=== PATIENT | female | born 1940 | race Caucasian/White ===

== ENCOUNTER 2018-11-14 14:09 | Inpatient (IN) | payer MEDICARE ==
[~2018-11-14] VITALS: Ht 165.1 cm; Wt 63.5 kg
[~2018-11-14 14:09] MED LIST: ALBU2.5V8 INH
[2018-11-14] MEDS ORDERED: methylPREDNISolone SOD SUCC PF 125 MG/2 ML VIAL. IV ONE (14:45)
[2018-11-14] MEDS ORDERED: ACETAMINOPHEN 500 MG TABLET PO ONE (14:45)
[2018-11-14] MEDS ORDERED: IV NORMAL SALINE 1000ML BAG 1,000 ML IV ONE ×2 (14:45)
[2018-11-14] MEDS ORDERED: PIPERACILLIN/TAZOBACTAM 3.375 GM in IV NORMAL SALINE 50ML 50 ML IV ONE (15:00)
[2018-11-14 15:24] LABS: BASO # 0.1 x10^3/uL (0.0-0.2); BASO % 1 % (0-3); EOS % 0 % (0-3); HEMATOCRIT 43.8 % (36.0-47.0); HEMOGLOBIN 14.4 g/dL (12.0-15.5); LYMPH # 0.6 x10^3/uL (1.0-4.8); LYMPH % 5 % (24-48); MEAN CORPUSCULAR HEMOGLOBIN 30 pg (25-35); MEAN CORPUSCULAR HGB CONC 33 g/dL (31-37); MEAN CORPUSCULAR VOLUME 91 fL (79-100); MONO # 0.7 x10^3/uL (0.0-1.1); MONO % 5 % (0-9); NEUT # 11.8 x10^3uL (1.8-7.7); NEUT % 89 % (31-73); PLATELET COUNT 150 x10^3/uL (140-400); RED BLOOD COUNT 4.82 x10^6/uL (3.50-5.40); RED CELL DISTRIBUTION WIDTH 14.2 % (11.5-14.5); WHITE BLOOD COUNT 13.3 x10^3/uL (4.0-11.0)
--- NOTE | 2018-11-14 15:26 | RAD ---
PORTABLE CHEST 1V Clinical indications: WEAK AND SHORT OF AIR COMPARISON: January 23, 2018. Findings: Chronic interstitial lung disease is seen bilaterally. However, there is a new consolidative infiltrate within the right lateral lung base. No pleural effusion or pneumothorax is seen. The heart size, pulmonary vasculature, mediastinum and both ambika are stable. Impression: Chronic interstitial lung disease. New consolidative lung infiltrate within the lateral right lung base. Electronically signed by: Bruce Ferrell MD (11/14/2018 3:23 PM) [place] [id number]
[2018-11-14 15:38] LABS: CREATININE 0.9 mg/dL (0.6-1.0); GFR 60.6; POTASSIUM 3.8 mmol/L (3.5-5.1)
[2018-11-14 15:45] LABS: ALBUMIN 3.8 g/dL (3.4-5.0); TOTAL BILIRUBIN 0.7 mg/dL (0.2-1.0); TOTAL PROTEIN 7.5 g/dL (6.4-8.2)
--- NOTE | 2018-11-14 15:48 | PHYS DOC ---
Past Medical History Past Medical History: COPD Past Surgical History: Hysterectomy Smoking: Quit Greater Than 1 Year Additional Information: quit in January Alcohol Use: Rarely Drug Use: None Adult General Chief Complaint Chief Complaint: SHORTNESS OF BREATH HPI HPI Patient is a 78 year old female history of COPD on home oxygen brought in by EMS because of shortness of breath. Patient complaining of shortness of breath since this morning with productive cough with clear sputum without chest pain, fever and chills, weakness, sick contact. EMS reported patient had hypoxia and treated with DuoNeb with improvement of O2 sat to 91-92% with nasal cannula. Review of Systems Review of Systems Constitutional: Denies fever or chills [] Eyes: Denies change in visual acuity, redness, or eye pain [] HENT: Denies nasal congestion or sore throat [] Respiratory: Reports cough and shortness of breath Cardiovascular: No additional information not addressed in HPI [] GI: Denies abdominal pain, nausea, vomiting, bloody stools or diarrhea [] : Denies dysuria or hematuria [] Musculoskeletal: Denies back pain or joint pain [] Integument: Denies rash or skin lesions [] Neurologic: Denies headache, focal weakness or sensory changes [] Endocrine: Denies polyuria or polydipsia [] All other systems were reviewed and found to be within normal limits, except as documented in this note. Current Medications Current Medications Current Medications Medications (Trade) Dose Ordered Sig/Maggy Start Time Stop Time Status Last Admin Dose Admin Acetaminophen (Tylenol) 1,000 mg 1X ONCE 11/14/18 14:45 11/14/18 14:50 DC 11/14/18 15:27 1,000 MG Methylprednisolone Sodium Succinate (SOLU-Medrol 125MG VIAL) 125 mg 1X ONCE 11/14/18 14:45 11/14/18 14:48 DC 11/14/18 15:29 125 MG Sodium Chloride 1,000 ml @ 1,000 mls/hr 1X ONCE 11/14/18 14:45 11/14/18 15:44 DC 11/14/18 15:27 1,000 MLS/HR Allergies Allergies Allergies Coded Allergies Type Severity Reaction Last Updated Verified No Known Drug Allergies 01/26/18 No Physical Exam Physical Exam Constitutional: Well developed, well nourished, moderate distress, non-toxic appearance, febrile. [] HENT: Normocephalic, atraumatic, oropharynx dry, no oral exudates, nose normal. [] Eyes: PERRLA, EOMI, conjunctiva normal, no discharge. [] Neck: Normal range of motion, no tenderness, supple, no stridor. [] Cardiovascular: Tachycardia, no murmur [] Lungs & Thorax: Mild respiratory distress with decrease of air movement and diffuse rhonchi and wheezing Abdomen: Bowel sounds normal, soft, no tenderness, no masses, no pulsatile masses. [] Skin: Warm, dry, no erythema, no rash. [] Back: No tenderness, no CVA tenderness. [] Extremities: No tenderness, no cyanosis, no clubbing, ROM intact, trace bilateral lower extremity edema. [] Neurologic: Alert and oriented X 3, normal motor function, normal sensory function, no focal deficits noted. [] Psychologic: Affect normal, judgement normal, mood normal. [] Current Patient Data Vital Signs Vital Signs Date Time Temp Pulse Resp B/P (MAP) Pulse Ox O2 Delivery O2 Flow Rate FiO2 11/14/18 14:18 102.4 123 26 151/70 (97) 91 Nasal Cannula 3.0 102.4 Lab Values EKG EKG EKG interpreted by me. EKG at 1432 showed sinus tachycardia rate of 1:30, PVCs, PACs, normal GA and QT interval worse, poor R-wave progress and anteroseptal leads. Radiology/Procedures Radiology/Procedures [facility] [address] [place] [address] IMAGING REPORT Signed PATIENT: MCKAY KHANNA ACCOUNT: [id number] : 1940 LOCATION: ER AGE: 78 SEX: F EXAM STATUS: REG ER ORD. PHYSICIAN: MARIO CACERES MD REASON: shortness of breath and fever 17/ER will call pt. getting lab and IV @ 3 :00 PROCEDURE: PORTABLE CHEST 1V PORTABLE CHEST 1V Clinical indications: WEAK AND SHORT OF AIR COMPARISON: January 23, 2018. Findings: Chronic interstitial lung disease is seen bilaterally. However, there is a new consolidative infiltrate within the right lateral lung base. No pleural effusion or pneumothorax is seen. The heart size, pulmonary vasculature, mediastinum and both ambika are stable. Impression: Chronic interstitial lung disease. New consolidative lung infiltrate within the lateral right lung base. Electronically signed by: Bruce Ferrell MD (11/14/2018 3:23 PM) [place] [id number] DICTATED and SIGNED BY: BRUCE FERRELL MD DATE: 11/14/18 1523 Course & Med Decision Making Course & Med Decision Making Pertinent Labs and Imaging studies reviewed. (See chart for details) Evaluation of patient in ER showed 78-year-old female patient with history of COPD brought in because of shortness of breath. Patient had fever of 102.9 with respiratory distress and tachycardia. Patient treated with IV fluid, antibiotic , Solu-Medrol and DuoNeb and felt better. Lactic acid was negative. Patient requiring admission for further evaluation and treatment. Discussed with Dr. Jay who is in agreement with admission. Discussed findings and plan with patient and family, who acknowledge understanding and agreement. Dragon Disclaimer Dragon Disclaimer This electronic medical record was generated, in whole or in part, using a voice recognition dictation system. Departure Departure Impression: Primary Impression: CAP (community acquired pneumonia) Additional Impressions: Acute respiratory distress Sepsis Disposition: 09 ADMITTED INPATIENT (at 1540) Admitting Physician: Jeyson Jay (accepted admission at 1540) Condition: GUARDED Referrals: UNKNOWN PCP NAME (PCP) Problem Qualifiers MARIO CACERES MD Nov 14, 2018 15:48
[2018-11-14 16:05] LABS: % BANDS 10 % (0-9); % EOS 1 % (0-5); % LYMPHS 2 % (24-48); % MONOS 5 % (0-10); % SEGS 82 % (35-66)
[2018-11-14 16:06] LABS: INFLUENZA A PATIENT NEGATIVE (NEGATIVE); INFLUENZA B PATIENT NEGATIVE (NEGATIVE)
[2018-11-14 16:07] LABS: PLT ESTIMATE ADEQUATE (ADEQUATE); TOXIC GRANULATION SLIGHT
--- NOTE | 2018-11-14 16:31 | EKG ---
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
[2018-11-14] MEDS ORDERED: ACETAMINOPHEN 325 MG TABLET. PO PRN (17:45)
[2018-11-14] MEDS ORDERED: ZOLPIDEM 5 MG TABLET. PO PRN (17:45)
[2018-11-14] MEDS ORDERED: MAG HYDROX/ALUMINUM HYD/SIMETH 30 ML ORAL.SUSP PO PRN (17:45)
[2018-11-14 18:00] VITALS: BP 129/57
[2018-11-14] MEDS ORDERED: ALBUTEROL SULFATE 2.5 MG/3 ML NEBU. NEB PRN (18:00)
[2018-11-14] MEDS ORDERED: PIP/TAZO PER PHARMACY MC PRN (18:00)
[2018-11-14] MEDS: IV NORMAL SALINE 1000ML BAG 1,000 ML IV SCH ×2 (18:00→23:55)
--- NOTE | 2018-11-14 18:04 | PDOC1 ---
History and Physical Date of Admission Date of Admission 11/14/18 Identification/Chief Complaint Chief Complaint SOA, hypoxia Source Source: Caregiver, Chart review, Patient History of Present Illness History of Present Illness She has been in her normal state of health and saw her transportation security officer last week - Dr. Danielson and told she was doing well enough to just use her O2 prn, she has a routine appt with me in a week but this am she was suddenly SOA and didn't look well and EMS summoned and she was hypoxic and transported to ER and found to be febrile and she had an elevated WBC and abnormal CXR consistent with pneumonia and admitted with sepsis and acute respiratory failure. She has received IVF, IV abx, IV steroids and neb treatments and feels much better. She denies chest pain, leg swelling, prolonged sitting, or GI or symptoms. She has had Prevnar 13. She is a former smoker but did smoke for 40+ yrs Past Medical History Cardiovascular: No pertinent hx Pulmonary: COPD GI: No pertinent hx Heme/Onc: No pertinent hx Hepatobiliary: No pertinent hx Psych: No pertinent hx, Other (OA) Infectious disease: No pertinent hx Renal/: No pertinent hx Endocrine: No pertinent hx Dermatology: No pertinent hx Past Surgical History Past Surgical History: Hysterectomy Family History Family History: Hypertension Social History Smoke: # pack years (40+ but quit about a year ago) ALCOHOL: social Drugs: None Current Problem List Problem List Problems Medical Problems: (1) Acute respiratory distress Status: Acute (2) CAP (community acquired pneumonia) Status: Acute (3) Sepsis Status: Acute Current Medications Current Medications Current Medications Medications (Trade) Dose Ordered Sig/Maggy Start Time Stop Time Status Last Admin Dose Admin Acetaminophen (Tylenol) 650 mg PRN Q6HRS PRN 11/14/18 17:45 UNV Al Hydroxide/Mg Hydroxide (Mylanta Plus Xs) 30 ml PRN Q3HRS PRN 11/14/18 17:45 UNV Methylprednisolone Sodium Succinate (SOLU-Medrol 125MG VIAL) 125 mg 1X ONCE 11/14/18 14:45 11/14/18 14:48 DC 11/14/18 15:29 125 MG Piperacillin Sod/ Tazobactam Sod 3.375 gm/Sodium Chloride 50 ml @ 100 mls/hr 1X ONCE 11/14/18 15:00 11/14/18 15:29 DC 11/14/18 15:31 100 MLS/HR Senna/Docusate Sodium (Senna Plus) 1 tab BID 11/14/18 21:00 UNV Sodium Chloride 1,000 ml @ 150 mls/hr Q6H40M 11/14/18 16:00 11/15/18 15:59 Zolpidem Tartrate (Ambien) 5 mg PRN QHS PRN 11/14/18 17:45 UNV Allergies Allergies Allergies Coded Allergies Type Severity Reaction Last Updated Verified No Known Drug Allergies 01/26/18 No ROS Review of System 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 Alert and oriented. HEENT: Head is normocephalic, atraumatic NECK: Supple. LUNGS: Wearing NC O2, Clear to auscultation. HEART: RRR, S1, S2 present. Peripheral pulses intact ABDOMEN: Soft, nontender. Positive bowel sounds. EXTREMITIES: Without any cyanosis. NEUROLOGIC: Normal speech, normal tone PSYCHIATRIC: Normal affect, normal mood. SKIN: No ulcerations Vitals Vitals Vital Signs Date Time Temp Pulse Resp B/P (MAP) Pulse Ox O2 Delivery O2 Flow Rate FiO2 11/14/18 17:08 Nasal Cannula 3.0 11/14/18 16:32 104 28 127/58 (81) 95 11/14/18 15:51 100.9 100.9 Labs Labs Laboratory Tests Test 11/14/18 15:05 White Blood Count 13.3 x10^3/uL (4.0-11.0) Red Blood Count 4.82 x10^6/uL (3.50-5.40) Hemoglobin 14.4 g/dL (12.0-15.5) Hematocrit 43.8 % (36.0-47.0) Mean Corpuscular Volume 91 fL (79-100) Mean Corpuscular Hemoglobin 30 pg (25-35) Mean Corpuscular Hemoglobin Concent 33 g/dL (31-37) Red Cell Distribution Width 14.2 % (11.5-14.5) Platelet Count 150 x10^3/uL (140-400) Neutrophils (%) (Auto) 89 % (31-73) Lymphocytes (%) (Auto) 5 % (24-48) Monocytes (%) (Auto) 5 % (0-9) Eosinophils (%) (Auto) 0 % (0-3) Basophils (%) (Auto) 1 % (0-3) Neutrophils # (Auto) 11.8 x10^3uL (1.8-7.7) Lymphocytes # (Auto) 0.6 x10^3/uL (1.0-4.8) Monocytes # (Auto) 0.7 x10^3/uL (0.0-1.1) Eosinophils # (Auto) 0.0 x10^3/uL (0.0-0.7) Basophils # (Auto) 0.1 x10^3/uL (0.0-0.2) Segmented Neutrophils % 82 % (35-66) Band Neutrophils % 10 % (0-9) Lymphocytes % 2 % (24-48) Monocytes % 5 % (0-10) Eosinophils % 1 % (0-5) Toxic Granulation Slight Platelet Estimate Adequate (ADEQUATE) Sodium Level 142 mmol/L (136-145) Potassium Level 3.8 mmol/L (3.5-5.1) Chloride Level 106 mmol/L (98-107) Carbon Dioxide Level 27 mmol/L (21-32) Anion Gap 9 (6-14) Blood Urea Nitrogen 23 mg/dL (7-20) Creatinine 0.9 mg/dL (0.6-1.0) Estimated GFR (Cockcroft-Gault) 60.6 BUN/Creatinine Ratio 26 (6-20) Glucose Level 124 mg/dL (70-99) Lactic Acid Level 1.4 mmol/L (0.4-2.0) Calcium Level 9.0 mg/dL (8.5-10.1) Total Bilirubin 0.7 mg/dL (0.2-1.0) Aspartate Amino Transf (AST/SGOT) 18 U/L (15-37) Alanine Aminotransferase (ALT/SGPT) 17 U/L (14-59) Alkaline Phosphatase 73 U/L (46-116) Creatine Kinase 88 U/L (26-192) Troponin I Quantitative < 0.017 ng/mL (0.000-0.055) WA-Efy-S-Type Natriuretic Peptide 457 pg/mL (0-449) Total Protein 7.5 g/dL (6.4-8.2) Albumin 3.8 g/dL (3.4-5.0) Albumin/Globulin Ratio 1.0 (1.0-1.7) Influenza Type A Antigen Negative (NEGATIVE) Influenza Type B Antigen Negative (NEGATIVE) Laboratory Tests Test 11/14/18 15:05 White Blood Count 13.3 x10^3/uL (4.0-11.0) Red Blood Count 4.82 x10^6/uL (3.50-5.40) Hemoglobin 14.4 g/dL (12.0-15.5) Hematocrit 43.8 % (36.0-47.0) Mean Corpuscular Volume 91 fL (79-100) Mean Corpuscular Hemoglobin 30 pg (25-35) Mean Corpuscular Hemoglobin Concent 33 g/dL (31-37) Red Cell Distribution Width 14.2 % (11.5-14.5) Platelet Count 150 x10^3/uL (140-400) Neutrophils (%) (Auto) 89 % (31-73) Lymphocytes (%) (Auto) 5 % (24-48) Monocytes (%) (Auto) 5 % (0-9) Eosinophils (%) (Auto) 0 % (0-3) Basophils (%) (Auto) 1 % (0-3) Neutrophils # (Auto) 11.8 x10^3uL (1.8-7.7) Lymphocytes # (Auto) 0.6 x10^3/uL (1.0-4.8) Monocytes # (Auto) 0.7 x10^3/uL (0.0-1.1) Eosinophils # (Auto) 0.0 x10^3/uL (0.0-0.7) Basophils # (Auto) 0.1 x10^3/uL (0.0-0.2) Segmented Neutrophils % 82 % (35-66) Band Neutrophils % 10 % (0-9) Lymphocytes % 2 % (24-48) Monocytes % 5 % (0-10) Eosinophils % 1 % (0-5) Toxic Granulation Slight Platelet Estimate Adequate (ADEQUATE) Sodium Level 142 mmol/L (136-145) Potassium Level 3.8 mmol/L (3.5-5.1) Chloride Level 106 mmol/L (98-107) Carbon Dioxide Level 27 mmol/L (21-32) Anion Gap 9 (6-14) Blood Urea Nitrogen 23 mg/dL (7-20) Creatinine 0.9 mg/dL (0.6-1.0) Estimated GFR (Cockcroft-Gault) 60.6 BUN/Creatinine Ratio 26 (6-20) Glucose Level 124 mg/dL (70-99) Lactic Acid Level 1.4 mmol/L (0.4-2.0) Calcium Level 9.0 mg/dL (8.5-10.1) Total Bilirubin 0.7 mg/dL (0.2-1.0) Aspartate Amino Transf (AST/SGOT) 18 U/L (15-37) Alanine Aminotransferase (ALT/SGPT) 17 U/L (14-59) Alkaline Phosphatase 73 U/L (46-116) Creatine Kinase 88 U/L (26-192) Troponin I Quantitative < 0.017 ng/mL (0.000-0.055) KK-Cfg-V-Type Natriuretic Peptide 457 pg/mL (0-449) Total Protein 7.5 g/dL (6.4-8.2) Albumin 3.8 g/dL (3.4-5.0) Albumin/Globulin Ratio 1.0 (1.0-1.7) Influenza Type A Antigen Negative (NEGATIVE) Influenza Type B Antigen Negative (NEGATIVE) Images Images PORTABLE CHEST 1V Clinical indications: WEAK AND SHORT OF AIR COMPARISON: January 23, 2018. Findings: Chronic interstitial lung disease is seen bilaterally. However, there is a new consolidative infiltrate within the right lateral lung base. No pleural effusion or pneumothorax is seen. The heart size, pulmonary vasculature, mediastinum and both ambika are stable. Impression: Chronic interstitial lung disease. New consolidative lung infiltrate within the lateral right lung base. Electronically signed by: Bruce Ferrell MD (11/14/2018 3:23 PM) [facility] VTE Prophylaxis Ordered VTE Prophylaxis Devices: No VTE Pharmacological Prophylaxi: Yes Assessment/Plan Assessment/Plan acute on chronic respiratory failure with hypoxia from community acquired pneumonia - admitted for pulm toilette, IV antibiotics and pulm consult. Influenza testing negative. sepsis - IV hydration COPD - neb treatments, she stopped Advair due to raspy voice but has been given samples of other inhalers in the past hx of tobacco use Lesli GONSALVES MD Nov 14, 2018 18:04
[2018-11-14 19:00] VITALS: BP 118/56
[2018-11-14] MEDS: IPRATRPIUM/ALBUTEROL 0.5/2.5MG 3 ML NEBU. NEB SCH (19:32)
[2018-11-14] MEDS: SENNOSIDES/DOCUSATE 8.6/50MG TABLET. PO SCH (20:49)
[2018-11-14] MEDS: PIPERACILLIN/TAZOBACTAM 3.375 GM in IV NORMAL SALINE 50ML 50 ML IV SCH ×2 (20:49→23:58)
[2018-11-14] MEDS: methylPREDNISolone SOD SUCC PF 40 MG/ML VIAL. IV SCH (20:49)
[2018-11-14 22:44] VITALS: BP 146/72
[2018-11-15 02:55] VITALS: BP 154/67
[2018-11-15 04:33] LABS: BASO % 0 % (0-3); EOS % 0 % (0-3); HEMATOCRIT 39.6 % (36.0-47.0); HEMOGLOBIN 12.9 g/dL (12.0-15.5); LYMPH # 0.6 x10^3/uL (1.0-4.8); LYMPH % 4 % (24-48); MEAN CORPUSCULAR HEMOGLOBIN 30 pg (25-35); MEAN CORPUSCULAR HGB CONC 33 g/dL (31-37); MEAN CORPUSCULAR VOLUME 92 fL (79-100); MONO # 0.3 x10^3/uL (0.0-1.1); MONO % 2 % (0-9); NEUT # 13.3 x10^3uL (1.8-7.7); NEUT % 94 % (31-73); PLATELET COUNT 134 x10^3/uL (140-400); RED BLOOD COUNT 4.29 x10^6/uL (3.50-5.40); WHITE BLOOD COUNT 14.2 x10^3/uL (4.0-11.0)
[2018-11-15 04:47] LABS: CALCIUM 8.1 mg/dL (8.5-10.1); GFR 53.6; POTASSIUM 3.5 mmol/L (3.5-5.1)
[2018-11-15] MEDS: IV NORMAL SALINE 1000ML BAG 1,000 ML IV SCH ×2 (05:20→10:25)
[2018-11-15] MEDS: methylPREDNISolone SOD SUCC PF 40 MG/ML VIAL. IV SCH ×3 (06:18→20:40)
[2018-11-15] MEDS: PIPERACILLIN/TAZOBACTAM 3.375 GM in IV NORMAL SALINE 50ML 50 ML IV SCH ×4 (06:19→23:32)
[2018-11-15] MEDS: IPRATRPIUM/ALBUTEROL 0.5/2.5MG 3 ML NEBU. NEB SCH ×4 (06:23→21:12)
[2018-11-15 07:10] VITALS: BP 116/77
--- NOTE | 2018-11-15 07:30 | PDOC ---
Provider Note Provider Note [id number] acute on chronic resp fail ae of copd pneumonia see orders. RICHARDSON DAHL MD Nov 15, 2018 07:30
[2018-11-15] MEDS: ENOXAPARIN 40 MG/0.4 ML SYRINGE. SQ SCH (08:14)
[2018-11-15] MEDS: PANTOPRAZOLE 40 MG TABLET.DR. PO SCH (08:14)
[2018-11-15] MEDS: SENNOSIDES/DOCUSATE 8.6/50MG TABLET. PO SCH ×3 (08:14→20:39)
--- NOTE | 2018-11-15 08:30 | CONS ---
DATE OF CONSULTATION: 11/15/2018 I was asked to see this 78-year-old lady for acute on chronic respiratory failure, pneumonia, acute exacerbation of chronic obstructive pulmonary disease. HISTORY OF PRESENT ILLNESS: She has a history of more than [id number] smoking and is on oxygen 2 liters per minute via nasal cannula. She has been followed by Dr. Danielson. She started to have increased shortness of breath, fever and wheezing yesterday. She did not have cough then, but has cough now. She denies gastroesophageal reflux symptoms, nausea or diarrhea. She has nasal congestion. She was brought to the Emergency Room via masks. She was hypoxemic on arrival. PAST MEDICAL HISTORY: COPD and chronic respiratory failure. PAST SURGICAL HISTORY: Status post hysterectomy. ALLERGIES: No known drug allergies. MEDICATIONS: Currently, she is on Solu-Medrol 40 mg IV every 8, DuoNeb and Zosyn. SOCIAL HISTORY: History of more than [id number] smoking. Quit smoking about a year ago. FAMILY HISTORY: There is no history of lung disease. REVIEW OF SYSTEMS: As mentioned as above, other systems otherwise negative. PHYSICAL EXAMINATION: GENERAL: This is a well-developed lady. VITAL SIGNS: O2 saturation on 3 liters of oxygen is 98%, respiratory rate 20, heart rate 77, blood pressure 154/67, temperature 98.2 and maximum temperature was 102.4 yesterday. HEENT: Normocephalic and atraumatic. Pupils are equal, round and reactive to light. There is shallow oropharynx. Nose is clear. NECK: There is no lymphadenopathy or thyromegaly. CARDIOVASCULAR: Regular rate and rhythm. Distant heart sounds. CHEST: Inspection is normal. LUNGS: There are a few end expiratory wheezing, right basilar crackles, dullness at the right base. ABDOMEN: Soft. Bowel sounds are good. EXTREMITIES: There is no edema. LYMPHATICS: There is no lymphadenopathy. NEUROLOGIC: Alert and oriented. SKIN: Chronic changes. LABORATORY DATA: I reviewed the following lab data: Chest x-ray shows increased interstitial marking and the right lower lobe infiltrate. Influenza A and B negative. WBC 14.2, hemoglobin 12.9 and platelets 134. Sodium 145, potassium 3.5, chloride 109, CO2 23, glucose 172, BUN 19 and creatinine 1. Troponin is less than 0.01. BNP 457. Lactic acid 1.4. IMPRESSION: 1. Acute on chronic respiratory failure secondary to acute exacerbation of chronic obstructive pulmonary disease, pneumonia versus others. 2. Abnormal chest x-ray. 3. Acute exacerbation of chronic obstructive pulmonary disease. 4. Pneumonia. 5. Ex-smoker. PLAN AND RECOMMENDATIONS: 1. Continue not smoking. 2. Continue Solu-Medrol. 3. Continue bronchodilator. 4. Add inhaled corticosteroid. 5. Lovenox for DVT prophylaxis. 6. Protonix for stress ulcer prophylaxis. 7. Monitor respiratory status very closely. 8. The findings and recommendations were discussed with the patient. She understood and agreed to proceed with the plan. I have answered all of her questions. Thank you very much for allowing me to participate in the care of this very nice lady. RICHARDSON DAHL M.D. : Jg JOB#: [id number] / [id number]
[2018-11-15] MEDS: BUDESONIDE 0.5 MG/2 ML NEBU. NEB SCH ×2 (10:56→21:12)
[2018-11-15 11:30] VITALS: BP 119/56
--- NOTE | 2018-11-15 12:59 | PDOC ---
PROGRESS NOTES Subjective She has been able to cough up some grayish green thick phlegm today, no new concerns, appetite ok, bowels moving, IV site in elbow yesterday caused overnight issues with sleep but it has been changed to hand site Objective General: A&O, coughing Heart: RRR Lungs: coarse breath sounds Abd: obese soft Ext: no C/C/E, thickened toenails, skin scaly WBC: 14 Vital Signs Vital Signs Date Time Temp Pulse Resp B/P (MAP) Pulse Ox O2 Delivery O2 Flow Rate FiO2 11/15/18 11:30 97.6 99 24 119/56 (77) 91 Nasal Cannula 3.0 97.6 I & O Intake and Output 11/15/18 06:59 Intake Total 2350 ml Output Total 0 ml Balance 2350 ml Intake Oral 300 ml IV Total 2050 ml Output Urine Total 0 ml Assessment and Plan (1) Acute respiratory failure- continue O2 and pulm treatments, add Mucinex Status: Acute (2) CAP (community acquired pneumonia) with sepsis - continue Zosyn Status: Acute (3) COPD - continue neb treatments - she is a former smoker Status: Acute Lesli GONSALVES MD Nov 15, 2018 12:59
--- NOTE | 2018-11-15 13:10 | RAD ---
Chest radiograph 11/15/2018 5:00 AM INDICATION: Infiltrates COMPARISON: November 14, 2018 TECHNIQUE: Portable upright frontal view of the chest is provided. FINDINGS: The cardiomediastinal silhouette is within normal limits. Suspect trace right pleural effusion without significant change. There is no pulmonary vascular congestion. There is no pneumothorax. Perihilar and bibasilar interstitial changes are similar compared to prior examination. Impression: There is similar aeration of lungs compared to prior examination. Electronically signed by: Kay Donnelly MD (11/15/2018 1:07 PM) [id number]
--- NOTE | 2018-11-15 13:31 | NUR ---
SW following pt for dc needs. Chart reviewed. Pt lives home alone. PT/OT pending. SW will await for PT/OT recommendation to assess dc needs.
[2018-11-15] MEDS: guaiFENesin DM 600/30MG 1 TAB TAB.ER.12H PO SCH ×2 (14:04→20:39)
[2018-11-15 15:00] VITALS: BP 141/87
[2018-11-15 19:00] VITALS: BP 140/68
[2018-11-15] MEDS: DOXYCYCLINE HYCLATE 100 MG TABLET PO SCH (20:39)
[2018-11-15] MEDS: LACTOBACILLUS RHAMNOSUS GG 1 CAPSULE. PO SCH (20:39)
[2018-11-15 22:16] VITALS: BP 150/72
[2018-11-16] VITALS (7 sets, daily range): BP systolic 141–172; BP diastolic 68–90
[2018-11-16] MEDS: methylPREDNISolone SOD SUCC PF 40 MG/ML VIAL. IV SCH ×3 (05:41→21:21)
[2018-11-16] MEDS: PIPERACILLIN/TAZOBACTAM 3.375 GM in IV NORMAL SALINE 50ML 50 ML IV SCH ×3 (05:49→18:13)
[2018-11-16] MEDS ORDERED: FUROSEMIDE 20 MG/2 ML VIAL. IVP ONE ×2 (06:00→10:15)
[2018-11-16] MEDS ORDERED: methylPREDNISolone SOD SUCC PF 40 MG/ML VIAL. IV ONE (06:00)
--- NOTE | 2018-11-16 06:22 | RAD ---
EXAM: AP View of the chest DATE: 11/16/2018 5:17 AM INDICATION: Hypoxia COMPARISON: 11/15/2018 FINDINGS: Mild cardiomegaly. Atherosclerotic calcifications of the tortuous aorta are seen. Background of emphysematous change. Bilateral parenchymal airspace opacities are seen, increased compared to 11/15/2018. Small bilateral pleural effusions. No pneumothorax. IMPRESSION: 1. Background of emphysematous change. 2. Superimposed bilateral airspace opacities, new/progressed compared to 11/15/2018. Given the relative rapid development, findings may represent superimposed pulmonary edema or consolidative process such as pneumonia. Electronically signed by: Reid Min MD (11/16/2018 6:19 AM) [id number]
[2018-11-16 06:37] LABS: BASE EXCESS ABG -2 mmol/L (-3-3); HCO3 ABG 23 mmol/L (21-28); PCO2 ABG 40 mmHg (35-46); PO2 ABG 71 mmHg (65-108); SAT O2 ABG 95 % (92-99)
[2018-11-16 06:42] LABS: FIO2 ABG 80
[2018-11-16] MEDS: BUDESONIDE 0.5 MG/2 ML NEBU. NEB SCH ×2 (07:29→20:35)
[2018-11-16] MEDS: IPRATRPIUM/ALBUTEROL 0.5/2.5MG 3 ML NEBU. NEB SCH ×4 (07:29→20:35)
--- NOTE | 2018-11-16 07:32 | PDOC ---
PULMONARY PROGRESS NOTES Subjective around 5 am, desat in 70s, i started her on bipap, lasix, solumedrol given, now on bipap, 07/13 rr 10 fio2, 80%, sat 98%, feels better, sob better, has cough Vitals Vital Signs Date Time Temp Pulse Resp B/P (MAP) Pulse Ox O2 Delivery O2 Flow Rate FiO2 11/16/18 05:20 92 BiPAP/CPAP 11/16/18 05:05 3.0 11/16/18 03:00 98.1 92 18 141/74 (96) 98.1 Comments ros as mentioned as above other sys otherwise neg ROS: No Nausea, No Chest Pain General: Alert, Oriented X4 HEENT: Other (nc at perrl thorat nose clear neck +jvd no lad no thyromegaly) Lungs: Wheezing, Crackles Cardiovascular: S1, S2 Abdomen: Soft, Non-tender Neuro Exam: Alert, Oriented Extremities: Other (+edema) Skin: Warm Labs Laboratory Tests Test 11/14/18 15:05 11/15/18 03:35 11/16/18 06:30 White Blood Count 13.3 x10^3/uL (4.0-11.0) 14.2 x10^3/uL (4.0-11.0) Red Blood Count 4.82 x10^6/uL (3.50-5.40) 4.29 x10^6/uL (3.50-5.40) Hemoglobin 14.4 g/dL (12.0-15.5) 12.9 g/dL (12.0-15.5) Hematocrit 43.8 % (36.0-47.0) 39.6 % (36.0-47.0) Mean Corpuscular Volume 91 fL (79-100) 92 fL (79-100) Mean Corpuscular Hemoglobin 30 pg (25-35) 30 pg (25-35) Mean Corpuscular Hemoglobin Concent 33 g/dL (31-37) 33 g/dL (31-37) Red Cell Distribution Width 14.2 % (11.5-14.5) 14.0 % (11.5-14.5) Platelet Count 150 x10^3/uL (140-400) 134 x10^3/uL (140-400) Neutrophils (%) (Auto) 89 % (31-73) 94 % (31-73) Lymphocytes (%) (Auto) 5 % (24-48) 4 % (24-48) Monocytes (%) (Auto) 5 % (0-9) 2 % (0-9) Eosinophils (%) (Auto) 0 % (0-3) 0 % (0-3) Basophils (%) (Auto) 1 % (0-3) 0 % (0-3) Neutrophils # (Auto) 11.8 x10^3uL (1.8-7.7) 13.3 x10^3uL (1.8-7.7) Lymphocytes # (Auto) 0.6 x10^3/uL (1.0-4.8) 0.6 x10^3/uL (1.0-4.8) Monocytes # (Auto) 0.7 x10^3/uL (0.0-1.1) 0.3 x10^3/uL (0.0-1.1) Eosinophils # (Auto) 0.0 x10^3/uL (0.0-0.7) 0.0 x10^3/uL (0.0-0.7) Basophils # (Auto) 0.1 x10^3/uL (0.0-0.2) 0.0 x10^3/uL (0.0-0.2) Segmented Neutrophils % 82 % (35-66) Band Neutrophils % 10 % (0-9) Lymphocytes % 2 % (24-48) Monocytes % 5 % (0-10) Eosinophils % 1 % (0-5) Toxic Granulation Slight Platelet Estimate Adequate (ADEQUATE) Sodium Level 142 mmol/L (136-145) 145 mmol/L (136-145) Potassium Level 3.8 mmol/L (3.5-5.1) 3.5 mmol/L (3.5-5.1) Chloride Level 106 mmol/L (98-107) 109 mmol/L (98-107) Carbon Dioxide Level 27 mmol/L (21-32) 23 mmol/L (21-32) Anion Gap 9 (6-14) 13 (6-14) Blood Urea Nitrogen 23 mg/dL (7-20) 19 mg/dL (7-20) Creatinine 0.9 mg/dL (0.6-1.0) 1.0 mg/dL (0.6-1.0) Estimated GFR (Cockcroft-Gault) 60.6 53.6 BUN/Creatinine Ratio 26 (6-20) Glucose Level 124 mg/dL (70-99) 172 mg/dL (70-99) Lactic Acid Level 1.4 mmol/L (0.4-2.0) Calcium Level 9.0 mg/dL (8.5-10.1) 8.1 mg/dL (8.5-10.1) Total Bilirubin 0.7 mg/dL (0.2-1.0) Aspartate Amino Transf (AST/SGOT) 18 U/L (15-37) Alanine Aminotransferase (ALT/SGPT) 17 U/L (14-59) Alkaline Phosphatase 73 U/L (46-116) Creatine Kinase 88 U/L (26-192) Troponin I Quantitative < 0.017 ng/mL (0.000-0.055) LN-Mfi-W-Type Natriuretic Peptide 457 pg/mL (0-449) Total Protein 7.5 g/dL (6.4-8.2) Albumin 3.8 g/dL (3.4-5.0) Albumin/Globulin Ratio 1.0 (1.0-1.7) Influenza Type A Antigen Negative (NEGATIVE) Influenza Type B Antigen Negative (NEGATIVE) O2 Saturation 95 % (92-99) Arterial Blood pH 7.37 (7.35-7.45) Arterial Blood pCO2 at Patient Temp 40 mmHg (35-46) Arterial Blood pO2 at Patient Temp 71 mmHg (65-108) Arterial Blood HCO3 23 mmol/L (21-28) Arterial Blood Base Excess -2 mmol/L (-3-3) FiO2 80 Laboratory Tests Test 11/16/18 06:30 O2 Saturation 95 % (92-99) Arterial Blood pH 7.37 (7.35-7.45) Arterial Blood pCO2 at Patient Temp 40 mmHg (35-46) Arterial Blood pO2 at Patient Temp 71 mmHg (65-108) Arterial Blood HCO3 23 mmol/L (21-28) Arterial Blood Base Excess -2 mmol/L (-3-3) FiO2 80 Medications Active Scripts Medications Dose Route/Sig Max Daily Dose Days Date Category Proair Hfa Inhaler (Albuterol Sulfate) 8.5 Gm Hfa.aer.ad 1 Puff INH PRN Q6HRS PRN 01/26/18 Reported Comments cxr reviewed, b lat infilt worse on ll area Impression . IMPRESSION: 1. Acute on chronic respiratory failure secondary to acute exacerbation of chronic obstructive pulmonary disease, pneumonia, ?pulm edema versus others. 2. Abnormal chest x-ray. 3. Acute exacerbation of chronic obstructive pulmonary disease. 4. Pneumonia. 5. Ex-smoker. Plan . PLAN AND RECOMMENDATIONS: 1. worse, s/p solumedrol, lasix, cont bipap, when stable prn during day, continuously at night, setting reviewed, abg, reviewed, titrate fio2 to keep sat 92% 2. Continue Solu-Medrol, no dose change 3. Continue bronchodilator. 4. inhaled corticosteroid. 5. Lovenox for DVT prophylaxis. 6. Protonix for stress ulcer prophylaxis. 7. Monitor respiratory status very closely. 8. Continue not smoking. 9. bnp elevated, ? pulm edema, will do echo 10. cont abx discussed w rn, pt RICHARDSON DAHL MD Nov 16, 2018 07:32
--- NOTE | 2018-11-16 10:39 | PDOC ---
PROGRESS NOTES Subjective She woke up about 5 am due to dyspnea (orthopneic) and Dr. Scruggs was notified and she ordered a CXR, ABG, and gave her 20 mg of IV lasix and placed her on Bipap and she improved. pH was 7.37, CXR consistent with CHF, she diuresed some and is no longer SOA but when recently taken off Bipap she desaturated to 87%. Chart states IVF she was on initially for sepsis protocol were stopped yesterday but pt says they were stopped this am. I was not made aware of any of this at the time only to discover pt on Bipap with family members in room with a lot of questions. Pt denies any chest pain this am or overnight and does not have a cardiac history Objective Afebrile General: comfortable, not panicky, wearing Bipap, A&O Heart: RRR Lungs: clear anteriorly Abd: soft, non tender Ext: trace edema of feet WBC: 14.2 AB.37/40/71 Vital Signs Vital Signs Date Time Temp Pulse Resp B/P (MAP) Pulse Ox O2 Delivery O2 Flow Rate FiO2 11/16/18 07:29 98 BiPAP/CPAP 11/16/18 07:25 97.9 92 17 141/68 (92) 3.0 97.9 I & O Intake and Output 11/16/18 07:00 Intake Total 900 ml Output Total 2 ml Balance 898 ml Intake Oral 850 ml IV Total 50 ml Output Urine Total 2 ml # Voids 1 Assessment and Plan acute on chronic respiratory failure with hypoxia from community acquired pneumonia - admitted for pulm toilette, IV antibiotics and pulm consult. Influenza testing negative. 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
[2018-11-16] MEDS: SENNOSIDES/DOCUSATE 8.6/50MG TABLET. PO SCH ×2 (10:55→20:56)
[2018-11-16] MEDS: DOXYCYCLINE HYCLATE 100 MG TABLET PO SCH ×2 (10:55→20:57)
[2018-11-16] MEDS: LACTOBACILLUS RHAMNOSUS GG 1 CAPSULE. PO SCH ×2 (10:55→20:56)
[2018-11-16] MEDS: guaiFENesin DM 600/30MG 1 TAB TAB.ER.12H PO SCH ×2 (10:55→20:56)
[2018-11-16] MEDS: PANTOPRAZOLE 40 MG TABLET.DR. PO SCH (10:56)
[2018-11-16] MEDS: ENOXAPARIN 40 MG/0.4 ML SYRINGE. SQ SCH (10:57)
--- NOTE | 2018-11-16 11:52 | NUR ---
FACULTY CO-SIGN I have reviewed the documentation by Seng Nunes nursing center tutor, [facility]: Addendum: 11/16/18 at 1152 by SATHISH BURTON RN Amended: Links added.
--- NOTE | 2018-11-16 13:00 | EKG ---
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
--- NOTE | 2018-11-16 13:11 | PDOC2 ---
CARDIOLOGY CONSULT NOTE CHEIF COMPLAINT: Shortness of air HPI: 78-year-old woman admitted initially for pneumonia and treated for such with aggressive fluids and antibiotics for sepsis protocol. In this setting she had an episode of shortness of breath this morning requiring initiation above noninvasive ventilation. Yash Chen was asked to comment on her reason for dyspnea. At baseline patient is quite limited due to her severe COPD and prior history of tobacco abuse. She does not have any angina. Currently she is on a BiPAP mask and denies any chest pain. No significant palpitations, syncope at home. No orthopnea or PND. She does not have any significant lower extremity edema according to her family. PMHX: #1 COPD 2. Hypertension 3. Pulmonary hypertension 4. Moderate aortic insufficiency. SOCHX: Quit smoking one year ago. No alcohol or illicit drug use. She lives with her . FAMHX: Noncontributory CURRENT MEDS: Current Medications Medications (Trade) Dose Ordered Sig/Maggy Start Time Stop Time Status Last Admin Dose Admin Acetaminophen (Tylenol) 650 mg PRN Q6HRS PRN 11/14/18 17:45 Al Hydroxide/Mg Hydroxide (Mylanta Plus Xs) 30 ml PRN Q3HRS PRN 11/14/18 17:45 Albuterol Sulfate (Ventolin Neb Soln) 2.5 mg PRN Q4HRS PRN 11/14/18 18:00 Albuterol/ Ipratropium (Duoneb) 3 ml RTQID 11/14/18 20:00 11/16/18 11:22 3 ML Budesonide (Pulmicort) 0.5 mg RTBID 11/15/18 08:00 11/16/18 07:29 0.5 MG Doxycycline Hyclate (Vibra-Tab) 100 mg BID 11/15/18 21:00 11/16/18 10:55 100 MG Enoxaparin Sodium (Lovenox 40mg Syringe) 40 mg Q24H 11/15/18 08:00 11/16/18 10:57 40 MG Furosemide (Lasix) 20 mg 1X ONCE 11/16/18 10:15 11/16/18 10:25 DC 11/16/18 10:55 20 MG Guaifenesin (MUCINEX ER with DM) 1 tab BID 11/15/18 13:00 11/16/18 10:55 1 TAB Lactobacillus Rhamnosus (Culturelle) 1 cap BID 11/15/18 21:00 11/16/18 10:55 1 CAP Methylprednisolone Sodium Succinate (SOLU-Medrol 40MG VIAL) 80 mg 1X ONCE 11/16/18 06:00 11/16/18 06:01 DC 11/16/18 05:37 80 MG Methylprednisolone Sodium Succinate (SOLU-Medrol 125MG VIAL) 125 mg 1X ONCE 11/14/18 14:45 11/14/18 14:48 DC 11/14/18 15:29 125 MG Pantoprazole Sodium (Protonix) 40 mg DAILYAC 11/15/18 07:30 11/16/18 10:56 40 MG Piperacillin Sod/ Tazobactam Sod (Zosyn Per Pharmacy) 1 each PRN DAILY PRN 11/14/18 18:00 Piperacillin Sod/ Tazobactam Sod 3.375 gm/Sodium Chloride 50 ml @ 100 mls/hr Q6HRS 11/14/18 19:00 11/16/18 05:49 100 MLS/HR Senna/Docusate Sodium (Senna Plus) 1 tab BID 11/14/18 21:00 11/16/18 10:55 1 TAB Sodium Chloride 1,000 ml @ 150 mls/hr Q6H40M 11/14/18 16:00 11/15/18 15:59 DC 11/15/18 10:25 150 MLS/HR Zolpidem Tartrate (Ambien) 5 mg PRN QHS PRN 11/14/18 17:45 ALLERGIES: Allergies Coded Allergies Type Severity Reaction Last Updated Verified No Known Drug Allergies 01/26/18 No ROS: Negative for 10 out of 14 systems reviewed unless otherwise mentioned above in history of present illness PHYSICAL EXAM: Vital Signs: Vital Signs Date Time Temp Pulse Resp B/P (MAP) Pulse Ox O2 Delivery O2 Flow Rate FiO2 11/16/18 13:01 93 BiPAP/CPAP 11/16/18 11:38 97.8 102 18 153/77 (102) 3.0 97.8 I & O Intake and Output 11/16/18 07:00 Intake Total 900 ml Output Total 2 ml Balance 898 ml Intake Oral 850 ml IV Total 50 ml Output Urine Total 2 ml # Voids 1 Physical Exam: On examination she is an elderly woman appearing older than stated age Heart tones are within normal limits with no significant murmurs noted Decreased breath sounds bilaterally at the bases. Soft abdomen Trace lower ext edema bilaterally with chronic venous stasis changes Neurologically no focal deficits Muscular skeletal no obvious trauma. DIAGNOSTIC TESTING: Previous echo with moderate pulmonary hypertension and moderate aortic insufficiency. Approximately a year ago. BNP mildly elevated at 457 consistent with diastolic heart failure acute on chronic Lab ABG consistent with hypoxic respiratory failure Chest x-ray notable for increased pulmonary edema ASSESSMENT: 1. Acute on chronic diastolic heart failure with acute on chronic respiratory failure 2. Chronic tobacco abuse, quit one year ago 3. Probable pneumonia PLAN: 1. Agree with diuresis. 2. The etiology of her decomposition is likely diastolic heart failure and probable moderate pulmonary hypertension. Continue treatment for her pneumonia and diuresis as renal function allows. 3. We will obtain echocardiogram ensure no significant changes to her valvular pathology although by exam it appears to be stable Supportive care from a cardiac standpoint. Thank you for this consultation. We will follow along. DEMI DUNCAN MD Nov 16, 2018 13:11
[2018-11-17] MEDS: PIPERACILLIN/TAZOBACTAM 3.375 GM in IV NORMAL SALINE 50ML 50 ML IV SCH ×4 (00:08→18:05)
[2018-11-17 03:15] VITALS: BP 164/86
[2018-11-17] MEDS: methylPREDNISolone SOD SUCC PF 40 MG/ML VIAL. IV SCH ×2 (06:17→20:24)
--- NOTE | 2018-11-17 07:43 | PDOC ---
PULMONARY PROGRESS NOTES Subjective on bipap, sob cough better, no pain Vitals Vital Signs Date Time Temp Pulse Resp B/P (MAP) Pulse Ox O2 Delivery O2 Flow Rate FiO2 11/17/18 05:20 BiPAP/CPAP 11/17/18 03:15 97.5 75 16 164/86 (112) 95 97.5 11/16/18 19:15 6.0 Comments ros as mentioned as above other sys otherwise neg ROS: No Nausea, No Chest Pain General: Alert, Oriented X4 HEENT: Other (nc at perrl thorat nose clear neck +jvd no lad no thyromegaly) Lungs: Crackles Cardiovascular: S1, S2 Abdomen: Soft, Non-tender Neuro Exam: Alert, Oriented Extremities: Other (+edema) Skin: Warm Labs Laboratory Tests Test 11/16/18 06:30 11/16/18 12:10 11/16/18 19:30 O2 Saturation 95 % (92-99) Arterial Blood pH 7.37 (7.35-7.45) Arterial Blood pCO2 at Patient Temp 40 mmHg (35-46) Arterial Blood pO2 at Patient Temp 71 mmHg (65-108) Arterial Blood HCO3 23 mmol/L (21-28) Arterial Blood Base Excess -2 mmol/L (-3-3) FiO2 80 Troponin I Quantitative 0.026 ng/mL (0.000-0.055) 0.034 ng/mL (0.000-0.055) ZD-Jly-U-Type Natriuretic Peptide 4082 pg/mL (0-449) Laboratory Tests Test 11/16/18 12:10 11/16/18 19:30 Troponin I Quantitative 0.026 ng/mL (0.000-0.055) 0.034 ng/mL (0.000-0.055) ZO-Iqk-M-Type Natriuretic Peptide 4082 pg/mL (0-449) Medications Active Scripts Medications Dose Route/Sig Max Daily Dose Days Date Category Proair Hfa Inhaler (Albuterol Sulfate) 8.5 Gm Hfa.aer.ad 1 Puff INH PRN Q6HRS PRN 01/26/18 Reported Comments cxr reviewed, b lat infilt worse on ll area Impression . IMPRESSION: 1. Acute on chronic respiratory failure secondary to acute exacerbation of chronic obstructive pulmonary disease, pneumonia, acute diastolic chf, versus others. 2. Abnormal chest x-ray. 3. Acute exacerbation of chronic obstructive pulmonary disease. 4. Pneumonia. 5. Ex-smoker. 6. mod AI Plan . PLAN AND RECOMMENDATIONS: 1. cont bipap, prn during day, continuously at night, setting reviewed, titrate fio2 to keep sat 92% 2. change Solu-Medrol to bid 3. Continue bronchodilator. 4. inhaled corticosteroid. 5. Lovenox for DVT prophylaxis. 6. Protonix for stress ulcer prophylaxis. 7. Monitor respiratory status very closely. 8. Continue not smoking. 9. keep I<O, lasix per cardiology 10. cont abx discussed w rn, pt RICHARDSON DAHL MD Nov 17, 2018 07:43
[2018-11-17 07:46] VITALS: BP 169/80
[2018-11-17] MEDS: SENNOSIDES/DOCUSATE 8.6/50MG TABLET. PO SCH ×2 (09:00→20:23)
[2018-11-17] MEDS: IPRATRPIUM/ALBUTEROL 0.5/2.5MG 3 ML NEBU. NEB SCH ×4 (09:00→19:44)
[2018-11-17] MEDS: BUDESONIDE 0.5 MG/2 ML NEBU. NEB SCH ×2 (09:01→19:44)
[2018-11-17 11:24] VITALS: BP 137/75
[2018-11-17] MEDS: ENOXAPARIN 40 MG/0.4 ML SYRINGE. SQ SCH (11:24)
[2018-11-17] MEDS: DOXYCYCLINE HYCLATE 100 MG TABLET PO SCH ×2 (11:24→20:22)
[2018-11-17] MEDS: PANTOPRAZOLE 40 MG TABLET.DR. PO SCH (11:24)
[2018-11-17] MEDS: guaiFENesin DM 600/30MG 1 TAB TAB.ER.12H PO SCH ×2 (11:25→20:22)
[2018-11-17] MEDS: LACTOBACILLUS RHAMNOSUS GG 1 CAPSULE. PO SCH ×2 (11:25→20:22)
--- NOTE | 2018-11-17 12:46 | PDOC ---
PROGRESS NOTES Subjective Still needing Bipap, had some blood in sputum, she is worried she has lung cancer but imaging studies have not been consistent with that, no chest pain, appetite good, slept well last night. Lab yesterday showed 10 fold increase in proBNP than at admission and mild elevation of troponin consistent with demand ischemia Objective Afebrile General: Bipap off for her to eat lunch, breathing comfortably Heart: RRR Lungs: diminished breath sounds Abd: soft and non tender Ext: no C/C/E Vital Signs Vital Signs Date Time Temp Pulse Resp B/P (MAP) Pulse Ox O2 Delivery O2 Flow Rate FiO2 11/17/18 11:56 91 Nasal Cannula 3.0 11/17/18 11:24 98.9 103 17 137/75 (95) 98.9 I & O Intake and Output 11/17/18 07:00 Intake Total 1250 ml Balance 1250 ml Intake Oral 1250 ml # Voids 2 Assessment and Plan s: (1) Acute respiratory distress Status: Acute (2) CAP (community acquired pneumonia) Status: Acute (3) Sepsis Status: Acute acute on chronic respiratory failure with hypoxia from community acquired pneumonia - admitted for pulm toilette, IV antibiotics and pulm consult. Influenza testing negative. 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
[2018-11-17 15:20] VITALS: BP 156/77
[2018-11-17 19:15] VITALS: BP 165/91
[2018-11-17] MEDS ORDERED: FUROSEMIDE 40 MG/4 ML VIAL. IVP ONE (19:15)
[2018-11-17 23:20] VITALS: BP 155/78
[2018-11-18] VITALS (7 sets, daily range): BP systolic 111–183; BP diastolic 68–92
[2018-11-18] MEDS: PIPERACILLIN/TAZOBACTAM 3.375 GM in IV NORMAL SALINE 50ML 50 ML IV SCH ×4 (00:20→18:12)
[2018-11-18] MEDS: IPRATRPIUM/ALBUTEROL 0.5/2.5MG 3 ML NEBU. NEB SCH ×4 (07:02→19:53)
[2018-11-18] MEDS: BUDESONIDE 0.5 MG/2 ML NEBU. NEB SCH ×2 (07:03→19:53)
[2018-11-18] MEDS: LACTOBACILLUS RHAMNOSUS GG 1 CAPSULE. PO SCH ×2 (07:59→20:31)
[2018-11-18] MEDS: DOXYCYCLINE HYCLATE 100 MG TABLET PO SCH ×2 (07:59→20:31)
[2018-11-18] MEDS: SENNOSIDES/DOCUSATE 8.6/50MG TABLET. PO SCH ×2 (07:59→20:31)
[2018-11-18] MEDS: PANTOPRAZOLE 40 MG TABLET.DR. PO SCH (07:59)
[2018-11-18] MEDS: FUROSEMIDE 40 MG/4 ML VIAL. IVP SCH ×2 (08:00→14:44)
[2018-11-18] MEDS: methylPREDNISolone SOD SUCC PF 40 MG/ML VIAL. IV SCH ×2 (08:01→20:31)
[2018-11-18] MEDS: ENOXAPARIN 40 MG/0.4 ML SYRINGE. SQ SCH (08:01)
--- NOTE | 2018-11-18 08:52 | NUR ---
SW following pt. PT/OT has been on hold for medical reasons. Will continue to follow.
--- NOTE | 2018-11-18 09:12 | CARD ---
MR#: [id number] Date of Study: 11/18/2018 Ordering Physician: Tank GONSALEVS, Referring Physician: Tank GONSALVES Tech: Sarah Bermudez RDCS APPROVED REPORT EXAM: Two-dimensional and M-mode echocardiogram with Doppler and color Doppler. Other Information Quality : Fair INDICATION COPD Congestive Heart Failure 2D DIMENSIONS RVDd2.3 (2.9-3.5cm)Left Atrium(2D)3.7 (1.6-4.0cm) IVSd0.9 (0.7-1.1cm)Aortic Root(2D)2.7 (2.0-3.7cm) LVDd5.0 (3.9-5.9cm)LVOT Diameter2.0 (1.8-2.4cm) PWd0.9 (0.7-1.1cm)LVDs3.1 (2.5-4.0cm) FS (%) 30.0 %SV78.7 ml LVEF(%)60.0 (>50%) Aortic Valve AoV Peak Mono.143.3cm/sAoV VTI26.1cm AO Peak GR.8.2mmHgLVOT Peak Mono.115.2cm/s AO Mean GR.4mmHgAVA (VMAX)2.50cm2 RAJI (VTI)2.07mw7VY P 1/2 Ldwi324vc Mitral Valve MV E Pbnlmfnd405.4cm/sMV DECEL MOKW86ml MV A Iurkoavc044.1cm/sE/A Ratio0.9 Tricuspid Valve TR P. Spzmphdg234zx/sRAP RUGGBNVY9iqHt TR Peak Gr.59alSgCKER61cqXn Pulmonary Vein S1 Utfujkds74.3cm/sD2 Nkowrtuq59.8cm/s LEFT VENTRICLE The left ventricle is normal size. There is normal left ventricular wall thickness. The left ventricu lar systolic function is low normal. EF 45-50%. There is mild global hypokinesis. Transmitral Doppler flow pattern is Grade I-abnormal relaxation pattern. RIGHT VENTRICLE The right ventricle is normal size. The right ventricular systolic function is normal. ATRIA The left atrium is mildly dilated. The right atrium size is normal. The interatrial septum is intact with no evidence for an atrial septal defect or patent foramen ovale as noted on 2-D or Doppler imagi ng. AORTIC VALVE The aortic valve is not well visualized. Doppler and Color Flow revealed mild to moderate aortic regu rgitation. There is no significant aortic valvular stenosis. MITRAL VALVE The mitral valve is calcified but opens well. There is no evidence of mitral valve prolapse. There is no mitral valve stenosis. Doppler and Color-flow revealed mild mitral regurgitation. TRICUSPID VALVE The tricuspid valve is normal in structure and function. Doppler and Color Flow revealed mild tricusp id regurgitation. There is moderate pulmonary hypertension. The PA pressure was estimated at 58 mmHg. There is no tricuspid valve stenosis. PULMONIC VALVE The pulmonic valve is not well visualized. Doppler and Color Flow revealed no pulmonic valvular regur gitation. There is no pulmonic valvular stenosis. GREAT VESSELS The aortic root is normal in size. The ascending aorta is normal in size. The IVC is normal in size a nd collapses <50% with inspiration. PERICARDIAL EFFUSION There is no evidence of significant pericardial effusion. Critical Notification Critical Value: No <Conclusion> The left ventricular systolic function is low normal. EF 45-50%. There is mild global hypokinesis. Doppler and Color Flow revealed mild to moderate aortic regurgitation. Doppler and Color Flow revealed mild tricuspid regurgitation. There is moderate pulmonary hypertensio n. The PA pressure was estimated at 58 mmHg. Signed by : Rodolfo Hudson, Electronically Approved : 11/18/2018 09:11:40
--- NOTE | 2018-11-18 11:00 | NUR ---
GIACOMO following pt. Per pt and daughter request, SW assisted pt with AD form. Pt completed and signed AD form. Pt provided with original notarized AD and copies to take home. A copy placed in pt's chart. Pt and daughter are interested in addressing code status. OLY RN about consulting Palliative care to address code status. Pt has home 02 but does not have bipap at home. RN reports pt has been using Bipap at night. Rx for Bipap needed if pt will need equipment at home.
[2018-11-18] MEDS: guaiFENesin DM 600/30MG 1 TAB TAB.ER.12H PO SCH ×2 (11:19→20:31)
[2018-11-18] MEDS ORDERED: LISINOPRIL 10 MG TABLET PO ONE (12:30)
[2018-11-18] MEDS ORDERED: amLODIPine BESYLATE 5 MG TABLET PO ONE (12:30)
--- NOTE | 2018-11-18 12:38 | PDOC ---
CARDIOLOGY PROGRESS NOTE SUBJECTIVE: No acute events overnight. No significant changes in symptoms. Off Bipap now. OBJECTIVE: Vital SIgns: SBP > 150 consistently. 88% on 4L, HR 88 I & O Unable to keep accurate I/O's. Objective: a/o x 3. NAD Regular. No m/r/g PULM: Decreased breath sounds bilaterally. Rales at the bases. Soft abd. No significant edema. 1+ pulses radial/pulses. CURRENT MEDICATIONS: Lasix 40mg IVP BID DIAGNOSTIC TESTING: No new labs. No new CXR. Echo with mild LV dysfunction. ASSESSMENT: 1. Acute on chronic resp failure - PNA versus COPD exacerbation 2. Acute on chronic diastolic HF - Mild LV dysfunction. 3. HTN - Stage 2. PLAN: 1. Add amlodipine, lisinopril to her regimen 2. Continue lasix. 3. Will repeat labs today/repeat CXR. DEMI DUNCAN MD Nov 18, 2018 12:38
--- NOTE | 2018-11-18 13:03 | PDOC ---
PULMONARY PROGRESS NOTES Subjective off bipap, sob cough better, no pain Vitals Vital Signs Date Time Temp Pulse Resp B/P (MAP) Pulse Ox O2 Delivery O2 Flow Rate FiO2 11/18/18 12:26 95 156/74 (101) 11/18/18 11:59 85 Nasal Cannula 4.0 11/18/18 11:00 97.9 24 97.9 Comments ros as mentioned as above other sys otherwise neg ROS: No Nausea, No Chest Pain General: Alert, Oriented X4 HEENT: Other (nc at perrl thorat nose clear neck +jvd no lad no thyromegaly) Lungs: Other (decrease right base) Cardiovascular: S1, S2 Abdomen: Soft, Non-tender Neuro Exam: Alert, Oriented Extremities: Other (+edema) Skin: Warm Labs Laboratory Tests Test 11/16/18 19:30 Troponin I Quantitative 0.034 ng/mL (0.000-0.055) Medications Active Scripts Medications Dose Route/Sig Max Daily Dose Days Date Category Proair Hfa Inhaler (Albuterol Sulfate) 8.5 Gm Hfa.aer.ad 1 Puff INH PRN Q6HRS PRN 01/26/18 Reported Comments cxr reviewed, b lat infilt worse on ll area Impression . IMPRESSION: 1. Acute on chronic respiratory failure secondary to acute exacerbation of chronic obstructive pulmonary disease, ?pneumonia, acute systolic chf, with worsening bilateral interstitial infiltrates, suspect related to CHF 2. Abnormal chest x-ray, suspect WORSENING CHF 3. Acute exacerbation of chronic obstructive pulmonary disease. 4. Pneumonia. 5. Ex-smoker. 6. mod AI, EF 45% Plan . 1. prn bipap, continuously at night, setting reviewed, titrate fio2 to keep sat 92% 2. Solu-Medrol 3. Continue bronchodilator. 4. inhaled corticosteroid. 5. Lovenox for DVT prophylaxis. 6. Protonix for stress ulcer prophylaxis. 7. Monitor respiratory status very closely. 8. Continue not smoking. 9. keep I<O, lasix per cardiology/ Responding to lasix 10. cont abx repeat cxr in am inocencio painter rn, pt DAQUAN CANALES MD Nov 18, 2018 13:03
--- NOTE | 2018-11-18 13:42 | NUR ---
SW following pt. Spoke with pt about PT/OT recommendation for SNU. Discussed about options and insurance coverage. Pt chose [facility] stating it is closer to her . SW phoned and faxed referral to [facility]. Pt acceptance and admission pending. Will continue to follow.
[2018-11-18 16:02] LABS: CALCIUM 9.5 mg/dL (8.5-10.1); CREATININE 1.2 mg/dL (0.6-1.0); GFR 43.4; POTASSIUM 3.7 mmol/L (3.5-5.1)
--- NOTE | 2018-11-18 16:35 | NUR ---
Pt has been accepted at [facility] pending insurance auth. Insurance auth pending. OLY RN and Physician.
--- NOTE | 2018-11-18 16:41 | PDOC ---
PROGRESS NOTES Subjective She is having some loose stool but otherwise about the same, she will need SNU and is awaiting acceptance at [facility], she remains on O2 and Bipap at night, echo shows some cardiomyopathy and now on lisinopril and amlodipine, she also has pulmonary hypertension Objective Afebrile General: A&O, NAD, on NC O2 Heart: RRR Lungs: diminished but clear Abd: soft, active bowel sounds Ext: no edema or cyanosis K+: 3.7 Creat: 1.2 Vital Signs Vital Signs Date Time Temp Pulse Resp B/P (MAP) Pulse Ox O2 Delivery O2 Flow Rate FiO2 11/18/18 15:28 92 Nasal Cannula 5.0 11/18/18 15:17 98.6 86 20 143/73 (96) 98.6 I & O Intake and Output 11/18/18 07:00 Intake Total 740 ml Output Total 2 ml Balance 738 ml Intake Oral 740 ml Output Urine Total 2 ml # Voids 4 # Bowel Movements 3 Assessment and Plan -acute on chronic respiratory failure with hypoxia from community acquired pneumonia - admitted for pulm toilette, IV antibiotics and pulm consult. Influenza testing negative. 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
--- NOTE | 2018-11-19 02:15 | NUR ---
See paper chart for medication administered during [employer] downtime.
[2018-11-19 03:30] VITALS: BP 142/78
[2018-11-19] MEDS: PIPERACILLIN/TAZOBACTAM 3.375 GM in IV NORMAL SALINE 50ML 50 ML IV SCH ×3 (05:55)
[2018-11-19 07:20] VITALS: BP 155/70
--- NOTE | 2018-11-19 07:55 | RAD ---
Portable chest, 11/19/2018: HISTORY: Congestive heart failure Comparison is made to a study from 11/16/2018. The heart is within normal limits in size. Bilateral mixed interstitial and acinar opacities have improved. There is a probable small amount of residual right-sided pleural fluid. No left-sided pleural fluid is evident. No new abnormality is detected. IMPRESSION: Pulmonary infiltrates have partially cleared most compatible with improving pulmonary edema due to congestive heart failure. Electronically signed by: Linden Davis MD (11/19/2018 7:52 AM) [facility]
[2018-11-19] MEDS: ENOXAPARIN 40 MG/0.4 ML SYRINGE. SQ SCH (08:02)
[2018-11-19] MEDS: PANTOPRAZOLE 40 MG TABLET.DR. PO SCH (08:03)
[2018-11-19] MEDS: SENNOSIDES/DOCUSATE 8.6/50MG TABLET. PO SCH (08:03)
[2018-11-19] MEDS: IPRATRPIUM/ALBUTEROL 0.5/2.5MG 3 ML NEBU. NEB SCH ×2 (08:04→11:18)
[2018-11-19] MEDS: LACTOBACILLUS RHAMNOSUS GG 1 CAPSULE. PO SCH (08:04)
[2018-11-19] MEDS: FUROSEMIDE 40 MG/4 ML VIAL. IVP SCH ×2 (08:04→14:58)
[2018-11-19] MEDS: methylPREDNISolone SOD SUCC PF 40 MG/ML VIAL. IV SCH (08:04)
[2018-11-19] MEDS: DOXYCYCLINE HYCLATE 100 MG TABLET PO SCH (08:04)
[2018-11-19] MEDS: BUDESONIDE 0.5 MG/2 ML NEBU. NEB SCH (08:04)
[2018-11-19] MEDS ORDERED: amLODIPine BESYLATE 5 MG TABLET PO SCH (09:00)
[2018-11-19] MEDS ORDERED: guaiFENesin DM 600/30MG 1 TAB TAB.ER.12H PO SCH (09:00)
[2018-11-19] MEDS ORDERED: LISINOPRIL 20 MG TABLET PO SCH (09:00)
--- NOTE | 2018-11-19 11:06 | NUR ---
SW following pt. Insurance has approved skilled. Spoke with pt's daughter, Khadijah, and discussed dc plan. Daughter agreeable. SW will await for dc order and proceed accordingly. RN to notify Physician.
[2018-11-19 11:17] VITALS: BP 149/73
--- NOTE | 2018-11-19 11:31 | PDOC2 ---
PALLIATIVE CARE Palliative Care Note Palliative Care Consult requested by Dr. Jay to address Code Status Medical Assessment per medical record 1. Acute on chronic respiratory failure secondary to acute exacerbation of chronic obstructive pulmonary disease, ?pneumonia, acute systolic chf, with worsening bilateral interstitial infiltrates, suspect related to CHF 2. Abnormal chest x-ray, suspect WORSENING CHF 3. Acute exacerbation of chronic obstructive pulmonary disease. 4. Pneumonia. 5. Ex-smoker. 6. mod AI, EF 45% Met with patient. Alert and oriented. Patient is aware of her medical condition. Discussed her medical condition and code status. Reviewed risks and benefits of resuscitation. She would like more time to think about it before making a decision. Offered to meet with patient and family. Plan: Patient undecided. Will remain Full code. Family Meeting offered. BG WALDEN Nov 19, 2018 11:31
--- NOTE | 2018-11-19 11:45 | PDOC ---
PULMONARY PROGRESS NOTES Subjective off bipap, sob cough better, no pain Vitals Vital Signs Date Time Temp Pulse Resp B/P (MAP) Pulse Ox O2 Delivery O2 Flow Rate FiO2 11/19/18 11:19 99 Nasal Cannula 5.0 11/19/18 11:17 98.0 88 20 149/73 (98) 98.0 Comments ros as mentioned as above other sys otherwise neg ROS: No Nausea, No Chest Pain General: Alert, Oriented X4 HEENT: Other (nc at perrl thorat nose clear neck +jvd no lad no thyromegaly) Lungs: Other (decrease right base) Cardiovascular: S1, S2 Abdomen: Soft, Non-tender Neuro Exam: Alert, Oriented Extremities: Other (+edema) Skin: Warm Labs Laboratory Tests Test 11/18/18 15:40 Sodium Level 142 mmol/L (136-145) Potassium Level 3.7 mmol/L (3.5-5.1) Chloride Level 99 mmol/L (98-107) Carbon Dioxide Level 34 mmol/L (21-32) Anion Gap 9 (6-14) Blood Urea Nitrogen 30 mg/dL (7-20) Creatinine 1.2 mg/dL (0.6-1.0) Estimated GFR (Cockcroft-Gault) 43.4 Glucose Level 140 mg/dL (70-99) Calcium Level 9.5 mg/dL (8.5-10.1) Laboratory Tests Test 11/18/18 15:40 Sodium Level 142 mmol/L (136-145) Potassium Level 3.7 mmol/L (3.5-5.1) Chloride Level 99 mmol/L (98-107) Carbon Dioxide Level 34 mmol/L (21-32) Anion Gap 9 (6-14) Blood Urea Nitrogen 30 mg/dL (7-20) Creatinine 1.2 mg/dL (0.6-1.0) Estimated GFR (Cockcroft-Gault) 43.4 Glucose Level 140 mg/dL (70-99) Calcium Level 9.5 mg/dL (8.5-10.1) Medications Active Scripts Medications Dose Route/Sig Max Daily Dose Days Date Category Proair Hfa Inhaler (Albuterol Sulfate) 8.5 Gm Hfa.aer.ad 1 Puff INH PRN Q6HRS PRN 01/26/18 Reported Comments cxr reviewed, 11/19 much improved CHF Impression . IMPRESSION: 1. Acute on chronic respiratory failure secondary to acute exacerbation of chronic obstructive pulmonary disease,AND acute systolic chf, with worsening bilateral interstitial infiltrates, suspect related to CHF 2. Abnormal chest x-ray, t WORSENING CHF, NOW IMPROVING 3. Acute exacerbation of chronic obstructive pulmonary disease. 4. Pneumonia. 5. Ex-smoker. 6. mod AI, EF 45% Plan . 1. prn bipap, CLINICALLY MUCH BETTER 2. dc Solu-Medrol , NO po STEROID 3. Continue bronchodilator. 4. inhaled corticosteroid. 5. Lovenox for DVT prophylaxis. 6. Protonix for stress ulcer prophylaxis. 7. keep I<O, lasix per cardiology/ Responding to lasix 8. CAN DC abx discussed w rn, pt OK WITH DC TO SKILL, PRN BIPAP DAQUAN CANALES MD Nov 19, 2018 11:45
[2018-11-19] MEDS ORDERED: AMLO5TAB10 PO (12:32)
[2018-11-19] MEDS ORDERED: GUAI-108 PO (12:32)
[2018-11-19] MEDS ORDERED: FURO20TA3 PO (12:32)
[2018-11-19] MEDS ORDERED: IPRA3AMP29 NEB (12:32)
[2018-11-19] MEDS ORDERED: LISI-130 PO (12:32)
[2018-11-19] MEDS ORDERED: Pantoprazole PO (12:32)
[2018-11-19] MEDS ORDERED: ZOLP5TAB PO (12:32)
[2018-11-19] MEDS ORDERED: BUDE0.5A NEB (12:32)
--- NOTE | 2018-11-19 12:35 | SNU/HH DC ---
DISCHARGE ORDERS DISCHARGE INFORMATION: DISCHARGE DATE: Nov 19, 2018 FINAL DIAGNOSIS Problems Medical Problems: (1) Acute respiratory distress Status: Acute (2) CAP (community acquired pneumonia) Status: Acute (3) Sepsis Status: Acute CONDITION ON DISCHARGE: Stable CODE STATUS: Code Status: Full POST DISCHARGE ORDERS: ACTIVITY ORDERS: Activity as tolerated WEIGHT BEARING STATUS: Full weight bearing DIET AFTER DISCHARGE: Cardiac CHECKS AFTER DISCHARGE: CHECKS AFTER DISCHARGE: Weigh Yourself Daily FOLLOW-UP: PHYSICIAN FOLLOW-UP: Dr. Gonsalves 1-2 weeks after SNU discharge TREATMENT/EQUIPMENT ORDERS: RESPIRATORY EQUIPMENT NEEDED: Oxygen Physical Therapy For: Evalulation/Treatment Occupational Therapy For: Evaluation/Treatment DISCHARGE MEDICATIONS: Home Meds Reported Medications Albuterol Sulfate (PROAIR HFA INHALER) 8.5 Gm Hfa.aer.ad, 1 PUFF INH PRN Q6HRS PRN for SHORTNESS OF BREATH, INHALER 0 Refills 01/26/18 Lesli GONSALVES MD Nov 19, 2018 12:35
--- NOTE | 2018-11-19 13:59 | SNU/HH DC ---
DISCHARGE ORDERS DISCHARGE INFORMATION: DISCHARGE DATE: Nov 19, 2018 FINAL DIAGNOSIS Problems Medical Problems: (1) Acute respiratory distress Status: Acute (2) CAP (community acquired pneumonia) Status: Acute (3) Sepsis Status: Acute CONDITION ON DISCHARGE: Stable CODE STATUS: Code Status: Full MCC: SNF STAY <30 DAYS: Yes POST DISCHARGE ORDERS: ACTIVITY ORDERS: Activity as tolerated WEIGHT BEARING STATUS: Full weight bearing DIET AFTER DISCHARGE: Cardiac CHECKS AFTER DISCHARGE: CHECKS AFTER DISCHARGE: Weigh Yourself Daily FOLLOW-UP: PHYSICIAN FOLLOW-UP: Dr. Gonsalves 1-2 weeks after SNU discharge TREATMENT/EQUIPMENT ORDERS: RESPIRATORY EQUIPMENT NEEDED: Oxygen Physical Therapy For: Evalulation/Treatment Occupational Therapy For: Evaluation/Treatment DISCHARGE MEDICATIONS: Home Meds Active Scripts Furosemide (FUROSEMIDE) 20 Mg Tablet, 1 TAB PO DAILY for water pill, #30 TAB 5 Refills Prov:Lesli GONSALVES MD 11/19/18 [Pantoprazole] 40 MG TABLET.DR Piña Conflict Check, 40 MG PO DAILYAC for ulcer prevention for 30 Days Prov:Lesli GONSALVES MD 11/19/18 Budesonide (BUDESONIDE) 0.5 Mg/2 Ml Ampul.neb, 0.5 MG NEB RTBID for copd for 30 Days, EACH Prov:Lesli GONSALVES MD 11/19/18 Guaifenesin/Dextromethorphan (MUCINEX DM ER 600-30 MG TABLET) 1 Each Tab.er.12h , 1 TAB PO BID for mucous in lungs for 30 Days, #60 TAB.SR Prov:Lesli GONSALVES MD 11/19/18 Zolpidem Tartrate (AMBIEN) 5 Mg Tablet, 5 MG PO PRN QHS PRN for INSOMNIA, MAY REPEAT IN 1HR for 30 Days, TAB Prov:Lesli GONSALVES MD 11/19/18 Lisinopril (LISINOPRIL) 40 Mg Tablet, 20 MG PO DAILY for heart for 30 Days, #15 TAB Prov:Lesli GONSALVES MD 11/19/18 Amlodipine Besylate (AMLODIPINE BESYLATE) 5 Mg Tablet, 5 MG PO DAILY for bp for 30 Days, #30 TAB Prov:Lesli GONSALVES MD 11/19/18 Ipratropium/Albuterol Sulfate (DUONEB 0.5-3(2.5) MG/3 ML) 3 Ml Ampul.neb, 3 ML NEB RTQID for lungs for 30 Days, #120 EACH Prov:Lesli GONSALVES MD 11/19/18 Reported Medications Albuterol Sulfate (PROAIR HFA INHALER) 8.5 Gm Hfa.aer.ad, 1 PUFF INH PRN Q6HRS PRN for SHORTNESS OF BREATH, INHALER 0 Refills 01/26/18 Lseli GONSALVES MD Nov 19, 2018 13:59
--- NOTE | 2018-11-19 15:30 | NUR ---
SW following pt. Orders faxed to [facility] and packet on chart. Pt will transport via facility arranged w/c van between [id number]. Pt's choice and rights forms signed by pt and copies on chart. OLY RN and pt's daughter, Larisa.
--- NOTE | 2018-11-19 15:38 | PDOC ---
CARDIO Progress Notes Date and Time Date of Service 11/19/2018 Time of Evaluation 1520 Subjective Subjective: No Chest Pain, No shortness of breath, No Palpitations Vitals Vitals Vital Signs Date Time Temp Pulse Resp B/P (MAP) Pulse Ox O2 Delivery O2 Flow Rate FiO2 11/19/18 11:19 99 Nasal Cannula 5.0 11/19/18 11:17 98.0 88 20 149/73 (98) 98.0 Weight Weight [ ] Input and Output Intake and Output Intake and Output 11/19/18 07:00 Intake Total 1010 ml Output Total 401 ml Balance 609 ml Intake Oral 1010 ml Output Urine Total 400 ml Urine/Stool Mix 1 ml # Voids 6 Laboratory Labs Laboratory Tests Test 11/18/18 15:40 Sodium Level 142 mmol/L (136-145) Potassium Level 3.7 mmol/L (3.5-5.1) Chloride Level 99 mmol/L (98-107) Carbon Dioxide Level 34 mmol/L (21-32) Anion Gap 9 (6-14) Blood Urea Nitrogen 30 mg/dL (7-20) Creatinine 1.2 mg/dL (0.6-1.0) Estimated GFR (Cockcroft-Gault) 43.4 Glucose Level 140 mg/dL (70-99) Calcium Level 9.5 mg/dL (8.5-10.1) Microbiology Micro Microbiology 11/14/18 Blood Culture - Preliminary, Resulted NO GROWTH AFTER 4 DAYS Physical Exam HEENT: Neck Supple W Full Motion Chest: Symmetric LUNGS: Other (diminisehd bases) Heart: S1S2, RRR (SR) Abdomen: Soft N/T Extremities: No Edema, No Calf Tenderness Neurology: alert, oriented, follow commands Assessment Assessment 1. Acute on chronic resp failure with AECOPD and acute CHF 2. Acute on chronic diastolic HF - Mild LV dysfunction. compensated. EF 45-50% 3. HTN - Stage 2. 4. Moderate AI Recommendations 1. Continue norvasc and lisinopril and lasix. ECASA 81 mg 2. Will consider for outpt stress test. Follow up in office in 4 weeks 3. Statin per lipid level 4. OK to DC to SNU. MAHOGANY WEBSTER APRN Nov 19, 2018 15:38
--- NOTE | 2018-11-19 15:46 | NUR ---
Discharge Note: MCKAY KHANNA Discharge instructions and discharge home medications reviewed with Joe at [facility] and a copy given. All questions have been answered and understanding verbalized. The following instructions and handouts were given: transfer of care Discontinued lines and drains: 20 gauge right wrist. tip intact. patient tolerated well. Patient discharged to [facility] via transport.
[2018-11-19 16:26] LABS: CHOLESTEROL/HDL RATIO 1.8
--- NOTE | 2018-11-21 17:57 | PDOC3 ---
Discharge Summary [facility] Date of Admission: Nov 14, 2018 Discharge Date: Nov 19, 2018 Admitting Diagnosis acute respiratory failure from pneumonia with sepsis Final Diagnosis Problems Medical Problems: (1) Acute respiratory distress Status: Acute (2) CAP (community acquired pneumonia) Status: Acute (3) Sepsis Status: Acute CONSULTS Pulm, cardiology, palliative care Procedures none Brief Hospital Course Ms. Caal is a 78 old who presented with: -acute on chronic respiratory failure with hypoxia from community acquired pneumonia - admitted for pulm toilette, IV antibiotics and pulm consult. Influenza testing negative. Required Bipap and ongoing O2. 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 but has been given samples of other inhalers in the past and treated with neb treatments -hx of tobacco use but she was able to quit during hospitalization -acute diastolic heart failure - improved after IV lasix, pro BNP went from 400 to 4,000 due to IV fluids from sepsis protocol, troponin slightly elevated consistent with demand ischemia, echo shows pulm HTN and EF of 45% with global hypokinesis, cardiology following and started Lasix, lisinopril, amlodipine Disposition SNU - [facility] CONDITION AT DISCHARGE: Improved, Stable Diet cardiac, no smoking Scheduled Amlodipine Besylate (Amlodipine Besylate), 5 MG PO DAILY Budesonide (Budesonide), 0.5 MG NEB RTBID Furosemide (Furosemide), 1 TAB PO DAILY Guaifenesin/Dextromethorphan (Mucinex Dm Er 600-30 Mg Tablet), 1 TAB PO BID Ipratropium/Albuterol Sulfate (Duoneb 0.5-3(2.5) Mg/3 Ml), 3 ML NEB RTQID Lisinopril (Lisinopril), 20 MG PO DAILY [Pantoprazole], 40 MG PO DAILYAC Scheduled PRN Albuterol Sulfate (Proair Hfa Inhaler), 1 PUFF INH PRN Q6HRS PRN for SHORTNESS OF BREATH, (Reported) Zolpidem Tartrate (Ambien), 5 MG PO PRN QHS PRN for INSOMNIA, MAY REPEAT IN 1HR Follow Up 1-2 weeks after SNU discharge Lesli GONSALVES MD Nov 21, 2018 17:57
== END 2018-11-19 15:40 | DRG 871 ==
LOC: ER 14:09 → 6 SOUTH 14:51
PROVIDERS: ADMIT Family Medicine; ATTEND Family Medicine
PROC: 5A09357 Assistance with Respiratory Ventilation, Less than 24 Consecutive Hours, Continuous Positive Airway Pressure (ICD-10-PCS; principal; 2018-11-16)
PROC: 5A09357 Assistance with Respiratory Ventilation, Less than 24 Consecutive Hours, Continuous Positive Airway Pressure (ICD-10-PCS; 2018-11-17)
PROC: 5A09357 Assistance with Respiratory Ventilation, Less than 24 Consecutive Hours, Continuous Positive Airway Pressure (ICD-10-PCS; 2018-11-18)
DX: A41.9 Sepsis, unspecified organism (principal); J96.21 Acute and chronic respiratory failure with hypoxia; J18.9 Pneumonia, unspecified organism; I50.33 Acute on chronic diastolic (congestive) heart failure; J44.1 Chronic obstructive pulmonary disease with (acute) exacerbation; J44.0 Chronic obstructive pulmonary disease with (acute) lower respiratory infection; I35.1 Nonrheumatic aortic (valve) insufficiency; I11.0 Hypertensive heart disease with heart failure; I27.20 Pulmonary hypertension, unspecified; Z51.5 Encounter for palliative care; Z99.81 Dependence on supplemental oxygen; Z90.710 Acquired absence of both cervix and uterus; Z87.891 Personal history of nicotine dependence; Z82.49 Family history of ischemic heart disease and other diseases of the circulatory system
CPT/HCPCS: 36415; 36600; 71045; 80048; 80053; 80061; 82550; 82805; 83605; 83880; 84484; 85007; 85025; 87040; 87804; 93005; 93306; 94640; 94660; 94760; 96365; 96375; J1650; J1940; J2543; J2920; J2930; J7030; J7620; J7626; 99285-25

== ENCOUNTER → 2020-11-05 | Outpatient (CLI) | payer MEDICARE ==
[~2020-11-05] MED LIST changes: +AMLO-186 PO; +BUDE0.5A NEB; +FURO20TA3 PO; +GUAI-108 PO; +IPRA3AMP29 NEB; +LISI-130 PO; +Pantoprazole PO; +ZOLP5TAB PO
[2020-11-05 11:17] LABS: CALCIUM 8.7 mg/dL (8.5-10.1); CREATININE 1.9 mg/dL (0.6-1.0); GFR 25.4; POTASSIUM 4.4 mmol/L (3.5-5.1)
--- NOTE | 2020-11-05 16:47 | RAD ---
PA and lateral chest. HISTORY: Short of air PA and lateral views were taken of the chest. Comparison is made with a study from 2019. There is dif fuse interstitial lung disease with interval worsening compared to the prior study. Worsening fibrosi s or worsening interstitial pneumonia could have this pattern. Heart is normal in size. There is no p leural effusion. IMPRESSION: 1. Diffuse worsening of interstitial lung disease. Electronically signed by: Champ Fry MD (11/05/2020 4:44 PM) [id number]
== END ==
LOC: LAB 10:41
PROVIDERS: ATTEND Internal Medicine Pulmonary Disease
DX: R06.02 Shortness of breath (principal)
CPT/HCPCS: 36415; 71046; 80048; 83880

== ENCOUNTER → 2020-11-12 | Outpatient (CLI) | payer MEDICARE ==
[2020-11-12 12:34] LABS: CALCIUM 8.8 mg/dL (8.5-10.1); POTASSIUM 4.4 mmol/L (3.5-5.1)
--- NOTE | 2020-11-13 09:20 | RAD ---
EXAM: XR CHEST 2V 11/12/2020 11:51 AM CLINICAL INDICATION: Shortness of breath COMPARISON: Chest radiograph 11/05/2020 TECHNIQUE: PA and lateral views of the chest FINDINGS: The heart and mediastinum are normal. Lungs are hyperexpanded. Peripheral opacities in the right upper lobe are unchanged from 11/05/2020 but new from 11/19/2018. Interstitial opacities in the l bentley bases are unchanged. A calcified granuloma in the right lung base is unchanged. No pleural effusi on or pneumothorax. No acute osseous abnormalities. IMPRESSION: Mixed findings of COPD with superimposed interstitial changes in the lung bases and righ t upper lobe. In the right upper lobe, this appears new from 2019, although similar to 11/05/2020. This could be due to progression of interstitial lung disease or superimposed pneumonia. Electronically signed by: Lelo Santana MD (11/13/2020 9:17 AM) [id number]
== END ==
LOC: RAD 11:20
PROVIDERS: ATTEND Internal Medicine Pulmonary Disease
DX: J44.9 Chronic obstructive pulmonary disease, unspecified (principal); J84.10 Pulmonary fibrosis, unspecified
CPT/HCPCS: 36415; 71046; 80048

== ENCOUNTER → 2021-02-22 | Outpatient (CLI) | payer MEDICARE ==
--- NOTE | 2021-02-22 16:55 | RAD ---
EXAM: CT CHEST WITHOUT CONTRAST HISTORY: Abnormal CT at [facility], shortness of breath COMPARISON: CTA chest 01/26/2018. TECHNIQUE: Helical CT of the chest performed without contrast. Coronal and sagittal reformats were o btained. One or more of the following individualized dose reduction techniques were utilized for this examinat ion: 1. Automated exposure control 2. Adjustment of the mA and/or kV according to patient size 3. Use of iterative reconstruction technique. FINDINGS: Thyroid gland and thoracic inlet: Normal. Heart and great vessels: Heart is normal in size. No pericardial effusion. There are coronary artery calcifications. The thoracic aorta is normal in caliber. Mild calcified aortic atherosclerosis. Mediastinum and ambika: Grossly unchanged prominent mediastinal and hilar lymph nodes including of 1.2 cm short axis AP window lymph node. Lungs and pleura: There is severe centrilobular emphysema. Increased subpleural reticular opacities t hroughout the lungs. There is a new irregular nodular opacity at the posterior right apex measuring a pproximately 2.6 x 2.0 cm with adjacent pleural thickening. There is associated architectural distort ion with new bandlike opacities extending inferiorly from the nodule to the right hilum and to the la teral chest wall. There is a calcified granuloma in the right lower lobe, unchanged. Patchy consolida tive opacities in the lingula, right middle and lower lobes, and tree-in-bud opacities in the lung ba ses on CT from 01/26/2018 have resolved Chest wall and axillae: No axillary lymphadenopathy. Breast tissue is symmetric. Upper abdomen: Probable exophytic simple cyst in the mid left kidney measuring approximately 4.5 cm c yst, incompletely evaluated. Bones: No acute osseous abnormality. There is dextroscoliosis of the thoracic spine IMPRESSION: 1. Since CT chest 01/26/2018, there is a new irregular 2.6 cm nodular opacity in the right apex with a djacent pleural thickening and architectural distortion extending to the right hilum. This is suspici ous for malignancy. Recommend PET/CT to further evaluate. 2. Unchanged severe centrilobular emphysema with increased superimposed interstitial lung disease. 3. Unchanged mildly enlarged mediastinal and hilar lymph nodes. Electronically signed by: Lelo Santana MD (02/22/2021 4:52 PM) [id number]
== END ==
LOC: CT 10:37
PROVIDERS: ATTEND Internal Medicine Pulmonary Disease
DX: J43.2 Centrilobular emphysema (principal); R91.1 Solitary pulmonary nodule; J84.10 Pulmonary fibrosis, unspecified; J84.9 Interstitial pulmonary disease, unspecified; R59.0 Localized enlarged lymph nodes; I25.10 Atherosclerotic heart disease of native coronary artery without angina pectoris; I70.0 Atherosclerosis of aorta; R93.89 Abnormal findings on diagnostic imaging of other specified body structures
CPT/HCPCS: 71250

== ENCOUNTER 2021-03-22 11:30 | Inpatient (IN) | payer MEDICARE ==
[~2021-03-22] VITALS: Ht 162.6 cm; Wt 80.5 kg
--- NOTE | 2021-03-22 11:59 | PHYS DOC ---
Past Medical History Past Medical History: COPD Past Surgical History: Other Smoking Status: Former Smoker Alcohol Use: None Drug Use: None General Adult EDM: Chief Complaint: SHORTNESS OF BREATH HPI: HPI: 80-year-old female presents to the emergency department complaining of shortness of breath for the last 3 weeks that has been gradually progressive. She denies any fever, cough, chest pain or any other symptoms. She reports feeling fatigued when she walks short distances, but not at rest. She has no history of atrial fibrillation does not take any blood thinners or treatment. She reports she does take high blood pressure medicine. She has otherwise been in her normal health and denies any recent illness. She has been vaccinated for COVID- 19. Denies any history of blood clots in the past. The patient denies nausea, vomiting, fever, chills, chest pain, abdominal pain, urinary symptoms, cough, recent trauma, or any other complaints. Review of Systems: Review of Systems: Review of systems otherwise negative except for what is mentioned in the HPI Heart Score: C/O Chest Pain: No Allergies: Allergies: Allergies Coded Allergies Type Severity Reaction Last Updated Verified No Known Drug Allergies 03/22/21 No Physical Exam: PE: Constitutional: No acute distress, non-toxic appearance. HENT: Atraumatic, bilateral external ears normal, nose normal. Eyes: PERRLA, EOMI, conjunctiva normal, no discharge. Neck: Normal range of motion, supple, no stridor. Cardiovascular: Heart rate irregularly irregular, palpable around 100 bpm Lungs & Thorax: No respiratory distress, symmetrical expansion. Bilateral breath sounds clear to auscultation Abdomen: Soft, no tenderness Skin: Warm, dry. Extremities: No tenderness, no cyanosis, ROM intact, no edema. Neurologic: Alert and oriented X 3, normal motor function, normal sensory function, no focal deficits noted. Non ataxic gait. GCS 15. Psychologic: Affect normal, judgment normal, mood normal. Current Patient Data: Labs: Laboratory Tests Test 03/22/21 11:45 03/22/21 12:11 White Blood Count 10.4 x10^3/uL (4.0-11.0) Red Blood Count 4.24 x10^6/uL (3.50-5.40) Hemoglobin 12.8 g/dL (12.0-15.5) Hematocrit 38.3 % (36.0-47.0) Mean Corpuscular Volume 90 fL (79-100) Mean Corpuscular Hemoglobin 30 pg (25-35) Mean Corpuscular Hemoglobin Concent 33 g/dL (31-37) Red Cell Distribution Width 14.6 % (11.5-14.5) Platelet Count 173 x10^3/uL (140-400) Neutrophils (%) (Auto) 75 % (31-73) Lymphocytes (%) (Auto) 15 % (24-48) Monocytes (%) (Auto) 8 % (0-9) Eosinophils (%) (Auto) 1 % (0-3) Basophils (%) (Auto) 1 % (0-3) Neutrophils # (Auto) 7.8 x10^3/uL (1.8-7.7) Lymphocytes # (Auto) 1.6 x10^3/uL (1.0-4.8) Monocytes # (Auto) 0.9 x10^3/uL (0.0-1.1) Eosinophils # (Auto) 0.1 x10^3/uL (0.0-0.7) Basophils # (Auto) 0.1 x10^3/uL (0.0-0.2) Sodium Level 146 mmol/L (136-145) Potassium Level 4.5 mmol/L (3.5-5.1) Chloride Level 110 mmol/L (98-107) Carbon Dioxide Level 25 mmol/L (21-32) Anion Gap 11 (6-14) Blood Urea Nitrogen 45 mg/dL (7-20) Creatinine 2.0 mg/dL (0.6-1.0) Estimated GFR (Cockcroft-Gault) 24.0 Glucose Level 106 mg/dL (70-99) Calcium Level 9.0 mg/dL (8.5-10.1) Troponin I Quantitative < 0.017 ng/mL (0.000-0.055) QC-Nld-C-Type Natriuretic Peptide 3673 pg/mL (0-449) Thyroid Stimulating Hormone (TSH) 4.428 uIU/mL (0.358-3.74) SARS-CoV-2 Antigen (Rapid) Negative (NEGATIVE) Vital Signs: Vital Signs Date Time Temp Pulse Resp B/P (MAP) Pulse Ox O2 Delivery O2 Flow Rate FiO2 03/22/21 11:52 93 Nasal Cannula 5.0 03/22/21 11:45 97.8 101 31 137/71 97.8 EKG: EKG: Atrial fibrillation rate of 114, no ST-T wave changes, normal axis, normal TN, QRS, and QTc intervals. Impression: Atrial fibrillation interpreted by Brandi mcnulty D.O. Radiology/Procedures: Radiology/Procedures: PROCEDURE: PORTABLE CHEST 1V XR CHEST 1V History: Reason: shortness of air / Spl. Instructions: / History: Comparison: November 12, [address] February 22, 2021 Findings: Moderate diffuse interstitial thickening with ill-defined opacities. No pleural effusion. No pneumothorax. Emphysematous changes. Normal heart size. Impression: 1. Moderate diffuse interstitial thickening with ill-defined opacities, may represent pulmonary edema or infection. Electronically signed by: Behzad Schmid DO (03/22/2021 12:37 PM) Course & Med Decision Making: Course & Med Decision Making Patient appears to have a new onset atrial fibrillation, evidence for pneumonia and elevated BNP. Patient will be admitted to the hospitalist Dr. Pa. Patient amenable to admission. Cardiology consult was placed. Departure Departure Impression: Primary Impression: New onset atrial fibrillation Additional Impression: Pneumonia Disposition: ADMITTED INPATIENT Admitting Physician: ISSAC (Thierno) Referrals: TRACY BUTT D.O. (PCP) BRANDI MARQUEZ DO Mar 22, 2021 11:59
[2021-03-22 12:05] LABS: BASO # 0.1 x10^3/uL (0.0-0.2); BASO % 1 % (0-3); EOS # 0.1 x10^3/uL (0.0-0.7); EOS % 1 % (0-3); HEMATOCRIT 38.3 % (36.0-47.0); HEMOGLOBIN 12.8 g/dL (12.0-15.5); LYMPH # 1.6 x10^3/uL (1.0-4.8); LYMPH % 15 % (24-48); MEAN CORPUSCULAR HEMOGLOBIN 30 pg (25-35); MEAN CORPUSCULAR HGB CONC 33 g/dL (31-37); MEAN CORPUSCULAR VOLUME 90 fL (79-100); MONO # 0.9 x10^3/uL (0.0-1.1); MONO % 8 % (0-9); NEUT # 7.8 x10^3/uL (1.8-7.7); NEUT % 75 % (31-73); PLATELET COUNT 173 x10^3/uL (140-400); RED BLOOD COUNT 4.24 x10^6/uL (3.50-5.40); RED CELL DISTRIBUTION WIDTH 14.6 % (11.5-14.5); WHITE BLOOD COUNT 10.4 x10^3/uL (4.0-11.0)
[2021-03-22 12:33] LABS: POTASSIUM 4.5 mmol/L (3.5-5.1)
--- NOTE | 2021-03-22 12:39 | RAD ---
XR CHEST 1V History: Reason: shortness of air / Spl. Instructions: / History: Comparison: November 12, [address] February 22, 2021 Findings: Moderate diffuse interstitial thickening with ill-defined opacities. No pleural effusion. No pneumoth orax. Emphysematous changes. Normal heart size. Impression: 1. Moderate diffuse interstitial thickening with ill-defined opacities, may represent pulmonary kimber a or infection. Electronically signed by: Behzad Schmid DO (03/22/2021 12:37 PM) [id number]
[2021-03-22] MEDS ORDERED: cefTRIAXone IV Push 2 GM VIAL. IVP ONE (13:30)
[2021-03-22] MEDS ORDERED: AZITHRMYCN 500MG IVPB FOR OMNI 250 ML IV ONE (13:30)
--- NOTE | 2021-03-22 13:33 | PDOC1 ---
History and Physical Date of Admission Date of Admission DATE: 03/22/21 TIME: 13:32 Past Medical History Past Medical History Past Medical History Past Medical History: COPD Past Surgical History: Other Smoking Status: Former Smoker Alcohol Use: None Drug Use: None fhx copd Past Surgical History Past Surgical History: Hysterectomy Family History Family History: Hypertension Social History ALCOHOL: social Drugs: None Current Medications Current Medications Current Medications Ceftriaxone Sodium (Rocephin) 2 gm 1X ONCE IVP ; Start 03/22/21 at 13:30; Stop 03/22/21 at 13:31; Status DC Azithromycin 250 ml @ 250 mls/hr 1X ONCE IV ; Start 03/22/21 at 13:30; Stop 03/22/21 at 14:29 Active Scripts Active Furosemide 20 Mg Tablet 1 Tab PO DAILY [Pantoprazole] 40 MG Tablet.dr 40 Mg PO DAILYAC 30 Days Budesonide 0.5 Mg/2 Ml Ampul.neb 0.5 Mg NEB RTBID 30 Days Mucinex Dm Er 600-30 Mg Tablet (Guaifenesin/Dextromethorphan) 1 Each Tab.er.12h 1 Tab PO BID 30 Days Ambien (Zolpidem Tartrate) 5 Mg Tablet 5 Mg PO PRN QHS PRN 30 Days Lisinopril 40 Mg Tablet 20 Mg PO DAILY 30 Days Amlodipine Besylate 5 Mg Tablet 5 Mg PO DAILY 30 Days Duoneb 0.5-3(2.5) Mg/3 Ml (Albuterol/Ipratropium) 3 Ml Ampul.neb 3 Ml NEB RTQID 30 Days Reported Proair Hfa Inhaler (Albuterol Sulfate) 8.5 Gm Hfa.aer.ad 1 Puff INH PRN Q6HRS PRN Allergies Allergies: Coded Allergies: No Known Drug Allergies (Unverified , 03/22/21) Vitals Vitals Vital Signs Date Time Temp Pulse Resp B/P (MAP) Pulse Ox O2 Delivery O2 Flow Rate FiO2 03/22/21 12:53 99 18 126/78 (94) 96 Nasal Cannula 4.0 03/22/21 11:45 97.8 97.8 Labs Labs Laboratory Tests Test 03/22/21 11:45 03/22/21 12:11 White Blood Count 10.4 x10^3/uL (4.0-11.0) Red Blood Count 4.24 x10^6/uL (3.50-5.40) Hemoglobin 12.8 g/dL (12.0-15.5) Hematocrit 38.3 % (36.0-47.0) Mean Corpuscular Volume 90 fL (79-100) Mean Corpuscular Hemoglobin 30 pg (25-35) Mean Corpuscular Hemoglobin Concent 33 g/dL (31-37) Red Cell Distribution Width 14.6 % (11.5-14.5) Platelet Count 173 x10^3/uL (140-400) Neutrophils (%) (Auto) 75 % (31-73) Lymphocytes (%) (Auto) 15 % (24-48) Monocytes (%) (Auto) 8 % (0-9) Eosinophils (%) (Auto) 1 % (0-3) Basophils (%) (Auto) 1 % (0-3) Neutrophils # (Auto) 7.8 x10^3/uL (1.8-7.7) Lymphocytes # (Auto) 1.6 x10^3/uL (1.0-4.8) Monocytes # (Auto) 0.9 x10^3/uL (0.0-1.1) Eosinophils # (Auto) 0.1 x10^3/uL (0.0-0.7) Basophils # (Auto) 0.1 x10^3/uL (0.0-0.2) Sodium Level 146 mmol/L (136-145) Potassium Level 4.5 mmol/L (3.5-5.1) Chloride Level 110 mmol/L (98-107) Carbon Dioxide Level 25 mmol/L (21-32) Anion Gap 11 (6-14) Blood Urea Nitrogen 45 mg/dL (7-20) Creatinine 2.0 mg/dL (0.6-1.0) Estimated GFR (Cockcroft-Gault) 24.0 Glucose Level 106 mg/dL (70-99) Calcium Level 9.0 mg/dL (8.5-10.1) Troponin I Quantitative < 0.017 ng/mL (0.000-0.055) PU-Tqc-K-Type Natriuretic Peptide 3673 pg/mL (0-449) Thyroid Stimulating Hormone (TSH) 4.428 uIU/mL (0.358-3.74) SARS-CoV-2 Antigen (Rapid) Negative (NEGATIVE) Laboratory Tests Test 03/22/21 11:45 03/22/21 12:11 White Blood Count 10.4 x10^3/uL (4.0-11.0) Red Blood Count 4.24 x10^6/uL (3.50-5.40) Hemoglobin 12.8 g/dL (12.0-15.5) Hematocrit 38.3 % (36.0-47.0) Mean Corpuscular Volume 90 fL (79-100) Mean Corpuscular Hemoglobin 30 pg (25-35) Mean Corpuscular Hemoglobin Concent 33 g/dL (31-37) Red Cell Distribution Width 14.6 % (11.5-14.5) Platelet Count 173 x10^3/uL (140-400) Neutrophils (%) (Auto) 75 % (31-73) Lymphocytes (%) (Auto) 15 % (24-48) Monocytes (%) (Auto) 8 % (0-9) Eosinophils (%) (Auto) 1 % (0-3) Basophils (%) (Auto) 1 % (0-3) Neutrophils # (Auto) 7.8 x10^3/uL (1.8-7.7) Lymphocytes # (Auto) 1.6 x10^3/uL (1.0-4.8) Monocytes # (Auto) 0.9 x10^3/uL (0.0-1.1) Eosinophils # (Auto) 0.1 x10^3/uL (0.0-0.7) Basophils # (Auto) 0.1 x10^3/uL (0.0-0.2) Sodium Level 146 mmol/L (136-145) Potassium Level 4.5 mmol/L (3.5-5.1) Chloride Level 110 mmol/L (98-107) Carbon Dioxide Level 25 mmol/L (21-32) Anion Gap 11 (6-14) Blood Urea Nitrogen 45 mg/dL (7-20) Creatinine 2.0 mg/dL (0.6-1.0) Estimated GFR (Cockcroft-Gault) 24.0 Glucose Level 106 mg/dL (70-99) Calcium Level 9.0 mg/dL (8.5-10.1) Troponin I Quantitative < 0.017 ng/mL (0.000-0.055) PC-Tyf-G-Type Natriuretic Peptide 3673 pg/mL (0-449) Thyroid Stimulating Hormone (TSH) 4.428 uIU/mL (0.358-3.74) SARS-CoV-2 Antigen (Rapid) Negative (NEGATIVE) Images Images PATIENT: MCKAY KHANNA ACCOUNT: [id number] : 1940 LOCATION: ER AGE: 80 SEX: F EXAM STATUS: REG ER ORD. PHYSICIAN: BRANDI MARQUEZ DO REASON: shortness of air PROCEDURE: PORTABLE CHEST 1V XR CHEST 1V History: Reason: shortness of air / Spl. Instructions: / History: Comparison: November 12, [address] February 22, 2021 Findings: Moderate diffuse interstitial thickening with ill-defined opacities. No pleural effusion. No pneumothorax. Emphysematous changes. Normal heart size. Impression: 1. Moderate diffuse interstitial thickening with ill-defined opacities, may represent pulmonary edema or infection. Electronically signed by: Behzad Roe DO (03/22/2021 12:37 PM) [id number] DICTATED and SIGNED BY: BEHZAD ROE DO DATE: 03/22/21 [id number] VTE Prophylaxis Ordered VTE Prophylaxis Devices: Yes VTE Pharmacological Prophylaxi: Yes Justifications for Admission Other Justification SAM HARRINGTON MD Mar 22, 2021 13:33
[2021-03-22] MEDS ORDERED: ACETAMINOPHEN 325 MG TABLET. PO PRN (13:45)
[2021-03-22] MEDS ORDERED: ONDANSETRON PF 4 MG/2 ML VIAL. IVP PRN (13:45)
[2021-03-22] MEDS: ENOXAPARIN 30 MG/0.3 ML SYRINGE. SQ SCH (16:00)
[2021-03-22 23:00] VITALS: BP 119/57
[2021-03-23 03:00] VITALS: BP 120/52
[2021-03-23 06:14] LABS: BASO # 0.1 x10^3/uL (0.0-0.2); BASO % 1 % (0-3); EOS # 0.3 x10^3/uL (0.0-0.7); EOS % 3 % (0-3); HEMATOCRIT 35.8 % (36.0-47.0); HEMOGLOBIN 11.8 g/dL (12.0-15.5); LYMPH # 2.4 x10^3/uL (1.0-4.8); LYMPH % 26 % (24-48); MEAN CORPUSCULAR HEMOGLOBIN 30 pg (25-35); MEAN CORPUSCULAR HGB CONC 33 g/dL (31-37); MEAN CORPUSCULAR VOLUME 92 fL (79-100); MONO # 0.8 x10^3/uL (0.0-1.1); MONO % 9 % (0-9); NEUT # 5.6 x10^3/uL (1.8-7.7); NEUT % 61 % (31-73); PLATELET COUNT 183 x10^3/uL (140-400); RED BLOOD COUNT 3.89 x10^6/uL (3.50-5.40); RED CELL DISTRIBUTION WIDTH 14.8 % (11.5-14.5); WHITE BLOOD COUNT 9.2 x10^3/uL (4.0-11.0)
[2021-03-23 07:00] VITALS: BP 116/62
[2021-03-23 07:11] LABS: CALCIUM 8.9 mg/dL (8.5-10.1); POTASSIUM 4.1 mmol/L (3.5-5.1)
--- NOTE | 2021-03-23 08:28 | PDOC ---
[facility] [facility] PROGRESS NOTE Date of Service DOS: DATE: 03/23/21 TIME: 08:25 Chief Complaint Chief Complaint A/P: Acute on chronic resp failure with AECOPD and acute CHF New onset atrial fibrillation - quickly converted to NSR Acute bronchitis - COPD exacerbation related Pulmonary hypertension Moderate aortic insufficiency Acute on chronic diastolic HF - prior echo 2018 with mild LV dysfunction with EF 45-50%, had echo at [facility] Arrhythmia Hypertension; controlled CKD - normal renal function in 2018, but november 2020 appears to likely have new baseline cr 2 History of Present Illness History of Present Illness Ms Caal is an 80-year-old female presents to the emergency department complaining of shortness of breath for the last 3 weeks that has been gradually progressive. She denies any fever, cough, chest pain or any other symptoms. She reports feeling fatigued when she walks short distances, but not at rest. She has no history of atrial fibrillation does not take any blood thinners or treatment. She reports she does take high blood pressure medicine. She has otherwise been in her normal health and denies any recent illness. She has been vaccinated for COVID-19. Denies any history of blood clots in the past. The patient denies nausea, vomiting, fever, chills, chest pain, abdominal pain, urinary symptoms, cough, recent trauma, or any other complaints. Chest radiograph with bilateral infiltrates. Required 4 L of oxygen initially. Started empirically on azithromycin and Rocephin. COVID-19 negative. Still requiring O2. Feels nebulizer treatments helped. She does note she is is increased lower extremity swelling recently. She does take outpatient furosemide. Discussed with cardiology she had a recent echocardiogram at [facility]. Vitals/I&O Vitals/I&O: Vital Signs Date Time Temp Pulse Resp B/P (MAP) Pulse Ox O2 Delivery O2 Flow Rate FiO2 03/23/21 03:00 97.8 76 18 120/52 (74) 93 Room Air 97.8 03/22/21 22:45 4.0 Physical Exam Lungs: Wheezing, Crackles Labs Labs: Laboratory Tests Test 03/22/21 11:45 03/22/21 12:11 03/23/21 05:00 White Blood Count 10.4 x10^3/uL (4.0-11.0) 9.2 x10^3/uL (4.0-11.0) Red Blood Count 4.24 x10^6/uL (3.50-5.40) 3.89 x10^6/uL (3.50-5.40) Hemoglobin 12.8 g/dL (12.0-15.5) 11.8 g/dL (12.0-15.5) Hematocrit 38.3 % (36.0-47.0) 35.8 % (36.0-47.0) Mean Corpuscular Volume 90 fL (79-100) 92 fL (79-100) Mean Corpuscular Hemoglobin 30 pg (25-35) 30 pg (25-35) Mean Corpuscular Hemoglobin Concent 33 g/dL (31-37) 33 g/dL (31-37) Red Cell Distribution Width 14.6 % (11.5-14.5) 14.8 % (11.5-14.5) Platelet Count 173 x10^3/uL (140-400) 183 x10^3/uL (140-400) Neutrophils (%) (Auto) 75 % (31-73) 61 % (31-73) Lymphocytes (%) (Auto) 15 % (24-48) 26 % (24-48) Monocytes (%) (Auto) 8 % (0-9) 9 % (0-9) Eosinophils (%) (Auto) 1 % (0-3) 3 % (0-3) Basophils (%) (Auto) 1 % (0-3) 1 % (0-3) Neutrophils # (Auto) 7.8 x10^3/uL (1.8-7.7) 5.6 x10^3/uL (1.8-7.7) Lymphocytes # (Auto) 1.6 x10^3/uL (1.0-4.8) 2.4 x10^3/uL (1.0-4.8) Monocytes # (Auto) 0.9 x10^3/uL (0.0-1.1) 0.8 x10^3/uL (0.0-1.1) Eosinophils # (Auto) 0.1 x10^3/uL (0.0-0.7) 0.3 x10^3/uL (0.0-0.7) Basophils # (Auto) 0.1 x10^3/uL (0.0-0.2) 0.1 x10^3/uL (0.0-0.2) Sodium Level 146 mmol/L (136-145) 149 mmol/L (136-145) Potassium Level 4.5 mmol/L (3.5-5.1) 4.1 mmol/L (3.5-5.1) Chloride Level 110 mmol/L (98-107) 110 mmol/L (98-107) Carbon Dioxide Level 25 mmol/L (21-32) 26 mmol/L (21-32) Anion Gap 11 (6-14) 13 (6-14) Blood Urea Nitrogen 45 mg/dL (7-20) 39 mg/dL (7-20) Creatinine 2.0 mg/dL (0.6-1.0) 2.0 mg/dL (0.6-1.0) Estimated GFR (Cockcroft-Gault) 24.0 24.0 Glucose Level 106 mg/dL (70-99) 95 mg/dL (70-99) Calcium Level 9.0 mg/dL (8.5-10.1) 8.9 mg/dL (8.5-10.1) Troponin I Quantitative < 0.017 ng/mL (0.000-0.055) QO-Jvd-Y-Type Natriuretic Peptide 3673 pg/mL (0-449) Thyroid Stimulating Hormone (TSH) 4.428 uIU/mL (0.358-3.74) SARS-CoV-2 RNA (GABBY) Negative (Negative) SARS-CoV-2 Antigen (Rapid) Negative (NEGATIVE) Assessment and Plan Assessmemt and Plan Problems Medical Problems: (1) New onset atrial fibrillation Status: Acute (2) Pneumonia Status: Acute Comment Review of Relevant I have reviewed the following items zenaida (where applicable) has been applied. Medications: Current Medications Medications (Trade) Dose Ordered Sig/Maggy Route PRN Reason Start Time Stop Time Status Last Admin Dose Admin Ceftriaxone Sodium (Rocephin) 2 gm 1X ONCE IVP 03/22/21 13:30 03/22/21 13:31 DC 03/22/21 13:30 Azithromycin 250 ml @ 250 mls/hr 1X ONCE IV 03/22/21 13:30 03/22/21 14:29 DC 03/22/21 13:30 Enoxaparin Sodium (Lovenox 30mg Syringe) 30 mg Q24H SQ 03/22/21 16:00 03/22/21 16:00 Images: Moderate diffuse interstitial thickening with ill-defined opacities. No pleural effusion. No pneumothorax. Emphysematous changes. Normal heart size. Impression: 1. Moderate diffuse interstitial thickening with ill-defined opacities, may represent pulmonary edema or infection. Justifications for Admission Other Justification DAVID RUBI MD Mar 23, 2021 08:28
[2021-03-23] MEDS ORDERED: ALBUTEROL SULFATE 2.5 MG/3 ML NEBU. INH PRN (08:30)
[2021-03-23] MEDS: IPRATRPIUM/ALBUTEROL 0.5/2.5MG 3 ML NEBU. NEB SCH ×4 (09:00→21:29)
[2021-03-23] MEDS: BUDESONIDE 0.5 MG/2 ML NEBU. NEB SCH ×2 (09:00→21:29)
[2021-03-23 11:00] VITALS: BP 118/60
[2021-03-23] MEDS: guaiFENesin DM 600/30MG 1 TAB TAB.ER.12H PO SCH ×2 (11:43→20:19)
[2021-03-23] MEDS: FUROSEMIDE 20 MG TABLET PO SCH (11:44)
[2021-03-23] MEDS: PANTOPRAZOLE 40 MG TABLET.DR. PO SCH (11:45)
--- NOTE | 2021-03-23 11:55 | PDOC2 ---
GUNJAN ROBERTO QUENCHING CAR OPERATOR 03/23/21 1155: CARDIAC CONSULT DATE OF CONSULT Date of Consult DATE: 03/23/21 TIME: 11:43 REASON FOR CONSULT Reason for Consult: new AFIB REFERRING PHYSICIAN Referring Physician: Dr. Pa SOURCE Source: Chart review, Patient HISTORY OF PRESENT ILLNESS HISTORY OF PRESENT ILLNESS This is an 80 yo female who presented secondary to progressive shortness of breath over the last several weeks. She denies any chest pain, palpitations, dizziness, diaphoresis, or nausea/vomiting. No recent illness or fevers. Reports breathing has improved. Follows with [facility], Dr. Olsen. Had recent stress test and echocardiogram as noted below. PAST MEDICAL HISTORY Cardiovascular: CHF, HTN, Other (chronic venous insufficiency) Pulmonary: COPD Heme/Onc: Cancer (uterine) PAST SURGICAL HISTORY Past Surgical History: Appendectomy, Cataract Removal, Tonsillectomy, Hysterectomy FAMILY HISTORY Family History: Hypertension SOCIAL HISTORY Smoke: Quit ALCOHOL: none Drugs: None Lives: with Family CURRENT MEDICATIONS CURRENT MEDICATIONS Current Medications Medications (Trade) Dose Ordered Sig/Maggy Route PRN Reason Start Time Stop Time Status Last Admin Dose Admin Ceftriaxone Sodium (Rocephin) 2 gm 1X ONCE IVP 03/22/21 13:30 03/22/21 13:31 DC 03/22/21 13:30 Azithromycin 250 ml @ 250 mls/hr 1X ONCE IV 03/22/21 13:30 03/22/21 14:29 DC 03/22/21 13:30 Enoxaparin Sodium (Lovenox 30mg Syringe) 30 mg Q24H SQ 03/22/21 16:00 03/22/21 16:00 ALLERGIES ALLERGIES: Coded Allergies: No Known Drug Allergies (Unverified , 03/22/21) ROS Review of System 14 point ROS conducted with pertinent positives noted above in HPI PHYSICAL EXAM General: Alert, Oriented X3, Cooperative, mild distress HEENT: Atraumatic, Mucous membr. moist/pink Lungs: Other (diminished bases) Heart: Regular rate (SR ) Abdomen: Soft, No tenderness Extremities: Other (trace to 1+ bilateral LE edema ) Skin: No significant lesion Neuro: Normal speech, Sensation intact Psych/Mental Status: Mental status NL, Mood NL MUSCULOSKELETAL: Osteoarthritic changes both hands VITALS/I&O VITALS/I&O: Vital Signs Date Time Temp Pulse Resp B/P (MAP) Pulse Ox O2 Delivery O2 Flow Rate FiO2 03/23/21 07:00 97.8 85 18 116/62 (80) 97 Room Air 97.8 03/22/21 22:45 4.0 LABS Lab: Laboratory Tests Test 03/22/21 11:45 03/22/21 12:11 03/23/21 05:00 White Blood Count 10.4 x10^3/uL (4.0-11.0) 9.2 x10^3/uL (4.0-11.0) Red Blood Count 4.24 x10^6/uL (3.50-5.40) 3.89 x10^6/uL (3.50-5.40) Hemoglobin 12.8 g/dL (12.0-15.5) 11.8 g/dL (12.0-15.5) L Hematocrit 38.3 % (36.0-47.0) 35.8 % (36.0-47.0) L Mean Corpuscular Volume 90 fL (79-100) 92 fL (79-100) Mean Corpuscular Hemoglobin 30 pg (25-35) 30 pg (25-35) Mean Corpuscular Hemoglobin Concent 33 g/dL (31-37) 33 g/dL (31-37) Red Cell Distribution Width 14.6 % (11.5-14.5) H 14.8 % (11.5-14.5) H Platelet Count 173 x10^3/uL (140-400) 183 x10^3/uL (140-400) Neutrophils (%) (Auto) 75 % (31-73) H 61 % (31-73) Lymphocytes (%) (Auto) 15 % (24-48) L 26 % (24-48) Monocytes (%) (Auto) 8 % (0-9) 9 % (0-9) Eosinophils (%) (Auto) 1 % (0-3) 3 % (0-3) Basophils (%) (Auto) 1 % (0-3) 1 % (0-3) Neutrophils # (Auto) 7.8 x10^3/uL (1.8-7.7) H 5.6 x10^3/uL (1.8-7.7) Lymphocytes # (Auto) 1.6 x10^3/uL (1.0-4.8) 2.4 x10^3/uL (1.0-4.8) Monocytes # (Auto) 0.9 x10^3/uL (0.0-1.1) 0.8 x10^3/uL (0.0-1.1) Eosinophils # (Auto) 0.1 x10^3/uL (0.0-0.7) 0.3 x10^3/uL (0.0-0.7) Basophils # (Auto) 0.1 x10^3/uL (0.0-0.2) 0.1 x10^3/uL (0.0-0.2) Sodium Level 146 mmol/L (136-145) H 149 mmol/L (136-145) H Potassium Level 4.5 mmol/L (3.5-5.1) 4.1 mmol/L (3.5-5.1) Chloride Level 110 mmol/L (98-107) H 110 mmol/L (98-107) H Carbon Dioxide Level 25 mmol/L (21-32) 26 mmol/L (21-32) Anion Gap 11 (6-14) 13 (6-14) Blood Urea Nitrogen 45 mg/dL (7-20) H 39 mg/dL (7-20) H Creatinine 2.0 mg/dL (0.6-1.0) H 2.0 mg/dL (0.6-1.0) H Estimated GFR (Cockcroft-Gault) 24.0 24.0 Glucose Level 106 mg/dL (70-99) H 95 mg/dL (70-99) Calcium Level 9.0 mg/dL (8.5-10.1) 8.9 mg/dL (8.5-10.1) Troponin I Quantitative < 0.017 ng/mL (0.000-0.055) SV-Eav-F-Type Natriuretic Peptide 3673 pg/mL (0-449) H Thyroid Stimulating Hormone (TSH) 4.428 uIU/mL (0.358-3.74) H SARS-CoV-2 RNA (GABBY) Negative (Negative) SARS-CoV-2 Antigen (Rapid) Negative (NEGATIVE) Laboratory Tests 03/22/21 11:45 03/23/21 05:00 Laboratory Tests 03/22/21 11:45 03/23/21 05:00 ECHOCARDIOGRAM ECHOCARDIOGRAM <Conclusion> The left ventricular systolic function is low normal. EF 45-50%. There is mild global hypokinesis. Doppler and Color Flow revealed mild to moderate aortic regurgitation. Doppler and Color Flow revealed mild tricuspid regurgitation. There is moderate pulmonary hypertension. The PA pressure was estimated at 58 mmHg. DATE: 11/18/1891001/18/21 - 2D + DOPPLER ECHO Interpretation Summary Technically challenging study. Parasternal images were almost entirely nondiagnostic. Normal LV cavity size with low normal systolic function, LVEF ~ 50-55% No obvious regional wall motion abnormalities Grade I (mild) left ventricle diastolic dysfunction. Normal right ventricle size and qualitative systolic function Normal size atria bilaterally Aortic sclerosis without stenosis The pulmonary artery pressure could not be estimated due to inadequate tricuspid regurgitation signal. No pericardial effusion There are no prior studies for comparison. STRESS TEST STRESS TEST 01/18/21 - Procedure: [facility] MPI STRESS TEST SUMMARY/OPINION: This study is probably abnormal, but in the setting of soft tissue attenuation. There is a mixed defect involving the mid to distal inferior wall, this may represent a limited ischemic change. However, the specificity of the finding is decreased due to the soft tissue attenuation. Overall the study is still considered low risk. Left ventricular systolic function is normal, the ejection fraction is 57%. The pulmonary to myocardial count ratio was normal at 0.38, there is no transient ischemic dilatation. The pharmacologic ECG portion of the study is nondiagnostic for ischemia. There are no prior studies available for comparison. In aggregate the current study is low risk in regards to predicted annual car diovascular mortality rate. ASSESSMENT/PLAN ASSESSMENT/PLAN 1. Acute on chronic resp failure with AECOPD and acute CHF 2. Acute on chronic diastolic HF; Echo 01/24 with preserved LV systolic function. MPI 01/24 as noted above. Follows with Dr. Olsen with [facility] 3. Arrhythmia; initial EKG reads as AFIB, but appears to be SR/SA with PAC's. Review of tele shows SR 4. Hypertension; controlled 5. ANGELINA on CKD 6. Moderate AI 7. Chronic LE venous insufficiency 8. PUI; COVID negative Recommendations Mild diureisis with close monitoring of renal function Hold ACEi with ANGELINA Norvasc resumed Lung optimization Consider outpatient event monitor Supportive care DEMI DUNCAN MD 03/24/21 1055: CARDIAC CONSULT ASSESSMENT/PLAN ASSESSMENT/PLAN Late entry for 03/23/21 Pt. seen and examined. 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 Supportive care. GUNJAN ROBERTO APRN Mar 23, 2021 11:55 DEMI DUNCAN MD Mar 24, 2021 10:55
--- NOTE | 2021-03-23 12:52 | NUR ---
SW following. Discussed with RN, pt from home with , 3L at home, regular diet, COVID-19 negative. Cardiology following. SW will continue to follow.
[2021-03-23 15:00] VITALS: BP 101/46
[2021-03-23] MEDS ORDERED: FUROSEMIDE 20 MG/2 ML VIAL. IVP ONE (15:15)
[2021-03-23] MEDS: ENOXAPARIN 30 MG/0.3 ML SYRINGE. SQ SCH (16:01)
[2021-03-23] MEDS: AZITHROMYCIN 250 MG TABLET. PO SCH (18:12)
[2021-03-23] MEDS: cefTRIAXone IV Push 1 GM VIAL. IVP SCH (18:15)
[2021-03-23 19:00] VITALS: BP 124/63
[2021-03-23 23:00] VITALS: BP 119/56
[2021-03-24] MEDS ORDERED: ASCO100019 PO (00:23)
[2021-03-24] MEDS ORDERED: ZINC50TA39 PO (00:23)
[2021-03-24] MEDS ORDERED: CALC500T30 PO (00:23)
[2021-03-24 07:00] VITALS: BP 105/56
[2021-03-24] MEDS: IPRATRPIUM/ALBUTEROL 0.5/2.5MG 3 ML NEBU. NEB SCH ×4 (07:24→20:50)
[2021-03-24] MEDS: BUDESONIDE 0.5 MG/2 ML NEBU. NEB SCH ×2 (07:26→20:51)
[2021-03-24] MEDS: PANTOPRAZOLE 40 MG TABLET.DR. PO SCH (09:33)
[2021-03-24] MEDS: AZITHROMYCIN 250 MG TABLET. PO SCH (09:33)
[2021-03-24] MEDS: guaiFENesin DM 600/30MG 1 TAB TAB.ER.12H PO SCH ×2 (09:33→20:44)
[2021-03-24] MEDS: FUROSEMIDE 20 MG TABLET PO SCH (09:33)
[2021-03-24 11:00] VITALS: BP 105/56
--- NOTE | 2021-03-24 11:00 | PDOC ---
[employer] PROGRESS NOTE Date of Service DOS: DATE: 03/24/21 TIME: 10:59 Chief Complaint Chief Complaint A/P: Acute on chronic resp failure with AECOPD and acute CHF New onset atrial fibrillation - quickly converted to NSR Acute bronchitis - COPD exacerbation related Pulmonary hypertension Moderate aortic insufficiency Acute on chronic diastolic HF - prior echo 2018 with mild LV dysfunction with EF 45-50%, had echo at [facility] improved EF Arrhythmia Hypertension; controlled CKD - normal renal function in 2018, but november 2020 appears to likely have new baseline cr 2 Hypernatremia - likely free water deficit. FEN - Cardiac diet PPX - heparin FULL CODE Dispo - inpatient History of Present Illness History of Present Illness Ms Caal is an 80-year-old female presents to the emergency department complaining of shortness of breath for the last 3 weeks that has been gradually progressive. She denies any fever, cough, chest pain or any other symptoms. She reports feeling fatigued when she walks short distances, but not at rest. S he has no history of atrial fibrillation does not take any blood thinners or treatment. She reports she does take high blood pressure medicine. She has otherwise been in her normal health and denies any recent illness. She has been vaccinated for COVID-19. Denies any history of blood clots in the past. The patient denies nausea, vomiting, fever, chills, chest pain, abdominal pain, urinary symptoms, cough, recent trauma, or any other complaints. Chest radiograph with bilateral infiltrates. Required 4 L of oxygen initially. Started empirically on azithromycin and Rocephin. 03/23: COVID-19 negative. Still requiring O2. Feels nebulizer treatments helped. She does note she is is increased lower extremity swelling recently. She does take outpatient furosemide. Discussed with cardiology she had a recent echocardiogram at [facility]. Still requiring some oxygen with some shortness of breath. Doing well with pulmonary toileting. Awaiting metabolic panel today. Vitals/I&O Vitals/I&O: Vital Signs Date Time Temp Pulse Resp B/P (MAP) Pulse Ox O2 Delivery O2 Flow Rate FiO2 03/24/21 07:28 98 Nasal Cannula 7.0 03/24/21 07:00 98.0 106 18 105/56 (72) 98.0 I & O 03/23/21 03/23/21 03/24/21 15:00 23:00 07:00 Intake Total 480 ml 200 ml Balance 480 ml 200 ml Physical Exam General: Alert, Oriented X3, Cooperative, mild distress Heart: Regular rate (SR ) Lungs: Wheezing, Crackles Abdomen: Soft, No tenderness Extremities: Other (trace to 1+ bilateral LE edema ) Skin: No significant lesion Assessment and Plan Assessmemt and Plan Problems Medical Problems: (1) New onset atrial fibrillation Status: Acute (2) Pneumonia Status: Acute Comment Review of Relevant I have reviewed the following items zenaida (where applicable) has been applied. Medications: Current Medications Medications (Trade) Dose Ordered Sig/Maggy Route PRN Reason Start Time Stop Time Status Last Admin Dose Admin Furosemide (Lasix) 20 mg 1X ONCE IVP 03/23/21 15:15 03/23/21 15:20 DC 03/23/21 16:02 Azithromycin (Zithromax) 250 mg DAILY PO 03/23/21 17:00 03/26/21 09:01 03/24/21 09:33 Ceftriaxone Sodium (Rocephin) 1 gm Q24H IVP 03/23/21 17:00 03/23/21 18:15 Justifications for Admission Other Justification DAVID RUBI MD Mar 24, 2021 11:00
--- NOTE | 2021-03-24 11:45 | PDOC ---
CARDIO Progress Notes Date and Time Date of Service 03/24/21 Time of Evaluation 1140 Subjective Subjective: No Chest Pain, No shortness of breath Vitals Vitals Vital Signs Date Time Temp Pulse Resp B/P (MAP) Pulse Ox O2 Delivery O2 Flow Rate FiO2 03/24/21 11:34 Nasal Cannula 7.0 03/24/21 11:00 97.6 89 18 105/56 (72) 93 97.6 Weight Weight [ ] Input and Output Intake and Output Intake and Output 03/24/21 07:00 Intake Total 680 ml Balance 680 ml Intake Oral 680 ml # Voids 3 Physical Exam HEENT: Neck Supple W Full Motion Chest: Symmetric LUNGS: Clear to Auscultation Heart: RRR Abdomen: Soft N/T Extremities: No Edema Neurology: alert, oriented, follow commands Assessment Assessment 1. Acute on chronic resp failure with AECOPD and acute CHF 2. Acute on chronic diastolic HF; Echo 01/24 with preserved LV systolic function. Follows with Dr. Olsen with [facility] 3. Arrhythmia; initial EKG reads as AFIB, but appears to be SR/SA with PAC's. Review of tele shows SR/ST with PACs 4. Hypertension; controlled 5. ANGELINA on CKD 6. Moderate AI 7. Chronic LE venous insufficiency 8. PUI; COVID negative Recommendations Diureisis with close monitoring of renal function Repeat BMP Hold ACEi with ANGELINA Lung optimization Outpatient event monitor; patient would like this conducted through [facility] Supportive care Justicifation of Admission Dx: Justifications for Admission: Justification of Admission Dx: Yes Comments: Acute on chronic CHF GUNJAN ROBERTO APRN Mar 24, 2021 11:45
[2021-03-24] MEDS: ASCORBIC ACID 1,000 MG TABLET PO SCH (12:29)
[2021-03-24] MEDS: ZINC SULFATE 220 MG CAPSULE. PO SCH (12:29)
[2021-03-24] MEDS: CALCIUM CARBONATE 500 MG TABLET PO SCH (12:29)
[2021-03-24 13:43] LABS: CALCIUM 8.9 mg/dL (8.5-10.1); CREATININE 1.7 mg/dL (0.6-1.0); GFR 28.9; MAGNESIUM 2.2 mg/dL (1.8-2.4); POTASSIUM 4.4 mmol/L (3.5-5.1)
[2021-03-24] MEDS ORDERED: FUROSEMIDE 40 MG/4 ML VIAL. IVP ONE (14:30)
[2021-03-24 15:00] VITALS: BP 115/63
[2021-03-24] MEDS: ENOXAPARIN 30 MG/0.3 ML SYRINGE. SQ SCH (15:36)
[2021-03-24] MEDS: cefTRIAXone IV Push 1 GM VIAL. IVP SCH (18:11)
[2021-03-24 19:00] VITALS: BP 116/56
[2021-03-24 23:00] VITALS: BP 115/67
[2021-03-25 07:01] VITALS: BP 111/57
[2021-03-25] MEDS: BUDESONIDE 0.5 MG/2 ML NEBU. NEB SCH ×2 (07:38→20:19)
[2021-03-25] MEDS: IPRATRPIUM/ALBUTEROL 0.5/2.5MG 3 ML NEBU. NEB SCH ×4 (07:38→20:19)
--- NOTE | 2021-03-25 08:44 | PDOC ---
[employer] PROGRESS NOTE Date of Service DOS: DATE: 03/25/21 TIME: 08:42 Chief Complaint Chief Complaint A/P: Acute on chronic resp failure with AECOPD and acute CHF New onset atrial fibrillation - quickly converted to NSR Acute bronchitis - COPD exacerbation related Pulmonary hypertension Moderate aortic insufficiency Acute on chronic diastolic HF - prior echo 2018 with mild LV dysfunction with EF 45-50%, had echo at [facility] improved EF Arrhythmia Hypertension; controlled CKD - normal renal function in 2018, but november 2020 appears to likely have new baseline cr 2 Hypernatremia - likely free water deficit. FEN - Cardiac diet PPX - heparin FULL CODE Dispo - inpatient History of Present Illness History of Present Illness Ms Caal is an 80-year-old female presents to the emergency department complaining of shortness of breath for the last 3 weeks that has been gradually progressive. She denies any fever, cough, chest pain or any other symptoms. She reports feeling fatigued when she walks short distances, but not at rest. S he has no history of atrial fibrillation does not take any blood thinners or treatment. She reports she does take high blood pressure medicine. She has otherwise been in her normal health and denies any recent illness. She has been vaccinated for COVID-19. Denies any history of blood clots in the past. The patient denies nausea, vomiting, fever, chills, chest pain, abdominal pain, urinary symptoms, cough, recent trauma, or any other complaints. Chest radiograph with bilateral infiltrates. Required 4 L of oxygen initially. Started empirically on azithromycin and Rocephin. 03/23: COVID-19 negative. Still requiring O2. Feels nebulizer treatments helped. She does note she is is increased lower extremity swelling recently. She does take outpatient furosemide. Discussed with cardiology she had a recent echocardiogram at [facility]. 03/24: Still requiring some oxygen with some shortness of breath. Doing well with pulmonary toileting. metabolic panel improved today. Given 40mg IV lasix x1 Weight with 2 kg decrease. Urine output not available. Does not feel significantly worse today but still requiring 6 L nasal cannula oxygen. Discussed with cardiology her outpatient personal financial representative is Dr. Santiago recently will consult Pulmonology for further recs Vitals/I&O Vitals/I&O: Vital Signs Date Time Temp Pulse Resp B/P (MAP) Pulse Ox O2 Delivery O2 Flow Rate FiO2 03/25/21 07:38 94 Nasal Cannula 7.0 03/25/21 07:01 97.9 103 16 111/57 (75) 97.9 I & O 03/24/21 03/24/21 03/25/21 15:00 23:00 07:00 Intake Total 440 ml 500 ml Balance 440 ml 500 ml Physical Exam General: Alert, Oriented X3, Cooperative, mild distress Heart: Regular rate (SR ) Lungs: Wheezing, Crackles Abdomen: Soft, No tenderness Extremities: Other (trace to 1+ bilateral LE edema ) Skin: No significant lesion Labs Labs: Laboratory Tests Test 03/24/21 13:10 Sodium Level 142 mmol/L (136-145) Potassium Level 4.4 mmol/L (3.5-5.1) Chloride Level 107 mmol/L (98-107) Carbon Dioxide Level 29 mmol/L (21-32) Anion Gap 6 (6-14) Blood Urea Nitrogen 36 mg/dL (7-20) Creatinine 1.7 mg/dL (0.6-1.0) Estimated GFR (Cockcroft-Gault) 28.9 Glucose Level 89 mg/dL (70-99) Calcium Level 8.9 mg/dL (8.5-10.1) Magnesium Level 2.2 mg/dL (1.8-2.4) Assessment and Plan Assessmemt and Plan Problems Medical Problems: (1) New onset atrial fibrillation Status: Acute (2) Pneumonia Status: Acute Comment Review of Relevant I have reviewed the following items zenaida (where applicable) has been applied. Medications: Current Medications Medications (Trade) Dose Ordered Sig/Maggy Route PRN Reason Start Time Stop Time Status Last Admin Dose Admin Ascorbic Acid (Vitamin C) 1,000 mg DAILY PO 03/24/21 12:00 03/24/21 12:29 Calcium Carbonate/ Glycine (Oscal) 500 mg DAILY PO 03/24/21 12:00 03/24/21 12:29 Zinc Sulfate (Orazinc) 220 mg DAILY PO 03/24/21 12:00 03/24/21 12:29 Furosemide (Lasix) 40 mg 1X ONCE IVP 03/24/21 14:30 03/24/21 14:31 DC 03/24/21 15:36 Justifications for Admission Other Justification DAVID RUBI MD Mar 25, 2021 08:44
[2021-03-25] MEDS: PANTOPRAZOLE 40 MG TABLET.DR. PO SCH (09:10)
[2021-03-25] MEDS: ASCORBIC ACID 1,000 MG TABLET PO SCH (09:10)
[2021-03-25] MEDS: ZINC SULFATE 220 MG CAPSULE. PO SCH (09:11)
[2021-03-25] MEDS: AZITHROMYCIN 250 MG TABLET. PO SCH (09:11)
[2021-03-25] MEDS: CALCIUM CARBONATE 500 MG TABLET PO SCH (09:11)
[2021-03-25] MEDS: guaiFENesin DM 600/30MG 1 TAB TAB.ER.12H PO SCH ×2 (09:11→21:01)
[2021-03-25] MEDS: FUROSEMIDE 20 MG TABLET PO SCH (09:11)
--- NOTE | 2021-03-25 09:29 | PDOC ---
CARDIO Progress Notes Date and Time Date of Service 03/25/2021 Time of Evaluation 0915 Subjective Subjective: No Chest Pain, No shortness of breath, No Palpitations Vitals Vitals Vital Signs Date Time Temp Pulse Resp B/P (MAP) Pulse Ox O2 Delivery O2 Flow Rate FiO2 03/25/21 07:38 94 Nasal Cannula 7.0 03/25/21 07:01 97.9 103 16 111/57 (75) 97.9 Weight Weight [ ] Input and Output Intake and Output Intake and Output 03/25/21 07:00 Intake Total 940 ml Balance 940 ml Intake Oral 940 ml # Voids 3 Laboratory Labs Laboratory Tests Test 03/24/21 13:10 Sodium Level 142 mmol/L (136-145) Potassium Level 4.4 mmol/L (3.5-5.1) Chloride Level 107 mmol/L (98-107) Carbon Dioxide Level 29 mmol/L (21-32) Anion Gap 6 (6-14) Blood Urea Nitrogen 36 mg/dL (7-20) Creatinine 1.7 mg/dL (0.6-1.0) Estimated GFR (Cockcroft-Gault) 28.9 Glucose Level 89 mg/dL (70-99) Calcium Level 8.9 mg/dL (8.5-10.1) Magnesium Level 2.2 mg/dL (1.8-2.4) Physical Exam HEENT: Neck Supple W Full Motion Chest: Symmetric LUNGS: Other (diminished basilar crackles) Heart: RRR (SR) Abdomen: Soft N/T Extremities: No Edema Neurology: alert, oriented, follow commands Assessment Assessment 1. Acute on chronic resp failure with AECOPD and acute CHF 2. Acute on chronic diastolic HF; Echo 01/24 with preserved LV systolic function. Follows with Dr. Olsen with [facility] 3. Paroxysmal atrial tachycardia: otherwise SR 4. Hypertension; controlled 5. ANGELINA on CKD 6. Moderate AI 7. Chronic LE venous insufficiency 8. PUI; COVID negative Recommendations 1. Low dose toprol. Lasix x1 2. Hold ACEi 3. Lung optimization 4. Outpatient event monitor; patient would like this conducted through [facility] Justicifation of Admission Dx: Justifications for Admission: Justification of Admission Dx: Yes MAHOGANY WEBSTER APRN Mar 25, 2021 09:29
[2021-03-25] MEDS ORDERED: FUROSEMIDE 20 MG/2 ML VIAL. IVP ONE (09:30)
[2021-03-25 11:00] VITALS: BP 139/52
--- NOTE | 2021-03-25 11:31 | CONS ---
DATE OF CONSULTATION: 03/25/2021 PULMONARY CONSULTATION ATTENDING PHYSICIAN: Rosalio Pa MD REASON FOR CONSULTATION: Hypoxic respiratory failure. HISTORY OF PRESENT ILLNESS: The patient is an 80-year-old female who has been a smoker for 50 years. She has underlying COPD. She is on home oxygen at 2 liters on a 24-hour basis. The patient was brought into the hospital with acute on chronic respiratory failure. She had a chest x-ray, which shows diffuse interstitial infiltrates, which has accentuated more than her previous chest x-ray. She had a CT chest done previously in February and was noted to have bilateral fibrotic mild changes with evidence of emphysema. The patient's echocardiogram recently has shown a normal ejection fraction. She was being treated with diuretics. However, her oxygen requirement still remains at 6 liters. I have been asked to see her for further evaluation. She says she does have a cough with some dark sputum production. No fever, no chills. She is updated on her vaccine. No nausea, vomiting or diarrhea. PAST MEDICAL HISTORY: Severe COPD, oxygen dependent. History of diastolic CHF. SURGERIES: Hysterectomy. FAMILY HISTORY: Hypertension. SOCIAL HISTORY: Smoked for 50 years before quitting. ALLERGIES: None. MEDICATIONS: Reviewed as listed in the [facility] including antibiotic, azithromycin, furosemide daily and Lovenox for DVT prophylaxis. REVIEW OF SYSTEMS: A 12-point system obtained. Pertinent positives discussed in my present illness, otherwise noncontributory. All systems that were negative were reviewed as well. PHYSICAL EXAMINATION: VITAL SIGNS: Reviewed. Pulse ox 94% on 7 liters. Afebrile. NECK: Supple. LUNGS: With diminished breath sounds bilaterally, but no definite crackles. CARDIOVASCULAR: With a regular rate. ABDOMEN: Soft. EXTREMITIES: With no pitting edema. LABORATORY DATA: Labs are reviewed. COVID negative. BUN 36, creatinine 1.7. White cell count 9.2. IMPRESSION: 1. Acute on chronic hypoxic respiratory failure in a patient who has 50 years of tobacco use and has a suspected severe chronic obstructive pulmonary disease, which is oxygen dependent. She has slightly more prominent interstitial markings compared to her previous chest x-ray. I suspect that this is related to a component of fibrosis with underlying emphysema and possible superimposed interstitial pneumonia. Clinically, less likely congestive heart failure. 2. Previous normal ejection fraction. 3. COVID negative. 4. Fifty years of tobaccoism and suspected severe chronic obstructive pulmonary disease, on home oxygen at 2 liters. RECOMMENDATIONS: 1. Continue present oxygen at 6 liters. 2. Obtain noncontrast CT chest to better assess for fibrosis or any focal consolidation. 3. Continue empiric antibiotic. 4. Continue low-dose Lasix. 5. We will obtain PFT results from our office. 6. We will make further recommendations after review of CT chest. ESTELA DR: Scott TID: [id number]
--- NOTE | 2021-03-25 11:39 | NUR ---
SW following. Discussed with RN, pt from home with , 6-7L here (uses 3L at home), RN attempting to wean pt today. COVID-19 negative. RN advised no SW needs at this time. SW will continue to follow.
[2021-03-25 11:51] LABS: CREATININE 1.9 mg/dL (0.6-1.0); GFR 25.4; POTASSIUM 4.6 mmol/L (3.5-5.1)
--- NOTE | 2021-03-25 14:07 | RAD ---
PQRS Compliance Statement: One or more of the following individualized dose reduction techniques were utilized for this examinat ion: 1. Automated exposure control 2. Adjustment of the mA and/or kV according to patient size 3. Use of iterative reconstruction technique Exam performed: CT chest without contrast HISTORY: Pulmonary fibrosis DATE OF SERVICE: 03/25/2021 COMPARISON: CT chest without contrast from 02/22/2021. TECHNIQUE: Contiguous helical acquisitions are obtained through the chest without administration of I V contrast. Sagittal and coronal reformatted images are obtained and reviewed. FINDINGS: Diffuse bilateral emphysematous changes are seen. There is redemonstration of a somewhat spiculated p leural-based opacity in the posterior right upper lobe measuring 2.5 x 2.0 cm with adjacent pleural t hickening and linear strands of density extending from the nodule to the hilum. The appearance is unc hanged. Mildly prominent mediastinal and hilar lymph nodes are similar. The heart size is normal. Ath eromatous coronary calcification is noted. Structures at the thoracic inlet including both lobes of the thyroid gland appear normal. Unopacified neck and intrathoracic great vessels appear grossly normal. Limited evaluation of the upper abdominal structures is unremarkable. Suspected ectopic left renal cy st. Bones are normal. IMPRESSION: Extensive bilateral emphysematous changes with unchanged pleural-based nodular opacity in the right apex with adjacent pleural thickening. Malignancy is not excluded. Evaluation with nuclear medicine P ET scan may be obtained. Electronically signed by: Marisa Crabtree MD (03/25/2021 2:04 PM) [id number]
[2021-03-25 15:00] VITALS: BP 121/51
[2021-03-25] MEDS: ENOXAPARIN 30 MG/0.3 ML SYRINGE. SQ SCH (15:27)
[2021-03-25] MEDS: METOPROLOL SUCC 24HR ER 25 MG TAB.ER.24H. PO SCH (17:01)
[2021-03-25 19:49] VITALS: BP 113/62
[2021-03-25] MEDS: LACTOBACILLUS RHAMNOSUS GG 1 CAPSULE. PO SCH (21:01)
[2021-03-25 23:28] VITALS: BP 95/49
[2021-03-26 03:18] VITALS: BP 108/55
[2021-03-26 07:00] VITALS: BP 133/114
[2021-03-26] MEDS: BUDESONIDE 0.5 MG/2 ML NEBU. NEB SCH ×2 (07:54→20:14)
[2021-03-26] MEDS: IPRATRPIUM/ALBUTEROL 0.5/2.5MG 3 ML NEBU. NEB SCH ×4 (07:54→20:14)
--- NOTE | 2021-03-26 08:00 | PDOC ---
PULMONARY PROGRESS NOTES DATE: 03/26/21 TIME: 07:57 Subjective on 02 sob slightly better. has occ cough Vitals Vital Signs Date Time Temp Pulse Resp B/P (MAP) Pulse Ox O2 Delivery O2 Flow Rate FiO2 03/26/21 07:55 90 Nasal Cannula 5.0 03/26/21 03:18 98.9 82 18 108/55 (72) 98.9 General: Alert Lungs: Crackles Cardiovascular: S1, S2 Abdomen: Soft, Non-tender Extremities: No Edema Labs Laboratory Tests Test 03/24/21 13:10 03/25/21 11:17 Sodium Level 142 mmol/L (136-145) 141 mmol/L (136-145) Potassium Level 4.4 mmol/L (3.5-5.1) 4.6 mmol/L (3.5-5.1) Chloride Level 107 mmol/L (98-107) 105 mmol/L (98-107) Carbon Dioxide Level 29 mmol/L (21-32) 29 mmol/L (21-32) Anion Gap 6 (6-14) 7 (6-14) Blood Urea Nitrogen 36 mg/dL (7-20) 36 mg/dL (7-20) Creatinine 1.7 mg/dL (0.6-1.0) 1.9 mg/dL (0.6-1.0) Estimated GFR (Cockcroft-Gault) 28.9 25.4 Glucose Level 89 mg/dL (70-99) 101 mg/dL (70-99) Calcium Level 8.9 mg/dL (8.5-10.1) 9.0 mg/dL (8.5-10.1) Magnesium Level 2.2 mg/dL (1.8-2.4) Laboratory Tests Test 03/25/21 11:17 Sodium Level 141 mmol/L (136-145) Potassium Level 4.6 mmol/L (3.5-5.1) Chloride Level 105 mmol/L (98-107) Carbon Dioxide Level 29 mmol/L (21-32) Anion Gap 7 (6-14) Blood Urea Nitrogen 36 mg/dL (7-20) Creatinine 1.9 mg/dL (0.6-1.0) Estimated GFR (Cockcroft-Gault) 25.4 Glucose Level 101 mg/dL (70-99) Calcium Level 9.0 mg/dL (8.5-10.1) Medications Active Scripts Medications Dose Route/Sig Max Daily Dose Days Date Category Vitamin C (Ascorbic Acid) 1,000 Mg Tablet 1,000 Mg PO DAILY 03/24/21 Reported Zinc 50 Mg Tablet 50 Mg PO DAILY 03/24/21 Reported Calcium (Calcium Carbonate) 500 Mg Tablet 600 Mg PO DAILY 30 03/24/21 Reported Furosemide 20 Mg Tablet 1 Tab PO DAILY 11/19/18 Rx [Pantoprazole] 40 MG Tablet.dr 40 Mg PO DAILYAC 30 11/19/18 Rx Budesonide 0.5 Mg/2 Ml Ampul.neb 0.5 Mg NEB RTBID 30 11/19/18 Rx Mucinex Dm Er 600-30 Mg Tablet (Guaifenesin/Dextromethorphan) 1 Each Tab.er.12h 1 Tab PO BID 30 11/19/18 Rx Ambien (Zolpidem Tartrate) 5 Mg Tablet 5 Mg PO PRN QHS PRN 30 11/19/18 Rx Lisinopril 40 Mg Tablet 20 Mg PO DAILY 30 11/19/18 Rx Amlodipine Besylate 5 Mg Tablet 5 Mg PO DAILY 30 11/19/18 Rx Duoneb 0.5-3(2.5) Mg/3 Ml (Albuterol/Ipratropium) 3 Ml Ampul.neb 3 Ml NEB RTQID 30 11/19/18 Rx Proair Hfa Inhaler (Albuterol Sulfate) 8.5 Gm Hfa.aer.ad 1 Puff INH PRN Q6HRS PRN 01/26/[address] reviewed Extensive bilateral emphysematous changes with unchanged pleural-based nodular opacity in the right apex with adjacent pleural thickening. Malignancy is not excluded. Evaluation with nuclear medicine PET scan may be obtained. Impression . IMPRESSION: 1. Acute on chronic hypoxic respiratory failure in a patient who has 50 years of tobacco use and has a suspected severe chronic obstructive pulmonary disease, which is oxygen dependent. She has slightly more prominent interstitial markings compared to her previous chest x-ray. I suspect that this is related to a component of fibrosis with underlying emphysema and possible superimposed interstitial pneumonia. Clinically, less likely congestive heart failure. 2. Previous normal ejection fraction. 3. COVID negative. 4. Fifty years of tobaccoism and suspected severe chronic obstructive pulmonary disease, on home oxygen at 2 liters. Plan . RECOMMENDATIONS: 1. Continue oxygen titrate fio2 to keep sat 90% 2. CT chest reviewed, pleural-based nodular opacity in the right apex with adjacent pleural thickening. i do recommend pet scan as out pt and fu w pulm 3. Continue empiric antibiotic. 4. Continue low-dose Lasix. monitor k, cr 5. PFT results from our office. 6. 02 titration on home 02 2lpm discussed w pt RICHARDSON Hollis MD Mar 26, 2021 08:00
[2021-03-26] MEDS: ZINC SULFATE 220 MG CAPSULE. PO SCH (08:53)
[2021-03-26] MEDS: CALCIUM CARBONATE 500 MG TABLET PO SCH (08:53)
[2021-03-26] MEDS: AZITHROMYCIN 250 MG TABLET. PO SCH (08:53)
[2021-03-26] MEDS: ASCORBIC ACID 1,000 MG TABLET PO SCH (08:53)
[2021-03-26] MEDS: guaiFENesin DM 600/30MG 1 TAB TAB.ER.12H PO SCH ×2 (08:53→20:46)
[2021-03-26] MEDS: LACTOBACILLUS RHAMNOSUS GG 1 CAPSULE. PO SCH ×2 (08:53→20:46)
[2021-03-26] MEDS: PANTOPRAZOLE 40 MG TABLET.DR. PO SCH (08:53)
[2021-03-26] MEDS: METOPROLOL SUCC 24HR ER 25 MG TAB.ER.24H. PO SCH (08:54)
[2021-03-26] MEDS: FUROSEMIDE 20 MG TABLET PO SCH (08:54)
[2021-03-26 11:00] VITALS: BP 103/58
--- NOTE | 2021-03-26 12:06 | PDOC ---
[employer] PROGRESS NOTE Date of Service DOS: DATE: 03/26/21 TIME: 12:05 Chief Complaint Chief Complaint A/P: Acute on chronic resp failure with AECOPD and acute CHF New onset atrial fibrillation - quickly converted to NSR Acute bronchitis - COPD exacerbation related Pulmonary hypertension Moderate aortic insufficiency Acute on chronic diastolic HF - prior echo 2018 with mild LV dysfunction with EF 45-50%, had echo at [facility] improved EF Arrhythmia Hypertension; controlled CKD - normal renal function in 2018, but november 2020 appears to likely have new baseline cr 2 Hypernatremia - likely free water deficit. FEN - Cardiac diet PPX - heparin FULL CODE Dispo - inpatient History of Present Illness History of Present Illness Ms Caal is an 80-year-old female presents to the emergency department complaining of shortness of breath for the last 3 weeks that has been gradually progressive. She denies any fever, cough, chest pain or any other symptoms. She reports feeling fatigued when she walks short distances, but not at rest. S he has no history of atrial fibrillation does not take any blood thinners or treatment. She reports she does take high blood pressure medicine. She has otherwise been in her normal health and denies any recent illness. She has been vaccinated for COVID-19. Denies any history of blood clots in the past. The patient denies nausea, vomiting, fever, chills, chest pain, abdominal pain, urinary symptoms, cough, recent trauma, or any other complaints. Chest radiograph with bilateral infiltrates. Required 4 L of oxygen initially. Started empirically on azithromycin and Rocephin. 03/23: COVID-19 negative. Still requiring O2. Feels nebulizer treatments helped. She does note she is is increased lower extremity swelling recently. She does take outpatient furosemide. Discussed with cardiology she had a recent echocardiogram at [facility]. 03/24: Still requiring some oxygen with some shortness of breath. Doing well with pulmonary toileting. metabolic panel improved today. Given 40mg IV lasix x1 03/25: Weight with 2 kg decrease. Urine output not available. Does not feel significantly worse today but still requiring 6 L nasal cannula oxygen. Discussed with cardiology her outpatient caption writer is Dr. Danielson recently will consult Pulmonology for further recs CT chest reviewed with significant bilateral emphysematous changes and pleural thickening. O2 saturations 73% per respiratory therapy today on 6 L. Vitals/I&O Vitals/I&O: Vital Signs Date Time Temp Pulse Resp B/P (MAP) Pulse Ox O2 Delivery O2 Flow Rate FiO2 03/26/21 11:00 98.0 77 18 103/58 (73) 91 Nasal Cannula 5.0 98.0 I & O 03/25/21 03/25/21 03/26/21 15:00 23:00 07:00 Intake Total 230 ml Balance 230 ml Physical Exam General: Alert, Oriented X3, Cooperative, mild distress Heart: Regular rate (SR ) Lungs: Wheezing, Crackles Abdomen: Soft, No tenderness Extremities: Other (trace to 1+ bilateral LE edema ) Skin: No significant lesion Assessment and Plan Assessmemt and Plan Problems Medical Problems: (1) New onset atrial fibrillation Status: Acute (2) Pneumonia Status: Acute Comment Review of Relevant I have reviewed the following items zenaida (where applicable) has been applied. Medications: Current Medications Medications (Trade) Dose Ordered Sig/Maggy Route PRN Reason Start Time Stop Time Status Last Admin Dose Admin Lactobacillus Rhamnosus (Culturelle) 1 cap BID PO 03/25/21 21:00 03/26/21 08:53 Justifications for Admission Other Justification DAVID RUBI MD Mar 26, 2021 12:06
[2021-03-26 12:17] LABS: BASE EXCESS ABG 1 mmol/L (-3-3); FIO2 ABG 40/5L NC; HCO3 ABG 26 mmol/L (21-28); PCO2 ABG 42 mmHg (35-46); PO2 ABG 60 mmHg (65-108); SAT O2 ABG 91 % (92-99)
[2021-03-26 15:00] VITALS: BP 97/58
--- NOTE | 2021-03-26 15:50 | RAD ---
XR CHEST 1V History: Reason: Worsening hypoxia, concern for mucous plugging / Spl. Instructions: / History: Comparison: March 22, 2021 Findings: Diffuse interstitial opacities and ill-defined opacities, similar compared to prior. No pleural effus ion. No pneumothorax. Unchanged heart size. Glenohumeral DJD. Impression: 1. Stable appearance of the chest compared to prior. Electronically signed by: Behzad Schmid DO (03/26/2021 3:48 PM) [id number]
[2021-03-26] MEDS: ENOXAPARIN 30 MG/0.3 ML SYRINGE. SQ SCH (17:44)
[2021-03-26 19:00] VITALS: BP 107/69
[2021-03-26 23:00] VITALS: BP 117/57
[2021-03-27 03:00] VITALS: BP 111/56
--- NOTE | 2021-03-27 06:59 | PDOC ---
PULMONARY PROGRESS NOTES DATE: 03/27/21 TIME: 06:58 Subjective on 02 5 lpm sob better. has occ cough Vitals Vital Signs Date Time Temp Pulse Resp B/P (MAP) Pulse Ox O2 Delivery O2 Flow Rate FiO2 03/27/21 03:00 98.9 80 20 111/56 (74) 92 Nasal Cannula 5.0 98.9 General: Alert Lungs: Crackles Cardiovascular: S1, S2 Abdomen: Soft, Non-tender Extremities: No Edema Labs Laboratory Tests Test 03/25/21 11:17 03/26/21 11:59 Sodium Level 141 mmol/L (136-145) Potassium Level 4.6 mmol/L (3.5-5.1) Chloride Level 105 mmol/L (98-107) Carbon Dioxide Level 29 mmol/L (21-32) Anion Gap 7 (6-14) Blood Urea Nitrogen 36 mg/dL (7-20) Creatinine 1.9 mg/dL (0.6-1.0) Estimated GFR (Cockcroft-Gault) 25.4 Glucose Level 101 mg/dL (70-99) Calcium Level 9.0 mg/dL (8.5-10.1) O2 Saturation 91 % (92-99) Arterial Blood pH 7.41 (7.35-7.45) Arterial Blood pCO2 at Patient Temp 42 mmHg (35-46) Arterial Blood pO2 at Patient Temp 60 mmHg (65-108) Arterial Blood HCO3 26 mmol/L (21-28) Arterial Blood Base Excess 1 mmol/L (-3-3) FiO2 40/5l nc Laboratory Tests Test 03/26/21 11:59 O2 Saturation 91 % (92-99) Arterial Blood pH 7.41 (7.35-7.45) Arterial Blood pCO2 at Patient Temp 42 mmHg (35-46) Arterial Blood pO2 at Patient Temp 60 mmHg (65-108) Arterial Blood HCO3 26 mmol/L (21-28) Arterial Blood Base Excess 1 mmol/L (-3-3) FiO2 40/5l nc Medications Active Scripts Medications Dose Route/Sig Max Daily Dose Days Date Category Vitamin C (Ascorbic Acid) 1,000 Mg Tablet 1,000 Mg PO DAILY 03/24/21 Reported Zinc 50 Mg Tablet 50 Mg PO DAILY 03/24/21 Reported Calcium (Calcium Carbonate) 500 Mg Tablet 600 Mg PO DAILY 30 03/24/21 Reported Furosemide 20 Mg Tablet 1 Tab PO DAILY 11/19/18 Rx [Pantoprazole] 40 MG Tablet.dr 40 Mg PO DAILYAC 30 11/19/18 Rx Budesonide 0.5 Mg/2 Ml Ampul.neb 0.5 Mg NEB RTBID 30 11/19/18 Rx Mucinex Dm Er 600-30 Mg Tablet (Guaifenesin/Dextromethorphan) 1 Each Tab.er.12h 1 Tab PO BID 30 11/19/18 Rx Ambien (Zolpidem Tartrate) 5 Mg Tablet 5 Mg PO PRN QHS PRN 30 11/19/18 Rx Lisinopril 40 Mg Tablet 20 Mg PO DAILY 30 11/19/18 Rx Amlodipine Besylate 5 Mg Tablet 5 Mg PO DAILY 30 11/19/18 Rx Duoneb 0.5-3(2.5) Mg/3 Ml (Albuterol/Ipratropium) 3 Ml Ampul.neb 3 Ml NEB RTQID 30 11/19/18 Rx Proair Hfa Inhaler (Albuterol Sulfate) 8.5 Gm Hfa.aer.ad 1 Puff INH PRN Q6HRS PRN 01/26/[address] reviewed Extensive bilateral emphysematous changes with unchanged pleural-based nodular opacity in the right apex with adjacent pleural thickening. Malignancy is not excluded. Evaluation with nuclear medicine PET scan may be obtained. Impression . IMPRESSION: 1. Acute on chronic hypoxic respiratory failure in a patient who has 50 years of tobacco use and has a suspected severe chronic obstructive pulmonary disease, which is oxygen dependent. She has slightly more prominent interstitial markings compared to her previous chest x-ray. I suspect that this is related to a component of fibrosis with underlying emphysema and possible superimposed interstitial pneumonia. Clinically, less likely congestive heart failure. 2. Previous normal ejection fraction. 3. COVID negative. 4. Fifty years of tobaccoism and suspected severe chronic obstructive pulmonary disease, on home oxygen at 2 liters. Plan . RECOMMENDATIONS: 1. Continue oxygen titrate fio2 to keep sat 90% 2. CT chest reviewed, pleural-based nodular opacity in the right apex with adjacent pleural thickening. i do recommend pet scan as out pt and fu w pulm 3. Continue empiric antibiotic. 4. Continue low-dose Lasix. monitor k, cr 5. PFT done in pulm office. will review 6. 02 titration on home 02 2lpm discussed w pt rn RICHARDSON DAHL MD Mar 27, 2021 06:58
[2021-03-27 07:16] LABS: BASO # 0.1 x10^3/uL (0.0-0.2); BASO % 1 % (0-3); EOS # 0.3 x10^3/uL (0.0-0.7); EOS % 4 % (0-3); HEMATOCRIT 37.1 % (36.0-47.0); HEMOGLOBIN 12.5 g/dL (12.0-15.5); LYMPH # 1.5 x10^3/uL (1.0-4.8); LYMPH % 19 % (24-48); MEAN CORPUSCULAR HEMOGLOBIN 30 pg (25-35); MEAN CORPUSCULAR HGB CONC 34 g/dL (31-37); MEAN CORPUSCULAR VOLUME 91 fL (79-100); MONO # 0.9 x10^3/uL (0.0-1.1); MONO % 11 % (0-9); NEUT # 5.1 x10^3/uL (1.8-7.7); NEUT % 64 % (31-73); PLATELET COUNT 209 x10^3/uL (140-400); RED BLOOD COUNT 4.09 x10^6/uL (3.50-5.40); RED CELL DISTRIBUTION WIDTH 14.3 % (11.5-14.5); WHITE BLOOD COUNT 7.9 x10^3/uL (4.0-11.0)
[2021-03-27 07:30] VITALS: BP 104/59
[2021-03-27 07:33] LABS: CALCIUM 9.1 mg/dL (8.5-10.1); POTASSIUM 4.7 mmol/L (3.5-5.1)
[2021-03-27] MEDS: IPRATRPIUM/ALBUTEROL 0.5/2.5MG 3 ML NEBU. NEB SCH ×4 (07:38→20:17)
[2021-03-27] MEDS: BUDESONIDE 0.5 MG/2 ML NEBU. NEB SCH ×2 (07:38→20:17)
[2021-03-27] MEDS: ZINC SULFATE 220 MG CAPSULE. PO SCH (08:19)
[2021-03-27] MEDS: guaiFENesin DM 600/30MG 1 TAB TAB.ER.12H PO SCH ×2 (08:19→21:00)
[2021-03-27] MEDS: PANTOPRAZOLE 40 MG TABLET.DR. PO SCH (08:20)
[2021-03-27] MEDS: ASCORBIC ACID 1,000 MG TABLET PO SCH (08:20)
[2021-03-27] MEDS: LACTOBACILLUS RHAMNOSUS GG 1 CAPSULE. PO SCH ×2 (08:20→21:36)
[2021-03-27] MEDS: CALCIUM CARBONATE 500 MG TABLET PO SCH (08:20)
[2021-03-27] MEDS: FUROSEMIDE 20 MG TABLET PO SCH (08:20)
[2021-03-27] MEDS: METOPROLOL SUCC 24HR ER 25 MG TAB.ER.24H. PO SCH (08:21)
[2021-03-27 11:30] VITALS: BP 114/52
--- NOTE | 2021-03-27 12:03 | PDOC ---
[employer] PROGRESS NOTE Date of Service DOS: DATE: 03/27/21 TIME: 12:02 Chief Complaint Chief Complaint A/P: Acute on chronic resp failure with AECOPD and acute CHF New onset atrial fibrillation - quickly converted to NSR Acute bronchitis - COPD exacerbation related Pulmonary hypertension Moderate aortic insufficiency Acute on chronic diastolic HF - prior echo 2018 with mild LV dysfunction with EF 45-50%, had echo at [facility] improved EF Arrhythmia Hypertension; controlled CKD - normal renal function in 2018, but november 2020 appears to likely have new baseline cr 2 Hypernatremia - likely free water deficit. FEN - Cardiac diet PPX - heparin FULL CODE Dispo - inpatient History of Present Illness History of Present Illness Ms Caal is an 80-year-old female presents to the emergency department complaining of shortness of breath for the last 3 weeks that has been gradually progressive. She denies any fever, cough, chest pain or any other symptoms. She reports feeling fatigued when she walks short distances, but not at rest. S he has no history of atrial fibrillation does not take any blood thinners or treatment. She reports she does take high blood pressure medicine. She has otherwise been in her normal health and denies any recent illness. She has been vaccinated for COVID-19. Denies any history of blood clots in the past. The patient denies nausea, vomiting, fever, chills, chest pain, abdominal pain, urinary symptoms, cough, recent trauma, or any other complaints. Chest radiograph with bilateral infiltrates. Required 4 L of oxygen initially. Started empirically on azithromycin and Rocephin. 03/23: COVID-19 negative. Still requiring O2. Feels nebulizer treatments helped. She does note she is is increased lower extremity swelling recently. She does take outpatient furosemide. Discussed with cardiology she had a recent echocardiogram at [facility]. 03/24: Still requiring some oxygen with some shortness of breath. Doing well with pulmonary toileting. metabolic panel improved today. Given 40mg IV lasix x1 03/25: Weight with 2 kg decrease. Urine output not available. Does not feel significantly worse today but still requiring 6 L nasal cannula oxygen. Discussed with cardiology her outpatient legal technician is Dr. Danielson recently will consult Pulmonology for further recs 03/26: CT chest reviewed with significant bilateral emphysematous changes and pleural thickening. O2 saturations 73% per respiratory therapy today on 6 L. 03/27: After aggressive nebulizers and home toileting she is down to 4 L nasal cannula with O2 saturations 91%. Feeling better. Discussed with her daughter bedside she does not feel back to baseline yet and is not at her baseline home O2 today continue antibiotics and nebulizer treatments. Vitals/I&O Vitals/I&O: Vital Signs Date Time Temp Pulse Resp B/P (MAP) Pulse Ox O2 Delivery O2 Flow Rate FiO2 03/27/21 11:49 Nasal Cannula 4.0 03/27/21 11:30 97.9 75 18 114/52 (72) 87 97.9 I & O 03/26/21 03/26/21 03/27/21 15:00 23:00 07:00 Intake Total 400 ml 240 ml 90 ml Output Total 0 ml Balance 400 ml 240 ml 90 ml Physical Exam General: Alert, Oriented X3, Cooperative, mild distress Heart: Regular rate (SR ) Lungs: Crackles Abdomen: Soft, No tenderness Extremities: Other (trace to 1+ bilateral LE edema ) Skin: No significant lesion Labs Labs: Laboratory Tests Test 03/27/21 06:20 White Blood Count 7.9 x10^3/uL (4.0-11.0) Red Blood Count 4.09 x10^6/uL (3.50-5.40) Hemoglobin 12.5 g/dL (12.0-15.5) Hematocrit 37.1 % (36.0-47.0) Mean Corpuscular Volume 91 fL (79-100) Mean Corpuscular Hemoglobin 30 pg (25-35) Mean Corpuscular Hemoglobin Concent 34 g/dL (31-37) Red Cell Distribution Width 14.3 % (11.5-14.5) Platelet Count 209 x10^3/uL (140-400) Neutrophils (%) (Auto) 64 % (31-73) Lymphocytes (%) (Auto) 19 % (24-48) Monocytes (%) (Auto) 11 % (0-9) Eosinophils (%) (Auto) 4 % (0-3) Basophils (%) (Auto) 1 % (0-3) Neutrophils # (Auto) 5.1 x10^3/uL (1.8-7.7) Lymphocytes # (Auto) 1.5 x10^3/uL (1.0-4.8) Monocytes # (Auto) 0.9 x10^3/uL (0.0-1.1) Eosinophils # (Auto) 0.3 x10^3/uL (0.0-0.7) Basophils # (Auto) 0.1 x10^3/uL (0.0-0.2) Sodium Level 142 mmol/L (136-145) Potassium Level 4.7 mmol/L (3.5-5.1) Chloride Level 106 mmol/L (98-107) Carbon Dioxide Level 30 mmol/L (21-32) Anion Gap 6 (6-14) Blood Urea Nitrogen 45 mg/dL (7-20) Creatinine 2.0 mg/dL (0.6-1.0) Estimated GFR (Cockcroft-Gault) 24.0 Glucose Level 95 mg/dL (70-99) Calcium Level 9.1 mg/dL (8.5-10.1) Assessment and Plan Assessmemt and Plan Problems Medical Problems: (1) New onset atrial fibrillation Status: Acute (2) Pneumonia Status: Acute Comment Review of Relevant I have reviewed the following items zenaida (where applicable) has been applied. Justifications for Admission Other Justification DAVID RUBI MD Mar 27, 2021 12:03
[2021-03-27 15:00] VITALS: BP 106/60
[2021-03-27] MEDS: ENOXAPARIN 30 MG/0.3 ML SYRINGE. SQ SCH (16:14)
[2021-03-27 19:00] VITALS: BP 114/57
[2021-03-27 23:00] VITALS: BP 114/56
[2021-03-28 03:00] VITALS: BP 108/56
[2021-03-28 07:00] VITALS: BP 134/56
[2021-03-28] MEDS: BUDESONIDE 0.5 MG/2 ML NEBU. NEB SCH (07:36)
[2021-03-28] MEDS: IPRATRPIUM/ALBUTEROL 0.5/2.5MG 3 ML NEBU. NEB SCH ×2 (07:36→11:47)
[2021-03-28] MEDS: guaiFENesin DM 600/30MG 1 TAB TAB.ER.12H PO SCH (09:00)
--- NOTE | 2021-03-28 09:20 | PDOC ---
PULMONARY PROGRESS NOTES DATE: 03/28/21 TIME: 09:19 Subjective on 02 5 lpm sob better. has occ cough Vitals Vital Signs Date Time Temp Pulse Resp B/P (MAP) Pulse Ox O2 Delivery O2 Flow Rate FiO2 03/28/21 07:38 88 Nasal Cannula 4.0 03/28/21 07:00 98.1 69 18 134/56 (82) 98.1 General: Alert Lungs: Crackles Cardiovascular: S1, S2 Abdomen: Soft, Non-tender Extremities: No Edema Labs Laboratory Tests Test 03/26/21 11:59 03/27/21 06:20 O2 Saturation 91 % (92-99) Arterial Blood pH 7.41 (7.35-7.45) Arterial Blood pCO2 at Patient Temp 42 mmHg (35-46) Arterial Blood pO2 at Patient Temp 60 mmHg (65-108) Arterial Blood HCO3 26 mmol/L (21-28) Arterial Blood Base Excess 1 mmol/L (-3-3) FiO2 40/5l nc White Blood Count 7.9 x10^3/uL (4.0-11.0) Red Blood Count 4.09 x10^6/uL (3.50-5.40) Hemoglobin 12.5 g/dL (12.0-15.5) Hematocrit 37.1 % (36.0-47.0) Mean Corpuscular Volume 91 fL (79-100) Mean Corpuscular Hemoglobin 30 pg (25-35) Mean Corpuscular Hemoglobin Concent 34 g/dL (31-37) Red Cell Distribution Width 14.3 % (11.5-14.5) Platelet Count 209 x10^3/uL (140-400) Neutrophils (%) (Auto) 64 % (31-73) Lymphocytes (%) (Auto) 19 % (24-48) Monocytes (%) (Auto) 11 % (0-9) Eosinophils (%) (Auto) 4 % (0-3) Basophils (%) (Auto) 1 % (0-3) Neutrophils # (Auto) 5.1 x10^3/uL (1.8-7.7) Lymphocytes # (Auto) 1.5 x10^3/uL (1.0-4.8) Monocytes # (Auto) 0.9 x10^3/uL (0.0-1.1) Eosinophils # (Auto) 0.3 x10^3/uL (0.0-0.7) Basophils # (Auto) 0.1 x10^3/uL (0.0-0.2) Sodium Level 142 mmol/L (136-145) Potassium Level 4.7 mmol/L (3.5-5.1) Chloride Level 106 mmol/L (98-107) Carbon Dioxide Level 30 mmol/L (21-32) Anion Gap 6 (6-14) Blood Urea Nitrogen 45 mg/dL (7-20) Creatinine 2.0 mg/dL (0.6-1.0) Estimated GFR (Cockcroft-Gault) 24.0 Glucose Level 95 mg/dL (70-99) Calcium Level 9.1 mg/dL (8.5-10.1) Medications Active Scripts Medications Dose Route/Sig Max Daily Dose Days Date Category Vitamin C (Ascorbic Acid) 1,000 Mg Tablet 1,000 Mg PO DAILY 03/24/21 Reported Zinc 50 Mg Tablet 50 Mg PO DAILY 03/24/21 Reported Calcium (Calcium Carbonate) 500 Mg Tablet 600 Mg PO DAILY 30 03/24/21 Reported Furosemide 20 Mg Tablet 1 Tab PO DAILY 11/19/18 Rx [Pantoprazole] 40 MG Tablet.dr 40 Mg PO DAILYAC 30 11/19/18 Rx Budesonide 0.5 Mg/2 Ml Ampul.neb 0.5 Mg NEB RTBID 30 11/19/18 Rx Mucinex Dm Er 600-30 Mg Tablet (Guaifenesin/Dextromethorphan) 1 Each Tab.er.12h 1 Tab PO BID 30 11/19/18 Rx Ambien (Zolpidem Tartrate) 5 Mg Tablet 5 Mg PO PRN QHS PRN 30 11/19/18 Rx Lisinopril 40 Mg Tablet 20 Mg PO DAILY 30 11/19/18 Rx Amlodipine Besylate 5 Mg Tablet 5 Mg PO DAILY 30 11/19/18 Rx Duoneb 0.5-3(2.5) Mg/3 Ml (Albuterol/Ipratropium) 3 Ml Ampul.neb 3 Ml NEB RTQID 30 11/19/18 Rx Proair Hfa Inhaler (Albuterol Sulfate) 8.5 Gm Hfa.aer.ad 1 Puff INH PRN Q6HRS PRN 01/26/[address] reviewed Extensive bilateral emphysematous changes with unchanged pleural-based nodular opacity in the right apex with adjacent pleural thickening. Malignancy is not excluded. Evaluation with nuclear medicine PET scan may be obtained. Impression . IMPRESSION: 1. Acute on chronic hypoxic respiratory failure in a patient who has 50 years of tobacco use and has a suspected severe chronic obstructive pulmonary disease, which is oxygen dependent. She has slightly more prominent interstitial markings compared to her previous chest x-ray. I suspect that this is related to a component of fibrosis with underlying emphysema and possible superimposed interstitial pneumonia. Clinically, less likely congestive heart failure. 2. Previous normal ejection fraction. 3. COVID negative. 4. Fifty years of tobaccoism and suspected severe chronic obstructive pulmonary disease, on home oxygen at 2 liters. Plan . RECOMMENDATIONS: 1. Continue oxygen titrate fio2 to keep sat 90% 2. CT chest reviewed, pleural-based nodular opacity in the right apex with adjacent pleural thickening. i do recommend pet scan as out pt and fu with Dr Danielson. sept appointment given 3. Continue empiric antibiotic. 4. Continue low-dose Lasix. monitor k, cr 5. PFT done in pulm office. will review 6. 02 titration on home 02 2lpm discussed w pt rn dc home today DAQUAN CANALES MD Mar 28, 2021 09:20
[2021-03-28] MEDS: LACTOBACILLUS RHAMNOSUS GG 1 CAPSULE. PO SCH (09:59)
[2021-03-28] MEDS: METOPROLOL SUCC 24HR ER 25 MG TAB.ER.24H. PO SCH (09:59)
[2021-03-28] MEDS: CALCIUM CARBONATE 500 MG TABLET PO SCH (10:00)
[2021-03-28] MEDS: FUROSEMIDE 20 MG TABLET PO SCH (10:00)
[2021-03-28] MEDS: ASCORBIC ACID 1,000 MG TABLET PO SCH (10:00)
[2021-03-28] MEDS: ZINC SULFATE 220 MG CAPSULE. PO SCH (10:00)
[2021-03-28] MEDS: PANTOPRAZOLE 40 MG TABLET.DR. PO SCH (10:00)
[2021-03-28 10:57] VITALS: BP 129/54
[2021-03-28] MEDS ORDERED: METO-239 PO (12:14)
--- NOTE | 2021-03-28 12:50 | PDOC ---
FELISAGRANTGUNJAN TOD 03/28/21 1250: CARDIO Progress Notes Date and Time Date of Service 03/28/21 Time of Evaluation 1215 Subjective Subjective: No Chest Pain, No Palpitations, Other (breathing improved ) Vitals Vitals Vital Signs Date Time Temp Pulse Resp B/P (MAP) Pulse Ox O2 Delivery O2 Flow Rate FiO2 03/28/21 11:47 94 Nasal Cannula 5.0 03/28/21 10:57 98.0 63 18 129/54 (79) 98.0 Weight Weight [ ] Input and Output Intake and Output Intake and Output 03/28/21 07:00 Intake Total 660 ml Output Total 0 ml Balance 660 ml Intake Oral 660 ml Output Urine Total 0 ml # Voids 1 Physical Exam HEENT: Neck Supple W Full Motion Chest: Symmetric LUNGS: Other (diminished) Heart: RRR (SR) Abdomen: Soft N/T Extremities: No Edema Neurology: alert, oriented, follow commands Assessment Assessment 1. Acute on chronic resp failure with AECOPD and acute CHF 2. Acute on chronic diastolic HF; Echo 01/24 with preserved LV systolic function. Follows with Dr. Olsen with [facility]. S/p IV diuersis 3. Paroxysmal atrial tachycardia: otherwise SR 4. Hypertension; controlled 5. ANGELINA on CKD; better 6. Moderate AI 7. Chronic LE venous insufficiency 8. PUI; COVID negative Recommendations Toprol for rate control Lung optimization Outpatient event monitor Follow up with [facility] upon discharge Supportive care Justicifation of Admission Dx: Justifications for Admission: Justification of Admission Dx: Yes DEMI DUNCAN MD 03/28/21 6525: CARDIO Progress Notes Plan Plan The patient was seen and interviewed as well as examined at the bedside. The chart was reviewed. The case was discussed. Agree with the plan of care. GUNJAN ROBERTO APRN Mar 28, 2021 12:50 DEMI DUNCAN MD Mar 28, 2021 17:55
--- NOTE | 2021-03-28 13:42 | NUR ---
SW following. Discussed with RN, pt from home with , uses oxygen at home. COVID-19 negative. Discharge order for home with home health. No further SW needs.
[2021-03-28 14:23] LABS: CALCIUM 9.1 mg/dL (8.5-10.1); CREATININE 1.7 mg/dL (0.6-1.0); GFR 28.9; POTASSIUM 4.5 mmol/L (3.5-5.1)
--- NOTE | 2021-03-28 14:25 | NUR ---
DISCHARGE INSTRUCTIONS GIVEN, QUESTIONS AND CONCERNS ANSWERED, PATIENT AND HER DAUGHTER AT THE BEDSIDE VERBALIZED UNDERSTANDING OF DISCHARGE INFORMATION, ALL PERSONAL BELONGINGS GATHERED BY THE PATIENT AND HER DAUGHTER AND PLACED IN BAGS FOR DISCHARGE, PATIENT ENCOURAGED TO FOLLOW UP WITH ON Apr AT 1OAM AND HER PRIMARY PROVIDER IN 1 WEEK.
--- NOTE | 2021-03-28 15:15 | NUR ---
PATIENT LEAVES THE UNIT PER W/C AND ACCOMPANIED BY GINA BARROW WORKER AND HER DAUGHTER, EMOTIONAL SUPPORT GIVEN, FOLLOW UP APPOINTMENTS ENCOURAGED.
--- NOTE | 2021-03-28 16:50 | DS ---
DATE OF DISCHARGE: 03/28/2021 ADMISSION DIAGNOSES: Atrial fibrillation, respiratory failure, pneumonia, chronic obstructive pulmonary disease. DISCHARGE DIAGNOSES: Resolving respiratory failure, resolving atrial fibrillation, history of chronic kidney disease, aortic insufficiency, lower extremity venous insufficiency, hypertension. CONSULTS: Cardiology and Pulmonary Medicine. PROCEDURES: None. HOSPITAL COURSE: The patient is a pleasant, middle-aged female who presented with respiratory failure, was multifactorial. We were concerned she might have COVID-19. We did rule out COVID-19, but she did have heart failure, AFib, COPD and pneumonia. We treated her with IV antibiotics, breathing treatments, oxygen, steroids. Today, I saw and examined her. She is at her baseline. I spoke with the other consultants. They are okay with her going home. We plan to discharge. DISPOSITION: Home. ACTIVITY: As tolerated. DIET: Low sodium. MEDICATIONS: Please see the MRAD. Metoprolol 25 mg daily, albuterol, amlodipine 5 a day, vitamin C, budesonide 0.5 t.i.d., calcium carbonate, Lasix 20 a day, guaifenesin, DuoNeb breathing treatments, lisinopril 20 a day, Protonix 40 a day, zinc 50 a day and Ambien 5 at bedtime. TOTAL TIME: 32 minutes. KADIE/REMINGTON/STEVEN DR: KADIE/christopher TID: [id number]
== END 2021-03-28 15:15 | disposition home health service (06) | DRG 291 ==
LOC: ER 11:30 → ED HOLD 13:19 → 5 NORTH 21:50
PROVIDERS: ADMIT Family Medicine; ATTEND Family Medicine
DX: I13.0 Hypertensive heart and chronic kidney disease with heart failure and stage 1 through stage 4 chronic kidney disease, or unspecified chronic kidney disease (principal); I50.33 Acute on chronic diastolic (congestive) heart failure; J18.9 Pneumonia, unspecified organism; J96.21 Acute and chronic respiratory failure with hypoxia; E87.0 Hyperosmolality and hypernatremia; I47.1 Supraventricular tachycardia; N17.9 Acute kidney failure, unspecified; I48.91 Unspecified atrial fibrillation; F17.200 Nicotine dependence, unspecified, uncomplicated; I27.20 Pulmonary hypertension, unspecified; I35.1 Nonrheumatic aortic (valve) insufficiency; I87.2 Venous insufficiency (chronic) (peripheral); J43.9 Emphysema, unspecified; N18.9 Chronic kidney disease, unspecified; Z20.822 Contact with and (suspected) exposure to COVID-19; Z82.49 Family history of ischemic heart disease and other diseases of the circulatory system; Z82.5 Family history of asthma and other chronic lower respiratory diseases; Z90.710 Acquired absence of both cervix and uterus; Z99.81 Dependence on supplemental oxygen; Z79.899 Other long term (current) drug therapy; Z90.49 Acquired absence of other specified parts of digestive tract; J20.9 Acute bronchitis, unspecified
CPT/HCPCS: 36415; 36600; 71045; 71250; 80048; 82805; 83735; 83880; 84145; 84443; 84484; 85025; 87426; 93005; 94640; 94760; J0456; J0696; J1650; J1940; U0003; U0005; 99285-25; G0378; J7626

== ENCOUNTER 2021-05-07 10:26 | Inpatient (IN) | payer MEDICARE ==
[~2021-05-07] VITALS: Ht 165.1 cm; Wt 72.5 kg
[~2021-05-07 10:26] MED LIST changes: +ASCO100019 PO; +CALC500T30 PO; +METO-239 PO; +ZINC50TA39 PO
[2021-05-07 11:14] LABS: BASO % 0 % (0-3); EOS % 0 % (0-3); HEMATOCRIT 35.8 % (36.0-47.0); HEMOGLOBIN 11.8 g/dL (12.0-15.5); LYMPH % 26 % (24-48); MEAN CORPUSCULAR HEMOGLOBIN 29 pg (25-35); MEAN CORPUSCULAR HGB CONC 33 g/dL (31-37); MEAN CORPUSCULAR VOLUME 88 fL (79-100); MONO # 0.5 x10^3/uL (0.0-1.1); MONO % 14 % (0-9); NEUT # 2.4 x10^3/uL (1.8-7.7); NEUT % 60 % (31-73); PLATELET COUNT 114 x10^3/uL (140-400); RED BLOOD COUNT 4.07 x10^6/uL (3.50-5.40); RED CELL DISTRIBUTION WIDTH 15.2 % (11.5-14.5); WHITE BLOOD COUNT 3.9 x10^3/uL (4.0-11.0)
[2021-05-07 11:23] LABS: CORRECTED PCO2 46 mmHg; CORRECTED PH 7.31; CORRECTED PO2 36 mmHg; FIO2 ISTAT 21; VEN BASE EXCESS ISTAT -3 mmol/L (0-3); VEN GLUC ISTAT 101 mg/dL (70-99); VEN HCO3 ISTAT 23 mmol/L (24-28); VEN HCT ISTAT 35 % (36-40); VEN HGB ISTAT 11.9 g/dL (12-15); VEN NA ISTAT 138 mmol/L (135-145); VEN O2 ISTAT 36 mmHg (20-40); VEN PCO2 ISTAT 46 mmHg (41-51); VEN PH ISTAT 7.31 (7.32-7.42); VEN SO2 ISTAT 63 %; VEN TCO2 ISTAT 25 mmol/L (21-32)
[2021-05-07 11:25] LABS: CALCIUM 7.8 mg/dL (8.5-10.1); CREATININE 2.2 mg/dL (0.6-1.0); GFR 21.5; POTASSIUM 4.3 mmol/L (3.5-5.1)
[2021-05-07 11:31] LABS: ALBUMIN 3.1 g/dL (3.4-5.0); ALBUMIN/GLOBULIN RATIO 0.9 (1.0-1.7); TOTAL BILIRUBIN 0.4 mg/dL (0.2-1.0); TOTAL PROTEIN 6.4 g/dL (6.4-8.2)
--- NOTE | 2021-05-07 11:34 | RAD ---
INDICATION: Reason: copd, fall / Spl. Instructions: / History: COMPARISON: March 26, 2021 FINDINGS: Single view of chest obtained. Severe disorganization of the bilateral pulmonary markings again seen. Fibrotic changes bilaterally. Pulmonic opacities are again seen bilaterally and appear slightly increased from prior at left lung b ase most predominantly. The opacity at the right lung apex is again seen as well as bilateral basilar opacities. IMPRESSION: * Disorganization of the pulmonary markings bilaterally which could be from chronic interstitial kristin g disease. There is also multifocal opacities bilaterally including at the left lung base which appea rs increased from prior. 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 Electronically signed by: Kelvin Quintana MD (05/07/2021 11:31 AM) [id number]
--- NOTE | 2021-05-07 11:50 | PDOC1 ---
History and Physical Date of Admission Date of Admission DATE: 05/07/21 TIME: 11:48 Identification/Chief Complaint Chief Complaint Shortness of breath, diarrhea, weakness Source Source: Caregiver, Chart review, Patient History of Present Illness History of Present Illness Ms Caal is an 80-year-old female w/ PMHx COPD, ILD, chronic diastolic CHF presents to the emergency department complaining of shortness of breath and diarrhea for the last 3 days that has been gradually progressive. She has fever, cough, and body aches. She reports feeling fatigued when she walks short distances, and at rest. She has an abrasion on her right lateral leg that is healing well. 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 She has been vaccinated for COVID-19 in December 2020 x2 doses. Denies any history of blood clots in the past. The patient denies nausea, vomiting, fever, chills, chest pain, abdominal pain, urinary symptoms, cough, recent trauma, or any other complaints. Chest radiograph with bilateral infiltrates. Required 4 L of oxygen initially, wears 2 liters at home. Started empirically on levaquin and cefepime in ED WBC 3.9, Hb 11.8, platelets 114, NA 138, K4.3, BUN 40, CR 2.2, calcium 7.8 ionized calcium 1.1, magnesium 2, bilirubin 0.4, AST 114, ALT 36, troponin 0.080, NT proBNP 5172, albumin 3.1, rapid COVID-19 positive, D-dimer 1.28 Chest radiograph with multifocal opacities increased from prior. Underlying fibrotic changes bilaterally worse in the left lung base EKG appears NSR Admitted for further care. Past Medical History Cardiovascular: CHF, HTN, Other Pulmonary: COPD Heme/Onc: Cancer Past Surgical History Past Surgical History: Appendectomy, Cataract Removal, Tonsillectomy, Hysterectomy Family History Family History: Hypertension Social History Smoke: Quit ALCOHOL: none Drugs: None Current Medications Current Medications Active Scripts Active Metoprolol Succinate ( Xl ) (Metoprolol Succinate) 25 Mg Tab.er.24h 12.5 Mg PO DAILY 30 Days Furosemide 20 Mg Tablet 1 Tab PO DAILY [Pantoprazole] 40 MG Tablet.dr 40 Mg PO DAILYAC 30 Days Budesonide 0.5 Mg/2 Ml Ampul.neb 0.5 Mg NEB RTBID 30 Days Mucinex Dm Er 600-30 Mg Tablet (Guaifenesin/Dextromethorphan) 1 Each Tab.er.12h 1 Tab PO BID 30 Days Ambien (Zolpidem Tartrate) 5 Mg Tablet 5 Mg PO PRN QHS PRN 30 Days Lisinopril 40 Mg Tablet 20 Mg PO DAILY 30 Days Amlodipine Besylate 5 Mg Tablet 5 Mg PO DAILY 30 Days Duoneb 0.5-3(2.5) Mg/3 Ml (Albuterol/Ipratropium) 3 Ml Ampul.neb 3 Ml NEB RTQID 30 Days Reported Vitamin C (Ascorbic Acid) 1,000 Mg Tablet 1,000 Mg PO DAILY Zinc 50 Mg Tablet 50 Mg PO DAILY Calcium (Calcium Carbonate) 500 Mg Tablet 600 Mg PO DAILY 30 Days Proair Hfa Inhaler (Albuterol Sulfate) 8.5 Gm Hfa.aer.ad 1 Puff INH PRN Q6HRS PRN Allergies Allergies: Coded Allergies: No Known Drug Allergies (Unverified , 03/22/21) ROS General: YES: Chills, Night Sweats, Fatigue, Malaise; No: Appetite, Other PSYCHOLOGICAL ROS: No: Anxiety, Behavioral Disorder, Concentration difficultie, Decreased libido, Depression, Disorientation, Hallucinations, Hostility, Irritablity, Memory difficulties, Mood Swings, Obsessive thoughts, Physical abuse, Sexual abuse, Sleep disturbances, Suicidal ideation, Other Eyes: No Blurry vision, No Decreased vision, No Double vision, No Dry eyes, No Excessive tearing, No Eye Pain, No Itchy Eyes, No Loss of vision, No Photophobia, No Scotomata, No Uses contacts, No Uses glasses, No Other HEENT: No: Heacaches, Visual Changes, Hearing change, Nasal congestion, Nasal discharge, Oral lesions, Sinus pain, Sore Throat, Epistaxis, Sneezing, Snoring, Tinnitus, Vertigo, Vocal changes, Other ALLERGY AND IMMUNOLOGY: No: Hives, Insect Bite Sensitivity, Itchy/Watery Eyes, Nasal Congestion, Post Nasal Drip, Seasonal Allergies, Other Hematological and Lymphatic: No: Bleeding Problems, Blood Clots, Blood Transfusions, Brusing, Night Sweats, Pallor, Swollen Lymph Nodes, Other ENDOCRINE: No: Breast Changes, Galactorrhea, Hair Pattern Changes, Hot Flashes, Malaise/lethargy, Mood Swings, Palpitations, Polydipsia/polyuria, Skin Changes, Temperature Intolerance, Unexpected Weight Changes, Other Breast: No New/Changing Breast Lumps, No Nipple changes, No Nipple discharge, No Other Respiratory: YES: Cough, Shortness of breath, SOB with excertion, Tachypnea; No: Hemoptysis, Orthopnea, Pleuritic Pain, Sputum Changes, Stridor, Wheezing, Other Cardiovascular: No Chest Pain, No Palpitations, No Orthopnea, No Paroxysmal Noc. Dyspnea, No Edema, No Lt Headedness, No Other Gastrointestinal: Yes Nausea, Yes Abdominal Pain, Yes Diarrhea; No Vomiting, No Constipation, No Melena, No Hematochezia, No Other Genitourinary: No Dysuria, No Frequency, No Incontinence, No Hematuria, No Retention, No Discharge, No Urgency, No Pain, No Flank Pain, No Other, No , No , No , No , No , No , No Musculoskeletal: Yes Joint Pain, Yes Joint Stiffness, Yes Muscle Pain, Yes Muscular Weakness; No Gait Disturbance, No Joint Swelling, No Pain In:, No Swelling In:, No Other Neurological: No Behavorial Changes, No Bowel/Bladder ControlChng, No Confusion, No Dizziness, No Gait Disturbance, No Headaches, No Impaired Coord/balance, No Memory Loss, No Numbness/Tingling, No Seizures, No Speech Problems, No Tremors, No Visual Changes, No Weakness, No Other Skin: No Dry Skin, No Eczema, No Hair Changes, No Lumps, No Mole Changes, No Mottling, No Nail Changes, No Pruritus, No Rash, No Skin Lesion Changes, No Other, No Acne Physical Exam General: Alert, Oriented X3, Cooperative, moderate distress HEENT: Atraumatic, PERRLA, EOMI, Mucous membr. moist/pink Lungs: Other (Bilateral fine crackles) Heart: S1S2, RRR, no thrills, no rubs, no gallops, no murmurs Abdomen: Normal bowel sounds, Soft, No tenderness, No hepatosplenomegaly, No masses Rectal Exam: not examined Extremities: No clubbing, No cyanosis, Normal pulses, No tenderness/swelling, Other (scant edema) Skin: Other (Right lateral ankle eschar 2x3 cm) Neuro: Normal speech, Strength at 5/5 X4 ext, Normal tone, Sensation intact, Cranial nerves 3-12 NL, Reflexes 2+ Psych/Mental Status: Mental status NL, Mood NL Vitals Vitals Vital Signs Date Time Temp Pulse Resp B/P (MAP) Pulse Ox O2 Delivery O2 Flow Rate FiO2 05/07/21 10:46 97.9 100 20 126/60 (82) 93 Nasal Cannula 4.0 97.9 Labs Labs Laboratory Tests Test 05/07/21 11:07 05/07/21 11:20 White Blood Count 3.9 x10^3/uL (4.0-11.0) Red Blood Count 4.07 x10^6/uL (3.50-5.40) Hemoglobin 11.8 g/dL (12.0-15.5) Hematocrit 35.8 % (36.0-47.0) Mean Corpuscular Volume 88 fL (79-100) Mean Corpuscular Hemoglobin 29 pg (25-35) Mean Corpuscular Hemoglobin Concent 33 g/dL (31-37) Red Cell Distribution Width 15.2 % (11.5-14.5) Platelet Count 114 x10^3/uL (140-400) Neutrophils (%) (Auto) 60 % (31-73) Lymphocytes (%) (Auto) 26 % (24-48) Monocytes (%) (Auto) 14 % (0-9) Eosinophils (%) (Auto) 0 % (0-3) Basophils (%) (Auto) 0 % (0-3) Neutrophils # (Auto) 2.4 x10^3/uL (1.8-7.7) Lymphocytes # (Auto) 1.0 x10^3/uL (1.0-4.8) Monocytes # (Auto) 0.5 x10^3/uL (0.0-1.1) Eosinophils # (Auto) 0.0 x10^3/uL (0.0-0.7) Basophils # (Auto) 0.0 x10^3/uL (0.0-0.2) D-Dimer (Davida) 1.28 ug/mlFEU (0.00-0.50) Sodium Level 138 mmol/L (136-145) Potassium Level 4.3 mmol/L (3.5-5.1) Chloride Level 102 mmol/L (98-107) Carbon Dioxide Level 23 mmol/L (21-32) Anion Gap 13 (6-14) Blood Urea Nitrogen 40 mg/dL (7-20) Creatinine 2.2 mg/dL (0.6-1.0) Estimated GFR (Cockcroft-Gault) 21.5 BUN/Creatinine Ratio 18 (6-20) Glucose Level 103 mg/dL (70-99) 101 mg/dL (70-99) Calcium Level 7.8 mg/dL (8.5-10.1) Magnesium Level 2.0 mg/dL (1.8-2.4) Total Bilirubin 0.4 mg/dL (0.2-1.0) Aspartate Amino Transf (AST/SGOT) 114 U/L (15-37) Alanine Aminotransferase (ALT/SGPT) 36 U/L (14-59) Alkaline Phosphatase 73 U/L (46-116) Troponin I Quantitative 0.080 ng/mL (0.000-0.055) EP-Cjr-U-Type Natriuretic Peptide 5172 pg/mL (0-449) Total Protein 6.4 g/dL (6.4-8.2) Albumin 3.1 g/dL (3.4-5.0) Albumin/Globulin Ratio 0.9 (1.0-1.7) Bedside Hematocrit 35 % (36-40) Arterial Blood pH (Temp corrected) 7.31 Arterial Blood pCO2 (Temp correct) 46 mmHg Arterial Blood pO2 (Temp corrected) 36 mmHg Bedside Venous pH 7.31 (7.32-7.42) Bedside Venous pCO2 46 mmHg (41-51) Bedside Venous pO2 36 mmHg (20-40) Bedside Venous HCO3 23 mmol/L (24-28) Bedside Venous Blood Total CO2 25 mmol/L (21-32) Bedside Venous Blood O2 Saturation 63 % Bedside Venous Blood Base Excess -3 mmol/L (0-3) POC Venous Hemoglobin (Calc) 11.9 g/dL (12-15) Bedside FiO2 21 Bedside Sodium 138 mmol/L (135-145) Bedside Potassium 4.0 mmol/L (3.5-5.0) Bedside Ionized Calcium (Karina) 1.10 mmol/L (1.13-1.32) Laboratory Tests Test 05/07/21 11:07 05/07/21 11:20 White Blood Count 3.9 x10^3/uL (4.0-11.0) Red Blood Count 4.07 x10^6/uL (3.50-5.40) Hemoglobin 11.8 g/dL (12.0-15.5) Hematocrit 35.8 % (36.0-47.0) Mean Corpuscular Volume 88 fL (79-100) Mean Corpuscular Hemoglobin 29 pg (25-35) Mean Corpuscular Hemoglobin Concent 33 g/dL (31-37) Red Cell Distribution Width 15.2 % (11.5-14.5) Platelet Count 114 x10^3/uL (140-400) Neutrophils (%) (Auto) 60 % (31-73) Lymphocytes (%) (Auto) 26 % (24-48) Monocytes (%) (Auto) 14 % (0-9) Eosinophils (%) (Auto) 0 % (0-3) Basophils (%) (Auto) 0 % (0-3) Neutrophils # (Auto) 2.4 x10^3/uL (1.8-7.7) Lymphocytes # (Auto) 1.0 x10^3/uL (1.0-4.8) Monocytes # (Auto) 0.5 x10^3/uL (0.0-1.1) Eosinophils # (Auto) 0.0 x10^3/uL (0.0-0.7) Basophils # (Auto) 0.0 x10^3/uL (0.0-0.2) D-Dimer (Davida) 1.28 ug/mlFEU (0.00-0.50) Sodium Level 138 mmol/L (136-145) Potassium Level 4.3 mmol/L (3.5-5.1) Chloride Level 102 mmol/L (98-107) Carbon Dioxide Level 23 mmol/L (21-32) Anion Gap 13 (6-14) Blood Urea Nitrogen 40 mg/dL (7-20) Creatinine 2.2 mg/dL (0.6-1.0) Estimated GFR (Cockcroft-Gault) 21.5 BUN/Creatinine Ratio 18 (6-20) Glucose Level 103 mg/dL (70-99) 101 mg/dL (70-99) Calcium Level 7.8 mg/dL (8.5-10.1) Magnesium Level 2.0 mg/dL (1.8-2.4) Total Bilirubin 0.4 mg/dL (0.2-1.0) Aspartate Amino Transf (AST/SGOT) 114 U/L (15-37) Alanine Aminotransferase (ALT/SGPT) 36 U/L (14-59) Alkaline Phosphatase 73 U/L (46-116) Troponin I Quantitative 0.080 ng/mL (0.000-0.055) BT-Klq-W-Type Natriuretic Peptide 5172 pg/mL (0-449) Total Protein 6.4 g/dL (6.4-8.2) Albumin 3.1 g/dL (3.4-5.0) Albumin/Globulin Ratio 0.9 (1.0-1.7) Bedside Hematocrit 35 % (36-40) Arterial Blood pH (Temp corrected) 7.31 Arterial Blood pCO2 (Temp correct) 46 mmHg Arterial Blood pO2 (Temp corrected) 36 mmHg Bedside Venous pH 7.31 (7.32-7.42) Bedside Venous pCO2 46 mmHg (41-51) Bedside Venous pO2 36 mmHg (20-40) Bedside Venous HCO3 23 mmol/L (24-28) Bedside Venous Blood Total CO2 25 mmol/L (21-32) Bedside Venous Blood O2 Saturation 63 % Bedside Venous Blood Base Excess -3 mmol/L (0-3) POC Venous Hemoglobin (Calc) 11.9 g/dL (12-15) Bedside FiO2 21 Bedside Sodium 138 mmol/L (135-145) Bedside Potassium 4.0 mmol/L (3.5-5.0) Bedside Ionized Calcium (Karina) 1.10 mmol/L (1.13-1.32) Images Images Single view of chest obtained. Severe disorganization of the bilateral pulmonary markings again seen. Fibrotic changes bilaterally. Pulmonic opacities are again seen bilaterally and appear slightly increased from prior at left lung base most predominantly. The opacity at the right lung apex is again seen as well as bilateral basilar opacities. IMPRESSION: * Disorganization of the pulmonary markings bilaterally which could be from chronic interstitial lung disease. There is also multifocal opacities bilaterally including at the left lung base which appears increased from prior. Could be secondary to infiltrate or edema superimposed on the patient's chronic lung disease. VTE Prophylaxis Ordered VTE Prophylaxis Devices: Yes VTE Pharmacological Prophylaxi: Yes Assessment/Plan Assessment/Plan A/P: COVID 19 - diarrhea and respiratory symptoms. Breakthrough case, has been vaccinated. Given steroids, will initiate remdesivir given early identification but increased O2 requirements. Check CRP for consideration of tocilizumab Acute on chronic resp failure - with COVID 19 complicated by AECOPD H/o atrial fibrillation - converted to NSR previously Acute bronchitis - COPD exacerbation related as well as COVID 19 Pulmonary hypertension Moderate aortic insufficiency Chronic diastolic HF - prior echo 2018 with mild LV dysfunction with EF 45-50%, had echo at [facility] Hypertension; controlled CKD - normal renal function in 2018, but november 2020 appears to likely have new baseline cr 2 Pancytopenia - anemia related to CKD, leukopenia due to viral illness, will monitor platelets Hypocalcemia - chronic, will replace FEN - Cardiac diet PPX - heparin FULL CODE Dispo - inpatient for above Justifications for Admission Other Justification DAVID RUBI MD May 07, 2021 11:50
--- NOTE | 2021-05-07 12:10 | ED.ADGEN ---
Past Medical History Past Medical History: COPD Past Surgical History: Other Smoking Status: Former Smoker Alcohol Use: None Drug Use: None General Adult EDM: Chief Complaint: SHORTNESS OF BREATH HPI: HPI: Patient is a 80 year old female coming in for worsening shortness of breath with the past 2 days. Patient states that she fell in her bathroom 2 days ago prior to symptoms starting. States she was able to get herself up. Denies any head injuries or loss conscious. Denies any rib pain or back pain. Patient states she has had an increase in her baseline cough which is productive. She denies any chest pain or pressure, denies any fevers, denies any nausea, or pain. Says the shortness of breath worsens with exertion and has had to increase her oxygen concentrator to 5 L. Patient does not use her nebulizer today. Has her baseline lower extremity edema which is unchanged. Patient has chronic diarrhea which is also unchanged. Quit smoking 3 years ago. Review of Systems: Review of Systems: All other systems within normal limits except for as noted in the HPI Allergies: Allergies: Allergies Coded Allergies Type Severity Reaction Last Updated Verified No Known Drug Allergies 03/22/21 No Physical Exam: PE: Constitutional: Well developed, well nourished, no acute distress, non-toxic appearance. [] HENT: Normocephalic, atraumatic, bilateral external ears normal, nose normal. [] Eyes: PERRLA, conjunctiva normal, no discharge. [] Neck: No rigidity, supple, no stridor. [] Cardiovascular: Regular rate and rhythm, brisk cap refill [] Lungs & Thorax: Non labored symmetric respirations, no tachypnea or respiratory distress [] Abdomen: Soft, nondistended. Skin: Warm, dry, no erythema, no rash. [] Back: Unremarkable Extremities: No deformities, range of motion grossly intact, 1+ bilateral lower extremity edema [] Neurologic: Alert and oriented X 3, no focal deficits noted. [] Psychologic: Affect normal, judgement normal, mood normal. [] Current Patient Data: Labs: Laboratory Tests Test 05/07/21 11:07 05/07/21 11:20 White Blood Count 3.9 x10^3/uL (4.0-11.0) L Red Blood Count 4.07 x10^6/uL (3.50-5.40) Hemoglobin 11.8 g/dL (12.0-15.5) L Hematocrit 35.8 % (36.0-47.0) L Mean Corpuscular Volume 88 fL (79-100) Mean Corpuscular Hemoglobin 29 pg (25-35) Mean Corpuscular Hemoglobin Concent 33 g/dL (31-37) Red Cell Distribution Width 15.2 % (11.5-14.5) H Platelet Count 114 x10^3/uL (140-400) L Neutrophils (%) (Auto) 60 % (31-73) Lymphocytes (%) (Auto) 26 % (24-48) Monocytes (%) (Auto) 14 % (0-9) H Eosinophils (%) (Auto) 0 % (0-3) Basophils (%) (Auto) 0 % (0-3) Neutrophils # (Auto) 2.4 x10^3/uL (1.8-7.7) Lymphocytes # (Auto) 1.0 x10^3/uL (1.0-4.8) Monocytes # (Auto) 0.5 x10^3/uL (0.0-1.1) Eosinophils # (Auto) 0.0 x10^3/uL (0.0-0.7) Basophils # (Auto) 0.0 x10^3/uL (0.0-0.2) D-Dimer (Davida) 1.28 ug/mlFEU (0.00-0.50) H Sodium Level 138 mmol/L (136-145) Potassium Level 4.3 mmol/L (3.5-5.1) Chloride Level 102 mmol/L (98-107) Carbon Dioxide Level 23 mmol/L (21-32) Anion Gap 13 (6-14) Blood Urea Nitrogen 40 mg/dL (7-20) H Creatinine 2.2 mg/dL (0.6-1.0) H Estimated GFR (Cockcroft-Gault) 21.5 BUN/Creatinine Ratio 18 (6-20) Glucose Level 103 mg/dL (70-99) H 101 mg/dL (70-99) H Calcium Level 7.8 mg/dL (8.5-10.1) L Magnesium Level 2.0 mg/dL (1.8-2.4) Total Bilirubin 0.4 mg/dL (0.2-1.0) Aspartate Amino Transferase (AST) 114 U/L (15-37) H Alanine Aminotransferase (ALT) 36 U/L (14-59) Alkaline Phosphatase 73 U/L (46-116) Troponin I Quantitative 0.080 ng/mL (0.000-0.055) FV-Cbt-B-Type Natriuretic Peptide 5172 pg/mL (0-449) H Total Protein 6.4 g/dL (6.4-8.2) Albumin 3.1 g/dL (3.4-5.0) L Albumin/Globulin Ratio 0.9 (1.0-1.7) L POC Hematocrit 35 % (36-40) L Arterial Blood pH (Temp corrected) 7.31 Arterial Blood pCO2 (Temp correct) 46 mmHg Arterial Blood pO2 (Temp corrected) 36 mmHg POC Venous pH 7.31 (7.32-7.42) L POC Venous pCO2 46 mmHg (41-51) POC Venous pO2 36 mmHg (20-40) POC Venous HCO3 23 mmol/L (24-28) L POC Venous Blood Total CO2 25 mmol/L (21-32) POC Venous Blood O2 Saturation 63 % POC Venous Blood Base Excess -3 mmol/L (0-3) L POC Venous Hemoglobin (Calc) 11.9 g/dL (12-15) L POC FiO2 21 POC Sodium 138 mmol/L (135-145) POC Potassium 4.0 mmol/L (3.5-5.0) POC Ionized Calcium (Karina) 1.10 mmol/L (1.13-1.32) L Laboratory Tests 05/07/21 11:07 Laboratory Tests 05/07/21 11:07 05/07/21 11:20 Vital Signs: Vital Signs Date Time Temp Pulse Resp B/P (MAP) Pulse Ox O2 Delivery O2 Flow Rate FiO2 05/07/21 10:46 97.9 100 20 126/60 (82) 93 Nasal Cannula 4.0 97.9 EKG: EKG: Sinus rhythm, normal axis, no ST elevation or depression, no ectopy [] Heart Score: C/O Chest Pain: No HEART Score for Chest Pain: HEART Score for Chest Pain Response (Comments) Value History Slighlty/Non-Suspicious 0 ECG Normal 0 Age > 65 2 Risk Factors 1 or 2 Risk Factors 1 Troponin >1-<3x Normal Limit 1 Total 4 Risk Factors: Risk Factors: DM, Current or recent (<one month) smoker, HTN, HLP, family history of CAD, obesity. Risk Scores: Score 0 - 3: 2.5% MACE over next 6 weeks - Discharge Home Score 4 - 6: 20.3% MACE over next 6 weeks - Admit for Clinical Observation Score 7 - 10: 72.7% MACE over next 6 weeks - Early Invasive Strategies Radiology/Procedures: Radiology/Procedures: [facility] [address] [place] [address] IMAGING REPORT Signed PATIENT: MCKAY KHANNA ACCOUNT: [id number] : 1940 LOCATION: ER AGE: 80 SEX: F EXAM STATUS: REG ER ORD. PHYSICIAN: LIANA NEVES MD REASON: copd, fall PROCEDURE: CHEST AP ONLY INDICATION: Reason: copd, fall / Spl. Instructions: / History: COMPARISON: March 26, 2021 FINDINGS: Single view of chest obtained. Severe disorganization of the bilateral pulmonary markings again seen. Fibrotic changes bilaterally. Pulmonic opacities are again seen bilaterally and appear slightly increased from prior at left lung base most predominantly. The opacity at the right lung apex is again seen as well as bilateral basilar opacities. IMPRESSION: * Disorganization of the pulmonary markings bilaterally which could be from chronic interstitial lung disease. There is also multifocal opacities bilaterally including at the left lung base which appears increased from prior. Could be secondary to infiltrate or edema superimposed on the patient's chronic lung disease. Electronically signed by: Charlotte Thornton MD (05/07/2021 11:31 AM) [id number] DICTATED and SIGNED BY: CHARLOTTE THORNTON MD DATE: 05/07/21 [id number] [] Course & Med Decision Making: Course & Med Decision Making Pertinent Labs and Imaging studies reviewed. (See chart for details) Left lower lobe pneumonia with elevated troponin and increased oxygen demand. Admit to hospitalist. [] Sona Disclaimer: Draggerson Disclaimer: This electronic medical record was generated, in whole or in part, using a voice recognition dictation system. Departure Departure Impression: Primary Impression: COPD exacerbation Additional Impression: Pneumonia Disposition: 09 ADMITTED INPATIENT Admitting Physician: ISSAC Condition: STABLE Referrals: TRACY BUTT D.O. (PCP) Problem Qualifiers LIANA NEVES MD May 07, 2021 12:10
[2021-05-07] MEDS ORDERED: methylPREDNISolone SOD SUCC PF 125 MG/2 ML VIAL. IV ONE (12:30)
[2021-05-07] MEDS ORDERED: CEFEPIME HCL IV Push 1 GM VIAL. IVP ONE (12:30)
[2021-05-07] MEDS ORDERED: ACETAMINOPHEN 325 MG TABLET. PO PRN (13:15)
[2021-05-07] MEDS ORDERED: ONDANSETRON PF 4 MG/2 ML VIAL. IVP PRN (13:15)
[2021-05-07] MEDS ORDERED: ALBUTEROL SULFATE 8GM INHALER. INH PRN (13:30)
[2021-05-07] MEDS ORDERED: CALCIUM CARBONATE 500 MG TAB.CHEW PO PRN (13:30)
[2021-05-07] MEDS ORDERED: THIAMINE INJ 100 MG in IV DEXTROSE 5% 50 ML IV ONE (14:00)
[2021-05-07] MEDS ORDERED: REMDESIVIR LOAD in IV NORMAL SALINE 250ML TV IV ONE (14:00)
--- NOTE | 2021-05-07 14:30 | EKG ---
[facility] [address] [place] [address] Test Date: 2021-05-07 Test Time: 10:53:54 Pat Name: MCKAY KHANNA Department: Room: [facility] Gender: F [employer] Supervisor: : 1940 Requested By: LIANA NEVES Order Number: [id number] Reading MD: Pasquale Austin Measurements Intervals [place] Rate: 95 P: 59 DC: 152 QRS: 9 QRSD: 96 T: 42 QT: 360 QTc: 456 Interpretive Statements SINUS RHYTHM LOW LIMB LEAD VOLTAGE Electronically Signed On 05-12-2021 12:58:15 CDT by Pasquale Austin
[2021-05-07 15:00] VITALS: BP 90/52
[2021-05-07 15:42] VITALS: BP 112/52
[2021-05-07] MEDS: HEPARIN for SUB-Q USE 5,000 UNIT/ML VIAL. SQ SCH ×2 (15:49→21:22)
[2021-05-07] MEDS: FLUTICASONE/VILANTEROL 200/25 INHALER. INH SCH (16:43)
[2021-05-07] MEDS: IPRATROPIUM/ALBUTEROL 20/100mcg/INH INHALER. INH SCH ×2 (16:43→21:08)
--- NOTE | 2021-05-07 18:00 | NUR ---
Admission note: The patient Ms. Caal, 80/F admitted for COVID pneumonia arrived on the unit via stretcher at 1500. She's on 4 liters per NC, VSS, and denies pain. Patient was oriented to the unit, belongings checked, and call light placed within reach.
[2021-05-07 19:00] VITALS: BP 105/52
[2021-05-07] MEDS ORDERED: FLU VACC QUAD 21-22 (6MOS+) PF 0.5 ML SYRINGE. VAX IM ONE (21:00)
[2021-05-07 23:00] VITALS: BP 103/57
[2021-05-08 03:00] VITALS: BP 108/56
[2021-05-08] MEDS: HEPARIN for SUB-Q USE 5,000 UNIT/ML VIAL. SQ SCH ×3 (06:08→22:09)
[2021-05-08 07:00] VITALS: BP 123/57
[2021-05-08 07:06] LABS: BASO % 0 % (0-3); EOS % 0 % (0-3); HEMATOCRIT 33.2 % (36.0-47.0); HEMOGLOBIN 10.9 g/dL (12.0-15.5); LYMPH # 0.3 x10^3/uL (1.0-4.8); LYMPH % 17 % (24-48); MEAN CORPUSCULAR HEMOGLOBIN 29 pg (25-35); MEAN CORPUSCULAR HGB CONC 33 g/dL (31-37); MEAN CORPUSCULAR VOLUME 89 fL (79-100); MONO # 0.2 x10^3/uL (0.0-1.1); MONO % 9 % (0-9); NEUT # 1.5 x10^3/uL (1.8-7.7); NEUT % 74 % (31-73); PLATELET COUNT 92 x10^3/uL (140-400); RED BLOOD COUNT 3.74 x10^6/uL (3.50-5.40); RED CELL DISTRIBUTION WIDTH 15.1 % (11.5-14.5)
[2021-05-08 07:35] LABS: ALBUMIN 2.6 g/dL (3.4-5.0); ALBUMIN/GLOBULIN RATIO 0.7 (1.0-1.7); CALCIUM 7.9 mg/dL (8.5-10.1); CREATININE 1.8 mg/dL (0.6-1.0); GFR 27.1; MAGNESIUM 2.1 mg/dL (1.8-2.4); POTASSIUM 3.9 mmol/L (3.5-5.1); TOTAL BILIRUBIN 0.3 mg/dL (0.2-1.0); TOTAL PROTEIN 6.2 g/dL (6.4-8.2)
[2021-05-08 08:35] LABS: % BANDS 5 % (0-9); % LYMPHS 15 % (24-48); % MONOS 8 % (0-10); % SEGS 72 % (35-66); PLT ESTIMATE DECREASED (ADEQUATE)
[2021-05-08] MEDS: ASCORBIC ACID 500 MG TABLET PO SCH (08:57)
[2021-05-08] MEDS: IPRATROPIUM/ALBUTEROL 20/100mcg/INH INHALER. INH SCH ×4 (08:57→22:09)
[2021-05-08] MEDS: CALCIUM CARBONATE 500 MG TABLET PO SCH (08:57)
[2021-05-08] MEDS: FUROSEMIDE 20 MG TABLET PO SCH (08:58)
[2021-05-08] MEDS: METOPROLOL SUCC 24HR ER 25 MG TAB.ER.24H. PO SCH (08:58)
[2021-05-08] MEDS: FLUTICASONE/VILANTEROL 200/25 INHALER. INH SCH (08:58)
[2021-05-08] MEDS: PANTOPRAZOLE 40 MG TABLET.DR. PO SCH (08:58)
[2021-05-08] MEDS: ZINC SULFATE 220 MG CAPSULE. PO SCH (08:59)
[2021-05-08] MEDS: DEXAMETHASONE SOD PHOS 4 MG/ML VIAL IVP SCH (08:59)
[2021-05-08 11:00] VITALS: BP 108/50
--- NOTE | 2021-05-08 13:05 | PDOC ---
[employer] PROGRESS NOTE Date of Service DOS: DATE: 05/08/21 TIME: 12:41 Chief Complaint Chief Complaint A/P: COVID 19 - diarrhea and respiratory symptoms. Breakthrough case, has been vaccinated. Given steroids, will initiate remdesivir given early identification but increased O2 requirements. Checked CRP for consideration of tocilizumab Acute on chronic resp failure - with COVID 19 complicated by AECOPD H/o atrial fibrillation - converted to NSR previously Acute bronchitis - COPD exacerbation related as well as COVID 19 Pulmonary hypertension Moderate aortic insufficiency Chronic diastolic HF - prior echo 2018 with mild LV dysfunction with EF 45-50%, had echo at [facility] Hypertension; controlled CKD - normal renal function in 2018, but november 2020 appears to likely have new baseline cr 2 Pancytopenia - anemia related to CKD, leukopenia due to viral illness, will monitor platelets Hypocalcemia - chronic, will replace FEN - Cardiac diet PPX - heparin FULL CODE Dispo - inpatient for above History of Present Illness History of Present Illness Ms Caal is an 80-year-old female w/ PMHx COPD, ILD, chronic diastolic CHF presents to the emergency department complaining of shortness of breath and diarrhea for the last 3 days that has been gradually progressive. She has fever, cough, and body aches. She reports feeling fatigued when she walks short distances, and at rest. She has an abrasion on her right lateral leg that is healing well. 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 She has been vaccinated for COVID-19 in December 2020 x2 doses. Denies any history o f blood clots in the past. The patient denies nausea, vomiting, fever, chills, chest pain, abdominal pain, urinary symptoms, cough, recent trauma, or any other complaints. Chest radiograph with bilateral infiltrates. Required 4 L of oxygen initially, wears 2 liters at home. Started empirically on levaquin and cefepime in ED WBC 3.9, Hb 11.8, platelets 114, NA 138, K4.3, BUN 40, CR 2.2, calcium 7.8 ionized calcium 1.1, magnesium 2, bilirubin 0.4, AST 114, ALT 36, troponin 0.080, NT proBNP 5172, albumin 3.1, rapid COVID-19 positive, D-dimer 1.28 Chest radiograph with multifocal opacities increased from prior. Underlying fibrotic changes bilaterally worse in the left lung base EKG appears NSR Admitted for further care. Afebrile. Creatinine improved to 1.8. CRP less than 50. Nursing noted some desaturations with ambulation to toilet required facemask O2 to bring satura tions back up from 78% to 96%. Otherwise she has been stable overnight primarily lately on 4 L nasal cannula. She is comfortable notes her diarrhea has improved. Has a good appetite. Tolerated remdesivir and Decadron well. D/w daughter, Arelis, over the phone. Vitals/I&O Vitals/I&O: Vital Signs Date Time Temp Pulse Resp B/P (MAP) Pulse Ox O2 Delivery O2 Flow Rate FiO2 05/08/21 11:00 96.6 87 18 108/50 (69) 96 NonRebreather Mask 15.0 96.6 I & O 05/07/21 05/07/21 05/08/21 15:00 23:00 07:00 Intake Total 150 ml 560 ml 260 ml Balance 150 ml 560 ml 260 ml Physical Exam General: Alert, Oriented X3, Cooperative, moderate distress Lungs: Crackles Abdomen: Normal bowel sounds, Soft, No tenderness, No hepatosplenomegaly, No masses Extremities: No clubbing, No cyanosis, Normal pulses, No tenderness/swelling, Other (scant edema) Skin: Other (Right lateral ankle eschar 2x3 cm) Labs Labs: Laboratory Tests Test 05/08/21 06:40 White Blood Count 2.0 x10^3/uL (4.0-11.0) Red Blood Count 3.74 x10^6/uL (3.50-5.40) Hemoglobin 10.9 g/dL (12.0-15.5) Hematocrit 33.2 % (36.0-47.0) Mean Corpuscular Volume 89 fL (79-100) Mean Corpuscular Hemoglobin 29 pg (25-35) Mean Corpuscular Hemoglobin Concent 33 g/dL (31-37) Red Cell Distribution Width 15.1 % (11.5-14.5) Platelet Count 92 x10^3/uL (140-400) Neutrophils (%) (Auto) 74 % (31-73) Lymphocytes (%) (Auto) 17 % (24-48) Monocytes (%) (Auto) 9 % (0-9) Eosinophils (%) (Auto) 0 % (0-3) Basophils (%) (Auto) 0 % (0-3) Neutrophils # (Auto) 1.5 x10^3/uL (1.8-7.7) Lymphocytes # (Auto) 0.3 x10^3/uL (1.0-4.8) Monocytes # (Auto) 0.2 x10^3/uL (0.0-1.1) Eosinophils # (Auto) 0.0 x10^3/uL (0.0-0.7) Basophils # (Auto) 0.0 x10^3/uL (0.0-0.2) Segmented Neutrophils % 72 % (35-66) Band Neutrophils % 5 % (0-9) Lymphocytes % 15 % (24-48) Monocytes % 8 % (0-10) Platelet Estimate Decreased (ADEQUATE) Sodium Level 140 mmol/L (136-145) Potassium Level 3.9 mmol/L (3.5-5.1) Chloride Level 104 mmol/L (98-107) Carbon Dioxide Level 25 mmol/L (21-32) Anion Gap 11 (6-14) Blood Urea Nitrogen 41 mg/dL (7-20) Creatinine 1.8 mg/dL (0.6-1.0) Estimated GFR (Cockcroft-Gault) 27.1 BUN/Creatinine Ratio 23 (6-20) Glucose Level 127 mg/dL (70-99) Calcium Level 7.9 mg/dL (8.5-10.1) Magnesium Level 2.1 mg/dL (1.8-2.4) Total Bilirubin 0.3 mg/dL (0.2-1.0) Aspartate Amino Transf (AST/SGOT) 99 U/L (15-37) Alanine Aminotransferase (ALT/SGPT) 38 U/L (14-59) Alkaline Phosphatase 63 U/L (46-116) Total Protein 6.2 g/dL (6.4-8.2) Albumin 2.6 g/dL (3.4-5.0) Albumin/Globulin Ratio 0.7 (1.0-1.7) Assessment and Plan Assessmemt and Plan Problems Medical Problems: (1) Pneumonia Status: Acute Comment Review of Relevant I have reviewed the following items zenaida (where applicable) has been applied. Medications: Current Medications Medications (Trade) Dose Ordered Sig/Maggy Route PRN Reason Start Time Stop Time Status Last Admin Dose Admin Fluticasone/ Vilanterol (Breo Ellipta 200-25 Mcg) 1 puff DAILY INH 05/07/21 14:00 05/08/21 08:58 Albuterol/ Ipratropium (Combivent Respimat 20-100 Mcg) 1 puff RTQID INH 05/07/21 16:00 05/08/21 08:57 Albuterol Sulfate (Ventolin Hfa) 2 puff PRN Q4HRS PRN INH SHORTNESS OF BREATH 05/07/21 13:30 05/07/21 21:06 Remdesivir 200 mg/ Sodium Chloride 210 ml @ 210 mls/hr 1X ONCE IV 05/07/21 14:00 05/07/21 14:59 DC 05/07/21 15:47 Heparin Sodium (Porcine) (Heparin Sodium) 5,000 unit Q8HRS SQ 05/07/21 14:00 05/08/21 06:08 Zinc Sulfate (Orazinc) 220 mg DAILY PO 05/08/21 09:00 05/08/21 08:59 Thiamine HCl 100 mg/Dextrose 51 ml @ 102 mls/hr 1X ONCE IV 05/07/21 14:00 05/07/21 14:29 DC 05/07/21 15:47 Ascorbic Acid (Vitamin C) 500 mg DAILY PO 05/08/21 09:00 05/08/21 08:57 Dexamethasone Sodium Phosphate (Decadron) 6 mg DAILY IVP 05/08/21 09:00 05/08/21 08:59 Calcium Carbonate/ Glycine (Oscal) 500 mg DAILY PO 05/08/21 09:00 05/08/21 08:57 Furosemide (Lasix) 20 mg DAILY PO 05/08/21 09:00 05/08/21 08:58 Metoprolol Succinate (Toprol Xl) 12.5 mg DAILY PO 05/08/21 09:00 05/08/21 08:58 Pantoprazole Sodium (Protonix) 40 mg DAILYAC PO 05/08/21 07:30 05/08/21 08:58 Influenza Virus Vaccine Quadrival (Flulaval Quad Syringe) 0.5 ml ONCE ONCE VAX IM 05/07/21 21:00 05/07/21 21:01 DC 05/07/21 21:25 Justifications for Admission Other Justification DAVID RUBI MD May 08, 2021 13:05
[2021-05-08] MEDS: REMDESIVIR 100mg in NORMAL SALINE 250ML X 4 DAYS IV SCH (14:21)
[2021-05-08 15:00] VITALS: BP 104/48
[2021-05-08 19:00] VITALS: BP 100/53
[2021-05-08 23:00] VITALS: BP 106/54
[2021-05-09 03:00] VITALS: BP 109/53
[2021-05-09] MEDS: HEPARIN for SUB-Q USE 5,000 UNIT/ML VIAL. SQ SCH ×3 (06:09→20:50)
[2021-05-09 07:00] VITALS: BP 116/66
[2021-05-09 08:30] LABS: ALBUMIN 2.4 g/dL (3.4-5.0); ALBUMIN/GLOBULIN RATIO 0.7 (1.0-1.7); CREATININE 1.6 mg/dL (0.6-1.0); POTASSIUM 4.2 mmol/L (3.5-5.1); TOTAL BILIRUBIN 0.3 mg/dL (0.2-1.0); TOTAL PROTEIN 5.8 g/dL (6.4-8.2)
[2021-05-09 08:54] LABS: BASO % 0 % (0-3); EOS % 0 % (0-3); HEMATOCRIT 32.1 % (36.0-47.0); HEMOGLOBIN 10.9 g/dL (12.0-15.5); LYMPH # 0.5 x10^3/uL (1.0-4.8); LYMPH % 9 % (24-48); MEAN CORPUSCULAR HEMOGLOBIN 30 pg (25-35); MEAN CORPUSCULAR HGB CONC 34 g/dL (31-37); MEAN CORPUSCULAR VOLUME 89 fL (79-100); MONO # 0.5 x10^3/uL (0.0-1.1); MONO % 8 % (0-9); NEUT # 4.9 x10^3/uL (1.8-7.7); NEUT % 83 % (31-73); PLATELET COUNT 103 x10^3/uL (140-400); RED BLOOD COUNT 3.62 x10^6/uL (3.50-5.40); RED CELL DISTRIBUTION WIDTH 14.7 % (11.5-14.5); WHITE BLOOD COUNT 5.9 x10^3/uL (4.0-11.0)
--- NOTE | 2021-05-09 09:18 | PDOC ---
PULMONARY PROGRESS NOTES DATE: 05/09/21 TIME: 09:18 Vitals Vital Signs Date Time Temp Pulse Resp B/P (MAP) Pulse Ox O2 Delivery O2 Flow Rate FiO2 05/09/21 03:00 99.8 70 109/53 (71) 94 Nasal Cannula 15.0 99.8 05/08/21 23:00 2 General: Alert Lungs: Crackles Cardiovascular: S1, S2 Abdomen: Soft, Non-tender Extremities: No Edema Labs Laboratory Tests Test 05/07/21 11:07 05/07/21 11:20 05/07/21 12:34 05/08/21 06:40 White Blood Count 3.9 x10^3/uL (4.0-11.0) 2.0 x10^3/uL (4.0-11.0) Red Blood Count 4.07 x10^6/uL (3.50-5.40) 3.74 x10^6/uL (3.50-5.40) Hemoglobin 11.8 g/dL (12.0-15.5) 10.9 g/dL (12.0-15.5) Hematocrit 35.8 % (36.0-47.0) 33.2 % (36.0-47.0) Mean Corpuscular Volume 88 fL (79-100) 89 fL (79-100) Mean Corpuscular Hemoglobin 29 pg (25-35) 29 pg (25-35) Mean Corpuscular Hemoglobin Concent 33 g/dL (31-37) 33 g/dL (31-37) Red Cell Distribution Width 15.2 % (11.5-14.5) 15.1 % (11.5-14.5) Platelet Count 114 x10^3/uL (140-400) 92 x10^3/uL (140-400) Neutrophils (%) (Auto) 60 % (31-73) 74 % (31-73) Lymphocytes (%) (Auto) 26 % (24-48) 17 % (24-48) Monocytes (%) (Auto) 14 % (0-9) 9 % (0-9) Eosinophils (%) (Auto) 0 % (0-3) 0 % (0-3) Basophils (%) (Auto) 0 % (0-3) 0 % (0-3) Neutrophils # (Auto) 2.4 x10^3/uL (1.8-7.7) 1.5 x10^3/uL (1.8-7.7) Lymphocytes # (Auto) 1.0 x10^3/uL (1.0-4.8) 0.3 x10^3/uL (1.0-4.8) Monocytes # (Auto) 0.5 x10^3/uL (0.0-1.1) 0.2 x10^3/uL (0.0-1.1) Eosinophils # (Auto) 0.0 x10^3/uL (0.0-0.7) 0.0 x10^3/uL (0.0-0.7) Basophils # (Auto) 0.0 x10^3/uL (0.0-0.2) 0.0 x10^3/uL (0.0-0.2) D-Dimer (Davida) 1.28 ug/mlFEU (0.00-0.50) Sodium Level 138 mmol/L (136-145) 140 mmol/L (136-145) Potassium Level 4.3 mmol/L (3.5-5.1) 3.9 mmol/L (3.5-5.1) Chloride Level 102 mmol/L (98-107) 104 mmol/L (98-107) Carbon Dioxide Level 23 mmol/L (21-32) 25 mmol/L (21-32) Anion Gap 13 (6-14) 11 (6-14) Blood Urea Nitrogen 40 mg/dL (7-20) 41 mg/dL (7-20) Creatinine 2.2 mg/dL (0.6-1.0) 1.8 mg/dL (0.6-1.0) Estimated GFR (Cockcroft-Gault) 21.5 27.1 BUN/Creatinine Ratio 18 (6-20) 23 (6-20) Glucose Level 103 mg/dL (70-99) 101 mg/dL (70-99) 127 mg/dL (70-99) Calcium Level 7.8 mg/dL (8.5-10.1) 7.9 mg/dL (8.5-10.1) Magnesium Level 2.0 mg/dL (1.8-2.4) 2.1 mg/dL (1.8-2.4) Total Bilirubin 0.4 mg/dL (0.2-1.0) 0.3 mg/dL (0.2-1.0) Aspartate Amino Transf (AST/SGOT) 114 U/L (15-37) 99 U/L (15-37) Alanine Aminotransferase (ALT/SGPT) 36 U/L (14-59) 38 U/L (14-59) Alkaline Phosphatase 73 U/L (46-116) 63 U/L (46-116) Troponin I Quantitative 0.080 ng/mL (0.000-0.055) C-Reactive Protein, Quantitative 42.6 mg/L (0-3.3) SW-Umt-S-Type Natriuretic Peptide 5172 pg/mL (0-449) Total Protein 6.4 g/dL (6.4-8.2) 6.2 g/dL (6.4-8.2) Albumin 3.1 g/dL (3.4-5.0) 2.6 g/dL (3.4-5.0) Albumin/Globulin Ratio 0.9 (1.0-1.7) 0.7 (1.0-1.7) Bedside Hematocrit 35 % (36-40) Arterial Blood pH (Temp corrected) 7.31 Arterial Blood pCO2 (Temp correct) 46 mmHg Arterial Blood pO2 (Temp corrected) 36 mmHg Bedside Venous pH 7.31 (7.32-7.42) Bedside Venous pCO2 46 mmHg (41-51) Bedside Venous pO2 36 mmHg (20-40) Bedside Venous HCO3 23 mmol/L (24-28) Bedside Venous Blood Total CO2 25 mmol/L (21-32) Bedside Venous Blood O2 Saturation 63 % Bedside Venous Blood Base Excess -3 mmol/L (0-3) POC Venous Hemoglobin (Calc) 11.9 g/dL (12-15) Bedside FiO2 21 Bedside Sodium 138 mmol/L (135-145) Bedside Potassium 4.0 mmol/L (3.5-5.0) Bedside Ionized Calcium (Karina) 1.10 mmol/L (1.13-1.32) SARS-CoV-2 Antigen (Rapid) Positive (NEGATIVE) Segmented Neutrophils % 72 % (35-66) Band Neutrophils % 5 % (0-9) Lymphocytes % 15 % (24-48) Monocytes % 8 % (0-10) Platelet Estimate Decreased (ADEQUATE) Test 05/09/21 07:25 White Blood Count 5.9 x10^3/uL (4.0-11.0) Red Blood Count 3.62 x10^6/uL (3.50-5.40) Hemoglobin 10.9 g/dL (12.0-15.5) Hematocrit 32.1 % (36.0-47.0) Mean Corpuscular Volume 89 fL (79-100) Mean Corpuscular Hemoglobin 30 pg (25-35) Mean Corpuscular Hemoglobin Concent 34 g/dL (31-37) Red Cell Distribution Width 14.7 % (11.5-14.5) Platelet Count 103 x10^3/uL (140-400) Neutrophils (%) (Auto) 83 % (31-73) Lymphocytes (%) (Auto) 9 % (24-48) Monocytes (%) (Auto) 8 % (0-9) Eosinophils (%) (Auto) 0 % (0-3) Basophils (%) (Auto) 0 % (0-3) Neutrophils # (Auto) 4.9 x10^3/uL (1.8-7.7) Lymphocytes # (Auto) 0.5 x10^3/uL (1.0-4.8) Monocytes # (Auto) 0.5 x10^3/uL (0.0-1.1) Eosinophils # (Auto) 0.0 x10^3/uL (0.0-0.7) Basophils # (Auto) 0.0 x10^3/uL (0.0-0.2) Sodium Level 142 mmol/L (136-145) Potassium Level 4.2 mmol/L (3.5-5.1) Chloride Level 110 mmol/L (98-107) Carbon Dioxide Level 23 mmol/L (21-32) Anion Gap 9 (6-14) Blood Urea Nitrogen 45 mg/dL (7-20) Creatinine 1.6 mg/dL (0.6-1.0) Estimated GFR (Cockcroft-Gault) 31.0 BUN/Creatinine Ratio 28 (6-20) Glucose Level 114 mg/dL (70-99) Calcium Level 8.0 mg/dL (8.5-10.1) Total Bilirubin 0.3 mg/dL (0.2-1.0) Aspartate Amino Transf (AST/SGOT) 81 U/L (15-37) Alanine Aminotransferase (ALT/SGPT) 31 U/L (14-59) Alkaline Phosphatase 59 U/L (46-116) C-Reactive Protein, Quantitative 18.9 mg/L (0-3.3) Total Protein 5.8 g/dL (6.4-8.2) Albumin 2.4 g/dL (3.4-5.0) Albumin/Globulin Ratio 0.7 (1.0-1.7) Laboratory Tests Test 05/09/21 07:25 White Blood Count 5.9 x10^3/uL (4.0-11.0) Red Blood Count 3.62 x10^6/uL (3.50-5.40) Hemoglobin 10.9 g/dL (12.0-15.5) Hematocrit 32.1 % (36.0-47.0) Mean Corpuscular Volume 89 fL (79-100) Mean Corpuscular Hemoglobin 30 pg (25-35) Mean Corpuscular Hemoglobin Concent 34 g/dL (31-37) Red Cell Distribution Width 14.7 % (11.5-14.5) Platelet Count 103 x10^3/uL (140-400) Neutrophils (%) (Auto) 83 % (31-73) Lymphocytes (%) (Auto) 9 % (24-48) Monocytes (%) (Auto) 8 % (0-9) Eosinophils (%) (Auto) 0 % (0-3) Basophils (%) (Auto) 0 % (0-3) Neutrophils # (Auto) 4.9 x10^3/uL (1.8-7.7) Lymphocytes # (Auto) 0.5 x10^3/uL (1.0-4.8) Monocytes # (Auto) 0.5 x10^3/uL (0.0-1.1) Eosinophils # (Auto) 0.0 x10^3/uL (0.0-0.7) Basophils # (Auto) 0.0 x10^3/uL (0.0-0.2) Sodium Level 142 mmol/L (136-145) Potassium Level 4.2 mmol/L (3.5-5.1) Chloride Level 110 mmol/L (98-107) Carbon Dioxide Level 23 mmol/L (21-32) Anion Gap 9 (6-14) Blood Urea Nitrogen 45 mg/dL (7-20) Creatinine 1.6 mg/dL (0.6-1.0) Estimated GFR (Cockcroft-Gault) 31.0 BUN/Creatinine Ratio 28 (6-20) Glucose Level 114 mg/dL (70-99) Calcium Level 8.0 mg/dL (8.5-10.1) Total Bilirubin 0.3 mg/dL (0.2-1.0) Aspartate Amino Transf (AST/SGOT) 81 U/L (15-37) Alanine Aminotransferase (ALT/SGPT) 31 U/L (14-59) Alkaline Phosphatase 59 U/L (46-116) C-Reactive Protein, Quantitative 18.9 mg/L (0-3.3) Total Protein 5.8 g/dL (6.4-8.2) Albumin 2.4 g/dL (3.4-5.0) Albumin/Globulin Ratio 0.7 (1.0-1.7) Medications Active Scripts Medications Dose Route/Sig Max Daily Dose Days Date Category Metoprolol Succinate ( Xl ) (Metoprolol Succinate) 25 Mg Tab.er.24h 12.5 Mg PO DAILY 30 03/28/21 Rx Vitamin C (Ascorbic Acid) 1,000 Mg Tablet 1,000 Mg PO DAILY 03/24/21 Reported Zinc 50 Mg Tablet 50 Mg PO DAILY 03/24/21 Reported Calcium (Calcium Carbonate) 500 Mg Tablet 600 Mg PO DAILY 30 03/24/21 Reported Furosemide 20 Mg Tablet 1 Tab PO DAILY 11/19/18 Rx [Pantoprazole] 40 MG Tablet.dr 40 Mg PO DAILYAC 30 11/19/18 Rx Budesonide 0.5 Mg/2 Ml Ampul.neb 0.5 Mg NEB RTBID 30 11/19/18 Rx Mucinex Dm Er 600-30 Mg Tablet (Guaifenesin/Dextromethorphan) 1 Each Tab.er.12h 1 Tab PO BID 30 11/19/18 Rx Ambien (Zolpidem Tartrate) 5 Mg Tablet 5 Mg PO PRN QHS PRN 30 11/19/18 Rx Lisinopril 40 Mg Tablet 20 Mg PO DAILY 30 11/19/18 Rx Amlodipine Besylate 5 Mg Tablet 5 Mg PO DAILY 30 11/19/18 Rx Duoneb 0.5-3(2.5) Mg/3 Ml (Albuterol/Ipratropium) 3 Ml Ampul.neb 3 Ml NEB RTQID 30 11/19/18 Rx Proair Hfa Inhaler (Albuterol Sulfate) 8.5 Gm Hfa.aer.ad 1 Puff INH PRN Q6HRS PRN 01/26/18 Reported PETEY CUEVAS MD May 09, 2021 09:18
[2021-05-09] MEDS: FLUTICASONE/VILANTEROL 200/25 INHALER. INH SCH (10:51)
[2021-05-09] MEDS: IPRATROPIUM/ALBUTEROL 20/100mcg/INH INHALER. INH SCH ×4 (10:51→20:37)
[2021-05-09] MEDS: METOPROLOL SUCC 24HR ER 25 MG TAB.ER.24H. PO SCH (10:52)
[2021-05-09] MEDS: CALCIUM CARBONATE 500 MG TABLET PO SCH (10:52)
[2021-05-09] MEDS: ZINC SULFATE 220 MG CAPSULE. PO SCH (10:52)
[2021-05-09] MEDS: PANTOPRAZOLE 40 MG TABLET.DR. PO SCH (10:52)
[2021-05-09] MEDS: ASCORBIC ACID 500 MG TABLET PO SCH (10:52)
[2021-05-09] MEDS: DEXAMETHASONE SOD PHOS 4 MG/ML VIAL IVP SCH (10:52)
[2021-05-09] MEDS: FUROSEMIDE 20 MG TABLET PO SCH (10:53)
[2021-05-09 11:00] VITALS: BP 118/60
--- NOTE | 2021-05-09 12:23 | NUR ---
SW following. Discussed with RN, pt from home with son, 15LNRB (uses 2-5L at home), cardiac diet. Rapid COVID-19 positive. RN advised no SW needs at this time. SW will continue to follow.
--- NOTE | 2021-05-09 12:31 | PDOC ---
PULMONARY PROGRESS NOTES DATE: 05/09/21 TIME: 12:29 Vitals Vital Signs Date Time Temp Pulse Resp B/P (MAP) Pulse Ox O2 Delivery O2 Flow Rate FiO2 05/09/21 10:52 75 116/66 05/09/21 07:00 99.8 94 15.0 99.8 05/09/21 03:00 Nasal Cannula 05/08/21 23:00 2 General: Alert Lungs: Crackles Cardiovascular: S1, S2 Abdomen: Soft, Non-tender Extremities: No Edema Labs Laboratory Tests Test 05/07/21 12:34 05/08/21 06:40 05/09/21 07:25 SARS-CoV-2 Antigen (Rapid) Positive (NEGATIVE) White Blood Count 2.0 x10^3/uL (4.0-11.0) 5.9 x10^3/uL (4.0-11.0) Red Blood Count 3.74 x10^6/uL (3.50-5.40) 3.62 x10^6/uL (3.50-5.40) Hemoglobin 10.9 g/dL (12.0-15.5) 10.9 g/dL (12.0-15.5) Hematocrit 33.2 % (36.0-47.0) 32.1 % (36.0-47.0) Mean Corpuscular Volume 89 fL (79-100) 89 fL (79-100) Mean Corpuscular Hemoglobin 29 pg (25-35) 30 pg (25-35) Mean Corpuscular Hemoglobin Concent 33 g/dL (31-37) 34 g/dL (31-37) Red Cell Distribution Width 15.1 % (11.5-14.5) 14.7 % (11.5-14.5) Platelet Count 92 x10^3/uL (140-400) 103 x10^3/uL (140-400) Neutrophils (%) (Auto) 74 % (31-73) 83 % (31-73) Lymphocytes (%) (Auto) 17 % (24-48) 9 % (24-48) Monocytes (%) (Auto) 9 % (0-9) 8 % (0-9) Eosinophils (%) (Auto) 0 % (0-3) 0 % (0-3) Basophils (%) (Auto) 0 % (0-3) 0 % (0-3) Neutrophils # (Auto) 1.5 x10^3/uL (1.8-7.7) 4.9 x10^3/uL (1.8-7.7) Lymphocytes # (Auto) 0.3 x10^3/uL (1.0-4.8) 0.5 x10^3/uL (1.0-4.8) Monocytes # (Auto) 0.2 x10^3/uL (0.0-1.1) 0.5 x10^3/uL (0.0-1.1) Eosinophils # (Auto) 0.0 x10^3/uL (0.0-0.7) 0.0 x10^3/uL (0.0-0.7) Basophils # (Auto) 0.0 x10^3/uL (0.0-0.2) 0.0 x10^3/uL (0.0-0.2) Segmented Neutrophils % 72 % (35-66) Band Neutrophils % 5 % (0-9) Lymphocytes % 15 % (24-48) Monocytes % 8 % (0-10) Platelet Estimate Decreased (ADEQUATE) Sodium Level 140 mmol/L (136-145) 142 mmol/L (136-145) Potassium Level 3.9 mmol/L (3.5-5.1) 4.2 mmol/L (3.5-5.1) Chloride Level 104 mmol/L (98-107) 110 mmol/L (98-107) Carbon Dioxide Level 25 mmol/L (21-32) 23 mmol/L (21-32) Anion Gap 11 (6-14) 9 (6-14) Blood Urea Nitrogen 41 mg/dL (7-20) 45 mg/dL (7-20) Creatinine 1.8 mg/dL (0.6-1.0) 1.6 mg/dL (0.6-1.0) Estimated GFR (Cockcroft-Gault) 27.1 31.0 BUN/Creatinine Ratio 23 (6-20) 28 (6-20) Glucose Level 127 mg/dL (70-99) 114 mg/dL (70-99) Calcium Level 7.9 mg/dL (8.5-10.1) 8.0 mg/dL (8.5-10.1) Magnesium Level 2.1 mg/dL (1.8-2.4) Total Bilirubin 0.3 mg/dL (0.2-1.0) 0.3 mg/dL (0.2-1.0) Aspartate Amino Transf (AST/SGOT) 99 U/L (15-37) 81 U/L (15-37) Alanine Aminotransferase (ALT/SGPT) 38 U/L (14-59) 31 U/L (14-59) Alkaline Phosphatase 63 U/L (46-116) 59 U/L (46-116) Total Protein 6.2 g/dL (6.4-8.2) 5.8 g/dL (6.4-8.2) Albumin 2.6 g/dL (3.4-5.0) 2.4 g/dL (3.4-5.0) Albumin/Globulin Ratio 0.7 (1.0-1.7) 0.7 (1.0-1.7) C-Reactive Protein, Quantitative 18.9 mg/L (0-3.3) Laboratory Tests Test 05/09/21 07:25 White Blood Count 5.9 x10^3/uL (4.0-11.0) Red Blood Count 3.62 x10^6/uL (3.50-5.40) Hemoglobin 10.9 g/dL (12.0-15.5) Hematocrit 32.1 % (36.0-47.0) Mean Corpuscular Volume 89 fL (79-100) Mean Corpuscular Hemoglobin 30 pg (25-35) Mean Corpuscular Hemoglobin Concent 34 g/dL (31-37) Red Cell Distribution Width 14.7 % (11.5-14.5) Platelet Count 103 x10^3/uL (140-400) Neutrophils (%) (Auto) 83 % (31-73) Lymphocytes (%) (Auto) 9 % (24-48) Monocytes (%) (Auto) 8 % (0-9) Eosinophils (%) (Auto) 0 % (0-3) Basophils (%) (Auto) 0 % (0-3) Neutrophils # (Auto) 4.9 x10^3/uL (1.8-7.7) Lymphocytes # (Auto) 0.5 x10^3/uL (1.0-4.8) Monocytes # (Auto) 0.5 x10^3/uL (0.0-1.1) Eosinophils # (Auto) 0.0 x10^3/uL (0.0-0.7) Basophils # (Auto) 0.0 x10^3/uL (0.0-0.2) Sodium Level 142 mmol/L (136-145) Potassium Level 4.2 mmol/L (3.5-5.1) Chloride Level 110 mmol/L (98-107) Carbon Dioxide Level 23 mmol/L (21-32) Anion Gap 9 (6-14) Blood Urea Nitrogen 45 mg/dL (7-20) Creatinine 1.6 mg/dL (0.6-1.0) Estimated GFR (Cockcroft-Gault) 31.0 BUN/Creatinine Ratio 28 (6-20) Glucose Level 114 mg/dL (70-99) Calcium Level 8.0 mg/dL (8.5-10.1) Total Bilirubin 0.3 mg/dL (0.2-1.0) Aspartate Amino Transf (AST/SGOT) 81 U/L (15-37) Alanine Aminotransferase (ALT/SGPT) 31 U/L (14-59) Alkaline Phosphatase 59 U/L (46-116) C-Reactive Protein, Quantitative 18.9 mg/L (0-3.3) Total Protein 5.8 g/dL (6.4-8.2) Albumin 2.4 g/dL (3.4-5.0) Albumin/Globulin Ratio 0.7 (1.0-1.7) Medications Active Scripts Medications Dose Route/Sig Max Daily Dose Days Date Category Metoprolol Succinate ( Xl ) (Metoprolol Succinate) 25 Mg Tab.er.24h 12.5 Mg PO DAILY 30 03/28/21 Rx Vitamin C (Ascorbic Acid) 1,000 Mg Tablet 1,000 Mg PO DAILY 03/24/21 Reported Zinc 50 Mg Tablet 50 Mg PO DAILY 03/24/21 Reported Calcium (Calcium Carbonate) 500 Mg Tablet 600 Mg PO DAILY 30 03/24/21 Reported Furosemide 20 Mg Tablet 1 Tab PO DAILY 11/19/18 Rx [Pantoprazole] 40 MG Tablet.dr 40 Mg PO DAILYAC 30 11/19/18 Rx Budesonide 0.5 Mg/2 Ml Ampul.neb 0.5 Mg NEB RTBID 30 11/19/18 Rx Mucinex Dm Er 600-30 Mg Tablet (Guaifenesin/Dextromethorphan) 1 Each Tab.er.12h 1 Tab PO BID 30 11/19/18 Rx Ambien (Zolpidem Tartrate) 5 Mg Tablet 5 Mg PO PRN QHS PRN 30 11/19/18 Rx Lisinopril 40 Mg Tablet 20 Mg PO DAILY 30 11/19/18 Rx Amlodipine Besylate 5 Mg Tablet 5 Mg PO DAILY 30 11/19/18 Rx Duoneb 0.5-3(2.5) Mg/3 Ml (Albuterol/Ipratropium) 3 Ml Ampul.neb 3 Ml NEB RTQID 30 11/19/18 Rx Proair Hfa Inhaler (Albuterol Sulfate) 8.5 Gm Hfa.aer.ad 1 Puff INH PRN Q6HRS PRN 01/26/18 Reported Impression . FULL NOTE DICTATED WILL CONTINUE THE SAME HOLD OFF ON TOCILIZUMAB THANKS PETEY CUEVAS MD May 09, 2021 12:31
--- NOTE | 2021-05-09 13:59 | PDOC ---
[employer] PROGRESS NOTE Date of Service DOS: DATE: 05/09/21 TIME: 13:58 Chief Complaint Chief Complaint A/P: COVID 19 - diarrhea and respiratory symptoms. Breakthrough case, has been vaccinated. Given steroids, will initiate remdesivir given early identification but increased O2 requirements. Checked CRP for consideration of tocilizumab Acute on chronic resp failure - with COVID 19 complicated by AECOPD H/o atrial fibrillation - converted to NSR previously Acute bronchitis - COPD exacerbation related as well as COVID 19 Pulmonary hypertension Moderate aortic insufficiency Chronic diastolic HF - prior echo 2018 with mild LV dysfunction with EF 45-50%, had echo at [facility] Hypertension; controlled CKD - normal renal function in 2018, but november 2020 appears to likely have new baseline cr 2 Pancytopenia - anemia related to CKD, leukopenia due to viral illness, will monitor platelets Hypocalcemia - chronic, will replace FEN - Cardiac diet PPX - heparin FULL CODE Dispo - inpatient for above History of Present Illness History of Present Illness Ms Caal is an 80-year-old female w/ PMHx COPD, ILD, chronic diastolic CHF presents to the emergency department complaining of shortness of breath and diarrhea for the last 3 days that has been gradually progressive. She has fever, cough, and body aches. She reports feeling fatigued when she walks short distances, and at rest. She has an abrasion on her right lateral leg that is healing well. 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 She has been vaccinated for COVID-19 in December 2020 x2 doses. Denies any history o f blood clots in the past. The patient denies nausea, vomiting, fever, chills, chest pain, abdominal pain, urinary symptoms, cough, recent trauma, or any other complaints. Chest radiograph with bilateral infiltrates. Required 4 L of oxygen initially, wears 2 liters at home. Started empirically on levaquin and cefepime in ED WBC 3.9, Hb 11.8, platelets 114, NA 138, K4.3, BUN 40, CR 2.2, calcium 7.8 ionized calcium 1.1, magnesium 2, bilirubin 0.4, AST 114, ALT 36, troponin 0.080, NT proBNP 5172, albumin 3.1, rapid COVID-19 positive, D-dimer 1.28 Chest radiograph with multifocal opacities increased from prior. Underlying fibrotic changes bilaterally worse in the left lung base EKG appears NSR Admitted for further care. Afebrile. Creatinine improved to 1.8. CRP less than 50. Nursing noted some desaturations with ambulation to toilet required facemask O2 to bring saturations back up from 78% to 96%. Otherwise she has been stable overnight primarily lately on 4 L nasal cannula. She is comfortable notes her diarrhea has improved. Has a good appetite. Tolerated remdesivir and Decadron well. D/w daughter, Arelis, over the phone. 05/09 Patient evaluated at bedside after dialysis. Still has altered mental status cannot really answer any questions for me. Continue COVID treatment. Pulmonary following. Plan of care discussed with bedside RN. Vitals/I&O Vitals/I&O: Vital Signs Date Time Temp Pulse Resp B/P (MAP) Pulse Ox O2 Delivery O2 Flow Rate FiO2 05/09/21 10:52 75 116/66 05/09/21 07:00 99.8 94 15.0 99.8 05/09/21 03:00 Nasal Cannula 05/08/21 23:00 2 I & O 05/08/21 05/08/21 05/09/21 15:00 23:00 07:00 Intake Total 680 ml 340 ml 260 ml Balance 680 ml 340 ml 260 ml Physical Exam General: Alert, Oriented X3, Cooperative, moderate distress Lungs: Crackles Abdomen: Normal bowel sounds, Soft, No tenderness, No hepatosplenomegaly, No masses Extremities: No clubbing, No cyanosis, Normal pulses, No tenderness/swelling, Other (scant edema) Skin: Other (Right lateral ankle eschar 2x3 cm) Labs Labs: Laboratory Tests Test 05/09/21 07:25 White Blood Count 5.9 x10^3/uL (4.0-11.0) Red Blood Count 3.62 x10^6/uL (3.50-5.40) Hemoglobin 10.9 g/dL (12.0-15.5) Hematocrit 32.1 % (36.0-47.0) Mean Corpuscular Volume 89 fL (79-100) Mean Corpuscular Hemoglobin 30 pg (25-35) Mean Corpuscular Hemoglobin Concent 34 g/dL (31-37) Red Cell Distribution Width 14.7 % (11.5-14.5) Platelet Count 103 x10^3/uL (140-400) Neutrophils (%) (Auto) 83 % (31-73) Lymphocytes (%) (Auto) 9 % (24-48) Monocytes (%) (Auto) 8 % (0-9) Eosinophils (%) (Auto) 0 % (0-3) Basophils (%) (Auto) 0 % (0-3) Neutrophils # (Auto) 4.9 x10^3/uL (1.8-7.7) Lymphocytes # (Auto) 0.5 x10^3/uL (1.0-4.8) Monocytes # (Auto) 0.5 x10^3/uL (0.0-1.1) Eosinophils # (Auto) 0.0 x10^3/uL (0.0-0.7) Basophils # (Auto) 0.0 x10^3/uL (0.0-0.2) Sodium Level 142 mmol/L (136-145) Potassium Level 4.2 mmol/L (3.5-5.1) Chloride Level 110 mmol/L (98-107) Carbon Dioxide Level 23 mmol/L (21-32) Anion Gap 9 (6-14) Blood Urea Nitrogen 45 mg/dL (7-20) Creatinine 1.6 mg/dL (0.6-1.0) Estimated GFR (Cockcroft-Gault) 31.0 BUN/Creatinine Ratio 28 (6-20) Glucose Level 114 mg/dL (70-99) Calcium Level 8.0 mg/dL (8.5-10.1) Total Bilirubin 0.3 mg/dL (0.2-1.0) Aspartate Amino Transf (AST/SGOT) 81 U/L (15-37) Alanine Aminotransferase (ALT/SGPT) 31 U/L (14-59) Alkaline Phosphatase 59 U/L (46-116) C-Reactive Protein, Quantitative 18.9 mg/L (0-3.3) Total Protein 5.8 g/dL (6.4-8.2) Albumin 2.4 g/dL (3.4-5.0) Albumin/Globulin Ratio 0.7 (1.0-1.7) Assessment and Plan Assessmemt and Plan Problems Medical Problems: (1) Pneumonia Status: Acute Comment Review of Relevant I have reviewed the following items zenaida (where applicable) has been applied. Medications: Current Medications Medications (Trade) Dose Ordered Sig/Maggy Route PRN Reason Start Time Stop Time Status Last Admin Dose Admin Remdesivir 100 mg/ Sodium Chloride 230 ml @ 460 mls/hr Q24H IV 05/08/21 14:00 05/11/21 14:29 05/08/21 14:21 Justifications for Admission Other Justification DAVID TURNER MD May 09, 2021 13:59
[2021-05-09] MEDS: REMDESIVIR 100mg in NORMAL SALINE 250ML X 4 DAYS IV SCH (14:10)
[2021-05-09 15:00] VITALS: BP 113/60
--- NOTE | 2021-05-09 16:05 | CONS ---
DATE OF CONSULTATION: 05/09/2021 ATTENDING PHYSICIAN: Shankar Husain MD REASON FOR CONSULTATION: The patient is seen in pulmonary consultation at the request of Dr. Husain for hypoxemia, abnormal x-ray. HISTORY OF PRESENT ILLNESS: The patient is an 80-year-old that is currently on nonrebreather. She presented with worsening shortness of breath for approximately 2 days. There is no prior history of DVT, hypertension, diabetes or coronary artery disease. She does have COPD. The patient was vaccinated with Pfizer vaccine. She tested positive when she presented here on the 05/07. She had a chest x-ray, which I personally reviewed, revealing bilateral pulmonary infiltrates. I was asked to see her in consultation. The patient denies fever. Cough is mostly nonproductive. She quit tobacco 2-3 years ago. Normally, she is at home on 2-4 liters. PAST MEDICAL HISTORY: Chronic respiratory failure, on 2-4 liters of oxygen supplementation. Tobacco dependence in remission. PAST SURGICAL HISTORY: None. ALLERGIES: No known drug allergies. REVIEW OF SYSTEMS: As indicated above, otherwise a 10-point system was reviewed and negative. VACCINATION HISTORY: The patient has received 2 doses of the Pfizer vaccine. CURRENT MEDICATIONS: List was reviewed. She is currently being treated with steroids. She has received remdesivir. PHYSICAL EXAMINATION: VITAL SIGNS: Stable. O2 saturation was greater than 92%, currently on nonrebreather. HEENT: Eyes, sclerae were nonicteric. NECK: Jugular venous distention was not elevated. No lymphadenopathy. CHEST: Full expansion. LUNGS: Adequate flow with no wheezes. CARDIOVASCULAR: Regular rate and rhythm with S1, S2, no S3. ABDOMEN: Soft. EXTREMITIES: No clubbing, cyanosis or edema. NEUROLOGIC: The patient was awake, alert, following commands. A detailed neuro exam was not performed. LABORATORY DATA: Reviewed. White count was low. Hemoglobin and hematocrit were noted. Electrolytes were noted. Arterial blood gas; pH of 7.31, PaCO2 of 46, pO2 of 36. BUN and creatinine were elevated. IMPRESSION: 1. Acute hypoxemic respiratory failure secondary to COVID-19. 2. COVID-19 viral pneumonia. 3. History of atrial fibrillation, now in sinus rhythm. 4. Acute exacerbation of chronic obstructive pulmonary disease. 5. Renal aortic insufficiency. 6. Chronic diastolic heart failure. 7. Hypertension. 8. Chronic kidney disease. 9. Pancytopenia. PLAN: 1. Noted CPR was elevated, I would hold off on tocilizumab, considering the patient's leukopenia, and abnormal liver chemistries along with low platelet count. 2. Continue steroids. 3. Continue empiric antibiotics. 4. Continue oxygen supplementation. 5. DVT prophylaxis. 6. Continue remdesivir. I do appreciate the privilege in sharing in this patient's care. JESÚS DR: Rainer TID: [id number]
[2021-05-09 19:00] VITALS: BP 107/60
[2021-05-09 23:00] VITALS: BP 111/64
[2021-05-10 02:48] VITALS: BP 122/63
[2021-05-10] MEDS: IPRATROPIUM/ALBUTEROL 20/100mcg/INH INHALER. INH SCH ×4 (05:00→20:15)
[2021-05-10] MEDS: PANTOPRAZOLE 40 MG TABLET.DR. PO SCH (05:01)
[2021-05-10] MEDS: HEPARIN for SUB-Q USE 5,000 UNIT/ML VIAL. SQ SCH ×3 (05:01→20:39)
[2021-05-10 07:00] VITALS: BP 139/57
[2021-05-10 07:10] LABS: BASO % 0 % (0-3); EOS % 0 % (0-3); HEMATOCRIT 34.5 % (36.0-47.0); HEMOGLOBIN 11.3 g/dL (12.0-15.5); LYMPH # 0.6 x10^3/uL (1.0-4.8); LYMPH % 10 % (24-48); MEAN CORPUSCULAR HEMOGLOBIN 29 pg (25-35); MEAN CORPUSCULAR HGB CONC 33 g/dL (31-37); MEAN CORPUSCULAR VOLUME 89 fL (79-100); MONO # 0.5 x10^3/uL (0.0-1.1); MONO % 10 % (0-9); NEUT # 4.5 x10^3/uL (1.8-7.7); NEUT % 80 % (31-73); PLATELET COUNT 114 x10^3/uL (140-400); RED BLOOD COUNT 3.87 x10^6/uL (3.50-5.40); RED CELL DISTRIBUTION WIDTH 14.7 % (11.5-14.5); WHITE BLOOD COUNT 5.6 x10^3/uL (4.0-11.0)
[2021-05-10 07:26] LABS: ALBUMIN 2.5 g/dL (3.4-5.0); ALBUMIN/GLOBULIN RATIO 0.7 (1.0-1.7); CALCIUM 8.1 mg/dL (8.5-10.1); CREATININE 1.5 mg/dL (0.6-1.0); GFR 33.4; POTASSIUM 4.4 mmol/L (3.5-5.1); TOTAL BILIRUBIN 0.4 mg/dL (0.2-1.0); TOTAL PROTEIN 5.9 g/dL (6.4-8.2)
--- NOTE | 2021-05-10 08:51 | PDOC ---
PULMONARY PROGRESS NOTES DATE: 05/10/21 TIME: 08:51 Subjective Patient not short of air, currently on 100% nonrebreather Wanted to know when she could go home Vitals Vital Signs Date Time Temp Pulse Resp B/P (MAP) Pulse Ox O2 Delivery O2 Flow Rate FiO2 05/10/21 07:00 98.1 68 20 139/57 (84) 96 NonRebreather Mask 15.0 98.1 ROS: No Nausea, No Chest Pain, No Abdominal Pain, No Increase Cough General: Alert Lungs: Crackles Cardiovascular: S1, S2 Abdomen: Soft, Non-tender Extremities: No Edema Labs Laboratory Tests Test 05/09/21 07:25 05/10/21 06:45 White Blood Count 5.9 x10^3/uL (4.0-11.0) 5.6 x10^3/uL (4.0-11.0) Red Blood Count 3.62 x10^6/uL (3.50-5.40) 3.87 x10^6/uL (3.50-5.40) Hemoglobin 10.9 g/dL (12.0-15.5) 11.3 g/dL (12.0-15.5) Hematocrit 32.1 % (36.0-47.0) 34.5 % (36.0-47.0) Mean Corpuscular Volume 89 fL (79-100) 89 fL (79-100) Mean Corpuscular Hemoglobin 30 pg (25-35) 29 pg (25-35) Mean Corpuscular Hemoglobin Concent 34 g/dL (31-37) 33 g/dL (31-37) Red Cell Distribution Width 14.7 % (11.5-14.5) 14.7 % (11.5-14.5) Platelet Count 103 x10^3/uL (140-400) 114 x10^3/uL (140-400) Neutrophils (%) (Auto) 83 % (31-73) 80 % (31-73) Lymphocytes (%) (Auto) 9 % (24-48) 10 % (24-48) Monocytes (%) (Auto) 8 % (0-9) 10 % (0-9) Eosinophils (%) (Auto) 0 % (0-3) 0 % (0-3) Basophils (%) (Auto) 0 % (0-3) 0 % (0-3) Neutrophils # (Auto) 4.9 x10^3/uL (1.8-7.7) 4.5 x10^3/uL (1.8-7.7) Lymphocytes # (Auto) 0.5 x10^3/uL (1.0-4.8) 0.6 x10^3/uL (1.0-4.8) Monocytes # (Auto) 0.5 x10^3/uL (0.0-1.1) 0.5 x10^3/uL (0.0-1.1) Eosinophils # (Auto) 0.0 x10^3/uL (0.0-0.7) 0.0 x10^3/uL (0.0-0.7) Basophils # (Auto) 0.0 x10^3/uL (0.0-0.2) 0.0 x10^3/uL (0.0-0.2) Sodium Level 142 mmol/L (136-145) 141 mmol/L (136-145) Potassium Level 4.2 mmol/L (3.5-5.1) 4.4 mmol/L (3.5-5.1) Chloride Level 110 mmol/L (98-107) 108 mmol/L (98-107) Carbon Dioxide Level 23 mmol/L (21-32) 25 mmol/L (21-32) Anion Gap 9 (6-14) 8 (6-14) Blood Urea Nitrogen 45 mg/dL (7-20) 48 mg/dL (7-20) Creatinine 1.6 mg/dL (0.6-1.0) 1.5 mg/dL (0.6-1.0) Estimated GFR (Cockcroft-Gault) 31.0 33.4 BUN/Creatinine Ratio 28 (6-20) 32 (6-20) Glucose Level 114 mg/dL (70-99) 105 mg/dL (70-99) Calcium Level 8.0 mg/dL (8.5-10.1) 8.1 mg/dL (8.5-10.1) Total Bilirubin 0.3 mg/dL (0.2-1.0) 0.4 mg/dL (0.2-1.0) Aspartate Amino Transf (AST/SGOT) 81 U/L (15-37) 58 U/L (15-37) Alanine Aminotransferase (ALT/SGPT) 31 U/L (14-59) 28 U/L (14-59) Alkaline Phosphatase 59 U/L (46-116) 66 U/L (46-116) C-Reactive Protein, Quantitative 18.9 mg/L (0-3.3) Total Protein 5.8 g/dL (6.4-8.2) 5.9 g/dL (6.4-8.2) Albumin 2.4 g/dL (3.4-5.0) 2.5 g/dL (3.4-5.0) Albumin/Globulin Ratio 0.7 (1.0-1.7) 0.7 (1.0-1.7) Laboratory Tests Test 05/10/21 06:45 White Blood Count 5.6 x10^3/uL (4.0-11.0) Red Blood Count 3.87 x10^6/uL (3.50-5.40) Hemoglobin 11.3 g/dL (12.0-15.5) Hematocrit 34.5 % (36.0-47.0) Mean Corpuscular Volume 89 fL (79-100) Mean Corpuscular Hemoglobin 29 pg (25-35) Mean Corpuscular Hemoglobin Concent 33 g/dL (31-37) Red Cell Distribution Width 14.7 % (11.5-14.5) Platelet Count 114 x10^3/uL (140-400) Neutrophils (%) (Auto) 80 % (31-73) Lymphocytes (%) (Auto) 10 % (24-48) Monocytes (%) (Auto) 10 % (0-9) Eosinophils (%) (Auto) 0 % (0-3) Basophils (%) (Auto) 0 % (0-3) Neutrophils # (Auto) 4.5 x10^3/uL (1.8-7.7) Lymphocytes # (Auto) 0.6 x10^3/uL (1.0-4.8) Monocytes # (Auto) 0.5 x10^3/uL (0.0-1.1) Eosinophils # (Auto) 0.0 x10^3/uL (0.0-0.7) Basophils # (Auto) 0.0 x10^3/uL (0.0-0.2) Sodium Level 141 mmol/L (136-145) Potassium Level 4.4 mmol/L (3.5-5.1) Chloride Level 108 mmol/L (98-107) Carbon Dioxide Level 25 mmol/L (21-32) Anion Gap 8 (6-14) Blood Urea Nitrogen 48 mg/dL (7-20) Creatinine 1.5 mg/dL (0.6-1.0) Estimated GFR (Cockcroft-Gault) 33.4 BUN/Creatinine Ratio 32 (6-20) Glucose Level 105 mg/dL (70-99) Calcium Level 8.1 mg/dL (8.5-10.1) Total Bilirubin 0.4 mg/dL (0.2-1.0) Aspartate Amino Transf (AST/SGOT) 58 U/L (15-37) Alanine Aminotransferase (ALT/SGPT) 28 U/L (14-59) Alkaline Phosphatase 66 U/L (46-116) Total Protein 5.9 g/dL (6.4-8.2) Albumin 2.5 g/dL (3.4-5.0) Albumin/Globulin Ratio 0.7 (1.0-1.7) Medications Active Scripts Medications Dose Route/Sig Max Daily Dose Days Date Category Metoprolol Succinate ( Xl ) (Metoprolol Succinate) 25 Mg Tab.er.24h 12.5 Mg PO DAILY 30 03/28/21 Rx Vitamin C (Ascorbic Acid) 1,000 Mg Tablet 1,000 Mg PO DAILY 03/24/21 Reported Zinc 50 Mg Tablet 50 Mg PO DAILY 03/24/21 Reported Calcium (Calcium Carbonate) 500 Mg Tablet 600 Mg PO DAILY 30 03/24/21 Reported Furosemide 20 Mg Tablet 1 Tab PO DAILY 11/19/18 Rx [Pantoprazole] 40 MG Tablet.dr 40 Mg PO DAILYAC 30 11/19/18 Rx Budesonide 0.5 Mg/2 Ml Ampul.neb 0.5 Mg NEB RTBID 30 11/19/18 Rx Mucinex Dm Er 600-30 Mg Tablet (Guaifenesin/Dextromethorphan) 1 Each Tab.er.12h 1 Tab PO BID 30 11/19/18 Rx Ambien (Zolpidem Tartrate) 5 Mg Tablet 5 Mg PO PRN QHS PRN 30 11/19/18 Rx Lisinopril 40 Mg Tablet 20 Mg PO DAILY 30 11/19/18 Rx Amlodipine Besylate 5 Mg Tablet 5 Mg PO DAILY 30 11/19/18 Rx Duoneb 0.5-3(2.5) Mg/3 Ml (Albuterol/Ipratropium) 3 Ml Ampul.neb 3 Ml NEB RTQID 30 11/19/18 Rx Proair Hfa Inhaler (Albuterol Sulfate) 8.5 Gm Hfa.aer.ad 1 Puff INH PRN Q6HRS PRN 01/26/18 Reported Impression . IMPRESSION: 1. Acute hypoxemic respiratory failure secondary to COVID-19. 2. COVID-19 viral pneumonia. 3. History of atrial fibrillation, now in sinus rhythm. 4. Acute exacerbation of chronic obstructive pulmonary disease. 5. Renal aortic insufficiency. 6. Chronic diastolic heart failure. 7. Hypertension. 8. Chronic kidney disease. 9. Pancytopenia. Plan . Updated 05/10 Continue current support with oxygen supplementation Antibiotics Steroids Remdesivir Discussed with RT Patient informed that should go home when her oxygen requirements decrease PLAN: 1. Noted CPR was elevated, I would hold off on tocilizumab, considering the patient's leukopenia, and abnormal liver chemistries along with low platelet count. 2. Continue steroids. 3. Continue empiric antibiotics. 4. Continue oxygen supplementation. 5. DVT prophylaxis. 6. Continue remdesivir. I do appreciate the privilege in sharing in this patient's care. PETEY CUEVAS MD May 10, 2021 08:51
[2021-05-10] MEDS: DEXAMETHASONE SOD PHOS 4 MG/ML VIAL IVP SCH (09:13)
[2021-05-10] MEDS: CALCIUM CARBONATE 500 MG TABLET PO SCH (09:14)
[2021-05-10] MEDS: ASCORBIC ACID 500 MG TABLET PO SCH (09:14)
[2021-05-10] MEDS: METOPROLOL SUCC 24HR ER 25 MG TAB.ER.24H. PO SCH (09:14)
[2021-05-10] MEDS: ZINC SULFATE 220 MG CAPSULE. PO SCH (09:14)
[2021-05-10] MEDS: FUROSEMIDE 20 MG TABLET PO SCH (09:15)
[2021-05-10] MEDS: FLUTICASONE/VILANTEROL 200/25 INHALER. INH SCH (09:15)
[2021-05-10 11:00] VITALS: BP 131/68
--- NOTE | 2021-05-10 12:06 | PDOC ---
[employer] PROGRESS NOTE Date of Service DOS: DATE: 05/10/21 TIME: 12:05 Chief Complaint Chief Complaint A/P: COVID 19 - diarrhea and respiratory symptoms. Breakthrough case, has been vaccinated. Given steroids, will initiate remdesivir given early identification but increased O2 requirements. Checked CRP for consideration of tocilizumab Acute on chronic resp failure - with COVID 19 complicated by AECOPD H/o atrial fibrillation - converted to NSR previously Acute bronchitis - COPD exacerbation related as well as COVID 19 Pulmonary hypertension Moderate aortic insufficiency Chronic diastolic HF - prior echo 2018 with mild LV dysfunction with EF 45-50%, had echo at [facility] Hypertension; controlled CKD - normal renal function in 2018, but november 2020 appears to likely have new baseline cr 2 Pancytopenia - anemia related to CKD, leukopenia due to viral illness, will monitor platelets Hypocalcemia - chronic, will replace FEN - Cardiac diet PPX - heparin FULL CODE Dispo - inpatient for above History of Present Illness History of Present Illness Ms Caal is an 80-year-old female w/ PMHx COPD, ILD, chronic diastolic CHF presents to the emergency department complaining of shortness of breath and diarrhea for the last 3 days that has been gradually progressive. She has fever, cough, and body aches. She reports feeling fatigued when she walks short distances, and at rest. She has an abrasion on her right lateral leg that is healing well. 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 She has been vaccinated for COVID-19 in December 2020 x2 doses. Denies any history o f blood clots in the past. The patient denies nausea, vomiting, fever, chills, chest pain, abdominal pain, urinary symptoms, cough, recent trauma, or any other complaints. Chest radiograph with bilateral infiltrates. Required 4 L of oxygen initially, wears 2 liters at home. Started empirically on levaquin and cefepime in ED WBC 3.9, Hb 11.8, platelets 114, NA 138, K4.3, BUN 40, CR 2.2, calcium 7.8 ionized calcium 1.1, magnesium 2, bilirubin 0.4, AST 114, ALT 36, troponin 0.080, NT proBNP 5172, albumin 3.1, rapid COVID-19 positive, D-dimer 1.28 Chest radiograph with multifocal opacities increased from prior. Underlying fibrotic changes bilaterally worse in the left lung base EKG appears NSR Admitted for further care. Afebrile. Creatinine improved to 1.8. CRP less than 50. Nursing noted some desaturations with ambulation to toilet required facemask O2 to bring saturations back up from 78% to 96%. Otherwise she has been stable overnight primarily lately on 4 L nasal cannula. She is comfortable notes her diarrhea has improved. Has a good appetite. Tolerated remdesivir and Decadron well. D/w daughter, Arelis, over the phone. 05/09 Patient evaluated at bedside after dialysis. Still has altered mental status cannot really answer any questions for me. Continue COVID treatment. Pulmonary following. Plan of care discussed with bedside RN. 05/10 Evaluated at bedside still remains pretty altered. Continue COVID treatment. Still on remdesivir. Otherwise no changes. Vitals/I&O Vitals/I&O: Vital Signs Date Time Temp Pulse Resp B/P (MAP) Pulse Ox O2 Delivery O2 Flow Rate FiO2 05/10/21 11:00 97.9 87 20 131/68 (89) 93 NonRebreather Mask 15.0 97.9 I & O 05/09/21 05/09/21 05/10/21 15:00 23:00 07:00 Intake Total 800 ml Balance 800 ml Physical Exam General: Alert, Oriented X3, Cooperative, moderate distress Lungs: Crackles Abdomen: Normal bowel sounds, Soft, No tenderness, No hepatosplenomegaly, No masses Extremities: No clubbing, No cyanosis, Normal pulses, No tenderness/swelling, Other (scant edema) Skin: Other (Right lateral ankle eschar 2x3 cm) Labs Labs: Laboratory Tests Test 05/10/21 06:45 White Blood Count 5.6 x10^3/uL (4.0-11.0) Red Blood Count 3.87 x10^6/uL (3.50-5.40) Hemoglobin 11.3 g/dL (12.0-15.5) Hematocrit 34.5 % (36.0-47.0) Mean Corpuscular Volume 89 fL (79-100) Mean Corpuscular Hemoglobin 29 pg (25-35) Mean Corpuscular Hemoglobin Concent 33 g/dL (31-37) Red Cell Distribution Width 14.7 % (11.5-14.5) Platelet Count 114 x10^3/uL (140-400) Neutrophils (%) (Auto) 80 % (31-73) Lymphocytes (%) (Auto) 10 % (24-48) Monocytes (%) (Auto) 10 % (0-9) Eosinophils (%) (Auto) 0 % (0-3) Basophils (%) (Auto) 0 % (0-3) Neutrophils # (Auto) 4.5 x10^3/uL (1.8-7.7) Lymphocytes # (Auto) 0.6 x10^3/uL (1.0-4.8) Monocytes # (Auto) 0.5 x10^3/uL (0.0-1.1) Eosinophils # (Auto) 0.0 x10^3/uL (0.0-0.7) Basophils # (Auto) 0.0 x10^3/uL (0.0-0.2) Sodium Level 141 mmol/L (136-145) Potassium Level 4.4 mmol/L (3.5-5.1) Chloride Level 108 mmol/L (98-107) Carbon Dioxide Level 25 mmol/L (21-32) Anion Gap 8 (6-14) Blood Urea Nitrogen 48 mg/dL (7-20) Creatinine 1.5 mg/dL (0.6-1.0) Estimated GFR (Cockcroft-Gault) 33.4 BUN/Creatinine Ratio 32 (6-20) Glucose Level 105 mg/dL (70-99) Calcium Level 8.1 mg/dL (8.5-10.1) Total Bilirubin 0.4 mg/dL (0.2-1.0) Aspartate Amino Transf (AST/SGOT) 58 U/L (15-37) Alanine Aminotransferase (ALT/SGPT) 28 U/L (14-59) Alkaline Phosphatase 66 U/L (46-116) Total Protein 5.9 g/dL (6.4-8.2) Albumin 2.5 g/dL (3.4-5.0) Albumin/Globulin Ratio 0.7 (1.0-1.7) Assessment and Plan Assessmemt and Plan Problems Medical Problems: (1) Pneumonia Status: Acute Comment Review of Relevant I have reviewed the following items zenaida (where applicable) has been applied. Justifications for Admission Other Justification DAVID TURNER MD May 10, 2021 12:06
[2021-05-10] MEDS: REMDESIVIR 100mg in NORMAL SALINE 250ML X 4 DAYS IV SCH (14:33)
[2021-05-10 15:00] VITALS: BP 145/73
[2021-05-10 19:00] VITALS: BP 136/73
[2021-05-10 23:50] VITALS: BP 124/66
[2021-05-11 03:00] VITALS: BP 129/73
[2021-05-11] MEDS: PANTOPRAZOLE 40 MG TABLET.DR. PO SCH (05:23)
[2021-05-11] MEDS: HEPARIN for SUB-Q USE 5,000 UNIT/ML VIAL. SQ SCH ×3 (05:24→20:06)
[2021-05-11] MEDS: IPRATROPIUM/ALBUTEROL 20/100mcg/INH INHALER. INH SCH ×4 (05:25→20:00)
[2021-05-11 07:00] VITALS: BP 136/66
[2021-05-11] MEDS: FLUTICASONE/VILANTEROL 200/25 INHALER. INH SCH ×2 (08:34→19:00)
[2021-05-11] MEDS: DEXAMETHASONE SOD PHOS 4 MG/ML VIAL IVP SCH (08:34)
[2021-05-11] MEDS: FUROSEMIDE 20 MG TABLET PO SCH (08:35)
[2021-05-11] MEDS: ZINC SULFATE 220 MG CAPSULE. PO SCH (08:35)
[2021-05-11] MEDS: CALCIUM CARBONATE 500 MG TABLET PO SCH (08:35)
[2021-05-11] MEDS: ASCORBIC ACID 500 MG TABLET PO SCH (08:35)
[2021-05-11] MEDS: METOPROLOL SUCC 24HR ER 25 MG TAB.ER.24H. PO SCH (08:36)
--- NOTE | 2021-05-11 08:51 | PDOC ---
PULMONARY PROGRESS NOTES DATE: 05/11/21 TIME: 08:51 Subjective Patient feels about the same currently on nonrebreather Vitals Vital Signs Date Time Temp Pulse Resp B/P (MAP) Pulse Ox O2 Delivery O2 Flow Rate FiO2 05/11/21 08:36 71 136/66 05/11/21 07:00 97.6 18 90 NonRebreather Mask 15.0 97.6 ROS: No Nausea, No Chest Pain, No Abdominal Pain, No Increase Cough General: Alert Lungs: Crackles Cardiovascular: S1, S2 Abdomen: Soft, Non-tender Extremities: No Edema Labs Laboratory Tests Test 05/10/21 06:45 White Blood Count 5.6 x10^3/uL (4.0-11.0) Red Blood Count 3.87 x10^6/uL (3.50-5.40) Hemoglobin 11.3 g/dL (12.0-15.5) Hematocrit 34.5 % (36.0-47.0) Mean Corpuscular Volume 89 fL (79-100) Mean Corpuscular Hemoglobin 29 pg (25-35) Mean Corpuscular Hemoglobin Concent 33 g/dL (31-37) Red Cell Distribution Width 14.7 % (11.5-14.5) Platelet Count 114 x10^3/uL (140-400) Neutrophils (%) (Auto) 80 % (31-73) Lymphocytes (%) (Auto) 10 % (24-48) Monocytes (%) (Auto) 10 % (0-9) Eosinophils (%) (Auto) 0 % (0-3) Basophils (%) (Auto) 0 % (0-3) Neutrophils # (Auto) 4.5 x10^3/uL (1.8-7.7) Lymphocytes # (Auto) 0.6 x10^3/uL (1.0-4.8) Monocytes # (Auto) 0.5 x10^3/uL (0.0-1.1) Eosinophils # (Auto) 0.0 x10^3/uL (0.0-0.7) Basophils # (Auto) 0.0 x10^3/uL (0.0-0.2) Sodium Level 141 mmol/L (136-145) Potassium Level 4.4 mmol/L (3.5-5.1) Chloride Level 108 mmol/L (98-107) Carbon Dioxide Level 25 mmol/L (21-32) Anion Gap 8 (6-14) Blood Urea Nitrogen 48 mg/dL (7-20) Creatinine 1.5 mg/dL (0.6-1.0) Estimated GFR (Cockcroft-Gault) 33.4 BUN/Creatinine Ratio 32 (6-20) Glucose Level 105 mg/dL (70-99) Calcium Level 8.1 mg/dL (8.5-10.1) Total Bilirubin 0.4 mg/dL (0.2-1.0) Aspartate Amino Transf (AST/SGOT) 58 U/L (15-37) Alanine Aminotransferase (ALT/SGPT) 28 U/L (14-59) Alkaline Phosphatase 66 U/L (46-116) Total Protein 5.9 g/dL (6.4-8.2) Albumin 2.5 g/dL (3.4-5.0) Albumin/Globulin Ratio 0.7 (1.0-1.7) Medications Active Scripts Medications Dose Route/Sig Max Daily Dose Days Date Category Metoprolol Succinate ( Xl ) (Metoprolol Succinate) 25 Mg Tab.er.24h 12.5 Mg PO DAILY 30 03/28/21 Rx Vitamin C (Ascorbic Acid) 1,000 Mg Tablet 1,000 Mg PO DAILY 03/24/21 Reported Zinc 50 Mg Tablet 50 Mg PO DAILY 03/24/21 Reported Calcium (Calcium Carbonate) 500 Mg Tablet 600 Mg PO DAILY 30 03/24/21 Reported Furosemide 20 Mg Tablet 1 Tab PO DAILY 11/19/18 Rx [Pantoprazole] 40 MG Tablet.dr 40 Mg PO DAILYAC 11/19/18 Rx Budesonide 0.5 Mg/2 Ml Ampul.neb 0.5 Mg NEB RTBID 30 11/19/18 Rx Mucinex Dm Er 600-30 Mg Tablet (Guaifenesin/Dextromethorphan) 1 Each Tab.er.12h 1 Tab PO BID 30 11/19/18 Rx Ambien (Zolpidem Tartrate) 5 Mg Tablet 5 Mg PO PRN QHS PRN 30 11/19/18 Rx Lisinopril 40 Mg Tablet 20 Mg PO DAILY 30 11/19/18 Rx Amlodipine Besylate 5 Mg Tablet 5 Mg PO DAILY 30 11/19/18 Rx Duoneb 0.5-3(2.5) Mg/3 Ml (Albuterol/Ipratropium) 3 Ml Ampul.neb 3 Ml NEB RTQID 30 11/19/18 Rx Proair Hfa Inhaler (Albuterol Sulfate) 8.5 Gm Hfa.aer.ad 1 Puff INH PRN Q6HRS PRN 01/26/18 Reported Impression . IMPRESSION: 1. Acute hypoxemic respiratory failure secondary to COVID-19. 2. COVID-19 viral pneumonia. 3. History of atrial fibrillation, now in sinus rhythm. 4. Acute exacerbation of chronic obstructive pulmonary disease. 5. Renal aortic insufficiency. 6. Chronic diastolic heart failure. 7. Hypertension. 8. Chronic kidney disease. 9. Pancytopenia. Plan . Updated 05/11 Continues to require nonrebreather Continue current support Up to chair DVT GI prophylaxis updated 05/10 Continue current support with oxygen supplementation Antibiotics Steroids Remdesivir Discussed with RT Patient informed that should go home when her oxygen requirements decrease PLAN: 1. Noted CPR was elevated, I would hold off on tocilizumab, considering the patient's leukopenia, and abnormal liver chemistries along with low platelet count. 2. Continue steroids. 3. Continue empiric antibiotics. 4. Continue oxygen supplementation. 5. DVT prophylaxis. 6. Continue remdesivir. I do appreciate the privilege in sharing in this patient's care. PETEY CUEVAS MD May 11, 2021 08:51
[2021-05-11 11:00] VITALS: BP 137/68
[2021-05-11 11:09] LABS: BASO % 0 % (0-3); EOS % 0 % (0-3); HEMATOCRIT 34.6 % (36.0-47.0); HEMOGLOBIN 11.6 g/dL (12.0-15.5); LYMPH # 0.6 x10^3/uL (1.0-4.8); LYMPH % 10 % (24-48); MEAN CORPUSCULAR HEMOGLOBIN 29 pg (25-35); MEAN CORPUSCULAR HGB CONC 34 g/dL (31-37); MEAN CORPUSCULAR VOLUME 87 fL (79-100); MONO # 0.6 x10^3/uL (0.0-1.1); MONO % 9 % (0-9); NEUT # 5.4 x10^3/uL (1.8-7.7); NEUT % 81 % (31-73); PLATELET COUNT 123 x10^3/uL (140-400); RED BLOOD COUNT 3.97 x10^6/uL (3.50-5.40); RED CELL DISTRIBUTION WIDTH 14.3 % (11.5-14.5); WHITE BLOOD COUNT 6.7 x10^3/uL (4.0-11.0)
[2021-05-11 11:24] LABS: ALBUMIN 2.5 g/dL (3.4-5.0); ALBUMIN/GLOBULIN RATIO 0.8 (1.0-1.7); CALCIUM 8.4 mg/dL (8.5-10.1); CREATININE 1.5 mg/dL (0.6-1.0); GFR 33.4; POTASSIUM 4.2 mmol/L (3.5-5.1); TOTAL BILIRUBIN 0.4 mg/dL (0.2-1.0); TOTAL PROTEIN 5.8 g/dL (6.4-8.2)
--- NOTE | 2021-05-11 12:12 | NUR ---
SW following. Discussed with RN, pt remains on 15L NRB, COVID-19 positive. No SW needs at this time. SW will continue to follow.
--- NOTE | 2021-05-11 13:31 | PDOC ---
[employer] PROGRESS NOTE Date of Service DOS: DATE: 05/11/21 TIME: 13:29 Chief Complaint Chief Complaint A/P: COVID 19 - diarrhea and respiratory symptoms. Breakthrough case, has been vaccinated. Given steroids, will initiate remdesivir given early identification but increased O2. Finishes t today. Not a tocilizumab candidate Acute on chronic resp failure - with COVID 19 complicated by AECOPD H/o atrial fibrillation - converted to NSR previously Acute bronchitis - COPD exacerbation related as well as COVID 19 Pulmonary hypertension Moderate aortic insufficiency Chronic diastolic HF - prior echo 2018 with mild LV dysfunction with EF 45-50%, had echo at [facility] Hypertension; controlled CKD - normal renal function in 2018, but november 2020 appears to likely have new baseline cr 2 Pancytopenia - anemia related to CKD, leukopenia due to viral illness, will monitor platelets Hypocalcemia - chronic, will replace FEN - Cardiac diet PPX - heparin FULL CODE Dispo - inpatient for above History of Present Illness History of Present Illness Ms Caal is an 80-year-old female w/ PMHx COPD, ILD, chronic diastolic CHF presents to the emergency department complaining of shortness of breath and diarrhea for the last 3 days that has been gradually progressive. She has fever, cough, and body aches. She reports feeling fatigued when she walks short distances, and at rest. She has an abrasion on her right lateral leg that is healing well. 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 She has been vaccinated for COVID-19 in December 2020 x2 doses. Denies any history of blood clots in the past. The patient denies nausea, vomiting, fever, chills, chest pain, abdominal pain, urinary symptoms, cough, recent trauma, or any other complaints. Chest radiograph with bilateral infiltrates. Required 4 L of oxygen initially, wears 2 liters at home. Started empirically on levaquin and cefepime in ED WBC 3.9, Hb 11.8, platelets 114, NA 138, K4.3, BUN 40, CR 2.2, calcium 7.8 ionized calcium 1.1, magnesium 2, bilirubin 0.4, AST 114, ALT 36, troponin 0.080, NT proBNP 5172, albumin 3.1, rapid COVID-19 positive, D-dimer 1.28 Chest radiograph with multifocal opacities increased from prior. Underlying fibrotic changes bilaterally worse in the left lung base EKG appears NSR Admitted for further care. Afebrile. Creatinine improved to 1.8. CRP less than 50. Nursing noted some desaturations with ambulation to toilet required facemask O2 to bring saturations back up from 78% to 96%. Otherwise she has been stable overnight primarily lately on 4 L nasal cannula. She is comfortable notes her diarrhea has improved. Has a good appetite. Tolerated remdesivir and Decadron well. D/w daughter, Arelis, over the phone. 05/09 Patient evaluated at bedside after dialysis. Still has altered mental status cannot really answer any questions for me. Continue COVID treatment. Pulmonary following. Plan of care discussed with bedside RN. 05/10 Evaluated at bedside still remains pretty altered. Continue COVID treatment. Still on remdesivir. Otherwise no changes. 05/11 Evaluated at bedside. Remains on 15 L nonrebreather no success at weaning. Still on antibiotics, steroids and remdesivir. Continuing Covid treatment. Otherwise no major changes. Guarded prognosis. Vitals/I&O Vitals/I&O: Vital Signs Date Time Temp Pulse Resp B/P (MAP) Pulse Ox O2 Delivery O2 Flow Rate FiO2 05/11/21 11:00 97.8 72 21 137/68 (91) 92 NonRebreather Mask 15.0 97.8 I & O 05/10/21 05/10/21 05/11/21 15:00 23:00 07:00 Intake Total 2002 ml 200 ml Output Total 1300 ml Balance 702 ml 200 ml Physical Exam General: Alert, Oriented X3, Cooperative, moderate distress Lungs: Other (Decreased air entry) Abdomen: Normal bowel sounds, Soft, No tenderness, No hepatosplenomegaly, No masses Extremities: No clubbing, No cyanosis, Normal pulses, No tenderness/swelling, Other (scant edema) Skin: Other (Right lateral ankle eschar 2x3 cm) Labs Labs: Laboratory Tests Test 05/11/21 10:25 White Blood Count 6.7 x10^3/uL (4.0-11.0) Red Blood Count 3.97 x10^6/uL (3.50-5.40) Hemoglobin 11.6 g/dL (12.0-15.5) Hematocrit 34.6 % (36.0-47.0) Mean Corpuscular Volume 87 fL (79-100) Mean Corpuscular Hemoglobin 29 pg (25-35) Mean Corpuscular Hemoglobin Concent 34 g/dL (31-37) Red Cell Distribution Width 14.3 % (11.5-14.5) Platelet Count 123 x10^3/uL (140-400) Neutrophils (%) (Auto) 81 % (31-73) Lymphocytes (%) (Auto) 10 % (24-48) Monocytes (%) (Auto) 9 % (0-9) Eosinophils (%) (Auto) 0 % (0-3) Basophils (%) (Auto) 0 % (0-3) Neutrophils # (Auto) 5.4 x10^3/uL (1.8-7.7) Lymphocytes # (Auto) 0.6 x10^3/uL (1.0-4.8) Monocytes # (Auto) 0.6 x10^3/uL (0.0-1.1) Eosinophils # (Auto) 0.0 x10^3/uL (0.0-0.7) Basophils # (Auto) 0.0 x10^3/uL (0.0-0.2) Sodium Level 143 mmol/L (136-145) Potassium Level 4.2 mmol/L (3.5-5.1) Chloride Level 106 mmol/L (98-107) Carbon Dioxide Level 27 mmol/L (21-32) Anion Gap 10 (6-14) Blood Urea Nitrogen 51 mg/dL (7-20) Creatinine 1.5 mg/dL (0.6-1.0) Estimated GFR (Cockcroft-Gault) 33.4 BUN/Creatinine Ratio 34 (6-20) Glucose Level 122 mg/dL (70-99) Calcium Level 8.4 mg/dL (8.5-10.1) Total Bilirubin 0.4 mg/dL (0.2-1.0) Aspartate Amino Transf (AST/SGOT) 46 U/L (15-37) Alanine Aminotransferase (ALT/SGPT) 28 U/L (14-59) Alkaline Phosphatase 67 U/L (46-116) Total Protein 5.8 g/dL (6.4-8.2) Albumin 2.5 g/dL (3.4-5.0) Albumin/Globulin Ratio 0.8 (1.0-1.7) Assessment and Plan Assessmemt and Plan Problems Medical Problems: (1) Pneumonia Status: Acute Comment Review of Relevant I have reviewed the following items zenaida (where applicable) has been applied. Justifications for Admission Other Justification DAVID TURNER MD May 11, 2021 13:31
[2021-05-11] MEDS: REMDESIVIR 100mg in NORMAL SALINE 250ML X 4 DAYS IV SCH (13:42)
[2021-05-11 15:00] VITALS: BP 117/59
[2021-05-11 19:00] VITALS: BP 134/67
[2021-05-11 23:12] VITALS: BP 130/65
[2021-05-12 03:13] VITALS: BP 141/69
[2021-05-12] MEDS: PANTOPRAZOLE 40 MG TABLET.DR. PO SCH (05:03)
[2021-05-12] MEDS: IPRATROPIUM/ALBUTEROL 20/100mcg/INH INHALER. INH SCH ×4 (05:04→21:06)
[2021-05-12] MEDS: HEPARIN for SUB-Q USE 5,000 UNIT/ML VIAL. SQ SCH ×3 (05:04→21:07)
[2021-05-12 07:00] VITALS: BP 138/69
[2021-05-12] MEDS: ZINC SULFATE 220 MG CAPSULE. PO SCH (08:35)
[2021-05-12] MEDS: DEXAMETHASONE SOD PHOS 4 MG/ML VIAL IVP SCH (08:35)
[2021-05-12] MEDS: FUROSEMIDE 20 MG TABLET PO SCH (08:35)
[2021-05-12] MEDS: CALCIUM CARBONATE 500 MG TABLET PO SCH (08:35)
[2021-05-12] MEDS: ASCORBIC ACID 500 MG TABLET PO SCH (08:35)
[2021-05-12] MEDS: METOPROLOL SUCC 24HR ER 25 MG TAB.ER.24H. PO SCH (08:35)
--- NOTE | 2021-05-12 08:43 | PDOC ---
PULMONARY PROGRESS NOTES DATE: 05/12/21 TIME: 08:43 Subjective Patient wishes to go home patient feels about the same currently on nonrebreather Vitals Vital Signs Date Time Temp Pulse Resp B/P (MAP) Pulse Ox O2 Delivery O2 Flow Rate FiO2 05/12/21 08:35 64 141/69 05/12/21 03:13 98.2 18 97 NonRebreather Mask 15.0 98.2 ROS: No Nausea, No Chest Pain, No Abdominal Pain, No Increase Cough General: Alert Lungs: Other (Decreased air entry) Cardiovascular: S1, S2 Abdomen: Soft, Non-tender Extremities: No Edema Labs Laboratory Tests Test 05/11/21 10:25 White Blood Count 6.7 x10^3/uL (4.0-11.0) Red Blood Count 3.97 x10^6/uL (3.50-5.40) Hemoglobin 11.6 g/dL (12.0-15.5) Hematocrit 34.6 % (36.0-47.0) Mean Corpuscular Volume 87 fL (79-100) Mean Corpuscular Hemoglobin 29 pg (25-35) Mean Corpuscular Hemoglobin Concent 34 g/dL (31-37) Red Cell Distribution Width 14.3 % (11.5-14.5) Platelet Count 123 x10^3/uL (140-400) Neutrophils (%) (Auto) 81 % (31-73) Lymphocytes (%) (Auto) 10 % (24-48) Monocytes (%) (Auto) 9 % (0-9) Eosinophils (%) (Auto) 0 % (0-3) Basophils (%) (Auto) 0 % (0-3) Neutrophils # (Auto) 5.4 x10^3/uL (1.8-7.7) Lymphocytes # (Auto) 0.6 x10^3/uL (1.0-4.8) Monocytes # (Auto) 0.6 x10^3/uL (0.0-1.1) Eosinophils # (Auto) 0.0 x10^3/uL (0.0-0.7) Basophils # (Auto) 0.0 x10^3/uL (0.0-0.2) Sodium Level 143 mmol/L (136-145) Potassium Level 4.2 mmol/L (3.5-5.1) Chloride Level 106 mmol/L (98-107) Carbon Dioxide Level 27 mmol/L (21-32) Anion Gap 10 (6-14) Blood Urea Nitrogen 51 mg/dL (7-20) Creatinine 1.5 mg/dL (0.6-1.0) Estimated GFR (Cockcroft-Gault) 33.4 BUN/Creatinine Ratio 34 (6-20) Glucose Level 122 mg/dL (70-99) Calcium Level 8.4 mg/dL (8.5-10.1) Total Bilirubin 0.4 mg/dL (0.2-1.0) Aspartate Amino Transf (AST/SGOT) 46 U/L (15-37) Alanine Aminotransferase (ALT/SGPT) 28 U/L (14-59) Alkaline Phosphatase 67 U/L (46-116) Total Protein 5.8 g/dL (6.4-8.2) Albumin 2.5 g/dL (3.4-5.0) Albumin/Globulin Ratio 0.8 (1.0-1.7) Laboratory Tests Test 05/11/21 10:25 White Blood Count 6.7 x10^3/uL (4.0-11.0) Red Blood Count 3.97 x10^6/uL (3.50-5.40) Hemoglobin 11.6 g/dL (12.0-15.5) Hematocrit 34.6 % (36.0-47.0) Mean Corpuscular Volume 87 fL (79-100) Mean Corpuscular Hemoglobin 29 pg (25-35) Mean Corpuscular Hemoglobin Concent 34 g/dL (31-37) Red Cell Distribution Width 14.3 % (11.5-14.5) Platelet Count 123 x10^3/uL (140-400) Neutrophils (%) (Auto) 81 % (31-73) Lymphocytes (%) (Auto) 10 % (24-48) Monocytes (%) (Auto) 9 % (0-9) Eosinophils (%) (Auto) 0 % (0-3) Basophils (%) (Auto) 0 % (0-3) Neutrophils # (Auto) 5.4 x10^3/uL (1.8-7.7) Lymphocytes # (Auto) 0.6 x10^3/uL (1.0-4.8) Monocytes # (Auto) 0.6 x10^3/uL (0.0-1.1) Eosinophils # (Auto) 0.0 x10^3/uL (0.0-0.7) Basophils # (Auto) 0.0 x10^3/uL (0.0-0.2) Sodium Level 143 mmol/L (136-145) Potassium Level 4.2 mmol/L (3.5-5.1) Chloride Level 106 mmol/L (98-107) Carbon Dioxide Level 27 mmol/L (21-32) Anion Gap 10 (6-14) Blood Urea Nitrogen 51 mg/dL (7-20) Creatinine 1.5 mg/dL (0.6-1.0) Estimated GFR (Cockcroft-Gault) 33.4 BUN/Creatinine Ratio 34 (6-20) Glucose Level 122 mg/dL (70-99) Calcium Level 8.4 mg/dL (8.5-10.1) Total Bilirubin 0.4 mg/dL (0.2-1.0) Aspartate Amino Transf (AST/SGOT) 46 U/L (15-37) Alanine Aminotransferase (ALT/SGPT) 28 U/L (14-59) Alkaline Phosphatase 67 U/L (46-116) Total Protein 5.8 g/dL (6.4-8.2) Albumin 2.5 g/dL (3.4-5.0) Albumin/Globulin Ratio 0.8 (1.0-1.7) Medications Active Scripts Medications Dose Route/Sig Max Daily Dose Days Date Category Metoprolol Succinate ( Xl ) (Metoprolol Succinate) 25 Mg Tab.er.24h 12.5 Mg PO DAILY 03/28/21 Rx Vitamin C (Ascorbic Acid) 1,000 Mg Tablet 1,000 Mg PO DAILY 03/24/21 Reported Zinc 50 Mg Tablet 50 Mg PO DAILY 03/24/21 Reported Calcium (Calcium Carbonate) 500 Mg Tablet 600 Mg PO DAILY 03/24/21 Reported Furosemide 20 Mg Tablet 1 Tab PO DAILY 11/19/18 Rx [Pantoprazole] 40 MG Tablet.dr 40 Mg PO DAILYAC 30 11/19/18 Rx Budesonide 0.5 Mg/2 Ml Ampul.neb 0.5 Mg NEB RTBID 30 11/19/18 Rx Mucinex Dm Er 600-30 Mg Tablet (Guaifenesin/Dextromethorphan) 1 Each Tab.er.12h 1 Tab PO BID 30 11/19/18 Rx Ambien (Zolpidem Tartrate) 5 Mg Tablet 5 Mg PO PRN QHS PRN 30 11/19/18 Rx Lisinopril 40 Mg Tablet 20 Mg PO DAILY 30 11/19/18 Rx Amlodipine Besylate 5 Mg Tablet 5 Mg PO DAILY 30 11/19/18 Rx Duoneb 0.5-3(2.5) Mg/3 Ml (Albuterol/Ipratropium) 3 Ml Ampul.neb 3 Ml NEB RTQID 30 11/19/18 Rx Proair Hfa Inhaler (Albuterol Sulfate) 8.5 Gm Hfa.aer.ad 1 Puff INH PRN Q6HRS PRN 01/26/18 Reported Impression . IMPRESSION: 1. Acute hypoxemic respiratory failure secondary to COVID-19. Status post remdesivir 2. COVID-19 viral pneumonia. 3. History of atrial fibrillation, now in sinus rhythm. 4. Acute exacerbation of chronic obstructive pulmonary disease. 5. Renal aortic insufficiency. 6. Chronic diastolic heart failure. 7. Hypertension. 8. Chronic kidney disease. 9. Pancytopenia. Plan . Updated 05/12 Not ready for discharge, requiring nonrebreather Continue current support Up to chair DVT prophylax Updated 05/11 Continues to require nonrebreather Continue current support Up to chair DVT GI prophylaxis updated 05/10 Continue current support with oxygen supplementation Antibiotics Steroids Remdesivir Discussed with RT Patient informed that should go home when her oxygen requirements decrease PLAN: 1. Noted CPR was elevated, I would hold off on tocilizumab, considering the patient's leukopenia, and abnormal liver chemistries along with low platelet count. 2. Continue steroids. 3. Continue empiric antibiotics. 4. Continue oxygen supplementation. 5. DVT prophylaxis. 6. Continue remdesivir. I do appreciate the privilege in sharing in this patient's care. PETEY CUEVAS MD May 12, 2021 08:43
[2021-05-12 11:00] VITALS: BP 132/66
--- NOTE | 2021-05-12 11:37 | PDOC ---
[employer] PROGRESS NOTE Date of Service DOS: DATE: 05/12/21 TIME: 11:33 Chief Complaint Chief Complaint A/P: COVID 19 - diarrhea and respiratory symptoms. Breakthrough case, has been vaccinated. Given steroids, will initiate remdesivir given early identification but increased O2. Not a tocilizumab candidate Acute on chronic resp failure - with COVID 19 complicated by AECOPD H/o atrial fibrillation - converted to NSR previously Acute bronchitis - COPD exacerbation related as well as COVID 19 Pulmonary hypertension Moderate aortic insufficiency Chronic diastolic HF - prior echo 2018 with mild LV dysfunction with EF 45-50%, had echo at [facility] Hypertension; controlled CKD - normal renal function in 2019, but november 2020 appears to likely have new baseline cr 2 Pancytopenia - anemia related to CKD, leukopenia due to viral illness, will monitor platelets Hypocalcemia - chronic, will replace FEN - Cardiac diet PPX - heparin FULL CODE Dispo - inpatient for above History of Present Illness History of Present Illness Ms Caal is an 80-year-old female w/ PMHx COPD, ILD, chronic diastolic CHF presents to the emergency department complaining of shortness of breath and diarrhea for the last 3 days that has been gradually progressive. She has fever, cough, and body aches. She reports feeling fatigued when she walks short distances, and at rest. She has an abrasion on her right lateral leg that is healing well. 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 She has been vaccinated for COVID-19 in December 2020 x2 doses. Denies any history of blood clots in the past. The patient denies nausea, vomiting, fever, chills, chest pain, abdominal pain, urinary symptoms, cough, recent trauma, or any other complaints. Chest radiograph with bilateral infiltrates. Required 4 L of oxygen initially, wears 2 liters at home. Started empirically on levaquin and cefepime in ED WBC 3.9, Hb 11.8, platelets 114, NA 138, K4.3, BUN 40, CR 2.2, calcium 7.8 ionized calcium 1.1, magnesium 2, bilirubin 0.4, AST 114, ALT 36, troponin 0.080, NT proBNP 5172, albumin 3.1, rapid COVID-19 positive, D-dimer 1.28 Chest radiograph with multifocal opacities increased from prior. Underlying fibrotic changes bilaterally worse in the left lung base EKG appears NSR Admitted for further care. Afebrile. Creatinine improved to 1.8. CRP less than 50. Nursing noted some desaturations with ambulation to toilet required facemask O2 to bring saturations back up from 78% to 96%. Otherwise she has been stable overnight primarily lately on 4 L nasal cannula. She is comfortable notes her diarrhea has improved. Has a good appetite. Tolerated remdesivir and Decadron well. D/w daughter, Arelis, over the phone. 05/09 Patient evaluated at bedside after dialysis. Still has altered mental status cannot really answer any questions for me. Continue COVID treatment. Pulmonary following. Plan of care discussed with bedside RN. 05/10 Evaluated at bedside still remains pretty altered. Continue COVID treatment. Still on remdesivir. Otherwise no changes. 05/11 Evaluated at bedside. Remains on 15 L nonrebreather no success at weaning. Still on antibiotics, steroids and remdesivir. Continuing Covid treatment. Otherwise no major changes. Guarded prognosis. 05/12 Patient evaluated and examined at bedside. Still remains on 15 L nonrebreather. Does think she feels a little bit improved today. Continue treatment for Covid with antibiotics and steroids. Plan of care discussed with bedside RN Vitals/I&O Vitals/I&O: Vital Signs Date Time Temp Pulse Resp B/P (MAP) Pulse Ox O2 Delivery O2 Flow Rate FiO2 05/12/21 08:35 64 141/69 05/12/21 07:00 96.1 18 95 NonRebreather Mask 15.0 96.1 I & O 05/11/21 05/11/21 05/12/21 15:00 23:00 07:00 Intake Total 200 ml 400 ml Output Total 200 ml Balance 200 ml 200 ml Physical Exam General: Alert, Oriented X3, Cooperative, moderate distress Heart: Regular rate, Normal S1, Normal S2 Lungs: Other (Decreased air entry) Abdomen: Normal bowel sounds, Soft, No tenderness, No hepatosplenomegaly, No masses Extremities: No clubbing, No cyanosis, Normal pulses, No tenderness/swelling, Other (scant edema) Skin: Other (Right lateral ankle eschar 2x3 cm) Assessment and Plan Assessmemt and Plan Problems Medical Problems: (1) Pneumonia Status: Acute Comment Review of Relevant I have reviewed the following items zenaida (where applicable) has been applied. Justifications for Admission Other Justification DAVID TURNER MD May 12, 2021 11:36
[2021-05-12 15:00] VITALS: BP 132/62
[2021-05-12 19:00] VITALS: BP 128/64
[2021-05-12 23:00] VITALS: BP 124/71
[2021-05-13 03:00] VITALS: BP 121/63
[2021-05-13] MEDS: PANTOPRAZOLE 40 MG TABLET.DR. PO SCH (05:23)
[2021-05-13] MEDS: IPRATROPIUM/ALBUTEROL 20/100mcg/INH INHALER. INH SCH ×4 (05:23→22:42)
[2021-05-13] MEDS: HEPARIN for SUB-Q USE 5,000 UNIT/ML VIAL. SQ SCH ×3 (05:24→23:26)
[2021-05-13 07:00] VITALS: BP 133/55
--- NOTE | 2021-05-13 08:19 | PDOC ---
PULMONARY PROGRESS NOTES DATE: 05/13/21 TIME: 08:19 Subjective patient feels about the same currently on nonrebreather Vitals Vital Signs Date Time Temp Pulse Resp B/P (MAP) Pulse Ox O2 Delivery O2 Flow Rate FiO2 05/13/21 07:00 96.7 84 17 133/55 (81) 96 15.0 96.7 05/13/21 03:00 Nasal Cannula ROS: No Nausea, No Chest Pain, No Abdominal Pain, No Increase Cough General: Alert Lungs: Other (Decreased air entry) Cardiovascular: S1, S2 Abdomen: Soft, Non-tender Extremities: No Edema Labs Laboratory Tests Test 05/11/21 10:25 White Blood Count 6.7 x10^3/uL (4.0-11.0) Red Blood Count 3.97 x10^6/uL (3.50-5.40) Hemoglobin 11.6 g/dL (12.0-15.5) Hematocrit 34.6 % (36.0-47.0) Mean Corpuscular Volume 87 fL (79-100) Mean Corpuscular Hemoglobin 29 pg (25-35) Mean Corpuscular Hemoglobin Concent 34 g/dL (31-37) Red Cell Distribution Width 14.3 % (11.5-14.5) Platelet Count 123 x10^3/uL (140-400) Neutrophils (%) (Auto) 81 % (31-73) Lymphocytes (%) (Auto) 10 % (24-48) Monocytes (%) (Auto) 9 % (0-9) Eosinophils (%) (Auto) 0 % (0-3) Basophils (%) (Auto) 0 % (0-3) Neutrophils # (Auto) 5.4 x10^3/uL (1.8-7.7) Lymphocytes # (Auto) 0.6 x10^3/uL (1.0-4.8) Monocytes # (Auto) 0.6 x10^3/uL (0.0-1.1) Eosinophils # (Auto) 0.0 x10^3/uL (0.0-0.7) Basophils # (Auto) 0.0 x10^3/uL (0.0-0.2) Sodium Level 143 mmol/L (136-145) Potassium Level 4.2 mmol/L (3.5-5.1) Chloride Level 106 mmol/L (98-107) Carbon Dioxide Level 27 mmol/L (21-32) Anion Gap 10 (6-14) Blood Urea Nitrogen 51 mg/dL (7-20) Creatinine 1.5 mg/dL (0.6-1.0) Estimated GFR (Cockcroft-Gault) 33.4 BUN/Creatinine Ratio 34 (6-20) Glucose Level 122 mg/dL (70-99) Calcium Level 8.4 mg/dL (8.5-10.1) Total Bilirubin 0.4 mg/dL (0.2-1.0) Aspartate Amino Transf (AST/SGOT) 46 U/L (15-37) Alanine Aminotransferase (ALT/SGPT) 28 U/L (14-59) Alkaline Phosphatase 67 U/L (46-116) Total Protein 5.8 g/dL (6.4-8.2) Albumin 2.5 g/dL (3.4-5.0) Albumin/Globulin Ratio 0.8 (1.0-1.7) Medications Active Scripts Medications Dose Route/Sig Max Daily Dose Days Date Category Metoprolol Succinate ( Xl ) (Metoprolol Succinate) 25 Mg Tab.er.24h 12.5 Mg PO DAILY 30 03/28/21 Rx Vitamin C (Ascorbic Acid) 1,000 Mg Tablet 1,000 Mg PO DAILY 03/24/21 Reported Zinc 50 Mg Tablet 50 Mg PO DAILY 03/24/21 Reported Calcium (Calcium Carbonate) 500 Mg Tablet 600 Mg PO DAILY 30 03/24/21 Reported Furosemide 20 Mg Tablet 1 Tab PO DAILY 11/19/18 Rx [Pantoprazole] 40 MG Tablet.dr 40 Mg PO DAILYAC 11/19/18 Rx Budesonide 0.5 Mg/2 Ml Ampul.neb 0.5 Mg NEB RTBID 11/19/18 Rx Mucinex Dm Er 600-30 Mg Tablet (Guaifenesin/Dextromethorphan) 1 Each Tab.er.12h 1 Tab PO BID 30 11/19/18 Rx Ambien (Zolpidem Tartrate) 5 Mg Tablet 5 Mg PO PRN QHS PRN 30 11/19/18 Rx Lisinopril 40 Mg Tablet 20 Mg PO DAILY 30 11/19/18 Rx Amlodipine Besylate 5 Mg Tablet 5 Mg PO DAILY 30 11/19/18 Rx Duoneb 0.5-3(2.5) Mg/3 Ml (Albuterol/Ipratropium) 3 Ml Ampul.neb 3 Ml NEB RTQID 30 11/19/18 Rx Proair Hfa Inhaler (Albuterol Sulfate) 8.5 Gm Hfa.aer.ad 1 Puff INH PRN Q6HRS PRN 01/26/18 Reported Impression . IMPRESSION: 1. Acute hypoxemic respiratory failure secondary to COVID-19. Status post remdesivir 2. COVID-19 viral pneumonia. 3. History of atrial fibrillation, now in sinus rhythm. 4. Acute exacerbation of chronic obstructive pulmonary disease. 5. Renal aortic insufficiency. 6. Chronic diastolic heart failure. 7. Hypertension. 8. Chronic kidney disease. 9. Pancytopenia. Plan . Updated 05/13 Continue nonrebreather Up to chair DVT prophylaxis Updated 05/12 Not ready for discharge, requiring nonrebreather Continue current support Up to chair DVT prophylax Updated 05/11 Continues to require nonrebreather Continue current support Up to chair DVT GI prophylaxis PETEY CUEVAS MD May 13, 2021 08:19
[2021-05-13] MEDS: FLUTICASONE/VILANTEROL 200/25 INHALER. INH SCH (08:30)
[2021-05-13] MEDS: FUROSEMIDE 20 MG TABLET PO SCH (08:31)
[2021-05-13] MEDS: ASCORBIC ACID 500 MG TABLET PO SCH (08:31)
[2021-05-13] MEDS: CALCIUM CARBONATE 500 MG TABLET PO SCH (08:31)
[2021-05-13] MEDS: ZINC SULFATE 220 MG CAPSULE. PO SCH (08:31)
[2021-05-13] MEDS: DEXAMETHASONE SOD PHOS 4 MG/ML VIAL IVP SCH (08:31)
[2021-05-13] MEDS: METOPROLOL SUCC 24HR ER 25 MG TAB.ER.24H. PO SCH (08:31)
--- NOTE | 2021-05-13 09:52 | PDOC ---
[facility] PROGRESS NOTE Date of Service DOS: DATE: 05/13/21 TIME: 09:51 Chief Complaint Chief Complaint A/P: COVID 19 - diarrhea and respiratory symptoms. Breakthrough case, has been vaccinated. Given steroids, will initiate remdesivir given early identification but increased O2. Not a tocilizumab candidate Acute on chronic resp failure - with COVID 19 complicated by AECOPD H/o atrial fibrillation - converted to NSR previously Acute bronchitis - COPD exacerbation related as well as COVID 19 Pulmonary hypertension Moderate aortic insufficiency Chronic diastolic HF - prior echo 2018 with mild LV dysfunction with EF 45-50%, had echo at [facility] Hypertension; controlled CKD - normal renal function in 2019, but november 2020 appears to likely have new baseline cr 2 Pancytopenia - anemia related to CKD, leukopenia due to viral illness, will monitor platelets Hypocalcemia - chronic, will replace FEN - Cardiac diet PPX - heparin FULL CODE Dispo - inpatient for above History of Present Illness History of Present Illness Ms Caal is an 80-year-old female w/ PMHx COPD, ILD, chronic diastolic CHF presents to the emergency department complaining of shortness of breath and diarrhea for the last 3 days that has been gradually progressive. She has fever, cough, and body aches. She reports feeling fatigued when she walks short distances, and at rest. She has an abrasion on her right lateral leg that is healing well. 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 She has been vaccinated for COVID-19 in December 2020 x2 doses. Denies any history of blood clots in the past. The patient denies nausea, vomiting, fever, chills, chest pain, abdominal pain, urinary symptoms, cough, recent trauma, or any other complaints. Chest radiograph with bilateral infiltrates. Required 4 L of oxygen initially, wears 2 liters at home. Started empirically on levaquin and cefepime in ED WBC 3.9, Hb 11.8, platelets 114, NA 138, K4.3, BUN 40, CR 2.2, calcium 7.8 ionized calcium 1.1, magnesium 2, bilirubin 0.4, AST 114, ALT 36, troponin 0.080, NT proBNP 5172, albumin 3.1, rapid COVID-19 positive, D-dimer 1.28 Chest radiograph with multifocal opacities increased from prior. Underlying fibrotic changes bilaterally worse in the left lung base EKG appears NSR Admitted for further care. Afebrile. Creatinine improved to 1.8. CRP less than 50. Nursing noted some desaturations with ambulation to toilet required facemask O2 to bring saturations back up from 78% to 96%. Otherwise she has been stable overnight primarily lately on 4 L nasal cannula. She is comfortable notes her diarrhea has improved. Has a good appetite. Tolerated remdesivir and Decadron well. D/w daughter, Arelis, over the phone. 05/09 Patient evaluated at bedside after dialysis. Still has altered mental status cannot really answer any questions for me. Continue COVID treatment. Pulmonary following. Plan of care discussed with bedside RN. 05/10 Evaluated at bedside still remains pretty altered. Continue COVID treatment. Still on remdesivir. Otherwise no changes. 05/11 Evaluated at bedside. Remains on 15 L nonrebreather no success at weaning. Still on antibiotics, steroids and remdesivir. Continuing Covid treatment. Otherwise no major changes. Guarded prognosis. 05/12 Patient evaluated and examined at bedside. Still remains on 15 L nonrebreather. Does think she feels a little bit improved today. Continue treatment for Covid with antibiotics and steroids. Plan of care discussed with bedside RN 05/13 Patient evaluated and examined at bedside. Very pleasant today was still on 15 L nonrebreather but was able to remove it to converse with me. Continuing Covid treatment antibiotics and steroids. Discussed with bedside nurse to try aggressive O2 weaning today as tolerated. Otherwise continuing current plan. Vitals/I&O Vitals/I&O: Vital Signs Date Time Temp Pulse Resp B/P (MAP) Pulse Ox O2 Delivery O2 Flow Rate FiO2 05/13/21 08:31 84 133/55 05/13/21 07:00 96.7 17 96 15.0 96.7 05/13/21 03:00 Nasal Cannula I & O 05/12/21 05/12/21 05/13/21 15:00 23:00 07:00 Intake Total 480 ml 600 ml 660 ml Output Total 500 ml Balance 480 ml 600 ml 160 ml Physical Exam General: Alert, Oriented X3, Cooperative, No acute distress Heart: Regular rate, Normal S1, Normal S2 Lungs: Other (Decreased air entry) Abdomen: Normal bowel sounds, Soft, No tenderness, No hepatosplenomegaly, No masses Extremities: Normal pulses, No tenderness/swelling, Other (scant edema) Skin: Other (Right lateral ankle eschar 2x3 cm) Assessment and Plan Assessmemt and Plan Problems Medical Problems: (1) Pneumonia Status: Acute Comment Review of Relevant I have reviewed the following items zenaida (where applicable) has been applied. Justifications for Admission Other Justification DAVID TURNER MD May 13, 2021 09:52
[2021-05-13 11:00] VITALS: BP 139/58
--- NOTE | 2021-05-13 13:14 | NUR ---
SW following. Discussed with RN, RN attempting to titrate pt's oxygen today. COVID-19 positive. SW will continue to follow.
[2021-05-13 15:00] VITALS: BP 119/53
[2021-05-13 19:29] VITALS: BP 119/59
[2021-05-13 23:12] VITALS: BP 123/69
[2021-05-14 03:22] VITALS: BP 122/56
[2021-05-14] MEDS: HEPARIN for SUB-Q USE 5,000 UNIT/ML VIAL. SQ SCH ×3 (06:24→21:31)
[2021-05-14 07:00] VITALS: BP 131/63
[2021-05-14] MEDS: ZINC SULFATE 220 MG CAPSULE. PO SCH (07:58)
[2021-05-14] MEDS: FUROSEMIDE 20 MG TABLET PO SCH (07:58)
[2021-05-14] MEDS: PANTOPRAZOLE 40 MG TABLET.DR. PO SCH (07:59)
[2021-05-14] MEDS: CALCIUM CARBONATE 500 MG TABLET PO SCH (07:59)
[2021-05-14] MEDS: ASCORBIC ACID 500 MG TABLET PO SCH (07:59)
[2021-05-14] MEDS: DEXAMETHASONE SOD PHOS 4 MG/ML VIAL IVP SCH (07:59)
[2021-05-14] MEDS: METOPROLOL SUCC 24HR ER 25 MG TAB.ER.24H. PO SCH (07:59)
[2021-05-14] MEDS: IPRATROPIUM/ALBUTEROL 20/100mcg/INH INHALER. INH SCH ×4 (08:02→21:29)
[2021-05-14] MEDS: FLUTICASONE/VILANTEROL 200/25 INHALER. INH SCH (08:02)
--- NOTE | 2021-05-14 10:05 | PDOC ---
PULMONARY PROGRESS NOTES DATE: 05/14/21 TIME: 10:05 Subjective patient feels about the same currently on nonrebreather Vitals Vital Signs Date Time Temp Pulse Resp B/P (MAP) Pulse Ox O2 Delivery O2 Flow Rate FiO2 05/14/21 07:59 68 131/63 05/14/21 07:00 97.3 96 NonRebreather Mask 15.0 97.3 05/14/21 03:22 20 ROS: No Nausea, No Chest Pain, No Abdominal Pain, No Increase Cough General: Alert Lungs: Other (Decreased air entry) Cardiovascular: S1, S2 Abdomen: Soft, Non-tender Extremities: No Edema Medications Active Scripts Medications Dose Route/Sig Max Daily Dose Days Date Category Metoprolol Succinate ( Xl ) (Metoprolol Succinate) 25 Mg Tab.er.24h 12.5 Mg PO DAILY 30 03/28/21 Rx Vitamin C (Ascorbic Acid) 1,000 Mg Tablet 1,000 Mg PO DAILY 03/24/21 Reported Zinc 50 Mg Tablet 50 Mg PO DAILY 03/24/21 Reported Calcium (Calcium Carbonate) 500 Mg Tablet 600 Mg PO DAILY 30 03/24/21 Reported Furosemide 20 Mg Tablet 1 Tab PO DAILY 11/19/18 Rx [Pantoprazole] 40 MG Tablet.dr 40 Mg PO DAILYAC 30 11/19/18 Rx Budesonide 0.5 Mg/2 Ml Ampul.neb 0.5 Mg NEB RTBID 30 11/19/18 Rx Mucinex Dm Er 600-30 Mg Tablet (Guaifenesin/Dextromethorphan) 1 Each Tab.er.12h 1 Tab PO BID 30 11/19/18 Rx Ambien (Zolpidem Tartrate) 5 Mg Tablet 5 Mg PO PRN QHS PRN 30 11/19/18 Rx Lisinopril 40 Mg Tablet 20 Mg PO DAILY 30 11/19/18 Rx Amlodipine Besylate 5 Mg Tablet 5 Mg PO DAILY 30 11/19/18 Rx Duoneb 0.5-3(2.5) Mg/3 Ml (Albuterol/Ipratropium) 3 Ml Ampul.neb 3 Ml NEB RTQID 30 11/19/18 Rx Proair Hfa Inhaler (Albuterol Sulfate) 8.5 Gm Hfa.aer.ad 1 Puff INH PRN Q6HRS PRN 01/26/18 Reported Impression . IMPRESSION: 1. Acute hypoxemic respiratory failure secondary to COVID-19. Status post remdesivir 2. COVID-19 viral pneumonia. 3. History of atrial fibrillation, now in sinus rhythm. 4. Acute exacerbation of chronic obstructive pulmonary disease. 5. Renal aortic insufficiency. 6. Chronic diastolic heart failure. 7. Hypertension. 8. Chronic kidney disease. 9. Pancytopenia. Plan . Updated 05/13 Continue nonrebreather Up to chair DVT prophylaxis Updated 05/12 Not ready for discharge, requiring nonrebreather Continue current support Up to chair DVT prophylax Updated 05/11 Continues to require nonrebreather Continue current support Up to chair DVT GI prophylaxis PETEY CUEVAS MD May 14, 2021 10:05
[2021-05-14 11:00] VITALS: BP 134/61
--- NOTE | 2021-05-14 11:57 | PDOC ---
PULMONARY PROGRESS NOTES DATE: 05/14/21 TIME: 11:57 Subjective patient feels about the same currently on nonrebreather Vitals Vital Signs Date Time Temp Pulse Resp B/P (MAP) Pulse Ox O2 Delivery O2 Flow Rate FiO2 05/14/21 07:59 68 131/63 05/14/21 07:00 97.3 96 NonRebreather Mask 15.0 97.3 05/14/21 03:22 20 ROS: No Nausea, No Chest Pain, No Abdominal Pain, No Increase Cough General: Alert Lungs: Other (Decreased air entry) Cardiovascular: S1, S2 Abdomen: Soft, Non-tender Extremities: No Edema Medications Active Scripts Medications Dose Route/Sig Max Daily Dose Days Date Category Metoprolol Succinate ( Xl ) (Metoprolol Succinate) 25 Mg Tab.er.24h 12.5 Mg PO DAILY 30 03/28/21 Rx Vitamin C (Ascorbic Acid) 1,000 Mg Tablet 1,000 Mg PO DAILY 03/24/21 Reported Zinc 50 Mg Tablet 50 Mg PO DAILY 03/24/21 Reported Calcium (Calcium Carbonate) 500 Mg Tablet 600 Mg PO DAILY 30 03/24/21 Reported Furosemide 20 Mg Tablet 1 Tab PO DAILY 11/19/18 Rx [Pantoprazole] 40 MG Tablet.dr 40 Mg PO DAILYAC 30 11/19/18 Rx Budesonide 0.5 Mg/2 Ml Ampul.neb 0.5 Mg NEB RTBID 30 11/19/18 Rx Mucinex Dm Er 600-30 Mg Tablet (Guaifenesin/Dextromethorphan) 1 Each Tab.er.12h 1 Tab PO BID 30 11/19/18 Rx Ambien (Zolpidem Tartrate) 5 Mg Tablet 5 Mg PO PRN QHS PRN 30 11/19/18 Rx Lisinopril 40 Mg Tablet 20 Mg PO DAILY 30 11/19/18 Rx Amlodipine Besylate 5 Mg Tablet 5 Mg PO DAILY 30 11/19/18 Rx Duoneb 0.5-3(2.5) Mg/3 Ml (Albuterol/Ipratropium) 3 Ml Ampul.neb 3 Ml NEB RTQID 30 11/19/18 Rx Proair Hfa Inhaler (Albuterol Sulfate) 8.5 Gm Hfa.aer.ad 1 Puff INH PRN Q6HRS PRN 01/26/18 Reported Impression . IMPRESSION: 1. Acute hypoxemic respiratory failure secondary to COVID-19. Status post remdesivir 2. COVID-19 viral pneumonia. 3. History of atrial fibrillation, now in sinus rhythm. 4. Acute exacerbation of chronic obstructive pulmonary disease. 5. Renal aortic insufficiency. 6. Chronic diastolic heart failure. 7. Hypertension. 8. Chronic kidney disease. 9. Pancytopenia. Plan . Updated 05/14 No new events Continue nonrebreather Nutritional support Steroids Updated 05/13 Continue nonrebreather Up to chair DVT prophylaxis Updated 05/12 Not ready for discharge, requiring nonrebreather Continue current support Up to chair DVT prophylax Updated 05/11 Continues to require nonrebreather Continue current support Up to chair DVT GI prophylaxis PETEY CUEVAS MD May 14, 2021 11:57
--- NOTE | 2021-05-14 13:00 | PDOC ---
GENERAL General: Patient examined chart reviewed today's hospital day 8 for this patient with ac [place] hypoxic respiratory failure secondary to Covid pneumonia. This is a breakthrough COVID-19 case in the setting of chronic underlying lung disease and chronic diastolic congestive heart failure. The patient was fully vaccinated several months ago. Appreciate subspecialty support. Patient is without new complaint tells me she is actually feeling a little stronger. She has been up and moving about her room. She is tolerating diet. Time spent today is 30 minutes with greater than 50% in counseling and coordination of care most of which in discussion with patient. Problems: (1) Pneumonia due to COVID-19 virus (2) Acute on chronic respiratory failure with hypoxemia (3) COPD exacerbation VITAL SIGNS Vital Signs/I&O: Vital Signs Date Time Temp Pulse Resp B/P (MAP) Pulse Ox O2 Delivery O2 Flow Rate FiO2 05/14/21 11:00 98.7 67 134/61 (85) 95 15.0 98.7 05/14/21 07:00 NonRebreather Mask 05/14/21 03:22 20 I & O 05/13/21 05/13/21 05/14/21 15:00 23:00 07:00 Intake Total 600 ml 240 ml 60 ml Balance 600 ml 240 ml 60 ml In general patient is laying in bed resting comfortably quite dyspneic but alert and appropriately interactive HEENT exam is unremarkable for acute abnormality Chest notable for dyspnea bilateral equal air entry though diminished throughout Heart S1-S2 normal regular rate and rhythm no murmurs or gallops are noted Abdomen soft nontender nondistended no masses or organomegaly noted Extremity exam is unremarkable for acute abnormality ALLERGIES Allergies: Allergies Coded Allergies Type Severity Reaction Last Updated Verified No Known Drug Allergies 03/22/21 No MEDS Medications: Current Medications Medications (Trade) Dose Ordered Sig/Maggy Start Time Stop Time Status Last Admin Dose Admin Acetaminophen (Tylenol) 650 mg PRN Q6HRS PRN 05/07/21 13:15 Albuterol Sulfate (Ventolin Hfa) 2 puff PRN Q4HRS PRN 05/07/21 13:30 05/07/21 21:06 Albuterol/ Ipratropium (Combivent Respimat 20-100 Mcg) 1 puff RTQID 05/07/21 16:00 05/14/21 12:36 Ascorbic Acid (Vitamin C) 500 mg DAILY 05/08/21 09:00 05/14/21 07:59 Calcium Carbonate/ Glycine (Oscal) 500 mg DAILY 05/08/21 09:00 05/14/21 07:59 Calcium Carbonate/ Glycine (Tums) 500 mg PRN AFTMEALHC PRN 05/07/21 13:30 Cefepime HCl (Maxipime) 1 gm 1X ONCE 05/07/21 12:30 05/07/21 12:31 DC 05/07/21 12:38 Dexamethasone Sodium Phosphate (Decadron) 6 mg DAILY 05/08/21 09:00 05/14/21 07:59 Fluticasone/ Vilanterol (Breo Ellipta 200-25 Mcg) 1 puff DAILY 05/07/21 14:00 05/14/21 08:02 Furosemide (Lasix) 20 mg DAILY 05/08/21 09:00 05/14/21 07:58 Guaifenesin (Robitussin Dm) 10 ml PRN Q6HRS PRN 05/07/21 13:15 Heparin Sodium (Porcine) (Heparin Sodium) 5,000 unit Q8HRS 05/07/21 14:00 05/14/21 06:24 Influenza Virus Vaccine Quadrival (Flulaval Quad [id number] Syringe) 0.5 ml ONCE ONCE 05/07/21 21:00 05/07/21 21:01 DC 05/07/21 21:25 Levofloxacin/ Dextrose 150 ml @ 100 mls/hr 1X ONCE 05/07/21 12:30 05/07/21 13:59 DC 05/07/21 12:38 Methylprednisolone Sodium Succinate (SOLU-Medrol 125MG VIAL) 125 mg 1X ONCE 05/07/21 12:30 05/07/21 12:31 DC 05/07/21 12:37 Metoprolol Succinate (Toprol Xl) 12.5 mg DAILY 05/08/21 09:00 05/14/21 07:59 Ondansetron HCl (Zofran) 4 mg PRN Q4HRS PRN 05/07/21 13:15 Pantoprazole Sodium (Protonix) 40 mg DAILYAC 05/08/21 07:30 05/14/21 07:59 Remdesivir 100 mg/ Sodium Chloride 230 ml @ 460 mls/hr Q24H 05/08/21 14:00 05/11/21 14:29 DC 05/11/21 13:42 Remdesivir 200 mg/ Sodium Chloride 210 ml @ 210 mls/hr 1X ONCE 05/07/21 14:00 05/07/21 14:59 DC 05/07/21 15:47 Thiamine HCl 100 mg/Dextrose 51 ml @ 102 mls/hr 1X ONCE 05/07/21 14:00 05/07/21 14:29 DC 05/07/21 15:47 Zinc Sulfate (Orazinc) 220 mg DAILY 05/08/21 09:00 05/14/21 07:58 ASSESSMENT & PLAN A&P Plan as noted above This note was created using [employer] and may have omissions and/or errors due to the nature of real-time voice jockey valet. Justifications for Admission Other Justification LEIDY ELLIS MD May 14, 2021 13:00
[2021-05-14 15:00] VITALS: BP 123/61
[2021-05-14 19:50] VITALS: BP 126/62
[2021-05-14 23:16] VITALS: BP 126/58
[2021-05-15 03:59] VITALS: BP 133/64
[2021-05-15] MEDS: HEPARIN for SUB-Q USE 5,000 UNIT/ML VIAL. SQ SCH ×3 (05:32→22:21)
[2021-05-15 07:00] VITALS: BP 143/62
[2021-05-15] MEDS: PANTOPRAZOLE 40 MG TABLET.DR. PO SCH (08:53)
[2021-05-15] MEDS: guaiFENesin DM 200MG/20MG 10 ML SYRUP PO PRN (08:55)
[2021-05-15] MEDS: METOPROLOL SUCC 24HR ER 25 MG TAB.ER.24H. PO SCH (08:55)
[2021-05-15] MEDS: ASCORBIC ACID 500 MG TABLET PO SCH (08:55)
[2021-05-15] MEDS: ZINC SULFATE 220 MG CAPSULE. PO SCH (08:55)
[2021-05-15] MEDS: FUROSEMIDE 20 MG TABLET PO SCH (08:56)
[2021-05-15] MEDS: CALCIUM CARBONATE 500 MG TABLET PO SCH (08:56)
[2021-05-15] MEDS: DEXAMETHASONE SOD PHOS 4 MG/ML VIAL IVP SCH (08:57)
[2021-05-15] MEDS: IPRATROPIUM/ALBUTEROL 20/100mcg/INH INHALER. INH SCH ×4 (08:57→22:19)
[2021-05-15] MEDS: FLUTICASONE/VILANTEROL 200/25 INHALER. INH SCH (08:57)
[2021-05-15 09:07] LABS: BASO % 0 % (0-3); EOS # 0.1 x10^3/uL (0.0-0.7); EOS % 0 % (0-3); HEMATOCRIT 39.6 % (36.0-47.0); HEMOGLOBIN 12.7 g/dL (12.0-15.5); LYMPH # 1.9 x10^3/uL (1.0-4.8); LYMPH % 14 % (24-48); MEAN CORPUSCULAR HEMOGLOBIN 29 pg (25-35); MEAN CORPUSCULAR HGB CONC 32 g/dL (31-37); MEAN CORPUSCULAR VOLUME 89 fL (79-100); MONO % 8 % (0-9); NEUT # 10.9 x10^3/uL (1.8-7.7); NEUT % 78 % (31-73); PLATELET COUNT 254 x10^3/uL (140-400); RED BLOOD COUNT 4.45 x10^6/uL (3.50-5.40); RED CELL DISTRIBUTION WIDTH 15.6 % (11.5-14.5); WHITE BLOOD COUNT 13.9 x10^3/uL (4.0-11.0)
[2021-05-15 09:25] LABS: ALBUMIN 2.7 g/dL (3.4-5.0); ALBUMIN/GLOBULIN RATIO 0.8 (1.0-1.7); CALCIUM 8.8 mg/dL (8.5-10.1); CREATININE 1.4 mg/dL (0.6-1.0); GFR 36.2; POTASSIUM 4.5 mmol/L (3.5-5.1); TOTAL BILIRUBIN 0.6 mg/dL (0.2-1.0); TOTAL PROTEIN 6.3 g/dL (6.4-8.2)
[2021-05-15 11:00] VITALS: BP 140/65
--- NOTE | 2021-05-15 11:48 | PDOC ---
[facility] [facility] PROGRESS NOTE Date of Service DOS: DATE: 05/15/21 TIME: 11:40 Chief Complaint Chief Complaint A/P: COVID 19 - diarrhea and respiratory symptoms. Breakthrough case, has been vaccinated. Given steroids, will initiate remdesivir given early identification but increased O2. Not a tocilizumab candidate Acute on chronic resp failure - with COVID 19 complicated by AECOPD H/o atrial fibrillation - converted to NSR previously Acute bronchitis - COPD exacerbation related as well as COVID 19 Pulmonary hypertension Moderate aortic insufficiency Chronic diastolic HF - prior echo 2018 with mild LV dysfunction with EF 45-50%, had echo at [facility] Hypertension; controlled CKD - normal renal function in 2018, but november 2020 appears to likely have new baseline cr 2 Pancytopenia - anemia related to CKD, leukopenia due to viral illness, will monitor platelets Hypocalcemia - chronic, will replace FEN - Cardiac diet PPX - heparin FULL CODE Dispo - inpatient for above History of Present Illness History of Present Illness Ms Caal is an 80-year-old female w/ PMHx COPD, ILD, chronic diastolic CHF presents to the emergency department complaining of shortness of breath and diarrhea for the last 3 days that has been gradually progressive. She has fever, cough, and body aches. She reports feeling fatigued when she walks short distances, and at rest. She has an abrasion on her right lateral leg that is healing well. 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 She has been vaccinated for COVID-19 in December 2020 x2 doses. Denies any history of blood clots in the past. The patient denies nausea, vomiting, fever, chills, chest pain, abdominal pain, urinary symptoms, cough, recent trauma, or any other complaints. Chest radiograph with bilateral infiltrates. Required 4 L of oxygen initially, wears 2 liters at home. Started empirically on levaquin and cefepime in ED WBC 3.9, Hb 11.8, platelets 114, NA 138, K4.3, BUN 40, CR 2.2, calcium 7.8 ionized calcium 1.1, magnesium 2, bilirubin 0.4, AST 114, ALT 36, troponin 0.080, NT proBNP 5172, albumin 3.1, rapid COVID-19 positive, D-dimer 1.28 Chest radiograph with multifocal opacities increased from prior. Underlying fibrotic changes bilaterally worse in the left lung base EKG appears NSR Admitted for further care. Afebrile. Creatinine improved to 1.8. CRP less than 50. Nursing noted some desaturations with ambulation to toilet required facemask O2 to bring saturations back up from 78% to 96%. Otherwise she has been stable overnight primarily lately on 4 L nasal cannula. She is comfortable notes her diarrhea has improved. Has a good appetite. Tolerated remdesivir and Decadron well. D/w daughter, Arelis, over the phone. 05/09 Patient evaluated at bedside after dialysis. Still has altered mental status cannot really answer any questions for me. Continue COVID treatment. Pulmonary following. Plan of care discussed with bedside RN. 05/10 Evaluated at bedside still remains pretty altered. Continue COVID treatment. Still on remdesivir. Otherwise no changes. 05/11 Evaluated at bedside. Remains on 15 L nonrebreather no success at weaning. Still on antibiotics, steroids and remdesivir. Continuing Covid treatment. Otherwise no major changes. Guarded prognosis. 05/12 Patient evaluated and examined at bedside. Still remains on 15 L nonrebreather. Does think she feels a little bit improved today. Continue treatment for Covid with antibiotics and steroids. Plan of care discussed with bedside RN 05/13 Patient evaluated and examined at bedside. Very pleasant today was still on 15 L nonrebreather but was able to remove it to converse with me. Continuing Covid treatment antibiotics and steroids. Discussed with bedside nurse to try aggressive O2 weaning today as tolerated. Otherwise continuing current plan. 05/15/21 No acute events overnight. Seen and examined bedside. Currently on 12 LNC saturating 97%. No dyspnea upon my visual examination. Vitals/I&O Vitals/I&O: Vital Signs Date Time Temp Pulse Resp B/P (MAP) Pulse Ox O2 Delivery O2 Flow Rate FiO2 05/15/21 08:55 78 143/62 05/15/21 08:00 Nasal Cannula 12.0 05/15/21 07:00 97.6 18 96 97.6 I & O 05/14/21 05/14/21 05/15/21 15:00 23:00 07:00 Intake Total 0 ml Balance 0 ml Physical Exam General: Alert, Oriented X3, Cooperative, No acute distress Heart: Regular rate, Normal S1, Normal S2 Lungs: Other (Decreased air entry) Abdomen: Normal bowel sounds, Soft, No tenderness, No hepatosplenomegaly, No masses Extremities: Normal pulses, No tenderness/swelling, Other (scant edema) Skin: Other (Right lateral ankle eschar 2x3 cm) Labs Labs: Laboratory Tests Test 05/15/21 08:30 White Blood Count 13.9 x10^3/uL (4.0-11.0) Red Blood Count 4.45 x10^6/uL (3.50-5.40) Hemoglobin 12.7 g/dL (12.0-15.5) Hematocrit 39.6 % (36.0-47.0) Mean Corpuscular Volume 89 fL (79-100) Mean Corpuscular Hemoglobin 29 pg (25-35) Mean Corpuscular Hemoglobin Concent 32 g/dL (31-37) Red Cell Distribution Width 15.6 % (11.5-14.5) Platelet Count 254 x10^3/uL (140-400) Neutrophils (%) (Auto) 78 % (31-73) Lymphocytes (%) (Auto) 14 % (24-48) Monocytes (%) (Auto) 8 % (0-9) Eosinophils (%) (Auto) 0 % (0-3) Basophils (%) (Auto) 0 % (0-3) Neutrophils # (Auto) 10.9 x10^3/uL (1.8-7.7) Lymphocytes # (Auto) 1.9 x10^3/uL (1.0-4.8) Monocytes # (Auto) 1.0 x10^3/uL (0.0-1.1) Eosinophils # (Auto) 0.1 x10^3/uL (0.0-0.7) Basophils # (Auto) 0.0 x10^3/uL (0.0-0.2) Sodium Level 145 mmol/L (136-145) Potassium Level 4.5 mmol/L (3.5-5.1) Chloride Level 107 mmol/L (98-107) Carbon Dioxide Level 33 mmol/L (21-32) Anion Gap 5 (6-14) Blood Urea Nitrogen 50 mg/dL (7-20) Creatinine 1.4 mg/dL (0.6-1.0) Estimated GFR (Cockcroft-Gault) 36.2 BUN/Creatinine Ratio 36 (6-20) Glucose Level 103 mg/dL (70-99) Calcium Level 8.8 mg/dL (8.5-10.1) Total Bilirubin 0.6 mg/dL (0.2-1.0) Aspartate Amino Transf (AST/SGOT) 25 U/L (15-37) Alanine Aminotransferase (ALT/SGPT) 31 U/L (14-59) Alkaline Phosphatase 77 U/L (46-116) Total Protein 6.3 g/dL (6.4-8.2) Albumin 2.7 g/dL (3.4-5.0) Albumin/Globulin Ratio 0.8 (1.0-1.7) Assessment and Plan Assessmemt and Plan Problems Medical Problems: (1) Pneumonia Status: Acute Comment Review of Relevant I have reviewed the following items zenaida (where applicable) has been applied. Justifications for Admission Other Justification BENNIE JORDAN MD May 15, 2021 11:48
[2021-05-15 15:00] VITALS: BP 105/55
[2021-05-15 19:55] VITALS: BP 121/65
[2021-05-16] VITALS (7 sets, daily range): BP systolic 114–139; BP diastolic 56–69
[2021-05-16] MEDS: HEPARIN for SUB-Q USE 5,000 UNIT/ML VIAL. SQ SCH ×3 (05:45→21:44)
--- NOTE | 2021-05-16 07:14 | PDOC ---
[employer] PROGRESS NOTE Date of Service DOS: DATE: 05/16/21 TIME: 07:11 Chief Complaint Chief Complaint A/P: COVID 19 - diarrhea and respiratory symptoms. Breakthrough case, has been vaccinated. Given steroids, will initiate remdesivir given early identification but increased O2. Not a tocilizumab candidate Acute on chronic resp failure - with COVID 19 complicated by AECOPD H/o atrial fibrillation - converted to NSR previously Acute bronchitis - COPD exacerbation related as well as COVID 19 Pulmonary hypertension Moderate aortic insufficiency Chronic diastolic HF - prior echo 2018 with mild LV dysfunction with EF 45-50%, had echo at [facility] Hypertension; controlled CKD - normal renal function in 2019, but november 2020 appears to likely have new baseline cr 2 Pancytopenia - anemia related to CKD, leukopenia due to viral illness, will monitor platelets Hypocalcemia - chronic, will replace FEN - Cardiac diet PPX - heparin FULL CODE Dispo - inpatient for above History of Present Illness History of Present Illness Ms Caal is an 80-year-old female w/ PMHx COPD, ILD, chronic diastolic CHF presents to the emergency department complaining of shortness of breath and diarrhea for the last 3 days that has been gradually progressive. She has fever, cough, and body aches. She reports feeling fatigued when she walks short distances, and at rest. She has an abrasion on her right lateral leg that is healing well. 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 She has been vaccinated for COVID-19 in December 2020 x2 doses. Denies any history of blood clots in the past. The patient denies nausea, vomiting, fever, chills, chest pain, abdominal pain, urinary symptoms, cough, recent trauma, or any other complaints. Chest radiograph with bilateral infiltrates. Required 4 L of oxygen initially, wears 2 liters at home. Started empirically on levaquin and cefepime in ED WBC 3.9, Hb 11.8, platelets 114, NA 138, K4.3, BUN 40, CR 2.2, calcium 7.8 ionized calcium 1.1, magnesium 2, bilirubin 0.4, AST 114, ALT 36, troponin 0.080, NT proBNP 5172, albumin 3.1, rapid COVID-19 positive, D-dimer 1.28 Chest radiograph with multifocal opacities increased from prior. Underlying fibrotic changes bilaterally worse in the left lung base EKG appears NSR Admitted for further care. 05/09: Afebrile. Creatinine improved to 1.8. CRP less than 50. Nursing noted some desaturations with ambulation to toilet required facemask O2 to bring saturations back up from 78% to 96%. Otherwise she has been stable overnight primarily lately on 4 L nasal cannula. She is comfortable notes her diarrhea has improved. Has a good appetite. Tolerated remdesivir and Decadron well. D/w daughter, Arelis, over the phone. 05/10: Still remains pretty altered. Continue COVID treatment. Still on remdesivir. Pulmonology consulted 05/11: 15 L nonrebreather no success at weaning. Still on antibiotics, steroids and remdesivir. Continuing Covid treatment. Otherwise no major changes. Guarded prognosis. 05/12: Still remains on 15 L nonrebreather. Does think she feels a little bit improved today. Continue treatment for Covid with antibiotics and steroids. 05/13: Very pleasant today was still on 15 L nonrebreather but was able to remove it to converse with me. Continuing Covid treatment antibiotics and steroids. 05/14: 15L/min non-rebreather 05/15: No acute events overnight. Seen and examined bedside. Currently on 12 LNC saturating 97%. No dyspnea upon my visual examination. Afebrile. No overnight events. Requiring 10 L/min nasal cannula O2 to maintain saturations 91%. She is feeling improved but significant dyspnea on exertion with movement but she is able to get up to the bathroom with assistance. No chest pain. Vitals/I&O Vitals/I&O: Vital Signs Date Time Temp Pulse Resp B/P (MAP) Pulse Ox O2 Delivery O2 Flow Rate FiO2 05/16/21 04:19 98.3 70 18 130/64 (86) 97 Nasal Cannula 10.0 98.3 I & O 05/15/21 05/15/21 05/16/21 15:00 23:00 07:00 Intake Total 250 ml 300 ml Balance 250 ml 300 ml Physical Exam General: Alert, Oriented X3, Cooperative, No acute distress Heart: Regular rate, Normal S1, Normal S2 Lungs: Other (Decreased air entry) Abdomen: Normal bowel sounds, Soft, No tenderness, No hepatosplenomegaly, No masses Extremities: Normal pulses, No tenderness/swelling, Other (scant edema) Skin: Other (Right lateral ankle eschar 2x3 cm) Labs Labs: Laboratory Tests Test 05/15/21 08:30 White Blood Count 13.9 x10^3/uL (4.0-11.0) Red Blood Count 4.45 x10^6/uL (3.50-5.40) Hemoglobin 12.7 g/dL (12.0-15.5) Hematocrit 39.6 % (36.0-47.0) Mean Corpuscular Volume 89 fL (79-100) Mean Corpuscular Hemoglobin 29 pg (25-35) Mean Corpuscular Hemoglobin Concent 32 g/dL (31-37) Red Cell Distribution Width 15.6 % (11.5-14.5) Platelet Count 254 x10^3/uL (140-400) Neutrophils (%) (Auto) 78 % (31-73) Lymphocytes (%) (Auto) 14 % (24-48) Monocytes (%) (Auto) 8 % (0-9) Eosinophils (%) (Auto) 0 % (0-3) Basophils (%) (Auto) 0 % (0-3) Neutrophils # (Auto) 10.9 x10^3/uL (1.8-7.7) Lymphocytes # (Auto) 1.9 x10^3/uL (1.0-4.8) Monocytes # (Auto) 1.0 x10^3/uL (0.0-1.1) Eosinophils # (Auto) 0.1 x10^3/uL (0.0-0.7) Basophils # (Auto) 0.0 x10^3/uL (0.0-0.2) Sodium Level 145 mmol/L (136-145) Potassium Level 4.5 mmol/L (3.5-5.1) Chloride Level 107 mmol/L (98-107) Carbon Dioxide Level 33 mmol/L (21-32) Anion Gap 5 (6-14) Blood Urea Nitrogen 50 mg/dL (7-20) Creatinine 1.4 mg/dL (0.6-1.0) Estimated GFR (Cockcroft-Gault) 36.2 BUN/Creatinine Ratio 36 (6-20) Glucose Level 103 mg/dL (70-99) Calcium Level 8.8 mg/dL (8.5-10.1) Total Bilirubin 0.6 mg/dL (0.2-1.0) Aspartate Amino Transf (AST/SGOT) 25 U/L (15-37) Alanine Aminotransferase (ALT/SGPT) 31 U/L (14-59) Alkaline Phosphatase 77 U/L (46-116) Total Protein 6.3 g/dL (6.4-8.2) Albumin 2.7 g/dL (3.4-5.0) Albumin/Globulin Ratio 0.8 (1.0-1.7) Assessment and Plan Assessmemt and Plan Problems Medical Problems: (1) Pneumonia Status: Acute Comment Review of Relevant I have reviewed the following items zenaida (where applicable) has been applied. Justifications for Admission Other Justification DAVID RUBI MD May 16, 2021 07:14
[2021-05-16] MEDS: FLUTICASONE/VILANTEROL 200/25 INHALER. INH SCH (07:52)
[2021-05-16] MEDS: IPRATROPIUM/ALBUTEROL 20/100mcg/INH INHALER. INH SCH ×4 (07:52→21:43)
--- NOTE | 2021-05-16 08:52 | PDOC ---
PULMONARY PROGRESS NOTES DATE: 05/16/21 TIME: 08:52 Subjective Patient off of nonrebreather currently on 10 L She feels better Vitals Vital Signs Date Time Temp Pulse Resp B/P (MAP) Pulse Ox O2 Delivery O2 Flow Rate FiO2 05/16/21 07:00 98.0 62 18 131/60 (83) 94 Nasal Cannula 10.0 98.0 ROS: No Nausea, No Chest Pain, No Abdominal Pain, No Increase Cough General: Alert Lungs: Other (Decreased air entry) Cardiovascular: S1, S2 Abdomen: Soft, Non-tender Extremities: No Edema Labs Laboratory Tests Test 05/15/21 08:30 White Blood Count 13.9 x10^3/uL (4.0-11.0) Red Blood Count 4.45 x10^6/uL (3.50-5.40) Hemoglobin 12.7 g/dL (12.0-15.5) Hematocrit 39.6 % (36.0-47.0) Mean Corpuscular Volume 89 fL (79-100) Mean Corpuscular Hemoglobin 29 pg (25-35) Mean Corpuscular Hemoglobin Concent 32 g/dL (31-37) Red Cell Distribution Width 15.6 % (11.5-14.5) Platelet Count 254 x10^3/uL (140-400) Neutrophils (%) (Auto) 78 % (31-73) Lymphocytes (%) (Auto) 14 % (24-48) Monocytes (%) (Auto) 8 % (0-9) Eosinophils (%) (Auto) 0 % (0-3) Basophils (%) (Auto) 0 % (0-3) Neutrophils # (Auto) 10.9 x10^3/uL (1.8-7.7) Lymphocytes # (Auto) 1.9 x10^3/uL (1.0-4.8) Monocytes # (Auto) 1.0 x10^3/uL (0.0-1.1) Eosinophils # (Auto) 0.1 x10^3/uL (0.0-0.7) Basophils # (Auto) 0.0 x10^3/uL (0.0-0.2) Sodium Level 145 mmol/L (136-145) Potassium Level 4.5 mmol/L (3.5-5.1) Chloride Level 107 mmol/L (98-107) Carbon Dioxide Level 33 mmol/L (21-32) Anion Gap 5 (6-14) Blood Urea Nitrogen 50 mg/dL (7-20) Creatinine 1.4 mg/dL (0.6-1.0) Estimated GFR (Cockcroft-Gault) 36.2 BUN/Creatinine Ratio 36 (6-20) Glucose Level 103 mg/dL (70-99) Calcium Level 8.8 mg/dL (8.5-10.1) Total Bilirubin 0.6 mg/dL (0.2-1.0) Aspartate Amino Transf (AST/SGOT) 25 U/L (15-37) Alanine Aminotransferase (ALT/SGPT) 31 U/L (14-59) Alkaline Phosphatase 77 U/L (46-116) Total Protein 6.3 g/dL (6.4-8.2) Albumin 2.7 g/dL (3.4-5.0) Albumin/Globulin Ratio 0.8 (1.0-1.7) Medications Active Scripts Medications Dose Route/Sig Max Daily Dose Days Date Category Metoprolol Succinate ( Xl ) (Metoprolol Succinate) 25 Mg Tab.er.24h 12.5 Mg PO DAILY 30 03/28/21 Rx Vitamin C (Ascorbic Acid) 1,000 Mg Tablet 1,000 Mg PO DAILY 03/24/21 Reported Zinc 50 Mg Tablet 50 Mg PO DAILY 03/24/21 Reported Calcium (Calcium Carbonate) 500 Mg Tablet 600 Mg PO DAILY 30 03/24/21 Reported Furosemide 20 Mg Tablet 1 Tab PO DAILY 11/19/18 Rx [Pantoprazole] 40 MG Tablet.dr 40 Mg PO DAILYAC 11/19/18 Rx Budesonide 0.5 Mg/2 Ml Ampul.neb 0.5 Mg NEB RTBID 11/19/18 Rx Mucinex Dm Er 600-30 Mg Tablet (Guaifenesin/Dextromethorphan) 1 Each Tab.er.12h 1 Tab PO BID 30 11/19/18 Rx Ambien (Zolpidem Tartrate) 5 Mg Tablet 5 Mg PO PRN QHS PRN 30 11/19/18 Rx Lisinopril 40 Mg Tablet 20 Mg PO DAILY 30 11/19/18 Rx Amlodipine Besylate 5 Mg Tablet 5 Mg PO DAILY 30 11/19/18 Rx Duoneb 0.5-3(2.5) Mg/3 Ml (Albuterol/Ipratropium) 3 Ml Ampul.neb 3 Ml NEB RTQID 30 11/19/18 Rx Proair Hfa Inhaler (Albuterol Sulfate) 8.5 Gm Hfa.aer.ad 1 Puff INH PRN Q6HRS PRN 01/26/18 Reported Impression . IMPRESSION: 1. Acute hypoxemic respiratory failure secondary to COVID-19. Status post remdesivir 2. COVID-19 viral pneumonia. 3. History of atrial fibrillation, now in sinus rhythm. 4. Acute exacerbation of chronic obstructive pulmonary disease. 5. Renal aortic insufficiency. 6. Chronic diastolic heart failure. 7. Hypertension. 8. Chronic kidney disease. 9. Pancytopenia. Plan . Updated 05/[address] Husain, getting close to being discharged Possible discharge in 24 to 48 hours with oxygen updated 05/14 No new events Continue nonrebreather Nutritional support Steroids PETEY CUEVAS MD May 16, 2021 08:52
[2021-05-16] MEDS: DEXAMETHASONE SOD PHOS 4 MG/ML VIAL IVP SCH (09:36)
[2021-05-16] MEDS: guaiFENesin DM 200MG/20MG 10 ML SYRUP PO PRN (09:36)
[2021-05-16] MEDS: CALCIUM CARBONATE 500 MG TABLET PO SCH (09:37)
[2021-05-16] MEDS: METOPROLOL SUCC 24HR ER 25 MG TAB.ER.24H. PO SCH (09:38)
[2021-05-16] MEDS: FUROSEMIDE 20 MG TABLET PO SCH (09:38)
[2021-05-16] MEDS: ZINC SULFATE 220 MG CAPSULE. PO SCH (09:38)
[2021-05-16] MEDS: ASCORBIC ACID 500 MG TABLET PO SCH (09:38)
[2021-05-16] MEDS: PANTOPRAZOLE 40 MG TABLET.DR. PO SCH (09:41)
--- NOTE | 2021-05-16 10:45 | NUR ---
SW following. Discussed with RN, pt from home with son, 9L oxygen (uses 3-4L at home), RN attempting to further titrate. COVID-19 positive. RN advised no SW needs at this time. SW will continue to follow.
[2021-05-17 02:59] VITALS: BP 150/60
[2021-05-17] MEDS: HEPARIN for SUB-Q USE 5,000 UNIT/ML VIAL. SQ SCH ×3 (05:39→21:58)
[2021-05-17] MEDS: PANTOPRAZOLE 40 MG TABLET.DR. PO SCH ×2 (05:43→08:31)
[2021-05-17 07:00] VITALS: BP 128/64
[2021-05-17] MEDS: IPRATROPIUM/ALBUTEROL 20/100mcg/INH INHALER. INH SCH ×4 (07:32→21:57)
[2021-05-17] MEDS: FLUTICASONE/VILANTEROL 200/25 INHALER. INH SCH (07:32)
[2021-05-17] MEDS: ZINC SULFATE 220 MG CAPSULE. PO SCH (08:30)
[2021-05-17] MEDS: DEXAMETHASONE SOD PHOS 4 MG/ML VIAL IVP SCH (08:31)
[2021-05-17] MEDS: FUROSEMIDE 20 MG TABLET PO SCH (08:31)
[2021-05-17] MEDS: guaiFENesin DM 200MG/20MG 10 ML SYRUP PO PRN (08:31)
[2021-05-17] MEDS: CALCIUM CARBONATE 500 MG TABLET PO SCH (08:32)
[2021-05-17] MEDS: METOPROLOL SUCC 24HR ER 25 MG TAB.ER.24H. PO SCH (08:32)
[2021-05-17] MEDS: ASCORBIC ACID 500 MG TABLET PO SCH (08:32)
--- NOTE | 2021-05-17 08:32 | PDOC ---
[employer] PROGRESS NOTE Date of Service DOS: DATE: 05/17/21 TIME: 08:31 Chief Complaint Chief Complaint A/P: COVID 19 - diarrhea and respiratory symptoms. Breakthrough case, has been vaccinated. Given steroids, will initiate remdesivir given early identification but increased O2. Not a tocilizumab candidate Acute on chronic resp failure - with COVID 19 complicated by AECOPD H/o atrial fibrillation - converted to NSR previously Acute bronchitis - COPD exacerbation related as well as COVID 19 Pulmonary hypertension Moderate aortic insufficiency Chronic diastolic HF - prior echo 2018 with mild LV dysfunction with EF 45-50%, had echo at [facility] Hypertension; controlled CKD - normal renal function in 2019, but november 2020 appears to likely have new baseline cr 2 Pancytopenia - anemia related to CKD, leukopenia due to viral illness, will monitor platelets Hypocalcemia - chronic, will replace FEN - Cardiac diet PPX - heparin FULL CODE Dispo - inpatient for above History of Present Illness History of Present Illness Ms Caal is an 80-year-old female w/ PMHx COPD, ILD, chronic diastolic CHF presents to the emergency department complaining of shortness of breath and diarrhea for the last 3 days that has been gradually progressive. She has fever, cough, and body aches. She reports feeling fatigued when she walks short distances, and at rest. She has an abrasion on her right lateral leg that is healing well. 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 She has been vaccinated for COVID-19 in December 2020 x2 doses. Denies any history of blood clots in the past. The patient denies nausea, vomiting, fever, chills, chest pain, abdominal pain, urinary symptoms, cough, recent trauma, or any other complaints. Chest radiograph with bilateral infiltrates. Required 4 L of oxygen initially, wears 2 liters at home. Started empirically on levaquin and cefepime in ED WBC 3.9, Hb 11.8, platelets 114, NA 138, K4.3, BUN 40, CR 2.2, calcium 7.8 ionized calcium 1.1, magnesium 2, bilirubin 0.4, AST 114, ALT 36, troponin 0.080, NT proBNP 5172, albumin 3.1, rapid COVID-19 positive, D-dimer 1.28 Chest radiograph with multifocal opacities increased from prior. Underlying fibrotic changes bilaterally worse in the left lung base EKG appears NSR Admitted for further care. 05/09: Afebrile. Creatinine improved to 1.8. CRP less than 50. Nursing noted some desaturations with ambulation to toilet required facemask O2 to bring saturations back up from 78% to 96%. Otherwise she has been stable overnight primarily lately on 4 L nasal cannula. She is comfortable notes her diarrhea has improved. Has a good appetite. Tolerated remdesivir and Decadron well. D/w daughter, Arelis, over the phone. 05/10: Still remains pretty altered. Continue COVID treatment. Still on remdesivir. Pulmonology consulted 05/11: 15 L nonrebreather no success at weaning. Still on antibiotics, steroids and remdesivir. Continuing Covid treatment. Otherwise no major changes. Guarded prognosis. 05/12: Still remains on 15 L nonrebreather. Does think she feels a little bit improved today. Continue treatment for Covid with antibiotics and steroids. 05/13: Very pleasant today was still on 15 L nonrebreather but was able to remove it to converse with me. Continuing Covid treatment antibiotics and steroids. 05/14: 15L/min non-rebreather 05/15: No acute events overnight. Seen and examined bedside. Currently on 12 LNC saturating 97%. No dyspnea upon my visual examination. 05/16: Afebrile. No overnight events. Requiring 10 L/min nasal cannula O2 to maintain saturations 91%. She is feeling improved but significant dyspnea on ex ertion with movement but she is able to get up to the bathroom with assistance. No chest pain. Afebrile. No overnight events. Oxygen down to 8 L/min with O2 saturations 90%. She thinks she feels improved but still with significant dyspnea on exertion. Fatigued after movement. Denies chest pain. Vitals/I&O Vitals/I&O: Vital Signs Date Time Temp Pulse Resp B/P (MAP) Pulse Ox O2 Delivery O2 Flow Rate FiO2 05/17/21 07:00 97.7 74 128/64 (85) 98 Nasal Cannula 8.0 97.7 05/17/21 02:59 18 I & O 05/16/21 05/16/21 05/17/21 15:00 23:00 07:00 Intake Total 480 ml 240 ml 120 ml Balance 480 ml 240 ml 120 ml Physical Exam General: Alert, Oriented X3, Cooperative, No acute distress Heart: Regular rate, Normal S1, Normal S2 Lungs: Other (Decreased air entry) Abdomen: Normal bowel sounds, Soft, No tenderness, No hepatosplenomegaly, No masses Extremities: Normal pulses, No tenderness/swelling, Other (scant edema) Skin: Other (Right lateral ankle eschar 2x3 cm) Assessment and Plan Assessmemt and Plan Problems Medical Problems: (1) Pneumonia Status: Acute Comment Review of Relevant I have reviewed the following items zenaida (where applicable) has been applied. Justifications for Admission Other Justification DAVID RUBI MD May 17, 2021 08:32
--- NOTE | 2021-05-17 08:48 | PDOC ---
PULMONARY PROGRESS NOTES DATE: 05/17/21 TIME: 08:48 Subjective Patient feels better Currently on 5 L Vitals Vital Signs Date Time Temp Pulse Resp B/P (MAP) Pulse Ox O2 Delivery O2 Flow Rate FiO2 05/17/21 08:32 74 128/64 05/17/21 07:00 97.7 98 Nasal Cannula 8.0 97.7 05/17/21 02:59 18 ROS: No Nausea, No Chest Pain, No Abdominal Pain, No Increase Cough General: Alert Lungs: Other (Decreased air entry) Cardiovascular: S1, S2 Abdomen: Soft, Non-tender Extremities: No Edema Medications Active Scripts Medications Dose Route/Sig Max Daily Dose Days Date Category Metoprolol Succinate ( Xl ) (Metoprolol Succinate) 25 Mg Tab.er.24h 12.5 Mg PO DAILY 30 03/28/21 Rx Vitamin C (Ascorbic Acid) 1,000 Mg Tablet 1,000 Mg PO DAILY 03/24/21 Reported Zinc 50 Mg Tablet 50 Mg PO DAILY 03/24/21 Reported Calcium (Calcium Carbonate) 500 Mg Tablet 600 Mg PO DAILY 30 03/24/21 Reported Furosemide 20 Mg Tablet 1 Tab PO DAILY 11/19/18 Rx [Pantoprazole] 40 MG Tablet.dr 40 Mg PO DAILYAC 30 11/19/18 Rx Budesonide 0.5 Mg/2 Ml Ampul.neb 0.5 Mg NEB RTBID 30 11/19/18 Rx Mucinex Dm Er 600-30 Mg Tablet (Guaifenesin/Dextromethorphan) 1 Each Tab.er.12h 1 Tab PO BID 30 11/19/18 Rx Ambien (Zolpidem Tartrate) 5 Mg Tablet 5 Mg PO PRN QHS PRN 30 11/19/18 Rx Lisinopril 40 Mg Tablet 20 Mg PO DAILY 30 11/19/18 Rx Amlodipine Besylate 5 Mg Tablet 5 Mg PO DAILY 30 11/19/18 Rx Duoneb 0.5-3(2.5) Mg/3 Ml (Albuterol/Ipratropium) 3 Ml Ampul.neb 3 Ml NEB RTQID 30 11/19/18 Rx Proair Hfa Inhaler (Albuterol Sulfate) 8.5 Gm Hfa.aer.ad 1 Puff INH PRN Q6HRS PRN 01/26/18 Reported Impression . IMPRESSION: 1. Acute hypoxemic respiratory failure secondary to COVID-19. Status post remdesivir 2. COVID-19 viral pneumonia. 3. History of atrial fibrillation, now in sinus rhythm. 4. Acute exacerbation of chronic obstructive pulmonary disease. 5. Renal aortic insufficiency. 6. Chronic diastolic heart failure. 7. Hypertension. 8. Chronic kidney disease. 9. Pancytopenia. Plan . Updated 05/17 Possible discharge after 6-minute walk Follow-up in the office Continue current support updated 05/[address] Husain, getting close to being discharged Possible discharge in 24 to 48 hours with oxygen updated 05/14 No new events Continue nonrebreather Nutritional support Steroids PETEY CUEVAS MD May 17, 2021 08:48
[2021-05-17 11:00] VITALS: BP 132/61
[2021-05-17 15:00] VITALS: BP 107/53
[2021-05-17 19:00] VITALS: BP 115/58
[2021-05-17 23:01] VITALS: BP 125/62
[2021-05-18] VITALS (7 sets, daily range): BP systolic 107–146; BP diastolic 55–66
[2021-05-18] MEDS: HEPARIN for SUB-Q USE 5,000 UNIT/ML VIAL. SQ SCH ×3 (06:21→23:09)
--- NOTE | 2021-05-18 06:43 | PDOC ---
[employer] PROGRESS NOTE Date of Service DOS: DATE: 05/18/21 TIME: 06:43 Chief Complaint Chief Complaint A/P: COVID 19 - diarrhea and respiratory symptoms. Breakthrough case, has been vaccinated. Given steroids, s/p remdesivir given early identification but increased O2. Not a tocilizumab candidate Acute on chronic resp failure - with COVID 19 complicated by AECOPD H/o atrial fibrillation - converted to NSR previously Acute bronchitis - COPD exacerbation related as well as COVID 19 Pulmonary hypertension Moderate aortic insufficiency Chronic diastolic HF - prior echo 2018 with mild LV dysfunction with EF 45-50%, had echo at [facility] Hypertension; controlled ANGELINA on CKD - normal renal function in 2018, but november 2020 worsened. Improved since admission. likely vasomotor nephropathy from COVID 19 Pancytopenia - anemia related to CKD, leukopenia due to viral illness, will monitor platelets Hypocalcemia - chronic, will replace FEN - Cardiac diet PPX - heparin FULL CODE Dispo - inpatient for above 37 MIN PT exam, chart review, > 50% of time spent with exam, chart review, pt care coordination. History of Present Illness History of Present Illness Ms Caal is an 80-year-old female w/ PMHx COPD, ILD, chronic diastolic CHF presents to the emergency department complaining of shortness of breath and diarrhea for the last 3 days that has been gradually progressive. She has fever, cough, and body aches. She reports feeling fatigued when she walks short distances, and at rest. She has an abrasion on her right lateral leg that is healing well. 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 She has been vaccinated for COVID-19 in December 2020 x2 doses. Denies any history of blood clots in the past. The patient denies nausea, vomiting, fever, chills, chest pain, abdominal pain, urinary symptoms, cough, recent trauma, or any other complaints. Chest radiograph with bilateral infiltrates. Required 4 L of oxygen initially, wears 2 liters at home. Started empirically on levaquin and cefepime in ED WBC 3.9, Hb 11.8, platelets 114, NA 138, K4.3, BUN 40, CR 2.2, calcium 7.8 ioni zed calcium 1.1, magnesium 2, bilirubin 0.4, AST 114, ALT 36, troponin 0.080, NT proBNP 5172, albumin 3.1, rapid COVID-19 positive, D-dimer 1.28 Chest radiograph with multifocal opacities increased from prior. Underlying fibrotic changes bilaterally worse in the left lung base EKG appears NSR Admitted for further care. 05/09: Afebrile. Creatinine improved to 1.8. CRP less than 50. Nursing noted some desaturations with ambulation to toilet required facemask O2 to bring saturations back up from 78% to 96%. Otherwise she has been stable overnight primarily lately on 4 L nasal cannula. She is comfortable notes her diarrhea has improved. Has a good appetite. Tolerated remdesivir and Decadron well. D/w daughter, Arelis, over the phone. 05/10: Still remains pretty altered. Continue COVID treatment. Still on remdesivir. Pulmonology consulted 05/11: 15 L nonrebreather no success at weaning. Still on antibiotics, steroids and remdesivir. Continuing Covid treatment. Otherwise no major changes. Guarded prognosis. 05/12: Still remains on 15 L nonrebreather. Does think she feels a little bit improved today. Continue treatment for Covid with antibiotics and steroids. 05/13: Very pleasant today was still on 15 L nonrebreather but was able to remove it to converse with me. Continuing Covid treatment antibiotics and steroids. 05/14: 15L/min non-rebreather 05/15: No acute events overnight. Seen and examined bedside. Currently on 12 LNC saturating 97%. No dyspnea upon my visual examination. 05/16: Afebrile. No overnight events. Requiring 10 L/min nasal cannula O2 to maintain saturations 91%. She is feeling improved but significant dyspnea on exertion with movement but she is able to get up to the bathroom with assistance. No chest pain. 05/17: Afebrile. No overnight events. Oxygen down to 8 L/min with O2 saturations 90%. She thinks she feels improved but still with significant dyspnea on exertion. Fatigued after movement. Denies chest pain. Afebrile. On 10 L/min O2 saturations 96% but significant desaturation with minimal movement. She feels about the same not more short of air. She is feeling weak. Vitals/I&O Vitals/I&O: Vital Signs Date Time Temp Pulse Resp B/P (MAP) Pulse Ox O2 Delivery O2 Flow Rate FiO2 05/18/21 03:02 97.4 73 20 134/66 (88) 96 Nasal Cannula 97.4 05/17/21 20:00 8.0 I & O 0 05/17/21 05/17/21 05/18/21 15:00 23:00 07:00 Intake Total 480 ml 240 ml Output Total 0 ml Balance 480 ml 240 ml 0 ml Physical Exam General: Alert, Oriented X3, Cooperative, No acute distress Heart: Regular rate, Normal S1, Normal S2 Lungs: Other (Decreased air entry) Abdomen: Normal bowel sounds, Soft, No tenderness, No hepatosplenomegaly, No masses Extremities: Normal pulses, No tenderness/swelling, Other (scant edema) Skin: Other (Right lateral ankle eschar 2x3 cm) Assessment and Plan Assessmemt and Plan Problems Medical Problems: (1) Pneumonia Status: Acute Comment Review of Relevant I have reviewed the following items zenaida (where applicable) has been applied. Justifications for Admission Other Justification DAVID RUBI MD May 18, 2021 06:43
--- NOTE | 2021-05-18 08:30 | PDOC ---
PULMONARY PROGRESS NOTES DATE: 05/18/21 TIME: 08:30 Subjective Patient not more short of air Vitals Vital Signs Date Time Temp Pulse Resp B/P (MAP) Pulse Ox O2 Delivery O2 Flow Rate FiO2 05/18/21 07:00 97.1 80 20 146/65 (92) 92 Nasal Cannula 10.0 97.1 ROS: No Nausea, No Chest Pain, No Abdominal Pain, No Increase Cough General: Alert Lungs: Other (Decreased air entry) Cardiovascular: S1, S2 Abdomen: Soft, Non-tender Extremities: No Edema Medications Active Scripts Medications Dose Route/Sig Max Daily Dose Days Date Category Metoprolol Succinate ( Xl ) (Metoprolol Succinate) 25 Mg Tab.er.24h 12.5 Mg PO DAILY 30 03/28/21 Rx Vitamin C (Ascorbic Acid) 1,000 Mg Tablet 1,000 Mg PO DAILY 03/24/21 Reported Zinc 50 Mg Tablet 50 Mg PO DAILY 03/24/21 Reported Calcium (Calcium Carbonate) 500 Mg Tablet 600 Mg PO DAILY 30 03/24/21 Reported Furosemide 20 Mg Tablet 1 Tab PO DAILY 11/19/18 Rx [Pantoprazole] 40 MG Tablet.dr 40 Mg PO DAILYAC 30 11/19/18 Rx Budesonide 0.5 Mg/2 Ml Ampul.neb 0.5 Mg NEB RTBID 30 11/19/18 Rx Mucinex Dm Er 600-30 Mg Tablet (Guaifenesin/Dextromethorphan) 1 Each Tab.er.12h 1 Tab PO BID 30 11/19/18 Rx Ambien (Zolpidem Tartrate) 5 Mg Tablet 5 Mg PO PRN QHS PRN 30 11/19/18 Rx Lisinopril 40 Mg Tablet 20 Mg PO DAILY 30 11/19/18 Rx Amlodipine Besylate 5 Mg Tablet 5 Mg PO DAILY 30 11/19/18 Rx Duoneb 0.5-3(2.5) Mg/3 Ml (Albuterol/Ipratropium) 3 Ml Ampul.neb 3 Ml NEB RTQID 30 11/19/18 Rx Proair Hfa Inhaler (Albuterol Sulfate) 8.5 Gm Hfa.aer.ad 1 Puff INH PRN Q6HRS PRN 01/26/18 Reported Impression . IMPRESSION: 1. Acute hypoxemic respiratory failure secondary to COVID-19. Status post remdesivir 2. COVID-19 viral pneumonia. 3. History of atrial fibrillation, now in sinus rhythm. 4. Acute exacerbation of chronic obstructive pulmonary disease. 5. Renal aortic insufficiency. 6. Chronic diastolic heart failure. 7. Hypertension. 8. Chronic kidney disease. 9. Pancytopenia. Plan . Updated 05/18 Patient requiring more oxygen today Needs 6-minute walk prior to discharge Updated 05/17 Possible discharge after 6-minute walk Follow-up in the office Continue current support updated 05/[address] Husain, getting close to being discharged Possible discharge in 24 to 48 hours with oxygen updated 05/14 No new events Continue nonrebreather Nutritional support Steroids PETEY CUEVAS MD May 18, 2021 08:30
[2021-05-18] MEDS: ZINC SULFATE 220 MG CAPSULE. PO SCH (11:08)
[2021-05-18] MEDS: CALCIUM CARBONATE 500 MG TABLET PO SCH (11:09)
[2021-05-18] MEDS: FLUTICASONE/VILANTEROL 200/25 INHALER. INH SCH (11:09)
[2021-05-18] MEDS: IPRATROPIUM/ALBUTEROL 20/100mcg/INH INHALER. INH SCH ×4 (11:09→23:08)
[2021-05-18] MEDS: ASCORBIC ACID 500 MG TABLET PO SCH (11:09)
[2021-05-18] MEDS: FUROSEMIDE 20 MG TABLET PO SCH (11:09)
[2021-05-18] MEDS: DEXAMETHASONE SOD PHOS 4 MG/ML VIAL IVP SCH (11:10)
[2021-05-18] MEDS: METOPROLOL SUCC 24HR ER 25 MG TAB.ER.24H. PO SCH (11:11)
[2021-05-19 03:32] VITALS: BP 133/63
[2021-05-19] MEDS: HEPARIN for SUB-Q USE 5,000 UNIT/ML VIAL. SQ SCH ×3 (05:31→22:12)
[2021-05-19 07:00] VITALS: BP 143/65
[2021-05-19 08:46] LABS: BASO % 0 % (0-3); EOS % 0 % (0-3); HEMOGLOBIN 12.2 g/dL (12.0-15.5); LYMPH # 1.9 x10^3/uL (1.0-4.8); LYMPH % 13 % (24-48); MEAN CORPUSCULAR HEMOGLOBIN 29 pg (25-35); MEAN CORPUSCULAR HGB CONC 33 g/dL (31-37); MEAN CORPUSCULAR VOLUME 89 fL (79-100); MONO # 0.9 x10^3/uL (0.0-1.1); MONO % 6 % (0-9); NEUT # 11.4 x10^3/uL (1.8-7.7); NEUT % 80 % (31-73); PLATELET COUNT 210 x10^3/uL (140-400); RED BLOOD COUNT 4.16 x10^6/uL (3.50-5.40); RED CELL DISTRIBUTION WIDTH 15.7 % (11.5-14.5); WHITE BLOOD COUNT 14.2 x10^3/uL (4.0-11.0)
--- NOTE | 2021-05-19 09:10 | PDOC ---
PULMONARY PROGRESS NOTES DATE: 05/19/21 TIME: 09:10 Subjective Patient not more short of air Vitals Vital Signs Date Time Temp Pulse Resp B/P (MAP) Pulse Ox O2 Delivery O2 Flow Rate FiO2 05/19/21 07:00 97.2 66 20 143/65 (91) 97 Nasal Cannula 8.0 97.2 ROS: No Nausea, No Chest Pain, No Abdominal Pain, No Increase Cough General: Alert Lungs: Other (Decreased air entry) Cardiovascular: S1, S2 Abdomen: Soft, Non-tender Extremities: No Edema Labs Laboratory Tests Test 05/19/21 07:50 White Blood Count 14.2 x10^3/uL (4.0-11.0) Red Blood Count 4.16 x10^6/uL (3.50-5.40) Hemoglobin 12.2 g/dL (12.0-15.5) Hematocrit 37.0 % (36.0-47.0) Mean Corpuscular Volume 89 fL (79-100) Mean Corpuscular Hemoglobin 29 pg (25-35) Mean Corpuscular Hemoglobin Concent 33 g/dL (31-37) Red Cell Distribution Width 15.7 % (11.5-14.5) Platelet Count 210 x10^3/uL (140-400) Neutrophils (%) (Auto) 80 % (31-73) Lymphocytes (%) (Auto) 13 % (24-48) Monocytes (%) (Auto) 6 % (0-9) Eosinophils (%) (Auto) 0 % (0-3) Basophils (%) (Auto) 0 % (0-3) Neutrophils # (Auto) 11.4 x10^3/uL (1.8-7.7) Lymphocytes # (Auto) 1.9 x10^3/uL (1.0-4.8) Monocytes # (Auto) 0.9 x10^3/uL (0.0-1.1) Eosinophils # (Auto) 0.0 x10^3/uL (0.0-0.7) Basophils # (Auto) 0.0 x10^3/uL (0.0-0.2) Laboratory Tests Test 05/19/21 07:50 White Blood Count 14.2 x10^3/uL (4.0-11.0) Red Blood Count 4.16 x10^6/uL (3.50-5.40) Hemoglobin 12.2 g/dL (12.0-15.5) Hematocrit 37.0 % (36.0-47.0) Mean Corpuscular Volume 89 fL (79-100) Mean Corpuscular Hemoglobin 29 pg (25-35) Mean Corpuscular Hemoglobin Concent 33 g/dL (31-37) Red Cell Distribution Width 15.7 % (11.5-14.5) Platelet Count 210 x10^3/uL (140-400) Neutrophils (%) (Auto) 80 % (31-73) Lymphocytes (%) (Auto) 13 % (24-48) Monocytes (%) (Auto) 6 % (0-9) Eosinophils (%) (Auto) 0 % (0-3) Basophils (%) (Auto) 0 % (0-3) Neutrophils # (Auto) 11.4 x10^3/uL (1.8-7.7) Lymphocytes # (Auto) 1.9 x10^3/uL (1.0-4.8) Monocytes # (Auto) 0.9 x10^3/uL (0.0-1.1) Eosinophils # (Auto) 0.0 x10^3/uL (0.0-0.7) Basophils # (Auto) 0.0 x10^3/uL (0.0-0.2) Medications Active Scripts Medications Dose Route/Sig Max Daily Dose Days Date Category Metoprolol Succinate ( Xl ) (Metoprolol Succinate) 25 Mg Tab.er.24h 12.5 Mg PO DAILY 30 03/28/21 Rx Vitamin C (Ascorbic Acid) 1,000 Mg Tablet 1,000 Mg PO DAILY 03/24/21 Reported Zinc 50 Mg Tablet 50 Mg PO DAILY 03/24/21 Reported Calcium (Calcium Carbonate) 500 Mg Tablet 600 Mg PO DAILY 30 03/24/21 Reported Furosemide 20 Mg Tablet 1 Tab PO DAILY 11/19/18 Rx [Pantoprazole] 40 MG Tablet.dr 40 Mg PO DAILYAC 30 11/19/18 Rx Budesonide 0.5 Mg/2 Ml Ampul.neb 0.5 Mg NEB RTBID 30 11/19/18 Rx Mucinex Dm Er 600-30 Mg Tablet (Guaifenesin/Dextromethorphan) 1 Each Tab.er.12h 1 Tab PO BID 30 11/19/18 Rx Ambien (Zolpidem Tartrate) 5 Mg Tablet 5 Mg PO PRN QHS PRN 30 11/19/18 Rx Lisinopril 40 Mg Tablet 20 Mg PO DAILY 30 11/19/18 Rx Amlodipine Besylate 5 Mg Tablet 5 Mg PO DAILY 30 11/19/18 Rx Duoneb 0.5-3(2.5) Mg/3 Ml (Albuterol/Ipratropium) 3 Ml Ampul.neb 3 Ml NEB RTQID 30 11/19/18 Rx Proair Hfa Inhaler (Albuterol Sulfate) 8.5 Gm Hfa.aer.ad 1 Puff INH PRN Q6HRS PRN 01/26/18 Reported Impression . IMPRESSION: 1. Acute hypoxemic respiratory failure secondary to COVID-19. Status post remdesivir 2. COVID-19 viral pneumonia. 3. History of atrial fibrillation, now in sinus rhythm. 4. Acute exacerbation of chronic obstructive pulmonary disease. 5. Renal aortic insufficiency. 6. Chronic diastolic heart failure. 7. Hypertension. 8. Chronic kidney disease. 9. Pancytopenia. Plan . Updated 1014 Patient continues to require high oxygen We will check 6-minute walk Getting closer to discharge updated 05/18 Patient requiring more oxygen today Needs 6-minute walk prior to discharge Updated 05/17 Possible discharge after 6-minute walk Follow-up in the office Continue current support updated 05/[address] Husain, getting close to being discharged Possible discharge in 24 to 48 hours with oxygen updated 05/14 No new events Continue nonrebreather Nutritional support Steroids PETEY CUEVAS MD May 19, 2021 09:10
[2021-05-19 09:16] LABS: ALBUMIN 2.5 g/dL (3.4-5.0); ALBUMIN/GLOBULIN RATIO 0.7 (1.0-1.7); CALCIUM 8.5 mg/dL (8.5-10.1); CREATININE 1.3 mg/dL (0.6-1.0); GFR 39.4; POTASSIUM 4.4 mmol/L (3.5-5.1); TOTAL BILIRUBIN 0.6 mg/dL (0.2-1.0); TOTAL PROTEIN 5.9 g/dL (6.4-8.2)
--- NOTE | 2021-05-19 09:25 | PDOC ---
[employer] PROGRESS NOTE Date of Service DOS: DATE: 05/19/21 TIME: 09:10 Chief Complaint Chief Complaint A/P: COVID 19 - diarrhea and respiratory symptoms. Breakthrough case, has been vaccinated. Given steroids, s/p remdesivir given early identification but increased O2. Not a tocilizumab candidate Acute on chronic resp failure - with COVID 19 complicated by AECOPD H/o atrial fibrillation - converted to NSR previously Acute bronchitis - COPD exacerbation related as well as COVID 19 Pulmonary hypertension Moderate aortic insufficiency Chronic diastolic HF - prior echo 2018 with mild LV dysfunction with EF 45-50%, had echo at [facility] Hypertension; controlled ANGELINA on CKD - normal renal function in 2018, but november 2020 worsened. Improved since admission. likely vasomotor nephropathy from COVID 19 Pancytopenia - anemia related to CKD, leukopenia due to viral illness, will monitor platelets Hypocalcemia - chronic, will replace FEN - Cardiac diet PPX - heparin FULL CODE Dispo - inpatient for above 37 MIN PT exam, chart review, > 50% of time spent with exam, chart review, pt care coordination. History of Present Illness History of Present Illness Ms Caal is an 80-year-old female w/ PMHx COPD, ILD, chronic diastolic CHF presents to the emergency department complaining of shortness of breath and diarrhea for the last 3 days that has been gradually progressive. She has fever, cough, and body aches. She reports feeling fatigued when she walks short distances, and at rest. She has an abrasion on her right lateral leg that is healing well. 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 She has been vaccinated for COVID-19 in December 2020 x2 doses. Denies any history of blood clots in the past. The patient denies nausea, vomiting, fever, chills, chest pain, abdominal pain, urinary symptoms, cough, recent trauma, or any other complaints. Chest radiograph with bilateral infiltrates. Required 4 L of oxygen initially, wears 2 liters at home. Started empirically on levaquin and cefepime in ED WBC 3.9, Hb 11.8, platelets 114, NA 138, K4.3, BUN 40, CR 2.2, calcium 7.8 ioni zed calcium 1.1, magnesium 2, bilirubin 0.4, AST 114, ALT 36, troponin 0.080, NT proBNP 5172, albumin 3.1, rapid COVID-19 positive, D-dimer 1.28 Chest radiograph with multifocal opacities increased from prior. Underlying fibrotic changes bilaterally worse in the left lung base EKG appears NSR Admitted for further care. 05/09: Afebrile. Creatinine improved to 1.8. CRP less than 50. Nursing noted some desaturations with ambulation to toilet required facemask O2 to bring saturations back up from 78% to 96%. Otherwise she has been stable overnight primarily lately on 4 L nasal cannula. She is comfortable notes her diarrhea has improved. Has a good appetite. Tolerated remdesivir and Decadron well. D/w daughter, Arelis, over the phone. 05/10: Still remains pretty altered. Continue COVID treatment. Still on remdesivir. Pulmonology consulted 05/11: 15 L nonrebreather no success at weaning. Still on antibiotics, steroids and remdesivir. Continuing Covid treatment. Otherwise no major changes. Guarded prognosis. 05/12: Still remains on 15 L nonrebreather. Does think she feels a little bit improved today. Continue treatment for Covid with antibiotics and steroids. 05/13: Very pleasant today was still on 15 L nonrebreather but was able to remove it to converse with me. Continuing Covid treatment antibiotics and steroids. 05/14: 15L/min non-rebreather 05/15: No acute events overnight. Seen and examined bedside. Currently on 12 LNC saturating 97%. No dyspnea upon my visual examination. 05/16: Afebrile. No overnight events. Requiring 10 L/min nasal cannula O2 to maintain saturations 91%. She is feeling improved but significant dyspnea on exertion with movement but she is able to get up to the bathroom with assistance. No chest pain. 05/17: Afebrile. No overnight events. Oxygen down to 8 L/min with O2 saturations 90%. She thinks she feels improved but still with significant dyspnea on exertion. Fatigued after movement. Denies chest pain. 05/18: Afebrile. On 10 L/min O2 saturations 96% but significant desaturation with minimal movement. She feels about the same not more short of air. She is feeling weak. Afebrile. Still requiring 2 L/min O2 saturation is 93%. She feels okay otherwise. Significant desaturations with movement. Vitals/I&O Vitals/I&O: Vital Signs Date Time Temp Pulse Resp B/P (MAP) Pulse Ox O2 Delivery O2 Flow Rate FiO2 05/19/21 07:00 97.2 66 20 143/65 (91) 97 Nasal Cannula 8.0 97.2 I & O 05/18/21 05/18/21 05/19/21 15:00 23:00 07:00 Intake Total 240 ml 200 ml 0 ml Balance 240 ml 200 ml 0 ml Physical Exam General: Alert, Oriented X3, Cooperative, No acute distress Heart: Regular rate, Normal S1, Normal S2 Lungs: Other (Decreased air entry) Abdomen: Normal bowel sounds, Soft, No tenderness, No hepatosplenomegaly, No masses Extremities: Normal pulses, No tenderness/swelling, Other (scant edema) Skin: Other (Right lateral ankle eschar 2x3 cm) Labs Labs: Laboratory Tests Test 05/19/21 07:50 White Blood Count 14.2 x10^3/uL (4.0-11.0) Red Blood Count 4.16 x10^6/uL (3.50-5.40) Hemoglobin 12.2 g/dL (12.0-15.5) Hematocrit 37.0 % (36.0-47.0) Mean Corpuscular Volume 89 fL (79-100) Mean Corpuscular Hemoglobin 29 pg (25-35) Mean Corpuscular Hemoglobin Concent 33 g/dL (31-37) Red Cell Distribution Width 15.7 % (11.5-14.5) Platelet Count 210 x10^3/uL (140-400) Neutrophils (%) (Auto) 80 % (31-73) Lymphocytes (%) (Auto) 13 % (24-48) Monocytes (%) (Auto) 6 % (0-9) Eosinophils (%) (Auto) 0 % (0-3) Basophils (%) (Auto) 0 % (0-3) Neutrophils # (Auto) 11.4 x10^3/uL (1.8-7.7) Lymphocytes # (Auto) 1.9 x10^3/uL (1.0-4.8) Monocytes # (Auto) 0.9 x10^3/uL (0.0-1.1) Eosinophils # (Auto) 0.0 x10^3/uL (0.0-0.7) Basophils # (Auto) 0.0 x10^3/uL (0.0-0.2) Assessment and Plan Assessmemt and Plan Problems Medical Problems: (1) Pneumonia Status: Acute Comment Review of Relevant I have reviewed the following items zenaida (where applicable) has been applied. Justifications for Admission Other Justification DAVID RUBI MD May 19, 2021 09:25
[2021-05-19] MEDS: ASCORBIC ACID 500 MG TABLET PO SCH (09:39)
[2021-05-19] MEDS: CALCIUM CARBONATE 500 MG TABLET PO SCH (09:39)
[2021-05-19 09:40] LABS: % LYMPHS 32 % (24-48); % MONOS 2 % (0-10); % SEGS 66 % (35-66); PLT ESTIMATE ADEQUATE (ADEQUATE)
[2021-05-19] MEDS: FUROSEMIDE 20 MG TABLET PO SCH (09:40)
[2021-05-19] MEDS: PANTOPRAZOLE 40 MG TABLET.DR. PO SCH (09:40)
[2021-05-19] MEDS: ZINC SULFATE 220 MG CAPSULE. PO SCH (09:40)
[2021-05-19] MEDS: METOPROLOL SUCC 24HR ER 25 MG TAB.ER.24H. PO SCH (09:42)
[2021-05-19] MEDS: FLUTICASONE/VILANTEROL 200/25 INHALER. INH SCH (09:42)
[2021-05-19] MEDS: IPRATROPIUM/ALBUTEROL 20/100mcg/INH INHALER. INH SCH ×4 (09:42→22:11)
[2021-05-19 11:03] VITALS: BP 136/66
--- NOTE | 2021-05-19 14:05 | NUR ---
SW following. Discussed with RN, pt from home with son, on 8L (uses 3-4L at home), COVID-19 positive. Therapy recommending home health. GIACOMO spoke with Mat Pappas RN - she will follow up to determine if they have had pt before. Mat can see COVID positive and take pt's insurance. Pt will likely need a 6 minute walk prior to discharge. GIACOMO will continue to follow.
[2021-05-19 15:02] VITALS: BP 114/56
[2021-05-19 19:00] VITALS: BP 117/57
[2021-05-19 23:10] VITALS: BP 131/65
[2021-05-20 03:22] VITALS: BP 134/60
[2021-05-20] MEDS: HEPARIN for SUB-Q USE 5,000 UNIT/ML VIAL. SQ SCH ×2 (06:06→14:06)
[2021-05-20 07:00] VITALS: BP 146/67
--- NOTE | 2021-05-20 07:22 | PDOC ---
[employer] PROGRESS NOTE Date of Service DOS: DATE: 05/20/21 TIME: 07:21 Chief Complaint Chief Complaint A/P: COVID 19 - diarrhea and respiratory symptoms. Breakthrough case, has been vaccinated. Given steroids, s/p remdesivir given early identification but increased O2. Not a tocilizumab candidate Acute on chronic resp failure - with COVID 19 complicated by AECOPD H/o atrial fibrillation - converted to NSR previously Acute bronchitis - COPD exacerbation related as well as COVID 19 Pulmonary hypertension Moderate aortic insufficiency Chronic diastolic HF - prior echo 2018 with mild LV dysfunction with EF 45-50%, had echo at [facility] Hypertension; controlled ANGELINA on CKD - normal renal function in 2018, but november 2020 worsened. Improved since admission. likely vasomotor nephropathy from COVID 19 Pancytopenia - anemia related to CKD, leukopenia due to viral illness, will monitor platelets Hypocalcemia - chronic, will replace FEN - Cardiac diet PPX - heparin FULL CODE Dispo - inpatient for above 37 MIN PT exam, chart review, > 50% of time spent with exam, chart review, pt care coordination. History of Present Illness History of Present Illness Ms Caal is an 80-year-old female w/ PMHx COPD, ILD, chronic diastolic CHF presents to the emergency department complaining of shortness of breath and diarrhea for the last 3 days that has been gradually progressive. She has fever, cough, and body aches. She reports feeling fatigued when she walks short distances, and at rest. She has an abrasion on her right lateral leg that is healing well. 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 She has been vaccinated for COVID-19 in December 2020 x2 doses. Denies any history of blood clots in the past. The patient denies nausea, vomiting, fever, chills, chest pain, abdominal pain, urinary symptoms, cough, recent trauma, or any other complaints. Chest radiograph with bilateral infiltrates. Required 4 L of oxygen initially, wears 2 liters at home. Started empirically on levaquin and cefepime in ED WBC 3.9, Hb 11.8, platelets 114, NA 138, K4.3, BUN 40, CR 2.2, calcium 7.8 ioni zed calcium 1.1, magnesium 2, bilirubin 0.4, AST 114, ALT 36, troponin 0.080, NT proBNP 5172, albumin 3.1, rapid COVID-19 positive, D-dimer 1.28 Chest radiograph with multifocal opacities increased from prior. Underlying fibrotic changes bilaterally worse in the left lung base EKG appears NSR Admitted for further care. 05/09: Afebrile. Creatinine improved to 1.8. CRP less than 50. Nursing noted some desaturations with ambulation to toilet required facemask O2 to bring saturations back up from 78% to 96%. Otherwise she has been stable overnight primarily lately on 4 L nasal cannula. She is comfortable notes her diarrhea has improved. Has a good appetite. Tolerated remdesivir and Decadron well. D/w daughter, Arelis, over the phone. 05/10: Still remains pretty altered. Continue COVID treatment. Still on remdesivir. Pulmonology consulted 05/11: 15 L nonrebreather no success at weaning. Still on antibiotics, steroids and remdesivir. Continuing Covid treatment. Otherwise no major changes. Guarded prognosis. 05/12: Still remains on 15 L nonrebreather. Does think she feels a little bit improved today. Continue treatment for Covid with antibiotics and steroids. 05/13: Very pleasant today was still on 15 L nonrebreather but was able to remove it to converse with me. Continuing Covid treatment antibiotics and steroids. 05/14: 15L/min non-rebreather 05/15: No acute events overnight. Seen and examined bedside. Currently on 12 LNC saturating 97%. No dyspnea upon my visual examination. 05/16: Afebrile. No overnight events. Requiring 10 L/min nasal cannula O2 to maintain saturations 91%. She is feeling improved but significant dyspnea on exertion with movement but she is able to get up to the bathroom with assistance. No chest pain. 05/17: Afebrile. No overnight events. Oxygen down to 8 L/min with O2 saturations 90%. She thinks she feels improved but still with significant dyspnea on exertion. Fatigued after movement. Denies chest pain. 05/18: Afebrile. On 10 L/min O2 saturations 96% but significant desaturation with minimal movement. She feels about the same not more short of air. She is feeling weak. 05/19: Afebrile. Still requiring 10 L/min O2 saturation is 93%. She feels okay otherwise. Significant desaturations with movement. Afebrile. During 6-minute walk yesterday she had to stop at 4 minutes once able to maintain saturations 91% with up to 6 L on exertion. Feeling ok. NT-pro-BNP decreased. Vitals/I&O Vitals/I&O: Vital Signs Date Time Temp Pulse Resp B/P (MAP) Pulse Ox O2 Delivery O2 Flow Rate FiO2 05/20/21 03:22 97.6 63 17 134/60 (84) 97 Nasal Cannula 8.0 97.6 I & O 05/19/21 05/19/21 05/20/21 15:00 23:00 07:00 Intake Total 240 ml 200 ml 0 ml Balance 240 ml 200 ml 0 ml Physical Exam General: Alert, Oriented X3, Cooperative, No acute distress Heart: Regular rate, Normal S1, Normal S2 Lungs: Other (Decreased air entry) Abdomen: Normal bowel sounds, Soft, No tenderness, No hepatosplenomegaly, No masses Extremities: Normal pulses, No tenderness/swelling, Other (scant edema) Skin: Other (Right lateral ankle eschar 2x3 cm) Labs Labs: Laboratory Tests Test 05/19/21 07:50 White Blood Count 14.2 x10^3/uL (4.0-11.0) Red Blood Count 4.16 x10^6/uL (3.50-5.40) Hemoglobin 12.2 g/dL (12.0-15.5) Hematocrit 37.0 % (36.0-47.0) Mean Corpuscular Volume 89 fL (79-100) Mean Corpuscular Hemoglobin 29 pg (25-35) Mean Corpuscular Hemoglobin Concent 33 g/dL (31-37) Red Cell Distribution Width 15.7 % (11.5-14.5) Platelet Count 210 x10^3/uL (140-400) Neutrophils (%) (Auto) 80 % (31-73) Lymphocytes (%) (Auto) 13 % (24-48) Monocytes (%) (Auto) 6 % (0-9) Eosinophils (%) (Auto) 0 % (0-3) Basophils (%) (Auto) 0 % (0-3) Neutrophils # (Auto) 11.4 x10^3/uL (1.8-7.7) Lymphocytes # (Auto) 1.9 x10^3/uL (1.0-4.8) Monocytes # (Auto) 0.9 x10^3/uL (0.0-1.1) Eosinophils # (Auto) 0.0 x10^3/uL (0.0-0.7) Basophils # (Auto) 0.0 x10^3/uL (0.0-0.2) Segmented Neutrophils % 66 % (35-66) Lymphocytes % 32 % (24-48) Monocytes % 2 % (0-10) Platelet Estimate Adequate (ADEQUATE) Sodium Level 143 mmol/L (136-145) Potassium Level 4.4 mmol/L (3.5-5.1) Chloride Level 108 mmol/L (98-107) Carbon Dioxide Level 32 mmol/L (21-32) Anion Gap 3 (6-14) Blood Urea Nitrogen 47 mg/dL (7-20) Creatinine 1.3 mg/dL (0.6-1.0) Estimated GFR (Cockcroft-Gault) 39.4 BUN/Creatinine Ratio 36 (6-20) Glucose Level 86 mg/dL (70-99) Calcium Level 8.5 mg/dL (8.5-10.1) Total Bilirubin 0.6 mg/dL (0.2-1.0) Aspartate Amino Transf (AST/SGOT) 25 U/L (15-37) Alanine Aminotransferase (ALT/SGPT) 45 U/L (14-59) Alkaline Phosphatase 77 U/L (46-116) OS-Lju-D-Type Natriuretic Peptide 1334 pg/mL (0-449) Total Protein 5.9 g/dL (6.4-8.2) Albumin 2.5 g/dL (3.4-5.0) Albumin/Globulin Ratio 0.7 (1.0-1.7) Assessment and Plan Assessmemt and Plan Problems Medical Problems: (1) Pneumonia Status: Acute Comment Review of Relevant I have reviewed the following items zenaida (where applicable) has been applied. Justifications for Admission Other Justification DAVID RUBI MD May 20, 2021 07:22
[2021-05-20] MEDS: IPRATROPIUM/ALBUTEROL 20/100mcg/INH INHALER. INH SCH ×2 (08:56→12:16)
[2021-05-20] MEDS: CALCIUM CARBONATE 500 MG TABLET PO SCH (08:56)
[2021-05-20] MEDS: FLUTICASONE/VILANTEROL 200/25 INHALER. INH SCH (08:56)
[2021-05-20] MEDS: FUROSEMIDE 20 MG TABLET PO SCH (08:56)
[2021-05-20] MEDS: ZINC SULFATE 220 MG CAPSULE. PO SCH (08:56)
[2021-05-20] MEDS: PANTOPRAZOLE 40 MG TABLET.DR. PO SCH (08:56)
[2021-05-20] MEDS: ASCORBIC ACID 500 MG TABLET PO SCH (08:56)
[2021-05-20] MEDS: METOPROLOL SUCC 24HR ER 25 MG TAB.ER.24H. PO SCH (08:56)
--- NOTE | 2021-05-20 08:56 | PDOC ---
PULMONARY PROGRESS NOTES DATE: 05/20/21 TIME: 08:55 Subjective Patient states that she is ready to discharge, patient not more short of air Vitals Vital Signs Date Time Temp Pulse Resp B/P (MAP) Pulse Ox O2 Delivery O2 Flow Rate FiO2 05/20/21 07:00 97.1 79 22 146/67 (93) 91 Nasal Cannula 4.0 97.1 ROS: No Nausea, No Chest Pain, No Abdominal Pain, No Increase Cough General: Alert Lungs: Other (Decreased air entry) Cardiovascular: S1, S2 Abdomen: Soft, Non-tender Extremities: No Edema Labs Laboratory Tests Test 05/19/21 07:50 White Blood Count 14.2 x10^3/uL (4.0-11.0) Red Blood Count 4.16 x10^6/uL (3.50-5.40) Hemoglobin 12.2 g/dL (12.0-15.5) Hematocrit 37.0 % (36.0-47.0) Mean Corpuscular Volume 89 fL (79-100) Mean Corpuscular Hemoglobin 29 pg (25-35) Mean Corpuscular Hemoglobin Concent 33 g/dL (31-37) Red Cell Distribution Width 15.7 % (11.5-14.5) Platelet Count 210 x10^3/uL (140-400) Neutrophils (%) (Auto) 80 % (31-73) Lymphocytes (%) (Auto) 13 % (24-48) Monocytes (%) (Auto) 6 % (0-9) Eosinophils (%) (Auto) 0 % (0-3) Basophils (%) (Auto) 0 % (0-3) Neutrophils # (Auto) 11.4 x10^3/uL (1.8-7.7) Lymphocytes # (Auto) 1.9 x10^3/uL (1.0-4.8) Monocytes # (Auto) 0.9 x10^3/uL (0.0-1.1) Eosinophils # (Auto) 0.0 x10^3/uL (0.0-0.7) Basophils # (Auto) 0.0 x10^3/uL (0.0-0.2) Segmented Neutrophils % 66 % (35-66) Lymphocytes % 32 % (24-48) Monocytes % 2 % (0-10) Platelet Estimate Adequate (ADEQUATE) Sodium Level 143 mmol/L (136-145) Potassium Level 4.4 mmol/L (3.5-5.1) Chloride Level 108 mmol/L (98-107) Carbon Dioxide Level 32 mmol/L (21-32) Anion Gap 3 (6-14) Blood Urea Nitrogen 47 mg/dL (7-20) Creatinine 1.3 mg/dL (0.6-1.0) Estimated GFR (Cockcroft-Gault) 39.4 BUN/Creatinine Ratio 36 (6-20) Glucose Level 86 mg/dL (70-99) Calcium Level 8.5 mg/dL (8.5-10.1) Total Bilirubin 0.6 mg/dL (0.2-1.0) Aspartate Amino Transf (AST/SGOT) 25 U/L (15-37) Alanine Aminotransferase (ALT/SGPT) 45 U/L (14-59) Alkaline Phosphatase 77 U/L (46-116) SE-Twl-N-Type Natriuretic Peptide 1334 pg/mL (0-449) Total Protein 5.9 g/dL (6.4-8.2) Albumin 2.5 g/dL (3.4-5.0) Albumin/Globulin Ratio 0.7 (1.0-1.7) Medications Active Scripts Medications Dose Route/Sig Max Daily Dose Days Date Category Metoprolol Succinate ( Xl ) (Metoprolol Succinate) 25 Mg Tab.er.24h 12.5 Mg PO DAILY 30 03/28/21 Rx Vitamin C (Ascorbic Acid) 1,000 Mg Tablet 1,000 Mg PO DAILY 03/24/21 Reported Zinc 50 Mg Tablet 50 Mg PO DAILY 03/24/21 Reported Calcium (Calcium Carbonate) 500 Mg Tablet 600 Mg PO DAILY 30 03/24/21 Reported Furosemide 20 Mg Tablet 1 Tab PO DAILY 11/19/18 Rx [Pantoprazole] 40 MG Tablet.dr 40 Mg PO DAILYAC 30 11/19/18 Rx Budesonide 0.5 Mg/2 Ml Ampul.neb 0.5 Mg NEB RTBID 30 11/19/18 Rx Mucinex Dm Er 600-30 Mg Tablet (Guaifenesin/Dextromethorphan) 1 Each Tab.er.12h 1 Tab PO BID 30 11/19/18 Rx Ambien (Zolpidem Tartrate) 5 Mg Tablet 5 Mg PO PRN QHS PRN 30 11/19/18 Rx Lisinopril 40 Mg Tablet 20 Mg PO DAILY 30 11/19/18 Rx Amlodipine Besylate 5 Mg Tablet 5 Mg PO DAILY 30 11/19/18 Rx Duoneb 0.5-3(2.5) Mg/3 Ml (Albuterol/Ipratropium) 3 Ml Ampul.neb 3 Ml NEB RTQID 30 11/19/18 Rx Proair Hfa Inhaler (Albuterol Sulfate) 8.5 Gm Hfa.aer.ad 1 Puff INH PRN Q6HRS PRN 01/26/18 Reported Impression . IMPRESSION: 1. Acute hypoxemic respiratory failure secondary to COVID-19. Status post remdesivir 2. COVID-19 viral pneumonia. 3. History of atrial fibrillation, now in sinus rhythm. 4. Acute exacerbation of chronic obstructive pulmonary disease. 5. Renal aortic insufficiency. 6. Chronic diastolic heart failure. 7. Hypertension. 8. Chronic kidney disease. 9. Pancytopenia. Plan . Updated 05/20 Rx written for oxygen Follow-up with me in the office in July Discussed with RN and RT Updated 1014 Patient continues to require high oxygen We will check 6-minute walk Getting closer to discharge updated 05/18 Patient requiring more oxygen today Needs 6-minute walk prior to discharge Updated 05/17 Possible discharge after 6-minute walk Follow-up in the office Continue current support PETEY CUEVAS MD May 20, 2021 08:55
[2021-05-20 11:00] VITALS: BP 111/52
--- NOTE | 2021-05-20 12:49 | NUR ---
SW following. Discussed with RN, pt uses [employer] for home oxygen. SW faxed new 6 minute walk and new script to [facility]. Trying to determine if pt needs a tank to go home, or if family have one to bring when they collect her. [facility] will deliver a new concentrator to pt's home to accommodate oxygen over 5L. GIACOMO will continue to follow.
--- NOTE | 2021-05-20 13:44 | SNU/HH DC ---
DISCHARGE WITH HOME HEALTH DISCHARGE INFORMATION: Discharge Date: May 20, 2021 Final Diagnosis: Problems Medical Problems: (1) Pneumonia Status: Acute Condition on Discharge: Stable CODE STATUS: Code Status: Full HOME HEALTH: Face to Face: I certify this patient is under my care and that I, or a nurse practitioner or physician's medical billing assistant working with me, had a face to face encounter that meets the physician face to face encounter requirements with this patient on 05/20/2021. Medical Complications: CHF, COPD, HTN Alf For: Assess & Educate Safety, Medication Management RN For Eval/Treatment: Yes Physical Therapy For: Evalulation/Treatment Occupational Therapy For: Evaluation/Treatment Pt Meets Homebound Status: Fatigue w/ amb., Limited distance walking POST DISCHARGE ORDERS: Activity Instructions for Disc: Activity as tolerated Weight Bearing Status after Di: Full weight bearing DIET AFTER DISCHARGE: Cardiac Wound/Incision Care: No wound care needed CHECKS AFTER DISCHARGE: Checks after discharge: Check blood press - daily, Weigh Yourself Daily FOLLOW-UP: Additional Instructions: Geneva Salazar, and Erum [id number] [facility], [facility] [address] [place] [address] TREATMENT/EQUIPMENT ORDERS: Adaptive Equipment Issued: None Discharge Respiratory Equipmen: Oxygen (6L), Nebulizer, MDI CERTIFICATION STATEMENT: Certification Statement: Certification Statement: Based on the above finding, I certify that this patient is confined to the home and needs intermittent intermediate care, physical therapy and/or speech therapy, or continues to need occupational therapy.~ This patient is under my care, and I have initiated the establishment of the plan of care.~ This patient will be followed by myself or a community physician who will periodically review the plan of care. Home Meds Active Scripts Metoprolol Succinate (METOPROLOL SUCCINATE ( XL )) 25 Mg Tab.er.24h, 12.5 MG PO DAILY for . for 30 Days, #15 TAB.SR Prov:CATRACHO DUMAS III DO 03/28/21 Furosemide (FUROSEMIDE) 20 Mg Tablet, 1 TAB PO DAILY for water pill, #30 TAB 5 Refills Prov:Lesli GONSALVES MD 11/19/18 [Pantoprazole] 40 MG TABLET.DR Piña Conflict Check, 40 MG PO DAILYAC for ulcer prevention for 30 Days Prov:Lesli GONSALVES MD 4/16/19 Budesonide (BUDESONIDE) 0.5 Mg/2 Ml Ampul.neb, 0.5 MG NEB RTBID for copd for 30 Days, EACH Prov:Lesli GONSALVES MD 11/19/18 Guaifenesin/Dextromethorphan (MUCINEX DM ER 600-30 MG TABLET) 1 Each Tab.er.12h, 1 TAB PO BID for mucous in lungs for 30 Days, #60 TAB.SR Prov:Lesli GONSALVES MD 11/19/18 Ipratropium/Albuterol Sulfate (DUONEB 0.5-3(2.5) MG/3 ML) 3 Ml Ampul.neb, 3 ML NEB RTQID for lungs for 30 Days, #120 EACH Prov:Lesli GONSALVES MD 11/19/18 Reported Medications Ascorbic Acid (VITAMIN C) 1,000 Mg Tablet, 1000 MG PO DAILY for immune health , TAB 03/24/21 Zinc (ZINC) 50 Mg Tablet, 50 MG PO DAILY for multi, TAB 03/24/21 Calcium Carbonate (CALCIUM) 500 Mg Tablet, 600 MG PO DAILY for low calcium for 30 Days, #36 TAB 0 Refills 03/24/21 Albuterol Sulfate (PROAIR HFA INHALER) 8.5 Gm Hfa.aer.ad, 1 PUFF INH PRN Q6HRS PRN for SHORTNESS OF BREATH, INHALER 0 Refills 01/26/18 Discontinued Scripts Zolpidem Tartrate (AMBIEN) 5 Mg Tablet, 5 MG PO PRN QHS PRN for INSOMNIA, MAY REPEAT IN 1HR for 30 Days, TAB Prov:Lesli GONSALVES MD 11/19/18 Lisinopril (LISINOPRIL) 40 Mg Tablet, 20 MG PO DAILY for heart for 30 Days, #15 TAB Prov:Lesli GONSALVES MD 11/19/18 Amlodipine Besylate (AMLODIPINE BESYLATE) 5 Mg Tablet, 5 MG PO DAILY for bp for 30 Days, #30 TAB Prov:Lesli GONSALVES MD 11/19/18 DAVID RUBI MD May 20, 2021 13:44
--- NOTE | 2021-05-20 13:48 | PDOC3 ---
Discharge Summary Visit Information Date of Admission: May 07, 2021 Date of Discharge: May 20, 2021 Admitting Diagnosis: COVID 19 pneumonia Final Diagnosis Problems Medical Problems: (1) Pneumonia Status: Acute Brief Hospital Course Allergies Allergies Coded Allergies Type Severity Reaction Last Updated Verified No Known Drug Allergies 03/22/21 No Vital Signs Vital Signs Date Time Temp Pulse Resp B/P (MAP) Pulse Ox O2 Delivery O2 Flow Rate FiO2 05/20/21 11:00 97.1 65 18 111/52 (71) 94 Nasal Cannula 4.0 97.1 Lab Results Laboratory Tests Test 05/19/21 07:50 White Blood Count 14.2 x10^3/uL (4.0-11.0) Red Blood Count 4.16 x10^6/uL (3.50-5.40) Hemoglobin 12.2 g/dL (12.0-15.5) Hematocrit 37.0 % (36.0-47.0) Mean Corpuscular Volume 89 fL (79-100) Mean Corpuscular Hemoglobin 29 pg (25-35) Mean Corpuscular Hemoglobin Concent 33 g/dL (31-37) Red Cell Distribution Width 15.7 % (11.5-14.5) Platelet Count 210 x10^3/uL (140-400) Neutrophils (%) (Auto) 80 % (31-73) Lymphocytes (%) (Auto) 13 % (24-48) Monocytes (%) (Auto) 6 % (0-9) Eosinophils (%) (Auto) 0 % (0-3) Basophils (%) (Auto) 0 % (0-3) Neutrophils # (Auto) 11.4 x10^3/uL (1.8-7.7) Lymphocytes # (Auto) 1.9 x10^3/uL (1.0-4.8) Monocytes # (Auto) 0.9 x10^3/uL (0.0-1.1) Eosinophils # (Auto) 0.0 x10^3/uL (0.0-0.7) Basophils # (Auto) 0.0 x10^3/uL (0.0-0.2) Segmented Neutrophils % 66 % (35-66) Lymphocytes % 32 % (24-48) Monocytes % 2 % (0-10) Platelet Estimate Adequate (ADEQUATE) Sodium Level 143 mmol/L (136-145) Potassium Level 4.4 mmol/L (3.5-5.1) Chloride Level 108 mmol/L (98-107) Carbon Dioxide Level 32 mmol/L (21-32) Anion Gap 3 (6-14) Blood Urea Nitrogen 47 mg/dL (7-20) Creatinine 1.3 mg/dL (0.6-1.0) Estimated GFR (Cockcroft-Gault) 39.4 BUN/Creatinine Ratio 36 (6-20) Glucose Level 86 mg/dL (70-99) Calcium Level 8.5 mg/dL (8.5-10.1) Total Bilirubin 0.6 mg/dL (0.2-1.0) Aspartate Amino Transf (AST/SGOT) 25 U/L (15-37) Alanine Aminotransferase (ALT/SGPT) 45 U/L (14-59) Alkaline Phosphatase 77 U/L (46-116) FQ-Rxs-B-Type Natriuretic Peptide 1334 pg/mL (0-449) Total Protein 5.9 g/dL (6.4-8.2) Albumin 2.5 g/dL (3.4-5.0) Albumin/Globulin Ratio 0.7 (1.0-1.7) Brief Hospital Course Ms Caal is an 80-year-old female w/ PMHx COPD, ILD, chronic diastolic CHF presents to the emergency department complaining of shortness of breath and diarrhea for the last 3 days that has been gradually progressive. She has fever, cough, and body aches. She reports feeling fatigued when she walks short distances, and at rest. She has an abrasion on her right lateral leg that is healing well. 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 She has been vaccinated for COVID-19 in December 2020 x2 doses. Denies any history of blood clots in the past. The patient denies nausea, vomiting, fever, chills, chest pain, abdominal pain, urinary symptoms, cough, recent trauma, or any other complaints. Chest radiograph with bilateral infiltrates. Required 4 L of oxygen initially, wears 2 liters at home. Started empirically on levaquin and cefepime in ED WBC 3.9, Hb 11.8, platelets 114, NA 138, K4.3, BUN 40, CR 2.2, calcium 7.8 ionized calcium 1.1, magnesium 2, bilirubin 0.4, AST 114, ALT 36, troponin 0.080, NT proBNP 5172, albumin 3.1, rapid COVID-19 positive, D-dimer 1.28 Chest radiograph with multifocal opacities increased from prior. Underlying fibrotic changes bilaterally worse in the left lung base EKG appears NSR Admitted for further care. 05/09: Afebrile. Creatinine improved to 1.8. CRP less than 50. Nursing noted some desaturations with ambulation to toilet required facemask O2 to bring saturations back up from 78% to 96%. Otherwise she has been stable overnight primarily lately on 4 L nasal cannula. She is comfortable notes her diarrhea has improved. Has a good appetite. Tolerated remdesivir and Decadron well. D/w daughter, Arelis, over the phone. 05/10: Still remains pretty altered. Continue COVID treatment. Still on re mdesivir. Pulmonology consulted 05/11: 15 L nonrebreather no success at weaning. Still on antibiotics, steroids and remdesivir. Continuing Covid treatment. Otherwise no major changes. Guarded prognosis. 05/12: Still remains on 15 L nonrebreather. Does think she feels a little bit improved today. Continue treatment for Covid with antibiotics and steroids. 05/13: Very pleasant today was still on 15 L nonrebreather but was able to remove it to converse with me. Continuing Covid treatment antibiotics and steroids. 05/14: 15L/min non-rebreather 05/15: No acute events overnight. Seen and examined bedside. Currently on 12 LNC saturating 97%. No dyspnea upon my visual examination. 05/16: Afebrile. No overnight events. Requiring 10 L/min nasal cannula O2 to m aintain saturations 91%. She is feeling improved but significant dyspnea on exertion with movement but she is able to get up to the bathroom with assistance. No chest pain. 05/17: Afebrile. No overnight events. Oxygen down to 8 L/min with O2 saturations 90%. She thinks she feels improved but still with significant dyspnea on exertion. Fatigued after movement. Denies chest pain. 05/18: Afebrile. On 10 L/min O2 saturations 96% but significant desaturation with minimal movement. She feels about the same not more short of air. She is feeling weak. 05/19: Afebrile. Still requiring 10 L/min O2 saturation is 93%. She feels okay otherwise. Significant desaturations with movement. Afebrile. During 6-minute walk yesterday she had to stop at 4 minutes once able to maintain saturations 91% with up to 6 L on exertion. Feeling ok. NT-pro-BNP decreased. D/w pulmonology to increase home O2 and f/u outpatient. Home health on d/c. Consults: Pulmonology Problem list: COVID 19 - diarrhea and respiratory symptoms. Breakthrough case, has been vaccinated. Given steroids, s/p remdesivir given early identification but increased O2. Not a tocilizumab candidate Acute on chronic resp failure - with COVID 19 complicated by AECOPD H/o atrial fibrillation - converted to NSR previously Acute bronchitis - COPD exacerbation related as well as COVID 19 Pulmonary hypertension Moderate aortic insufficiency Chronic diastolic HF - prior echo 2018 with mild LV dysfunction with EF 45-50%, had echo at [facility] Hypertension; controlled ANGELINA on CKD - normal renal function in 2018, but november 2020 worsened. Improved since admission. likely vasomotor nephropathy from COVID 19 Pancytopenia - anemia related to CKD, leukopenia due to viral illness, will monitor platelets Hypocalcemia - chronic, will replace Greater than 30 minutes spent on d/c home with home health Discharge Information Condition at Discharge: Improved Follow Up: Weeks (1) Disposition/Orders: D/C to Home w/ HH Scheduled Ascorbic Acid (Vitamin C) 1,000 Mg Tablet, 1,000 MG PO DAILY for immune health , (Reported) Entered as Reported by: SHANTE SCHULTZ on 03/24/2122 Budesonide (Budesonide) 0.5 Mg/2 Ml Ampul.neb, 0.5 MG NEB RTBID for copd for 30 Days Prescribed by: FLOR GONSALVES MD on 11/19/18 1232 Calcium Carbonate (Calcium) 500 Mg Tablet, 600 MG PO DAILY for low calcium for 30 Days, #36 Ref 0 (Reported) Entered as Reported by: SHANTE SCHULTZ on 03/24/2122 Last Action: Continued on 05/07/21 1334 by DAVID RUBI MD Furosemide (Furosemide) 20 Mg Tablet, 1 TAB PO DAILY for water pill, #30 Ref 5 Prescribed by: FLOR GONSALVES MD on 11/19/18 1232 Last Action: Continued on 05/07/211333 by DAVID RUBI MD Guaifenesin/Dextromethorphan (Mucinex Dm Er 600-30 Mg Tablet) 1 Each Tab.er.12h, 1 TAB PO BID for mucous in lungs for 30 Days, #60 Prescribed by: FLOR GONSALVES MD on 11/19/18 1232 Ipratropium/Albuterol Sulfate (Duoneb 0.5-3(2.5) Mg/3 Ml) 3 Ml Ampul.neb, 3 ML NEB RTQID for lungs for 30 Days, #120 Prescribed by: FLOR GONSALVES MD on 11/19/18 1232 Metoprolol Succinate (Metoprolol Succinate ( Xl )) 25 Mg Tab.er.24h, 12.5 MG PO DAILY for . for 30 Days, #15 Prescribed by: CATRACHO DUMAS on 03/28/21 1214 Last Action: Continued on 05/07/211333 by DAVID RUBI MD Zinc (Zinc) 50 Mg Tablet, 50 MG PO DAILY for multi, (Reported) Entered as Reported by: SHANTE SCHULTZ on 03/24/21 0023 [Pantoprazole] 40 MG TABLET.DR, 40 MG PO DAILYAC for ulcer prevention for 30 Days Prescribed by: FLOR GONSALVES MD on 11/19/18 1232 Last Action: Converted on 05/07/211333 by DAVID RUBI MD Scheduled PRN Albuterol Sulfate (Proair Hfa Inhaler) 8.5 Gm Hfa.aer.ad, 1 PUFF INH PRN Q6HRS PRN for SHORTNESS OF BREATH, Ref 0 (Reported) Entered as Reported by: KAIA YU RN on 01/26/18 1846 Discontinued Medications Amlodipine Besylate (Amlodipine Besylate) 5 Mg Tablet, 5 MG PO DAILY for bp for 30 Days, #30 Prescribed by: FLOR GONSALVES MD on 11/19/18 1232 Lisinopril (Lisinopril) 40 Mg Tablet, 20 MG PO DAILY for heart for 30 Days, #15 Prescribed by: FLOR GONSALVES MD on 11/19/18 1232 Zolpidem Tartrate (Ambien) 5 Mg Tablet, 5 MG PO PRN QHS PRN for INSOMNIA, MAY REPEAT IN 1HR for 30 Days Prescribed by: FLOR GONSALVES MD on 11/19/18 1232 Justicifation of Admission Dx: Justifications for Admission: Justification of Admission Dx: Yes DAVID RUBI MD May 20, 2021 13:48
--- NOTE | 2021-05-20 15:48 | NUR ---
Discharge Note: Patient was discharged home with home lars services and on home oxygen. Patients IV was discontinued per RN without any complications. Patient was given discharge summary/instructions, follow-ups, and educational material. Patient did not have any further questions or concerns. Patient was also given a new home oxygen tank and was made aware to call oxygen company when she arrived at home. Patient stated she understood. Patient was taken down to the main entrance via wheelchair with all personal belongings, accompanied by RUEL Pastor, where her daughter was waiting for her to take her home.
== END 2021-05-20 15:54 | disposition home health service (06) | DRG 177 ==
LOC: ER 10:26 → 5 SOUTH 12:10 → 5 NORTH 05-13 16:51
PROVIDERS: ADMIT Internal Medicine; ATTEND Internal Medicine
PROC: XW033E5 Introduction of Remdesivir Anti-infective into Peripheral Vein, Percutaneous Approach, New Technology Group 5 (ICD-10-PCS; principal; 2021-05-07)
DX: U07.1 COVID-19 (principal); J96.21 Acute and chronic respiratory failure with hypoxia; J12.82 Pneumonia due to coronavirus disease 2019; N17.0 Acute kidney failure with tubular necrosis; D61.818 Other pancytopenia; I13.0 Hypertensive heart and chronic kidney disease with heart failure and stage 1 through stage 4 chronic kidney disease, or unspecified chronic kidney disease; I50.32 Chronic diastolic (congestive) heart failure; J44.0 Chronic obstructive pulmonary disease with (acute) lower respiratory infection; J44.1 Chronic obstructive pulmonary disease with (acute) exacerbation; D63.1 Anemia in chronic kidney disease; E83.51 Hypocalcemia; I27.20 Pulmonary hypertension, unspecified; I35.1 Nonrheumatic aortic (valve) insufficiency; I48.91 Unspecified atrial fibrillation; K52.9 Noninfective gastroenteritis and colitis, unspecified; N18.9 Chronic kidney disease, unspecified; Z82.49 Family history of ischemic heart disease and other diseases of the circulatory system; Z87.891 Personal history of nicotine dependence; Z90.710 Acquired absence of both cervix and uterus; Z90.49 Acquired absence of other specified parts of digestive tract; J20.9 Acute bronchitis, unspecified
CPT/HCPCS: 36415; 71045; 80053; 82803; 83735; 83880; 84484; 85007; 85025; 85379; 86140; 87040; 87426; 90471; 90686; 93005; 94618; 96366; 96367; 96375; J0692; J1100; J1644; J1956; J2930; J3411; J7050; J7060; 97116-GP; 97530-GO; 99285-25; G0378; J7030

== ENCOUNTER → 2021-08-19 | Outpatient (CLI) | payer MEDICARE ==
--- NOTE | 2021-08-19 11:38 | RAD ---
EXAM: Chest CT without intravenous contrast. HISTORY: Pulmonary nodule. TECHNIQUE: Computed tomographic images of the chest were obtained without contrast. Multiplanar refor matting was performed. *One or more of the following individualized dose reduction techniques were utilized for this examina tion: 1. Automated exposure control. 2. Adjustment of the mA and/or kV according to patient size. 3. Use of iterative reconstruction technique. COMPARISON: 03/25/2021, 02/22/2021. FINDINGS: The heart is normal in size. The aorta is normal in caliber. There is calcified atheroscler otic plaque involving the aorta and coronary arteries. There is calcification of the aortic valve. Th ere are prominent mediastinal and hilar lymph nodes. For reference purposes, there is a left paratrac heal lymph node measuring 1.6 cm. There is moderate to severe emphysema. There is focal pleural thickening and architectural distortion within the posterior lateral right lung apex measuring approximately 4.5 cm in maximum dimension. Th ere is posterior dependent and basilar atelectasis. There is a 6 mm nodule within the left lower lobe (series 3, image 196). There is hepatomegaly. The spleen is upper normal in size. There are multiple left renal cysts, the l argest of which measures 6.3 cm on the [id number]. Follow-up is not routinely performed for simple cysts. There is degenerative change throughout the thoracic spine. There is no acute or suspicious o sseous lesion. IMPRESSION: 1. Slight progressive increase in focal pleural thickening adjacent architectural distortion within t he right lung apex. This may be due to progressive pleural parenchymal scarring or underlying neoplas m. Given the interval change, PET/CT may be useful for characterization. 2. Stable 6 mm nodule within the left lower lobe. Continued attention at the time of follow-up is rec ommended. 3. Emphysema with superimposed chronic interstitial changes and atelectasis. There is no consolidated infiltrate. 4. Prominent mediastinal and hilar lymph nodes. These are slightly more conspicuous compared to the p rior studies, the largest of which is a left paratracheal lymph node. Attention at the time of follow -up or PET/CT is recommended. 5. Multiple simple left renal cyst. Electronically signed by: Beulah Gold MD (08/19/2021 11:36 AM) [id number]
== END ==
LOC: CT 10:19
PROVIDERS: ATTEND Internal Medicine Pulmonary Disease
DX: R91.1 Solitary pulmonary nodule (principal); R16.0 Hepatomegaly, not elsewhere classified; N28.1 Cyst of kidney, acquired; I70.0 Atherosclerosis of aorta; I25.10 Atherosclerotic heart disease of native coronary artery without angina pectoris; R59.0 Localized enlarged lymph nodes; J98.11 Atelectasis; M47.814 Spondylosis without myelopathy or radiculopathy, thoracic region
CPT/HCPCS: 71250

== ENCOUNTER → 2021-09-16 | Outpatient (CLI) | payer MEDICARE ==
--- NOTE | 2021-09-16 13:19 | RAD ---
EXAM: PET/CT skull base to thigh. HISTORY: Pulmonary nodule. TECHNIQUE: CT of the body from the skull base to the thighs was performed for the purposes of attenua tion correction. 13 mCi F-18 fluorodeoxyglucose were administered intravenously. Blood glucose level at the time of administration was 88 mg/dL. After 45 minutes uptake, positron emission tomography of the body was performed. The PET and CT data were fused and interpreted in combination on a dedicated workstation. Reported standard uptake values (SUV) are the maximum SUV within a lesional volumetric r egion of interest. SUV normalization is via body mass. COMPARISON: CT dated 08/09/2021. FINDINGS: Mediastinal blood pool SUV reference value: 4.2. There is mild increased radiotracer activity within maximum SUV of 3.6 associated with masslike right apical opacity with adjacent pleural thickening and architectural distortion. There is nonspecific s ymmetric radiotracer activity within hilar lymph nodes with maximum SUVs of approximately 3.1-3.7. There is intense radiotracer activity within SUV of 30.3 within the cecum. There is an additional foc us of increased tracer activity within SUV of 7.0 within the upper to mid ascending colon. There is a symmetric muscular activity and bowel activity. The CT portion of the exam demonstrates masslike right apical opacity with adjacent pleural thickenin g and architectural distortion superimposed on severe apical predominant emphysema. There is no pneum othorax. There is no pleural effusion. There is bilateral lower lobe and posterior dependent atelecta sis. There are chronic interstitial changes. There are few calcified granulomas. The recently demonst rated 6 mm left lower lobe pulmonary nodule is not well seen due to significant respiratory motion. The heart is normal in size. There is coronary artery calcification. There are prominent mediastinal and hilar lymph nodes. For reference purposes, there is a left paratracheal lymph node measuring 1.6 cm. There are prominent central pulmonary vessels likely due to chronic pulmonary artery hypertension . There is no suspicious hepatic lesion. The gallbladder, pancreas and adrenal glands are unremarkabl e. The spleen is normal in size. There is a 6.0 cm simple cyst within the left kidney. There is colon ic diverticulosis. The uterus is absent. The bladder is unremarkable. There are surgical clips within the retroperitoneum. There is aortobiiliac atherosclerosis. There is no acute or suspicious osseous finding. IMPRESSION: 1. Mild radiotracer activity within maximum SUV of 3.6 associated with masslike right apical opacity with adjacent pleural thickening and architectural distortion. This degree of activity favors an infl ammatory etiology. Low-grade neoplasm is not completely excluded. 2. Nonspecific mediastinal and hilar lymph nodes with mild increased radiotracer activity above the b lood pool, described above. 3. Focal intense radiotracer activity within the cecum within SUV of 30.3. There is a similar smaller focus of radiotracer activity within SUV of 7.0 within the mid to distal ascending colon. There is n o convincing CT correlate for these findings. This is greater than expected for background bowel acti vity the possibly related to inflammation the setting of colonic diverticula. Correlate with colonosc opy findings to exclude underlying neoplasm. 4. Note is made that a 6 mm pulmonary nodule within the left lower lobe is too small to characterize with PET/CT. This remains indeterminant. 5. Emphysema. 6. Please refer to the above report for additional findings regarding the non-PET portion of the exam . Electronically signed by: Beulah Gold MD (09/16/2021 1:17 PM) [id number]
== END ==
LOC: PETSC 10:28
PROVIDERS: ATTEND Internal Medicine Pulmonary Disease
DX: R91.1 Solitary pulmonary nodule (principal); K57.30 Diverticulosis of large intestine without perforation or abscess without bleeding; J43.9 Emphysema, unspecified; J92.9 Pleural plaque without asbestos; N28.1 Cyst of kidney, acquired; Z90.710 Acquired absence of both cervix and uterus
CPT/HCPCS: 78815; A9552